=== PATIENT | male | born 1945 | race Asian ===

== ENCOUNTER → 2016-05-05 | Outpatient (CLI) | payer OTHER | LOC: FIMAGING 14:54 | PROVIDERS: ATTEND Orthopaedic Surgery | DX: Z01.818 Encounter for other preprocedural examination (principal); M16.0 Bilateral primary osteoarthritis of hip ==

== ENCOUNTER 2016-05-29 07:33 | Inpatient (IN) | payer OTHER ==
[2016-05-05 15:48] LABS: ADD DIFF? YES; ADD MORPH? NO; ATYPICAL LYMPHOCYTE FLAG 60 (0-99); FRAGMENT RBC FLAG 0 (0-99); HEMATOCRIT 40.6 % (40.0-51.0); HEMOGLOBIN 13.1 g/dL (13.7-17.5); LIPEMIA HEMOLYSIS FLAG 80 (0-99); MEAN CELL HEMOGLOBIN 29.2 pg (27.9-34.1); MEAN CELL HEMOGLOBIN CONCENTR. 32.3 g/dL (32.4-36.7); MEAN CELL VOLUME 90.4 fL (81.5-99.8); MEAN PLATELET VOLUME 10.1 fL (8.7-11.7); PLATELET CLUMPS FLAG 0 (0-99); PLATELET COUNT 171 10^3/uL (150-400); RED BLOOD CELL COUNT 4.49 10^6/uL (4.40-6.38); RED CELL DISTRIBUTION WIDTH 14.6 % (11.5-15.2)
[2016-05-05 15:51] LABS: ADD SCAN? NO; LEFT SHIFT FLG 140 (0-99)
[2016-05-05 16:15] LABS: PLATELET ESTIMATE ADEQUATE (ADEQ)
[2016-05-05 16:18] LABS: MICROCYTES 1+
[2016-05-05 16:22] LABS: GIANT PLATELETS PRESENT
[~2016-05-29 07:33] MED LIST: ACETAMINOPHEN 325 MG TAB PO ONE; BISACODYL 10 MG SUPP PR PRN; CEFAZOLIN 2 GM/DEXTR 100 ML IV ONE; CHLORHEXIDINE GLUC HIBICLENS 118 ML BTL TP ONE; CYCLOBENZAPRINE 10 MG TAB PO PRN; DIAZEPAM 5 MG TAB PO PRN; DIPHENOXYLATE/ATROPINE LOMOTIL 1 TAB PO PRN; FAMOTIDINE 20 MG TAB PO ONE; LACTULOSE 20 GM/30 ML UDCUP PO PRN; LR 1,000 ML IV SCH; MAGNESIUM HYDROXIDE 30 ML UDCUP PO PRN; METOCLOPRAMIDE 10 MG/2 ML VIAL IVP PRN; ONDANSETRON 4 MG/2 ML VIAL IVP PRN; ONDANSETRON DISINTEGRATING 4 MG TAB PO PRN; PHARMACY PAIN CONSULT 1 EA MISC PRN; POLYETHYLENE GLYCOL 3350 17 GM PKT PO PRN; PROMETHAZINE HCL 25 MG SUPPR PR PRN; ROPI/epiNEPH/KETOROLAC/morphINE JOINT COCKTAIL IU ONE; diphenhydrAMINE 25 MG CAP PO PRN
[2016-05-29] MEDS ORDERED: LIDOCAINE 1% 2 ML INJ ONE (08:02)
[2016-05-29] MEDS ORDERED: PROPOFOL/EMULSION 500 MG/50 ML BOTTLE IV ONE (08:59)
[2016-05-29] MEDS ORDERED: fentaNYL 100 MCG/2 ML INJ ONE (08:59)
[2016-05-29] MEDS ORDERED: FAMOTIDINE 20 MG TAB ONE (09:10)
[2016-05-29] MEDS ORDERED: ACETAMINOPHEN 325 MG TAB ONE (09:10)
[2016-05-29] MEDS ORDERED: ceFAZolin 1 GM/5 ML SYR ONE (09:45)
[2016-05-29] MEDS ORDERED: CITRATE DEXTROSE SOLN 500 ML BAG ONE (09:45)
[2016-05-29] MEDS ORDERED: MIDAZOLAM 2 MG/2 ML VIAL ONE (10:33)
[2016-05-29] MEDS ORDERED: LR 1,000 ML IV ONE (10:39)
[2016-05-29] MEDS ORDERED: LIDOCAINE 1% 5 ML SDV ID PRN (10:39)
[2016-05-29] MEDS ORDERED: DEXAMETHASONE 4 MG/ML VIAL ONE (10:46)
[2016-05-29] MEDS ORDERED: LIDOCAINE 2% 5 ML SDV ONE (10:46)
[2016-05-29] MEDS ORDERED: PHENYLEPHRINE HCL 100 MCG/ML SYR ONE (11:47)
[2016-05-29] MEDS ORDERED: ceFAZolin 2 GM/DEXTROSE 100 ML IV SCH (14:00)
[2016-05-29] MEDS: ACETAMINOPHEN 325 MG TAB PO SCH ×3 (14:09→23:41)
[2016-05-29] MEDS: NIACIN 500 MG TAB PO SCH (14:11)
[2016-05-29] MEDS: OMEGA-3 FATTY ACIDS 1,000 MG CAP PO SCH (14:12)
[2016-05-29] MEDS: SENNOSIDES/DOCUSATE SODIUM TAB PO SCH ×2 (14:13→22:23)
--- NOTE | 2016-05-29 15:20 | CPEKG ---
Heart Rate: 65 RR Interval: 923 P-R Interval: 148 QRSD Interval: 92 QT Interval: 464 QTC Interval: 483 P [place]: 71 QRS [place]: 89 T Wave [place]: 84 EKG Severity - BORDERLINE ECG - EKG Impression: SINUS RHYTHM EKG Impression: BORDERLINE RIGHT AXIS DEVIATION EKG Impression: BORDERLINE PROLONGED QT INTERVAL Electronically Signed By: Ayush Medellin 30-May-2016 12:44:32
[2016-05-29 15:46] LABS: HEMATOCRIT 35.2 % (40.0-51.0)
[2016-05-29 16:00] LABS: ALANINE AMINOTRANSFERASE 30 IU/L (21-72); ALBUMIN 3.5 g/dL (3.5-5.0); ALKALINE PHOSPHATASE 32 IU/L (38-126); ANION GAP 8 mEq/L (8-16); ASPARTATE AMINOTRANSFERASE 26 IU/L (17-59); BILIRUBIN,TOTAL 0.5 mg/dL (0.1-1.4); CALCIUM 8.2 mg/dL (8.5-10.4); CARBON DIOXIDE 24 mEq/l (22-31); CHLORIDE 107 mEq/L (97-110); CREATININE 0.8 mg/dL (0.7-1.3); GLOMERULAR FILTRATION RATE > 60; GLUCOSE 143 mg/dL (70-100); POTASSIUM 4.6 mEq/L (3.5-5.2); SODIUM 139 mEq/L (134-144)
[2016-05-29 16:11] LABS: TROPONIN I < 0.012 ng/mL (0-0.034)
[2016-05-29] MEDS: ceFAZolin 2 GM/DEXTROSE 100 ML IV SCH (17:22)
--- NOTE | 2016-05-29 17:58 | CPEKG ---
Heart Rate: 73 RR Interval: 822 P-R Interval: 156 QRSD Interval: 90 QT Interval: 456 QTC Interval: 503 P [place]: 75 QRS [place]: 87 T Wave [place]: 73 EKG Severity - ABNORMAL ECG - EKG Impression: SINUS RHYTHM EKG Impression: BORDERLINE RIGHT AXIS DEVIATION EKG Impression: PROLONGED QT INTERVAL Electronically Signed By: Ayush Medellin 30-May-2016 12:44:39
--- NOTE | 2016-05-29 18:00 | HOSPPROG ---
Hospitalist Progress Note Assessment/Plan: CRITICAL CARE NOTE / ICU TRANSFER Total bedside time by me today during 3 critical Care visits greater than 75 minutes so far Callled to see pt for recurrence of hypotesion and bradycardia Pt seen earlier for stat team call for same issues Here after TKA At this time he has 855 ml blood in orthopat since he came to [address] [place] [address] after PACU Blood loss in OR was > 300 cc, and in PACU > 300 He has now another episode of Pulse in low 40s with BP 47/32 checked both arms He does no mention an ache in low anterior Left chest area, not pleuritic Not sob, no nausea no abdominal pain no fever sxs exam: awake talking oriented relaxed resps easy skin cool dry pale lungs clear heart regular abd soft nontender nondistended legs no edema blood in orthopat Chest x-ray done just now my review of the images and interpretation: No infiltrates or effusions widening of mediastinum abnormality of cardiac silhouette heart failure infiltrates or other abnormalities. No pneumothorax 12 lead EKG done just now, my review of 12 lead EKG tracing: Sinus rhythm with no ischemic or conduction abnormalities or any other particularly concerning changes. We did just do a bladder scan now showing only 79 cc of urine despite him receiving around 3 0.5 L of fluid total since leaving the operating room. Impression: Recurrent profound hypotension of uncertain etiology, but I strongly suggest this is hypovolemia associated with anesthesia FX. I could not at this moment rule out a PE and waiting for repeat troponin but is EKGs normally does not have heart failure or arrhythmia. Ent differential diagnosis could include aneurysm. His aorta looks normal on chest x-ray. Treatment in plans: So far we continued to give fluid boluses in use Trendelenburg and he is responding well to these. I have pending CBC troponin and met panels at this time. I will consider possibly a CT chest. Will continue to use fluid boluses for this time. I am transferring him to ICU at this time Objective: Vital Signs Temp Pulse Resp BP Pulse Ox 35.8 C L 78 16 111/76 100 05/29/16 15:45 05/29/16 15:45 05/29/16 14:36 05/29/16 14:36 05/29/16 15:45 Laboratory Results 05/29/16 15:18 05/29/16 15:18 05/28/16 05/29/16 05/30/16 06:59 06:59 06:59 Intake Total 1400 Output Total 320 Balance 1080 ICD10 Worksheet Patient Problems: Problems Problem Status Onset Arthritis, hip Acute
[2016-05-29 18:09] LABS: ADD DIFF? YES; ADD MORPH? NO; ATYPICAL LYMPHOCYTE FLAG 10 (0-99); FRAGMENT RBC FLAG 0 (0-99); HEMATOCRIT 27.3 % (40.0-51.0); HEMOGLOBIN 8.5 g/dL (13.7-17.5); LIPEMIA HEMOLYSIS FLAG 80 (0-99); MEAN CELL HEMOGLOBIN 28.4 pg (27.9-34.1); MEAN CELL HEMOGLOBIN CONCENTR. 31.1 g/dL (32.4-36.7); MEAN CELL VOLUME 91.3 fL (81.5-99.8); MEAN PLATELET VOLUME 9.8 fL (8.7-11.7); PLATELET CLUMPS FLAG 10 (0-99); PLATELET COUNT 144 10^3/uL (150-400); RED BLOOD CELL COUNT 2.99 10^6/uL (4.40-6.38); RED CELL DISTRIBUTION WIDTH 15.1 % (11.5-15.2)
[2016-05-29 18:14] LABS: ADD SCAN? NO; LEFT SHIFT FLG 120 (0-99)
[2016-05-29 18:29] LABS: TROPONIN I < 0.012 ng/mL (0-0.034)
[2016-05-29 18:46] LABS: ANION GAP 9 mEq/L (8-16); CALCIUM 6.9 mg/dL (8.5-10.4); CARBON DIOXIDE 20 mEq/l (22-31); CHLORIDE 101 mEq/L (97-110); CREATININE 0.7 mg/dL (0.7-1.3); GLOMERULAR FILTRATION RATE > 60; GLUCOSE 454 mg/dL (70-100); POTASSIUM 3.9 mEq/L (3.5-5.2); SODIUM 130 mEq/L (134-144)
[2016-05-29 19:07] LABS: PLATELET ESTIMATE DECREASED (ADEQ)
[2016-05-29] MEDS ORDERED: NS BOLUS 500 ML (Wide open) IV PRN (19:23)
[2016-05-29] MEDS: ROSUVASTATIN CALCIUM 10 MG TAB PO SCH (19:26)
[2016-05-29 20:38] LABS: ABSOLUTE NRBC COUNT 0.03 10^3/uL (0-0.01); ADD DIFF? YES; ADD MORPH? NO; ATYPICAL LYMPHOCYTE FLAG 10 (0-99); FRAGMENT RBC FLAG 0 (0-99); HEMATOCRIT 28.5 % (40.0-51.0); HEMOGLOBIN 8.9 g/dL (13.7-17.5); LIPEMIA HEMOLYSIS FLAG 80 (0-99); MEAN CELL HEMOGLOBIN 29.1 pg (27.9-34.1); MEAN CELL HEMOGLOBIN CONCENTR. 31.2 g/dL (32.4-36.7); MEAN CELL VOLUME 93.1 fL (81.5-99.8); MEAN PLATELET VOLUME 10.4 fL (8.7-11.7); NRBC-AUTO% 0.1 % (0.0-0.2); PLATELET CLUMPS FLAG 0 (0-99); PLATELET COUNT 135 10^3/uL (150-400); RED BLOOD CELL COUNT 3.06 10^6/uL (4.40-6.38); RED CELL DISTRIBUTION WIDTH 15.1 % (11.5-15.2)
[2016-05-29 20:43] LABS: ANION GAP 7 mEq/L (8-16); CALCIUM 6.9 mg/dL (8.5-10.4); CARBON DIOXIDE 19 mEq/l (22-31); CHLORIDE 112 mEq/L (97-110); CREATININE 0.7 mg/dL (0.7-1.3); GLOMERULAR FILTRATION RATE > 60; GLUCOSE 138 mg/dL (70-100); SODIUM 138 mEq/L (134-144)
[2016-05-29 20:50] LABS: ADD SCAN? NO; LEFT SHIFT FLG 110 (0-99)
[2016-05-29] MEDS: FAMOTIDINE 20 MG TAB PO SCH (21:23)
[2016-05-29] MEDS: CHOLECALCIFEROL VIT D3 1,000 UNITS TAB PO SCH (21:23)
[2016-05-29] MEDS: ASPIRIN 325 MG TAB PO SCH (21:23)
[2016-05-29] MEDS: oxyCODONE IR 5 MG TAB PO PRN ×2 (21:23→22:23)
[2016-05-29] MEDS: PENTOXIFYLLINE 400 MG EXT REL TAB PO SCH (21:43)
--- NOTE | 2016-05-29 21:51 | GCON ---
[f rep st] CONSULTATION DATE OF CONSULTATION: 05/29/2016 REFERRING PHYSICIAN: Steve Minaya MD REASON FOR CONSULTATION: Syncope, hypotension. HISTORY OF PRESENT ILLNESS: The patient is a 71-year-old male with a history of hyperlipidemia and granuloma annulare, who underwent elective right JEANETTE today. The patient arrived back to [address] [place] [address] out of the PACU and suddenly lost consciousness per RN. She said it took approximately 30 seconds to awaken him with sternal rub. At time of my arrival, systolic blood pressure was less than 70. Patient was conversant and alert and oriented x3 at that time. He was complaining of mild chest pressure, right-sided. He denied any associated radiation diaphoresis, mild nausea, no sweats. He lost approximately 300 cc of blood in the operating room, and then 500 cc since then. At the time of my arrival, he was getting this blood transfused back per protocol. I was told that patient had nonsustained SVT briefly in the OR. Unclear how long and how fast the heart rate was going. REVIEW OF SYSTEMS: I completed a 10-point review of systems, which was negative , except as noted in the HPI. PAST MEDICAL HISTORY: 1. Hyperlipidemia. 2. Granuloma annulare. PAST SURGICAL HISTORY: Tib-fib fracture repair. ALLERGIES: No known drug allergies. SOCIAL HISTORY: Lives with his in [facility]. Drinks a double martini daily. No tobacco or illicit drugs. Has 3 children. FAMILY HISTORY: Father with stroke x2. Mother of lung cancer. ALLERGIES: Tacrolimus. HOME MEDICATIONS: Tylenol as needed, Revatio 20 mg p.r.n., Crestor 10 mg daily , omega-3 1000 mg daily, naproxen 220 p.o. daily, aspirin 81 mg daily, niacin 500 mg daily, vitamin D3, Trental 800 mg b.i.d. PHYSICAL EXAM: VITAL SIGNS: Temperature 35.7, blood pressure 68/50s, heart rate 60s, respiration 14, 100% on 2 L. GENERAL: Patient is pale, but conversant and alert. HEENT: PERRLA, EOMI. Oropharynx is clear. CV: Regular. No murmurs, gallops, or rubs. LUNGS: Clear to auscultation anteriorly. ABDOMEN: Soft, nontender, nondistended. Positive bowel sounds. : No Miguel. MUSCULOSKELETAL: Drain in place with approximately 550 cc of blood. NEURO: Cranial nerves II through XII intact. PSYCH: Alert and oriented x3. LABS: Most recent H and H was 13 and 40, and this was May 05, 2016. EKG personally reviewed by me: Normal sinus rhythm, no ST elevation or depression. ASSESSMENT AND PLAN: 1. Syncope: Suspect secondary to acute blood loss anemia and hypotension. Lost over 800 cc of blood pre/post-op. Blood now being transfused back through the Ortho[facility] per protocol. IVF bolus now with improved SBP> 100. Checking stat labs, EKG 2. Chest discomfort: No history of coronary artery disease or family history. He normally exercises daily with swimming without chest pain or shortness of breath. Trop and EKG pending 3. Hypotension. Suspect due to acute blood loss anemia. Transfusing and IV fluids as stated above. 4. Right total hip replacement: per Dr. Minaya. 5. Granuloma annulare:on pentoxifylline at home and has been off this medication for 7 days. 6. Diet: Regular. 7. Deep venous thrombosis: SCDs given acute blood loss anemia. 8. Disp: if does not maintain BP, will transfer to ICU. DISPOSITION: We will follow along during his hospitalization. Please call if any questions. /[id number]/MODL MTDD
[2016-05-29 21:54] LABS: PLATELET ESTIMATE DECREASED (ADEQ)
[2016-05-29 21:55] LABS: MICROCYTES 1+
[2016-05-29] MEDS: TEMAZEPAM 15 MG CAP PO PRN (22:23)
[2016-05-30] MEDS: ceFAZolin 2 GM/DEXTROSE 100 ML IV SCH (00:34)
[2016-05-30] MEDS: oxyCODONE IR 5 MG TAB PO PRN ×6 (01:36→22:10)
[2016-05-30] MEDS: ACETAMINOPHEN 325 MG TAB PO SCH ×4 (05:08→22:10)
[2016-05-30 05:54] LABS: HEMATOCRIT 24.2 % (40.0-51.0); HEMOGLOBIN 7.4 g/dL (13.7-17.5); MEAN CELL HEMOGLOBIN 28.6 pg (27.9-34.1); MEAN CELL HEMOGLOBIN CONCENTR. 30.6 g/dL (32.4-36.7); MEAN CELL VOLUME 93.4 fL (81.5-99.8); RED BLOOD CELL COUNT 2.59 10^6/uL (4.40-6.38); RED CELL DISTRIBUTION WIDTH 15.1 % (11.5-15.2)
--- NOTE | 2016-05-30 08:14 | PDIAF ---
- Diagnosis Diagnosis: right hip djd Code Status: Full Code - Medication Management Discharge Medications: Medications to Continue on Transfer Cholecalciferol (Vitamin D3) [Vitamin D3] 5,000 unit PO HS 08/16/14 [Last Taken 05/22/16] Pentoxifylline [TRENTAL 400mg (*)] 800 mg PO BID 08/16/14 [Last Taken 05/22/16] Rosuvastatin Calcium [Crestor 10mg (RX)] 10 mg PO DAILY 08/16/14 [Last Taken 05/05] Sildenafil Citrate [Revatio 20 MG (*)] 60 - 100 mg PO DAILY PRN 08/16/14 [Last Taken 05/28/16] Aspirin EC [Aspirin EC 81 mg (*)] 81 mg PO HS 05/01/16 [Last Taken 05/22/16] Naproxen Sodium [Aleve 220 MG (*)] 220 mg PO DAILY 05/01/16 [Last Taken 05/22/16 ] Niacinamide [Niacin] 500 mg PO DAILY 05/01/16 [Last Taken 05/22/16] [place]-3 Fatty Acids [Fish Oil 1000 mg (*)] 1,000 mg PO DAILY 05/01/16 [Last Taken 05/22/16] Acetaminophen [Tylenol 325mg (*)] 325 mg PO DAILY PRN 05/29/16 [Last Taken 05/28] Discharge Medications: Refer to the Discharge Home Medication list for PRN reason. - Orders Services needed: Physical Therapy Diet Recommendation: no restrictions on diet Diet Texture: Regular Texture Diet Activity/Weight Bearing Restrictions: wbat. anterior hip precautions. daily dressing changes #. may shower without bandage. no soaking. wei hose x 2 weeks. seek attn for increasing pain, redness, drainage or other focal complaint. f/u at two weeks - Follow Up Care Current Providers and Referrals: MARINA BARNETT [Primary Care Provider] -
--- NOTE | 2016-05-30 08:38 | SOAPPROG ---
SOAP Progress Note Assessment/Plan: Assessment: s/p right quinn bradycardia and low bp Plan: will transfuse 1 unit prbc may mobilize to patients tolerance dvt precautions with aspirin may transfer to floor at hospitalists disgression 05/30/16 08:35 Subjective: groggy not nauseated no cp or sob Objective: Vital Signs Temp Pulse Resp BP Pulse Ox 36.8 C 112 H 14 83/46 L 91 L 05/30/16 04:00 05/30/16 07:00 05/30/16 07:00 05/30/16 07:00 05/30/16 07:00 Laboratory Results 05/30/16 05:15 05/29/16 20:25 05/29/16 05/30/16 05/31/16 05:59 05:59 05:59 Intake Total 7055 Output Total 1770 Balance 5285 dressing intact intact pf,df,ehl toes warm and pink intact pf,df,ehl neg homans tisha lower ext xrays stable anatomic alignment ICD10 Worksheet Patient Problems: Problems Problem Status Onset Arthritis, hip Acute - ICD10 Problem Qualifiers (1) Arthritis, hip
[2016-05-30] MEDS: ROSUVASTATIN CALCIUM 10 MG TAB PO SCH (08:48)
[2016-05-30] MEDS: ASPIRIN 325 MG TAB PO SCH (08:48)
[2016-05-30] MEDS: OMEGA-3 FATTY ACIDS 1,000 MG CAP PO SCH (08:49)
[2016-05-30] MEDS: SENNOSIDES/DOCUSATE SODIUM TAB PO SCH ×2 (08:49→21:34)
[2016-05-30] MEDS: FAMOTIDINE 20 MG TAB PO SCH ×2 (08:49→21:34)
[2016-05-30] MEDS: PENTOXIFYLLINE 400 MG EXT REL TAB PO SCH ×2 (08:50→21:34)
[2016-05-30] MEDS: NIACIN 500 MG TAB PO SCH (08:57)
--- NOTE | 2016-05-30 09:00 | HOSPPROG ---
Hospitalist Progress Note Assessment/Plan: #Acute blood loss anemia: transfusing 1 unit today #Syncope: due to above. Trops and EKG negative for ischemia #Tachycardia: suspect to due volume depletion #Hypotension: acute due to blood loss #Diet: regular #Disp: warrants inpt admission with anemia, blood transfusion Subjective: dizzy this morning. No CP or SOB Objective: Vital Signs Temp Pulse Resp BP Pulse Ox 36.8 C 112 H 14 83/46 L 91 L 05/30/16 04:00 05/30/16 07:00 05/30/16 07:00 05/30/16 07:00 05/30/16 07:00 Laboratory Results 05/30/16 05:15 05/29/16 20:25 05/29/16 05/30/16 05/31/16 05:59 05:59 05:59 Intake Total 7055 Output Total 1770 Balance 5285 - Physical Exam Constitutional: no apparent distress Eyes: PERRL Ears, Nose, Mouth, Throat: moist mucous membranes Cardiovascular: regular rate and rhythym, tachycardia Respiratory: no respiratory distress Gastrointestinal: normoactive bowel sounds Genitourinary: no bladder fullness Skin: warm Musculoskeletal: other (right hip surgical incision dressed. C/D/I) Neurologic: AAOx3 Psychiatric: interacting appropriately ICD10 Worksheet Patient Problems: Problems Problem Status Onset Arthritis, hip Acute
[2016-05-30 12:15] LABS: HEMATOCRIT 29.2 % (40.0-51.0); HEMOGLOBIN 9.3 g/dL (13.7-17.5); MEAN CELL HEMOGLOBIN 28.2 pg (27.9-34.1); MEAN CELL HEMOGLOBIN CONCENTR. 31.8 g/dL (32.4-36.7); MEAN CELL VOLUME 88.5 fL (81.5-99.8); RED BLOOD CELL COUNT 3.3 10^6/uL (4.40-6.38); RED CELL DISTRIBUTION WIDTH 17.6 % (11.5-15.2)
[2016-05-30 13:45] LABS: COLOR YELLOW; LEUKOCYTE ESTERASE,URINE NEGATIVE (NEGATIVE); NITRITE,URINE NEGATIVE (NEGATIVE)
[2016-05-30 13:50] LABS: MUCUS TRACE /lpf (NONE-1+)
[2016-05-30 13:51] LABS: BACTERIA NONE SEEN /hpf (NONE SEEN)
--- NOTE | 2016-05-30 14:15 | SOAPPROG ---
SOAP Progress Note Assessment/Plan: Addendum: Reevaluated patient again this afternoon. Denies cough, N/V/D. No chest pain. No sore throat. No chest pain. Mild dizziness A&P: 1. Persistent hypotension -despite IVFs, 1 unit RBC. EKG and troponin negative for ischemia -given tachycardia, check CTA to r/o PE 2. Leukocytosis -WBC 38. Afebrile. Denies any infectious symptoms -consider stress reaction with surgery, but seems wouldn't expect to be that high -spoke with his PCP, Dr. Brain Vincent: states he is supposed to see a natural sciences manager this month for leukocytosis (per his report highest was 14 this month) 3. Tachycardia: r/o PE with CT. 05/30/16 14:11 05/30/16 14:17 05/30/16 20:01 Objective: Vital Signs Temp Pulse Resp BP Pulse Ox 36.8 C 106 H 19 94/57 L 96 05/30/16 11:58 05/30/16 13:00 05/30/16 13:00 05/30/16 13:00 05/30/16 13:00 Laboratory Results 05/30/16 12:10 05/29/16 20:25 05/29/16 05/30/16 05/31/16 05:59 05:59 05:59 Intake Total 7040 1075 Output Total 2269 500 Balance 5285 575 ICD10 Worksheet Patient Problems: Problems Problem Status Onset Arthritis, hip Acute
[2016-05-30] MEDS ORDERED: IOPAMIDOL (ISOVUE 370) 100 ML BTL IV ONE (14:51)
--- NOTE | 2016-05-30 15:04 | GCON ---
[f rep st] CONSULTATION UPPER CUTTER MACHINE CONSULTATION HISTORY OF PRESENT ILLNESS: Patient examined postoperatively after receiving a right total hip arth roplasty today. He was eventually admitted to the floor and [facility] for hypotension. The patient was completely asymptomatic. Since admission to the intensive care unit, he has been given adequate hydration as well as transfusion of blood. He appar ently lost 300 cc of blood in the operating room. Currently, patient is up in the chair. He remain s hypotensive for unknown reasons at this time. He is resting comfortably. He has a good appetite. There is no nausea, vomiting, or diarrhea. Denies any cough or production of sputum. There was n o chest pain, pleuritic-type chest pain or angina equivalent. There is no dysuria. PAST MEDICAL HISTORY: Significant for hyperlipidemia and granuloma annulare. PAST SURGICAL HISTORY: He had a recent total hip as well as a tib-fib repair in the past. SOCIAL HISTORY: He has a 20+ pack year smoking history, quit in 1984. He drinks a double [employer]. 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 He is . His is at the bedside. Parish goodman has excellent family support. He lived in [place] for many years and is originally from the [facility]. ALLERGIES: Tacrolimus. MEDICATIONS AT HOME: Crestor, omega-3, naproxen, aspirin, niacin, vitamin D3, Trental, rosuvastatin . PHYSICAL EXAM: VITAL SIGNS: Blood pressure 91/58, pulse 110, respiration 18, temperature 36.8, oxy gen saturation 95% on room air. GENERAL: He is a well-developed, well-nourished, 71-year-old male, who is resting comfortably in no acute distress. HEENT: Eyes are LAURA, EOMI. Throat shows no pearl thema or tonsillar hypertrophy. NECK: Supple. No cervical adenopathy. HEART: Regular rate and r hythm without murmurs, rubs, or gallops. LUNGS: Clear to auscultation. No wheeze or rhonchi. ABD OMEN: Soft, nontender. Bowel sounds are present in all 4 quadrants. EXTREMITIES: No clubbing, cy anosis, or edema. LABORATORIES: White count is 38.93, hemoglobin 9.3, hematocrit 29, platelet count is 163. There is a left shift on previous CBC. Sodium 138, potassium 4.0, chloride 112, CO2 of 19, BUN is 15, creat inine 0.7, glucose 138. Urinalysis is negative. Chest x-ray is clear. IMPRESSION: 1. Status post total hip. 2. Hypotension, etiology of which is unclear at this time. Does not appear to be affected. Must t trenton into consideration possible pulmonary embolism, though he is not currently having any pulmonary symptoms. 3. Elevated white count with left shift. This is a dramatic increase from his admission CBC. Uncl ear cause at this time. 4. History of hypercholesterolemia. 5. Tachycardia. RECOMMENDATIONS: 1. Agree with cultures. 2. Will check a lactate level. 3. We will check a CT angio of the chest per PE protocol. 4. Close cardiovascular monitoring. 5. DVT and PE prophylaxis. 6. Stress ulcer prophylaxis. Thank you very much. /[id number]/MODL
[2016-05-30 16:57] LABS: ALBUMIN 2.9 g/dL (3.5-5.0); BILIRUBIN,TOTAL 0.7 mg/dL (0.1-1.4); BILIRUBIN-CONJUGATED 0.3 mg/dL (0.0-0.5); BILIRUBIN-UNCONJUGATED 0.4 mg/dL (0.0-1.1); TOTAL PROTEIN 5.3 g/dL (6.3-8.2)
[2016-05-30] MEDS: CHOLECALCIFEROL VIT D3 1,000 UNITS TAB PO SCH (21:34)
[2016-05-31] MEDS: oxyCODONE IR 5 MG TAB PO PRN (00:16)
[2016-05-31] MEDS: ACETAMINOPHEN 325 MG TAB PO SCH ×4 (06:01→22:45)
[2016-05-31 06:18] LABS: ADD DIFF? YES; ADD MORPH? NO; ATYPICAL LYMPHOCYTE FLAG 0 (0-99); FRAGMENT RBC FLAG 0 (0-99); HEMATOCRIT 27.1 % (40.0-51.0); HEMOGLOBIN 8.6 g/dL (13.7-17.5); LIPEMIA HEMOLYSIS FLAG 80 (0-99); MEAN CELL HEMOGLOBIN 27.5 pg (27.9-34.1); MEAN CELL HEMOGLOBIN CONCENTR. 31.7 g/dL (32.4-36.7); MEAN CELL VOLUME 86.6 fL (81.5-99.8); MEAN PLATELET VOLUME 10.6 fL (8.7-11.7); PLATELET CLUMPS FLAG 10 (0-99); PLATELET COUNT 121 10^3/uL (150-400); RED BLOOD CELL COUNT 3.13 10^6/uL (4.40-6.38); RED CELL DISTRIBUTION WIDTH 18.8 % (11.5-15.2)
[2016-05-31 06:24] LABS: LEFT SHIFT FLG 110 (0-99)
[2016-05-31 06:54] LABS: ANION GAP 7 mEq/L (8-16); CALCIUM 7.9 mg/dL (8.5-10.4); CARBON DIOXIDE 23 mEq/l (22-31); CHLORIDE 108 mEq/L (97-110); CREATININE 0.7 mg/dL (0.7-1.3); GLOMERULAR FILTRATION RATE > 60; GLUCOSE 122 mg/dL (70-100); POTASSIUM 3.9 mEq/L (3.5-5.2); SODIUM 138 mEq/L (134-144)
--- NOTE | 2016-05-31 07:11 | SOAPPROG ---
SOAP Progress Note Assessment/Plan: Assessment: s/p right quinn bradycardia and low bp Plan transfused 1 unit prbc yest, hct with appropriate elevation may mobilize to patients tolerance if cleared medically dvt precautions with aspirin may transfer to floor at hospitalists disgression if cleared for pt, and clears pt, june d/c home 05/30/16 08:35 05/31/16 07:09 Subjective: slight fever overnight no cp no sob no dizzy spells Objective: Vital Signs Temp Pulse Resp BP Pulse Ox 37.3 C 113 H 14 110/37 L 91 L 05/31/16 06:00 05/31/16 06:00 05/31/16 06:00 05/31/16 06:00 05/31/16 06:00 Laboratory Results 05/31/16 06:05 05/31/16 06:05 05/30/16 05/31/16 06/01/16 05:59 05:59 05:59 Intake Total 7055 3602 Output Total 1770 2450 Balance 5285 1152 dressing intact mild swelling no calf swelling or ttp intact pf,df,ehl tisha ICD10 Worksheet Patient Problems: Problems Problem Status Onset Arthritis, hip Acute - ICD10 Problem Qualifiers (1) Arthritis, hip
[2016-05-31 07:49] LABS: PLATELET ESTIMATE DECREASED (ADEQ)
[2016-05-31 07:52] LABS: ADD SCAN? YES
--- NOTE | 2016-05-31 08:48 | HOSPPROG ---
Hospitalist Progress Note Assessment/Plan: # Persistent hypotension -resolved with IVF and 1 unit blood transfusion -EKG and troponin negative for ischemia. CTA negative for PE #Fever: 38.2 overnight, infectious eval still negative. Negative CTA # Leukocytosis -now 31 from 38. Afebrile. Denies any infectious symptoms. Surgical site clean -consider stress reaction with surgery, but seems wouldn't expect to be that high -UA, CXR negative for infection -spoke with his PCP, Dr. Brain Vincent: states he is supposed to see a steam room attendant this month for leukocytosis (per his report highest was 14 this month) # Tachycardia -BP improved. CTA negative #Deconditioning: PT at home #Diet: regular #DVT ppx: SCDs #Disp: warrants inpt admission with fever, cultures pending Subjective: denies N/V/D. No cough Objective: Vital Signs Temp Pulse Resp BP Pulse Ox 37.3 C 113 H 14 110/37 L 91 L 05/31/16 06:00 05/31/16 06:00 05/31/16 06:00 05/31/16 06:00 05/31/16 06:00 Laboratory Results 05/31/16 06:05 05/31/16 06:05 05/30/16 05/31/16 06/01/16 05:59 05:59 05:59 Intake Total 7055 3602 Output Total 1770 2450 Balance 5285 1152 - Physical Exam Constitutional: no apparent distress Eyes: PERRL Ears, Nose, Mouth, Throat: moist mucous membranes Cardiovascular: regular rate and rhythym, no murmur, rub, or gallop Respiratory: no respiratory distress, no rales or rhonchi Gastrointestinal: normoactive bowel sounds, soft, non-tender abdomen Genitourinary: no bladder fullness Musculoskeletal: full muscle strength, other (right hip surgical site stapled, C /D/I) Neurologic: AAOx3, CN II-XII Intact Psychiatric: interacting appropriately ICD10 Worksheet Patient Problems: Problems Problem Status Onset Arthritis, hip Acute
[2016-05-31] MEDS: ROSUVASTATIN CALCIUM 10 MG TAB PO SCH (09:05)
[2016-05-31] MEDS: SENNOSIDES/DOCUSATE SODIUM TAB PO SCH ×2 (09:05→22:28)
[2016-05-31] MEDS: PENTOXIFYLLINE 400 MG EXT REL TAB PO SCH ×2 (09:05→20:51)
[2016-05-31] MEDS: ASPIRIN 325 MG TAB PO SCH (09:06)
[2016-05-31] MEDS: OMEGA-3 FATTY ACIDS 1,000 MG CAP PO SCH (09:06)
[2016-05-31] MEDS: FAMOTIDINE 20 MG TAB PO SCH ×2 (09:06→20:50)
[2016-05-31] MEDS: NIACIN 500 MG TAB PO SCH (09:07)
--- NOTE | 2016-05-31 09:22 | PDINTPN ---
Child Specialist Progress Note Assessment/Plan: Assessment: * Status post total right hip replacement * Low-grade fevers-no clear source at this time. Consider atelectasis as an issue * Hypotension Plan: Okay for transfer to floor Subjective: Patient is sitting up been eating. Pain is well controlled. He wishes to be transferred out of the intensive care unit. Objective: Vital Signs Temp Pulse Resp BP Pulse Ox 37.1 C 110 H 17 121/64 H 94 05/31/16 08:00 05/31/16 08:00 05/31/16 08:00 05/31/16 08:00 05/31/16 08:00 Laboratory Results 05/31/16 06:05 05/31/16 06:05 05/30/16 05/31/16 06/01/16 05:59 05:59 05:59 Intake Total 7055 3602 Output Total 1770 2450 Balance 5285 1152 Laboratory Results 05/31/16 06:05 05/31/16 06:05 05/30/16 13:20 Urine Color YELLOW Urine Appearance CLEAR Urine pH 5.0 (5.0 - 7.5) Ur Specific Martin 1.013 (1.002 - 1.030) Urine Protein NEGATIVE Urine Ketones NEGATIVE Urine Blood 2+ H Urine Nitrate NEGATIVE Urine Bilirubin NEGATIVE Urine Urobilinogen NEGATIVE EU EU Ur Leukocyte Esterase NEGATIVE Urine RBC 1-3 /hpf /hpf Urine WBC 1-3 /hpf /hpf Ur Epithelial Cells TRACE /lpf /lpf Urine Bacteria NONE SEEN /hpf /hpf Urine Mucus TRACE /lpf /lpf Urine Glucose NEGATIVE Physical Exam - Physical Exam General Appearance: alert, no apparent distress EENT: PERRL/EOMI, normal ENT inspection, pharynx normal, TMs normal Neck: non-tender, full range of motion, supple, normal inspection Respiratory: chest non-tender, lungs clear, normal breath sounds Cardiac/Chest: normal peripheral pulses, regular rate, rhythm Peripheral Pulses: 2+: carotid (R), carotid (L), femoral (R), femoral (L), dorsalis-pedis (R), dorsalis-pedis (L) Abdomen: normal bowel sounds, non-tender, soft Male Genitalia: deferred Rectal: deferred Skin: normal color, warm/dry ICD10 Worksheet Patient Problems: Problems Problem Status Onset Arthritis, hip Acute
[2016-05-31] MEDS ORDERED: NS 1,000 ML IV SCH (15:30)
[2016-05-31] MEDS: CHOLECALCIFEROL VIT D3 1,000 UNITS TAB PO SCH (20:50)
[2016-06-01] MEDS: TEMAZEPAM 15 MG CAP PO PRN (02:18)
[2016-06-01 05:06] LABS: ABSOLUTE NRBC COUNT 0.03 10^3/uL (0-0.01); ADD DIFF? YES; ADD MORPH? NO; ATYPICAL LYMPHOCYTE FLAG 0 (0-99); FRAGMENT RBC FLAG 0 (0-99); HEMATOCRIT 28.2 % (40.0-51.0); HEMOGLOBIN 8.7 g/dL (13.7-17.5); LIPEMIA HEMOLYSIS FLAG 80 (0-99); MEAN CELL HEMOGLOBIN 27.2 pg (27.9-34.1); MEAN CELL HEMOGLOBIN CONCENTR. 30.9 g/dL (32.4-36.7); MEAN CELL VOLUME 88.1 fL (81.5-99.8); MEAN PLATELET VOLUME 10.8 fL (8.7-11.7); NRBC-AUTO% 0.1 % (0.0-0.2); PLATELET CLUMPS FLAG 0 (0-99); PLATELET COUNT 118 10^3/uL (150-400); RED CELL DISTRIBUTION WIDTH 18.3 % (11.5-15.2)
[2016-06-01 05:16] LABS: ADD SCAN? NO; LEFT SHIFT FLG 130 (0-99)
[2016-06-01] MEDS: ACETAMINOPHEN 325 MG TAB PO SCH ×2 (06:02→11:51)
[2016-06-01 06:18] LABS: PLATELET ESTIMATE DECREASED (ADEQ); POLYCHROMASIA 1+; TOXIC GRANULATION PRESENT
[2016-06-01] MEDS: PENTOXIFYLLINE 400 MG EXT REL TAB PO SCH (08:21)
[2016-06-01] MEDS: NIACIN 500 MG TAB PO SCH (08:21)
[2016-06-01] MEDS: SENNOSIDES/DOCUSATE SODIUM TAB PO SCH (08:22)
[2016-06-01] MEDS: OMEGA-3 FATTY ACIDS 1,000 MG CAP PO SCH (08:22)
[2016-06-01] MEDS: FAMOTIDINE 20 MG TAB PO SCH (08:22)
[2016-06-01] MEDS: ASPIRIN 325 MG TAB PO SCH (08:22)
[2016-06-01] MEDS: ROSUVASTATIN CALCIUM 10 MG TAB PO SCH (08:22)
--- NOTE | 2016-06-01 12:19 | SOAPPROG ---
SOAP Progress Note Assessment/Plan: Assessment: s/p right quinn bradycardia and low bp Plan transfused 1 unit prbc yest, hct with appropriate elevation may mobilize to patients tolerance if cleared medically dvt precautions with aspirin may transfer to floor at hospitalists disgression if cleared for pt, and clears pt, may d/c home d./c once cleared medically 05/30/16 08:35 05/31/16 07:09 06/01/16 12:18 Subjective: wants to go home walking around well no cp or sob no dizziness urinating freq Objective: Vital Signs Temp Pulse Resp BP Pulse Ox 36.8 C 100 16 126/65 H 96 06/01/16 07:42 06/01/16 07:42 06/01/16 07:42 06/01/16 07:42 06/01/16 07:42 Laboratory Results 06/01/16 04:25 05/31/16 06:05 05/31/16 06/01/16 06/02/16 05:59 05:59 05:59 Intake Total 3602 250 400 Output Total 2450 1725 100 Balance 1152 -1475 300 dressing intact intact pf,df,ehl toes warm and pink neg homans bilatterally no calf pain bilaterally ICD10 Worksheet Patient Problems: Problems Problem Status Onset Arthritis, hip Acute - ICD10 Problem Qualifiers (1) Arthritis, hip
--- NOTE | 2016-06-01 12:19 | PDIAF ---
- Diagnosis Diagnosis: right hip djd Code Status: Full Code - Medication Management Discharge Medications: Medications to Continue on Transfer Cholecalciferol (Vitamin D3) [Vitamin D3] 5,000 unit PO HS 08/16/14 [Last Taken 05/22/16] Pentoxifylline [TRENTAL 400mg (*)] 800 mg PO BID 08/16/14 [Last Taken 05/22/16] Rosuvastatin Calcium [Crestor 10mg (RX)] 10 mg PO DAILY 08/16/14 [Last Taken 05/05] Sildenafil Citrate [Revatio 20 MG (*)] 60 - 100 mg PO DAILY PRN 08/16/14 [Last Taken 05/28/16] Aspirin EC [Aspirin EC 81 mg (*)] 81 mg PO HS 05/01/16 [Last Taken 05/22/16] Naproxen Sodium [Aleve 220 MG (*)] 220 mg PO DAILY 05/01/16 [Last Taken 05/22/16 ] Niacinamide [Niacin] 500 mg PO DAILY 05/01/16 [Last Taken 05/22/16] [place]-3 Fatty Acids [Fish Oil 1000 mg (*)] 1,000 mg PO DAILY 05/01/16 [Last Taken 05/22/16] Acetaminophen [Tylenol 325mg (*)] 325 mg PO DAILY PRN 05/29/16 [Last Taken 05/28] Aspirin [Aspirin 325 mg (*)] 325 mg PO DAILY #0 tab 05/31/16 [Last Taken Unknown ] oxyCODONE IR [Oxycodone Ir (*)] 5 - 10 mg PO Q3HRS PRN #70 tab 05/31/16 [Last Taken Unknown] Discharge Medications: Refer to the Discharge Home Medication list for PRN reason. - Orders Services needed: Physical Therapy Diet Recommendation: no restrictions on diet Diet Texture: Regular Texture Diet Activity/Weight Bearing Restrictions: wbat. anterior hip precautions. daily dressing changes #. may shower without bandage. no soaking. wei hose x 2 weeks. seek attn for increasing pain, redness, drainage or other focal complaint. f/u at two weeks - Follow Up Care Current Providers and Referrals: MARINA BARNETT [Primary Care Provider] -
[2016-06-01 12:31] VITALS: RESP 14
--- NOTE | 2016-06-01 12:54 | HOSPPROG ---
Hospitalist Progress Note Assessment/Plan: # Persistent hypotension -resolved with IVF and 1 unit blood transfusion. SBP >120 today -EKG and troponin negative for ischemia. CTA negative for PE -consider adrenal insufficiency, but BP now >120. I spoke with patient about stim test in morning, but would rather go home #Fever: none in past 24 hours. Still denies infectious symptoms and negative eval thus far. WBC trending down to 23 # Leukocytosis -down to 23 today. Consider stress reaction with surgery, but seems wouldn't expect to be that high -UA, CXR negative for infection, blood culture NGTD -he is to F/U with Dr. Wheat as previously scheduled # Tachycardia -BP improved. CTA negative. He does drink regularly and there could be component of w/d? #Deconditioning: PT at home #Diet: regular #DVT ppx: SCDs #Disp: pt wants to go home. He understands that his WBC is still elevated without a clear source. I have advised him to have repeat CBC on Sunday Subjective: no fever, cough, CP or SOB Objective: Vital Signs Temp Pulse Resp BP Pulse Ox 37 C 103 H 14 120/78 99 06/01/16 12:00 06/01/16 12:00 06/01/16 12:00 06/01/16 12:00 06/01/16 12:00 Laboratory Results 06/01/16 04:25 05/31/16 06:05 05/31/16 06/01/16 06/02/16 05:59 05:59 05:59 Intake Total 3602 250 400 Output Total 2450 1725 100 Balance 1152 -1475 300 - Physical Exam Constitutional: no apparent distress Eyes: PERRL Ears, Nose, Mouth, Throat: moist mucous membranes Cardiovascular: regular rate and rhythym Respiratory: no respiratory distress Gastrointestinal: normoactive bowel sounds Skin: warm Musculoskeletal: full muscle strength (right hip incision C/D/I. No erythema), other Neurologic: AAOx3, CN II-XII Intact, other (no tremor or tongue fasiculation) Psychiatric: interacting appropriately ICD10 Worksheet Patient Problems: Problems Problem Status Onset Arthritis, hip Acute
[2016-06-01 16:00] VITALS: PULSE 100
[2016-06-01 16:12] VITALS: BP 123/74; TEMP 98.2; O2SAT 97
--- NOTE | 2016-06-01 17:56 | GDS ---
[f rep st] DISCHARGE SUMMARY DISCHARGE DIAGNOSES: 1. Hypotension. 2. Acute blood loss anemia. 3. Bradycardia. 4. Leukocytosis. 5. Fever. 6. Right total hip arthroplasty. 7. Alcohol abuse. 8. Tachycardia. HISTORY OF PRESENT ILLNESS: The patient is a 71-year-old male with history of hyperlipidemia and granuloma annulare who underwent elective right a total hip replacement on 05/29. After surgery, stat team was called due to severe hypotension with systolics less than 70. The patient had lost approximately 800 cc of blood perioperatively. Thus, hospitalist team was asked to evaluate the patient. Initially, patient responded to blood transfusion and IV fluids. However, this recurred, and the patient was admitted to the ICU. HOSPITAL COURSE BY PROBLEM: 1. Persistent hypotension: Suspect was due to acute blood loss anemia. The patient was transfused an additional unit of blood with improvement, however, hypotension recurred. Given persistent tachycardia, along with the hypotension , CTA was done to rule out a PE and this was negative. There was also concern of infection, given patient's white count was elevated at 38. Infectious evaluation was negative, including a chest x-ray, UA, and blood cultures. The patient remained afebrile for the past 24 hours, and blood pressures remained greater than 120s. If persists outpatient, could consider evaluating for adrenal insufficiency. 2. Acute blood loss anemia: secondary to surgery: Stable after transfusion of 1 unit. 3. Leukocytosis: After stat team called, labs were drawn. WBC elevated at 38 , which is up from his baseline of 10 approximately a month ago. I did speak with his PCP, Dr. Vincent, who stated that his white count has been intermittently elevated in the past, highest being 14 earlier this month. He had been seen by Dr. Wheat in the past and is to follow up within the next month. He denied infectious symptoms and evaluation has been negative including CXR, UA, and blood cultures.Has trended down and is now 23. Consider stress response, however, this is significantly higher than expected. He is to have a repeat CBC by his PCP. I gave him strict return precautions for fever or any infectious symptoms. 4. Tachycardia, likely multifactorial given acute blood loss anemia and dehydration. Mild alcohol withdrawal might have played a role as the patient drinks at least a double martini a night. 5. Right JEANETTE per Dr. Cai: Stable from his standpoint. Surgical incision is clean, dry, and intact. DISPOSITION: Stable for discharge. FOLLOWUP: 1. Dr. Vincent. 2. CBC on Sunday. 3. If recurrent hypotension, will consider evaluating for adrenal insufficiency. 4. Dr. Wheat, as previously scheduled. 5. Patient was given strict return precautions if he becomes febrile or has any infectious symptoms including cough, nausea, vomiting, diarrhea, or concern for surgical site infection. Time spent on discharge 60 minutes spent counseling patient on followup plan and signs of possible infection. /[id number]/MODL MTDD
[2016-06-02] MEDS ORDERED: COSYNTROPIN 0.25 MG/2 ML SYRINGE IVP ONE (06:00)
== END 2016-06-01 18:02 | disposition home health service (06) | DRG 470 ==
LOC: F3N 07:33 → F2N 18:50 → F3N 05-31 16:31
PROVIDERS: ADMIT Orthopaedic Surgery; ATTEND Internal Medicine
PROC: 8E0Y0CZ Robotic Assisted Procedure of Lower Extremity, Open Approach (ICD-10-PCS; principal; 2016-05-29 10:45)
PROC: 0SR904Z Replacement of Right Hip Joint with Ceramic on Polyethylene Synthetic Substitute, Open Approach (ICD-10-PCS; principal; 2016-05-29 10:45)
PROC: 30233N1 Transfusion of Nonautologous Red Blood Cells into Peripheral Vein, Percutaneous Approach (ICD-10-PCS; 2016-05-30)
DX: M16.11 Unilateral primary osteoarthritis, right hip (principal); R55 Syncope and collapse; I95.81 Postprocedural hypotension; D62 Acute posthemorrhagic anemia; D72.829 Elevated white blood cell count, unspecified; F10.10 Alcohol abuse, uncomplicated; E78.5 Hyperlipidemia, unspecified; I25.10 Atherosclerotic heart disease of native coronary artery without angina pectoris; L92.0 Granuloma annulare
CPT/HCPCS: 97116-GP; 97162-GP; 97165-GO; 97530-GP; 97535-GO; G8978-GP-CI; G8978-GP-CJ; G8979-GP-CI; G8980-GP-CI; G8987-GO-CI; G8988-GO-CK; G8989-GO-CI; J0171; J0690; J0834; J1100; J1885; J2250; J2370; J2405; J2704; J2795; J3010; J7060; P9016; Q9967

== ENCOUNTER → 2016-07-12 | Outpatient (CLI) | payer OTHER | LOC: BMCIMAGING 15:14 | PROVIDERS: ATTEND Orthopaedic Surgery | DX: Z96.641 Presence of right artificial hip joint (principal) ==

== ENCOUNTER → 2016-08-23 | Outpatient (CLI) | payer OTHER | LOC: BMCIMAGING 14:43 | PROVIDERS: ATTEND Orthopaedic Surgery | DX: Z96.641 Presence of right artificial hip joint (principal) ==

== ENCOUNTER → 2016-12-26 | Outpatient (CLI) | payer OTHER | LOC: BMCIMAGING 14:15 | PROVIDERS: ATTEND Orthopaedic Surgery | DX: Z47.1 Aftercare following joint replacement surgery (principal); Z96.641 Presence of right artificial hip joint; M16.12 Unilateral primary osteoarthritis, left hip ==

== ENCOUNTER 2017-05-24 10:24 | Inpatient (IN) | payer OTHER ==
[2017-05-24] MEDS ORDERED: ONDANSETRON DISINTEGRATING 4 MG TAB PO PRN (10:57)
[2017-05-24] MEDS ORDERED: ZOLPIDEM TARTRATE 5 MG TAB PO PRN (10:57)
[2017-05-24] MEDS ORDERED: ALTEPLASE 2 MG VIAL IVP PRN (11:29)
[2017-05-24 12:28] LABS: PLATELET COUNT 110 10^3/uL (150-400)
[2017-05-24] MEDS: ACETAMINOPHEN 325 MG TAB PO PRN ×2 (13:37→20:43)
--- NOTE | 2017-05-24 14:08 | GCON ---
[f rep st] CONSULTATION MEDICAL ONCOLOGY FOLLOWUP CONSULTATION REFERRING PHYSICIAN: Johnathan Carrera MD REASON FOR CONSULTATION: Management of acute myelogenous leukemia. RECOMMENDATIONS: 1. The patient will need to be admitted for inpatient induction therapy. The expected length of stay for this induction therapy for his acute myelogenous leukemia is 4-6 weeks. 2. The patient will need a double-lumen PICC line. 3. The patient will need an echocardiogram. 4. We will need to get baseline laboratory studies, which will include a CBC, CMP, manual differential, CMV status, uric acid, phosphorus, and also initiate complete HLA tissue typing. 5. Patient will need prophylactic therapy with acyclovir. Will also consider placing him on prophylactic antifungal therapy. 6. Provided that the patient's echocardiogram shows that he has an adequate ejection fraction, we will plan induction chemotherapy with a combination of bonny -C 100 mg/m2 as continuous infusion each day for 7 days. In addition, he will get daunorubicin 45 mg/m2 on days 1, 2 and 3. 7. The patient will need multiple transfusions during the course of therapy, which will include red cells, as well as platelets. 8. Whether or not the red cell transfusions and platelet transfusions need to be CMV negative or not will depend on the patient's current CMV status, which is pending. 9. The patient will get a repeat bone marrow biopsy at approximately day 14 to assess the quality of his silvestre. 10. Further prognostication will depend on pending studies, such as FLT3 to let us know whether the addition of therapy such as midostaurin or sorafenib would be appropriate. 11. Once the patient is in remission, we will get an opinion from one of the transplant groups in [place] as to whether he is a candidate for early transplant or not. This would depend on his overall risk stratification. 12. If the patient is not a candidate for early transplant, then we would plan on between 2 and 4 cycles of bonny-C consolidation. ASSESSMENT: This 72-year-old gentleman of descent is recently diagnosed with acute myelogenous leukemia. His history of mild leukopenia goes back to at least 2007 when he had his first bone marrow biopsy. This was done elsewhere , but was nonspecific. In addition, I have known him for the past 3 or 4 years , and in 2014, we also repeated his bone marrow biopsy. This again was nondiagnostic. He was noted to have a slightly elevated white count at approximately 11,000 in December of 2016. He came to see me in the office last week, and his white count was found to be unexpectedly elevated at 36,000. There were significantly increased monocytes read in his peripheral smear. Because he was developing a high white count, progressive anemia and thrombocytopenia, bone marrow biopsy was performed. This was done on Sunday of this week; that was May. We received a call yesterday that he had 20% blasts in his bone marrow, and pathologist from infusion felt that he could be classified as acute myelogenous leukemia at this time. He was felt to not have an M3 (APML). I called the patient last night, informed him of this, and made arrangements today for admission to the hospital for induction therapy. I had a long conversation with the patient and his today, with his nurse, Christine, present regarding his diagnosis, as well as the recommended treatment and potential benefits, as well as risks. We talked about the prognosis of untreated acute myelogenous leukemia with median survival being in the range of 6-12 weeks. We also talked about treatment with curative intent, which is what we are planning on embarking upon. We talked about the need for preparatory work, such as echocardiogram and PICC line placement and IV fluids. We talked about the potential risk of tumor lysis syndrome. We talked about the potential life-threatening complications associated with induction, including life-threatening bleeding and infection. I would estimate his risk of with induction to be in approximately the 5% range. We also talked about risk stratification. This will need to wait for the results of his cytogenetics, as well as FLT3, which are currently pending. We talked about 2 possible scenarios for consolidation, namely high-dose bonny-C consolidation for between 2 and 4 cycles post remission versus early transplant if he has poor prognostic characteristics. We also talked about the need for a consultation with the bone marrow transplant service once remission is induced. He and his were given the opportunity to ask questions, and their questions were answered to the best of my ability and to their apparent satisfaction. He is aware that he will need multiple bone marrow biopsies, including one at day 14 to establish silvestre. HISTORY OF PRESENT ILLNESS: Please see Assessment. PAST MEDICAL HISTORY: Remarkable for leukopenia, which has been long-standing approximately 10 years that has not had a specific diagnosis. His past medical history is also remarkable for granuloma annulare and benign prostatic hypertrophy. FAMILY HISTORY: Remarkable for his mother dying of lung cancer. His father at age 85 after a stroke. He has 1 brother. 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 He lives with his . REVIEW OF SYSTEMS: Remarkable for some fatigue. He also has back pain when bending over, which he attributes to the recent bone marrow biopsy. He reports no nausea or vomiting. He has had no shortness of breath. He has had no fevers. He has had no change in bowel or bladder habits. He has had no lower extremity edema. There is no lymphadenopathy. Ten-system review is otherwise unremarkable. PHYSICAL EXAMINATION: GENERAL: Reveals an alert male, asking appropriate questions. HEENT: Exam is unremarkable. He has no subconjunctival hemorrhages or submucosal hemorrhages noted. NECK: Supple, without adenopathy. LUNGS: Clear to auscultation. CARDIAC: Regular rate and rhythm. ABDOMEN: Exam shows active bowel sounds. He has no hepatosplenomegaly noted. He has no ascites noted. His abdomen is soft, nontender. LOWER EXTREMITIES: No edema. SKIN: No petechiae or unusual bruising. His bone marrow biopsy site in the right posterior pelvis appears to be healing well without evidence of drainage or infection. LABORATORY DATA: His CBC from Sunday, the May, showed a total white blood cell count of 27,030 with a hemoglobin of 10.9, an MCV of 91.9, and a platelet count of 115,000. Thank you very much for allowing us to participate in this pleasant gentleman's care. We will look forward to assisting with his management during this hospitalization and beyond. Copy requested to: Dr. Brain Vincent /[id number]/MODL MTDD
--- NOTE | 2017-05-24 15:32 | ECHO ---
[email or web address] [address] [address] Main: [phone] Fax: Transthoracic Echocardiogram Name: CUCA REYES MR#: [id number] Study Date: 05/24/2017 Study Time: 12:06 PM Date of : 1945 Age: 72 year(s) Height: ( ) Weight: ( ) BSA: Gender: Male Examination: Echo Indication: pre chemo Image Quality: Adequate Contrast: Requested by: Leonidas Wheat BP: / Heart Rate: Rhythm: Normal sinus rhythm Indication: pre chemo Procedure Staff Financial Service Representative: Mimi Laguerre [facility] Reading Physician: Polina Evangelista MD Requesting Provider: Conclusions: Normal size left ventricle. No LV hypertrophy. Normal global systolic LV function. EF is 64 %. No regional wall motion abnormality. Grade 1 diastolic dysfunction (abnormal relaxation). Normal size right ventricle. Normal RV function. Mild mitral valve regurgitation is present. Surveillance echo based on chemotherapy regimen. There is no previous echocardiogram for comparison. Measurements: Chambers Valvular Assessment AV/MV Valvular Assessment TV/PV Normal Normal Normal Name Value Range Name Value Range Name Value Range IVSd (2D): 0.8 cm (0.6 cm-1.1 AV Vmax: 1.13 m/s (1 m/s-1.7 PV Vmax: 0.89 m/s (0.6 m/s-0.9 cm) m/s) m/s) LVDd (2D): 4.1 cm (4.2 cm-5.9 AV maxP mmHg ( - ) PV PGmax: 3 mmHg ( - ) cm) LVOT Vmax: 1.03 m/s (0.7 m/s-1.1 LVDs (2D): 2.8 cm (2.1 cm-4 m/s) cm) MV E Vmax: 0.73 m/s ( - ) LVPWd (2D): 0.9 cm (0.6 cm-1 MV A Vmax: 0.96 m/s ( - ) cm) MV E/A: 0.76 ( - ) LVEF (BP): 64 % (>=55 %) RVDd(2D): 3.2 cm (1.9 cm-3.8 cmmm) Continued Measurements: Chambers Valvular Assessment AV/MV Patient: CUCA REYES Study Date: 05/24/2017 Page 1 of 2 12:06 PM Name Value Name Value LADs Lon.4 cm MV DecTime: 194 m/s LA Area: 17.0 cm2 MV E/E' Septal: 10.20 LA Volume: 56 ml MV E/E' Lateral: 11.00 TAPSE: 2.1 cm RA Area: 12.0 cm2 Findings: Left Ventricle: Normal size left ventricle. No LV hypertrophy. Normal global systolic LV function. EF is 64 %. No regional wall motion abnormality. Grade 1 diastolic dysfunction (abnormal relaxation). Right Ventricle: Normal size right ventricle. Normal RV function. Left Atrium: The left atrium is normal in size. LA index 31.3 ml/m2. Right Atrium: The right atrium is normal in size. Mitral Valve: The mitral valve is normal in appearance and function. Mild mitral valve regurgitation is present. No mitral stenosis is present. Aortic Valve: The aortic valve is tri-leaflet and functions normally. There is no aortic valve regurgitation. No aortic valve stenosis is present. Tricuspid Valve: The tricuspid valve is normal in appearance and function. There is no tricuspid valve regurgitation. Pulmonary artery pressure is not obtained due to inadequate TR jet. Pulmonic Valve: The pulmonic valve is normal in appearance and function. Trivial pulmonic valve regurgitation. Aorta: The aorta is normal. Normal size aortic root. Pericardium: No pericardial effusion. (No Signature Object) Patient: CUCA REYES Study Date: 05/24/2017 Page 2 of 2 12:06 PM D:_[id number]
--- NOTE | 2017-05-24 16:30 | ASMTCMCOM ---
CM Note CM Note Notes: Pt with new dx of AML admitted for induction therapy. It is likely that pt will be inpt for 4-6 weeks. Dble lumen PICC placed. Briefly met with pt and his to introduce psychosocial services. CM will continue to follow. Date Signed: 05/24/2017 04:29 PM Electronically Signed By:Rosalinda Yates LCSW
--- NOTE | 2017-05-24 17:39 | PDGENHP ---
History and Physical History and Physical: CC: Coming in for induction therapy for AML HISTORY: This patient has been recently diagnosed with AML and is being admitted for induction therapy. His story goes back to 2007 when he was being seen at the [facility] for a skin illness and was noted to have a mildly elevated white blood cell count that seemed unrelated. A marrow biopsy at that time showed nonspecific findings. He was followed along with Dr. Wheat over the years and continued to have very mild elevation of white blood cell count but no anemia. However recently he was [place] [address] with some anemia and thrombocytopenia. He did not have fevers, and did not have any other acute clinical illness that would be associated with these changes and was not having any signs of bleeding. A bone marrow biopsy was done and shows 20% blasts with could changes most consistent with AML with the final pathology report pending. The patient now comes in for beginning induction therapy. The plan will be to get IV access in now begin his hydration and start up preparatory medications tomorrow, with his induction therapy beginning 2 days from now. The patient overall feels well. Again he has had no fever symptoms, nothing to suggest any infections or other acute illnesses. No pain or discomfort. No respiratory symptoms. He has been keeping up with his usual activities without difficulty. He has been eating well with normal digestion and no related problems. He has no dental or oral symptoms and last saw his dental hygienist for cleaning around a month ago without any problems identified. He has no hemorrhoid or other anal symptoms. There are no skin rashes or lesions. ROS: A comprehensive 10 system review revealed no other significant findings PAST MEDICAL HISTORY: Granuloma annulare for which he takes pentoxifylline and which is currently in remission Osteoarthritis, right total hip replacement Hip surgery was complicated by postoperative hemorrhage requiring transfusions, and he had some hypotension at that time but did not develop organ failures Hyperlipidemia FAMILY MEDICAL HISTORY: Mother developed lung cancer at age 95 Father had a stroke SOCIAL HISTORY: Originally born in [place], where he worked in [employer] for [employer]. He then retired and moved here approximately 10 years ago. He smoked lot small amount of cigarettes for appeared of time but quit more than 30 years ago. He does not use any street drugs. Drinks approximately 2 drinks per day. He is has 3 children lives in [facility]. He does work out approximately 3 times per week to keep physically active MEDICATIONS: The patients list has been reconciled by our clinical pharmacist in the EMR. I have reviewed the list and ordered appropriate medicines. PHYSICAL EXAMINATION: Vital Signs: Stable with no fever Examination: General: alert, oriented, good mentation, relaxed Skin: warm, dry, good color, no rash HEENT: normal, NO GUM DISEASE OR SIGNIFICANT DENTAL ISSUES IDENTIFIED Neck: no mass or jvd Resps: relaxed Lungs: clear breath sounds Heart: regular, no murmur Abdomen: soft, nondistended, nontender, +BS, no mass Upper Extremities: normal Lower Extremities: Trace edema at his ankles, warm No Bleeding or bruising Neurologic: normal speech/language, normal psychiatric nursing aide, no focal weakness IV site: looks normal LABORATORY DATA: Total white count 46131, hemoglobin 10.7, platelets [id number] Complete metabolic panel is unremarkable RADIOLOGY STUDIES: No radiologic studies done so far ECHOCARDIOGRAM DONE TODAY: Ejection fraction good at 65% with no wall motion abnormalities, some mild diastolic dysfunction is suspected, mild mitral regurgitation, good right ventricular function ASSESSMENT: 1- AML NEWLY DIAGNOSED, final pathology pending, admitted to begin induction therapy 2- MILD NORMOCYTIC ANEMIA DUE TO AML 3- MILD THROMBOCYTOPENIA DUE TO AML PLANS: -PICC line has been ordered -appropriate orders for hydration and alkalinization of urine have been placed -appropriate nausea medicines will be ordered -Dr. Wheat has ordered his induction therapy medications -will need careful ongoing monitoring for any signs of infection, mucosal abnormalities, complications of tumor lysis syndrome, or other clinical abnormalities -careful monitoring of blood counts, transfusions as indicated I reviewed all of the above in detail with the patient and have answered his questions at this time. He does wish for full cor order. I have reviewed the patient's case in detail with Dr. Leonidas Wheat I have reviewed the patient's past medical records as part of this assessment, including clinic records [facility] and hospital records from his hip surgery here last year
[2017-05-24] MEDS: ACYCLOVIR 400 MG TAB PO SCH (20:43)
[2017-05-24] MEDS: ALLOPURINOL 300 MG TAB PO SCH (20:44)
[2017-05-24] MEDS: NS 1,000 ML IV SCH (20:47)
[2017-05-25] MEDS: ACETAMINOPHEN 325 MG TAB PO PRN ×4 (04:03→22:33)
[2017-05-25] MEDS: NS 1,000 ML IV SCH ×3 (04:03→20:59)
[2017-05-25 04:19] LABS: PLATELET COUNT 95 10^3/uL (150-400)
--- NOTE | 2017-05-25 08:01 | PDMN ---
Medical Necessity Medical necessity: est los>2mn for new dx of AML, w/mild anemia and thrombocytopenia; admit for induction therapy w/monitoring for infection, mucosal abnormalities, tumor lysis syndrome, and blood count abnormalities; comorbid OA, granuloma annulare, hx hemorrhage s/p hip surgery; per order and H& P 05/24/17
[2017-05-25] MEDS: ALLOPURINOL 300 MG TAB PO SCH ×2 (10:02→21:02)
[2017-05-25] MEDS: ENOXAPARIN 40 MG/0.4 ML SYR SC SCH (10:03)
[2017-05-25] MEDS: ACYCLOVIR 400 MG TAB PO SCH ×2 (10:03→21:01)
--- NOTE | 2017-05-25 10:40 | SOAPPROG ---
MELISSA Progress Note Assessment/Plan: Assessment: - AML - Patient had PICC placed yesterday. Had ECHO - LVEF normal at 64%. Prognostic factors/cytogenetics pending but won't affect initial therapy. No transfusions needed today. I think we can start definitive therapy. I have adjusted his doses slightly. I'll use CUAUHTEMOC-C 100mg/m2/day Days 1-7 + daunorubicin 60mg/m2 Days 1, 2, and 3. - Bone pain - still related to BMBX but also to leukemia. This should improve with treatment. Plan: Start chemo today Monitor for tumor lysis Continue acyclovir Continue Allopurinol Start Diflucan prophylaxis Subjective: C/O bone pain. R thigh is the worst. Objective: Vital Signs Temp Pulse Resp BP Pulse Ox 36.9 C 92 18 135/75 H 94 05/25/17 08:34 05/25/17 08:34 05/25/17 08:34 05/25/17 08:34 05/25/17 08:34 Laboratory Results 05/25/17 04:10 05/25/17 04:10 05/23/17 05/24/17 05/25/17 23:59 23:59 23:59 Intake Total 1200 1545 Balance 1200 1545 Physical Exam - Physical Exam General Appearance: WD/WN, alert, no apparent distress Respiratory: lungs clear Cardiac/Chest: regular rate, rhythm Abdomen: normal bowel sounds, non-tender, soft, No organomegaly Lymphatic: no adenopathy Neuro/Psych: alert, normal mood/affect, oriented x 3 ICD10 Worksheet Patient Problems: Problems Problem Status Onset Arthritis, hip Acute
[2017-05-25] MEDS: ONDANSETRON HCL PF 8 MG, DEXAMETHASONE 10 MG in NS 50 ML IV SCH (13:33)
[2017-05-25] MEDS: FLUCONAZOLE 100 MG TAB PO SCH (13:36)
[2017-05-25] MEDS: DAUNORUBICIN IV SCH (14:22)
[2017-05-25] MEDS: NS IV SCH ×2 (14:22→14:34)
[2017-05-25] MEDS: CYTARABINE IV SCH (14:34)
[2017-05-25] MEDS ORDERED: FLUTICASONE NASAL 120 SPRAYS/16 GM MDI NS PRN (15:21)
[2017-05-25] MEDS ORDERED: Propylene Glycol/Peg 400 [Systane 0.3-0.4% Eye Drops] 1 DROP EACHEYE PRN (15:21)
[2017-05-25] MEDS: PANTOPRAZOLE SODIUM 40 MG TAB PO SCH (18:24)
--- NOTE | 2017-05-25 18:36 | HOSPPROG ---
Hospitalist Progress Note Assessment/Plan: DIAGNOSES: 1- AML NEWLY DIAGNOSED, final pathology pending, admitted to begin induction therapy 2- MILD NORMOCYTIC ANEMIA DUE TO AML 3- MILD THROMBOCYTOPENIA DUE TO AML I reviewed the patient's condition and plan today with Dr. Wheat The patient so far is doing well, has his PICC in place, has his echo which looks good, and we have started therapy as everything was in place. PLANS: -we have moved up a schedule in his actually started his chemotherapy for induction today -continue hydration, prophylactic medicines for tumor lysis, DVT, etc -continue monitoring of cell counts and following closely for signs of infection or other complication SUBJECTIVE: Feels very well. Has started his chemotherapy and so far is tolerating that okay. No problems with the PICC line, is hydrating well. OBJECTIVE Vitals reviewed: Stable without fever Exam: alert oriented skin warm dry color ok resps not labored lungs clear BSs heart regular abd soft nondistended nontender, bowel sounds present limbs warm, no edema iv site ok Laboratory data: Decrease in his white blood cell count 51125 is probably delusional Otherwise stable CBC and chemistry Echocardiogram is done, normal ejection fraction at 65%, no other significant abnormalities Objective: Vital Signs Temp Pulse Resp BP Pulse Ox 36.9 C 92 18 135/75 H 94 05/25/17 08:34 05/25/17 08:34 05/25/17 08:34 05/25/17 08:34 05/25/17 08:34 Laboratory Results 05/25/17 04:10 05/25/17 17:58 05/24/17 05/25/17 05/26/17 06:59 06:59 06:59 Intake Total 2745 2150 Output Total 800 Balance 2745 1350 ICD10 Worksheet Patient Problems: Problems Problem Status Onset Arthritis, hip Acute
[2017-05-25] MEDS: PENTOXIFYLLINE 400 MG EXT REL TAB PO SCH (21:01)
[2017-05-25] MEDS: CHOLECALCIFEROL VIT D3 2,000 UNITS TAB/CAP PO SCH (21:02)
[2017-05-25] MEDS: NIACIN 500 MG TAB PO SCH (21:11)
[2017-05-25] MEDS: diphenhydrAMINE 25 MG CAP PO PRN (22:34)
[2017-05-26] MEDS: NS 1,000 ML IV SCH ×2 (04:41→20:44)
[2017-05-26 05:01] LABS: PLATELET COUNT 91 10^3/uL (150-400)
[2017-05-26] MEDS: PANTOPRAZOLE SODIUM 40 MG TAB PO SCH (08:14)
[2017-05-26] MEDS: PENTOXIFYLLINE 400 MG EXT REL TAB PO SCH ×2 (08:14→20:41)
[2017-05-26] MEDS: ACETAMINOPHEN 325 MG TAB PO PRN ×3 (08:14→20:39)
[2017-05-26] MEDS: FLUCONAZOLE 100 MG TAB PO SCH (08:15)
[2017-05-26] MEDS: ALLOPURINOL 300 MG TAB PO SCH ×2 (08:15→20:41)
[2017-05-26] MEDS: ACYCLOVIR 400 MG TAB PO SCH ×2 (08:15→20:39)
[2017-05-26] MEDS: NIACIN 500 MG TAB PO SCH ×2 (08:16→08:19)
[2017-05-26] MEDS: ENOXAPARIN 40 MG/0.4 ML SYR SC SCH (08:16)
[2017-05-26] MEDS: DOCUSATE SODIUM 100 MG CAP PO PRN ×2 (12:53→20:42)
[2017-05-26] MEDS: ONDANSETRON HCL PF 8 MG, DEXAMETHASONE 10 MG in NS 50 ML IV SCH (13:55)
[2017-05-26] MEDS: NS IV SCH ×2 (14:11→14:39)
[2017-05-26] MEDS: DAUNORUBICIN IV SCH (14:11)
[2017-05-26] MEDS: CYTARABINE IV SCH (14:39)
--- NOTE | 2017-05-26 15:27 | HOSPPROG ---
Hospitalist Progress Note Assessment/Plan: # New diagnosis of AML-WBC 25- presenting for chemotherapy- patient reports feeling well this morning no significant side effects from initial infusion Echocardiogram (personally reviewed) normal LV size and function - oxygen saturations 95% on room air - continue with chemotherapy infusion - continue daily monitoring of labs # right hip pain status post biopsy- most symptomatic with ambulation and weight -bearing - Tylenol p.r.n. - Ultram p.r.n. # mild constipation- starting Colace p.r.n. - encourage p.o. Intake and ambulation # mild anemia and thrombocytopenia- does not meet transfusion threshold today H &H 11/18 - monitor daily # prophylaxis Lovenox # diet regular # disposition greater than 2 midnights as the patient is presenting for chemotherapy will need to complete his full cycle Subjective: Denies chest pain Objective: Vital Signs Temp Pulse Resp BP Pulse Ox 36.8 C 89 17 118/55 L 97 05/26/17 11:54 05/26/17 11:54 05/26/17 11:54 05/26/17 11:54 05/26/17 11:54 Laboratory Results 05/26/17 04:40 05/26/17 10:43 05/25/17 05/26/17 05/27/17 05:59 05:59 05:59 Intake Total 2745 2950 2254 Output Total 2600 900 Balance 2745 350 1354 - Physical Exam Constitutional: no apparent distress Eyes: anicteric sclera Ears, Nose, Mouth, Throat: moist mucous membranes Cardiovascular: regular rate and rhythym Respiratory: no respiratory distress Gastrointestinal: normoactive bowel sounds Genitourinary: no bladder fullness Skin: warm Musculoskeletal: No asymmetric calves Neurologic: AAOx3 Psychiatric: interacting appropriately Lymph, Heme, Immunologic: no cervical LAD ICD10 Worksheet Patient Problems: Problems Problem Status Onset Arthritis, hip Acute
--- NOTE | 2017-05-26 15:38 | SOAPPROG ---
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 Prognostic studies pending. D2 7+3 induction. Slight elevation in phos but no evidence of TLS. No significant side effects. * Anemia, thrombocytopenia: due to AML. No indication for transfusion. Continue chemotherapy. Monitor for tumor lysis. Continue allopurinol. Continue acyclovir, fluconazole. We discussed his questions. Discussed transplant vs. consolidation with chemotherapy depending on prognostic studies. 05/26/17 15:35 Subjective: No n/v, SOB, AP, edema. Still with pain at bmbx site and R thigh. O: VS reviewed. UO adequate. Gen: NAD, A&O. Lungs: CTA. CV: RRR, no edema. Abd: soft, NT. Neuro: nonfocal. Skin: RUE PICC site without tenderness, erythema. Laboratory Tests 05/26/17 05/26/17 04:40 10:43 WBC 25.64 H Hgb 9.7 L Plt Count 91 L Absolute Seg Neuts 6.92 H Absolute Band Neuts 7.95 H Sodium 144 Potassium 3.8 Chloride 110 Carbon Dioxide 22 Anion Gap 12 BUN 13 Creatinine 0.7 Uric Acid 4.0 Calcium 9.2 Phosphorus 4.9 H Total Bilirubin 0.4 AST 17 ALT 20 L Alkaline Phosphatase 34 L Lactate Dehydrogenase 404 Albumin 4.0 Objective: Vital Signs Temp Pulse Resp BP Pulse Ox 36.8 C 89 17 118/55 L 97 05/26/17 11:54 05/26/17 11:54 05/26/17 11:54 05/26/17 11:54 05/26/17 11:54 Laboratory Results 05/26/17 04:40 05/26/17 10:43 05/25/17 05/26/17 05/27/17 05:59 05:59 05:59 Intake Total 2745 2950 2254 Output Total 2600 900 Balance 2745 350 1354 ICD10 Worksheet Patient Problems: Problems Problem Status Onset Arthritis, hip Acute
[2017-05-26] MEDS: CHOLECALCIFEROL VIT D3 2,000 UNITS TAB/CAP PO SCH (20:41)
[2017-05-26] MEDS: diphenhydrAMINE 25 MG CAP PO PRN (20:42)
[2017-05-27] MEDS: ACETAMINOPHEN 325 MG TAB PO PRN ×2 (05:30→21:28)
[2017-05-27] MEDS: NS 1,000 ML IV SCH ×2 (05:36→21:35)
[2017-05-27 05:52] LABS: PLATELET COUNT 78 10^3/uL (150-400)
[2017-05-27] MEDS: PENTOXIFYLLINE 400 MG EXT REL TAB PO SCH ×2 (09:51→21:29)
[2017-05-27] MEDS: DOCUSATE SODIUM 100 MG CAP PO PRN (09:51)
[2017-05-27] MEDS: PANTOPRAZOLE SODIUM 40 MG TAB PO SCH (09:51)
[2017-05-27] MEDS: FLUCONAZOLE 100 MG TAB PO SCH (09:51)
[2017-05-27] MEDS: ACYCLOVIR 400 MG TAB PO SCH ×2 (09:51→21:27)
[2017-05-27] MEDS: ENOXAPARIN 40 MG/0.4 ML SYR SC SCH (09:51)
[2017-05-27] MEDS: ALLOPURINOL 300 MG TAB PO SCH ×2 (09:51→21:29)
[2017-05-27] MEDS ORDERED: POLYETHYLENE GLYCOL 3350 17 GM PKT PO PRN (12:25)
[2017-05-27] MEDS ORDERED: BISACODYL 10 MG SUPP PR PRN (12:25)
[2017-05-27] MEDS ORDERED: LACTULOSE 20 GM/30 ML UDCUP PO PRN (12:25)
[2017-05-27] MEDS ORDERED: MAGNESIUM HYDROXIDE 30 ML UDCUP PO PRN (12:25)
[2017-05-27] MEDS: ONDANSETRON HCL PF 8 MG, DEXAMETHASONE 10 MG in NS 50 ML IV SCH (12:52)
[2017-05-27] MEDS: NS IV SCH ×2 (13:19→13:30)
[2017-05-27] MEDS: DAUNORUBICIN IV SCH (13:19)
[2017-05-27] MEDS: CYTARABINE IV SCH (13:30)
--- NOTE | 2017-05-27 14:20 | HOSPPROG ---
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 - Ultram p.r.n. # mild constipation- starting bowel regimen - encourage p.o. Intake and ambulation # mild anemia and thrombocytopenia- does not meet transfusion threshold today H &H 11/18 - monitor daily # prophylaxis Lovenox # diet regular # disposition greater than 2 midnights as the patient is presenting for chemotherapy will need to complete his full cycle I have discussed the case with the RN- encourage use of p.r.n. Ultram and Tylenol for right hip pain Subjective: Right hip pain persists Objective: Vital Signs Temp Pulse Resp BP Pulse Ox 36.4 C 106 H 16 128/76 H 97 05/27/17 12:00 05/27/17 12:00 05/27/17 12:00 05/27/17 12:00 05/27/17 12:00 Laboratory Results 05/27/17 05:03 05/27/17 11:45 05/26/17 05/27/17 05/28/17 05:59 05:59 05:59 Intake Total 2950 5568 Output Total 2600 5500 1400 Balance 350 68 -1400 - Physical Exam Constitutional: appears nourished Eyes: anicteric sclera Ears, Nose, Mouth, Throat: moist mucous membranes Cardiovascular: regular rate and rhythym Respiratory: no respiratory distress Gastrointestinal: normoactive bowel sounds Genitourinary: no bladder fullness Skin: warm Musculoskeletal: other (No tenderness to palpation over right hip or sacral iliac joint), No asymmetric calves Neurologic: AAOx3 Psychiatric: interacting appropriately Lymph, Heme, Immunologic: no cervical LAD ICD10 Worksheet Patient Problems: Problems Problem Status Onset Arthritis, hip Acute
--- NOTE | 2017-05-27 14:55 | SOAPPROG ---
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 Prognostic studies pending. D3 7+3 induction. Slight elevation in phos but no evidence of TLS. No significant side effects. * Anemia, thrombocytopenia: due to AML. No indication for transfusion. Continue chemotherapy. Monitor for tumor lysis. Continue allopurinol. Continue acyclovir, fluconazole. Try tramadol for pain. 05/27/17 14:54 Subjective: Still with pain right upper thigh beginning after bmbx last week. Mild ankle edema. No nausea. and daughter present. O: VS reviewed, UO adequate. Gen: NAD. Eating Jana's. Lungs: breathing comfortably. CV: Tr ankle edema bilat. Neuro: nonfocal. Laboratory Tests 05/27/17 05/27/17 05:03 11:45 WBC 10.59 H D Hgb 9.4 L Plt Count 78 L Absolute Seg Neuts 5.19 Absolute Band Neuts 3.81 H Sodium 142 Potassium 4.0 Chloride 108 Carbon Dioxide 21 L BUN 18 Creatinine 0.7 Glucose 113 H Uric Acid 2.8 L Calcium 8.7 Phosphorus 4.8 H Total Bilirubin 0.5 AST 15 L ALT 25 Alkaline Phosphatase 31 L Lactate Dehydrogenase 486 Objective: Vital Signs Temp Pulse Resp BP Pulse Ox 36.4 C 106 H 16 128/76 H 97 05/27/17 12:00 05/27/17 12:00 05/27/17 12:00 05/27/17 12:00 05/27/17 12:00 Laboratory Results 05/27/17 05:03 05/27/17 11:45 05/26/17 05/27/17 05/28/17 05:59 05:59 05:59 Intake Total 2950 5535 Output Total 2600 5500 1400 Balance 350 68 -1400 ICD10 Worksheet Patient Problems: Problems Problem Status Onset Arthritis, hip Acute
[2017-05-27] MEDS: traMADol 50 MG TAB PO PRN (16:34)
[2017-05-27] MEDS: diphenhydrAMINE 25 MG CAP PO PRN (21:28)
[2017-05-27] MEDS: CHOLECALCIFEROL VIT D3 2,000 UNITS TAB/CAP PO SCH (21:29)
[2017-05-27] MEDS: SENNOSIDES/DOCUSATE SODIUM TAB PO SCH (21:36)
[2017-05-28] MEDS: traMADol 50 MG TAB PO PRN ×2 (05:40→14:14)
[2017-05-28] MEDS: NS 1,000 ML IV SCH ×2 (05:41→21:00)
[2017-05-28 05:45] LABS: PLATELET COUNT 59 10^3/uL (150-400)
[2017-05-28] MEDS: PENTOXIFYLLINE 400 MG EXT REL TAB PO SCH ×2 (09:16→20:51)
[2017-05-28] MEDS: ACETAMINOPHEN 325 MG TAB PO PRN ×3 (09:16→20:51)
[2017-05-28] MEDS: SENNOSIDES/DOCUSATE SODIUM TAB PO SCH ×2 (09:16→20:51)
[2017-05-28] MEDS: FLUCONAZOLE 100 MG TAB PO SCH (09:16)
[2017-05-28] MEDS: ACYCLOVIR 400 MG TAB PO SCH ×2 (09:16→20:51)
[2017-05-28] MEDS: ALLOPURINOL 300 MG TAB PO SCH ×2 (09:16→20:51)
[2017-05-28] MEDS: PANTOPRAZOLE SODIUM 40 MG TAB PO SCH (09:16)
--- NOTE | 2017-05-28 09:42 | SOAPPROG ---
SOJENNYFER Progress Note Assessment/Plan: Assessment: 1. AML. cytogenetics/molecular pending. day 4 of induction with 7+3. 2. Pancytopenia due to AML and chemo 3. R leg pain. unclear etiology. Plan: - continue current supportive care - d/c lovenox as plts are falling rapidly - will try lidoderm patch for leg. can consider imaging (MRI) if not getting better. 25 min spent w/ pt and in coordination of care. 05/28/17 09:41 Subjective: still pain in R thigh. pain on weight bearing. otherwise feeling OK. Objective: exam: NAD lungs CTAB CV RRR no MGR Abd: +BS NT ND Ext: no edema MSK: no point tenderness or swelling R thigh Vital Signs Temp Pulse Resp BP Pulse Ox 36.6 C 85 17 128/75 H 98 05/28/17 08:00 05/28/17 08:00 05/28/17 08:00 05/28/17 08:00 05/28/17 08:00 Laboratory Results 05/28/17 05:35 05/28/17 05:35 05/27/17 05/28/17 05/29/17 05:59 05:59 05:59 Intake Total 3763 3280 Output Total 6206 1570 Balance 68 -2928 ICD10 Worksheet Patient Problems: Problems Problem Status Onset Arthritis, hip Acute
[2017-05-28] MEDS: ENOXAPARIN 40 MG/0.4 ML SYR SC SCH (09:52)
[2017-05-28] MEDS: LIDOCAINE 4%/MENTHOL 1% PATCH TD SCH (10:05)
[2017-05-28] MEDS: NS IV SCH (14:01)
[2017-05-28] MEDS: CYTARABINE IV SCH (14:01)
[2017-05-28] MEDS: ONDANSETRON HCL PF 8 MG, DEXAMETHASONE 10 MG in NS 50 ML IV SCH (14:02)
--- NOTE | 2017-05-28 16:39 | HOSPPROG ---
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 - Ultram p.r.n. - licoderm patch - encourage ambulation # mild constipation- starting bowel regimen - encourage p.o. Intake and ambulation # mild anemia and thrombocytopenia- does not meet transfusion threshold today H &H 10/16 - monitor daily # prophylaxis platelets dropping - dc lovenox # diet regular # disposition greater than 2 midnights as the patient is presenting for chemotherapy will need to complete his full cycle I have discussed the case with the PharmD - fluids with treatment is only 250cc /day Subjective: feels tired Objective: Vital Signs Temp Pulse Resp BP Pulse Ox 36.6 C 93 17 126/77 H 96 05/28/17 15:49 05/28/17 15:49 05/28/17 15:49 05/28/17 15:49 05/28/17 15:49 Laboratory Results 05/28/17 05:35 05/28/17 05:35 05/27/17 05/28/17 05/29/17 05:59 05:59 05:59 Intake Total 5568 2145 500 Output Total 5500 5050 1400 Balance 68 2905 -900 - Physical Exam Constitutional: no apparent distress Eyes: anicteric sclera Ears, Nose, Mouth, Throat: moist mucous membranes Cardiovascular: regular rate and rhythym Respiratory: no respiratory distress Gastrointestinal: normoactive bowel sounds Genitourinary: no bladder fullness Skin: warm Musculoskeletal: No asymmetric calves Neurologic: AAOx3 Psychiatric: interacting appropriately Lymph, Heme, Immunologic: no cervical LAD ICD10 Worksheet Patient Problems: Problems Problem Status Onset Arthritis, hip Acute
--- NOTE | 2017-05-28 17:21 | ASMTCMCOM ---
CM Note CM Note Notes: Pt continuing chemotherapy. PIIC in place; CM to follow for dc PICC care. dc plan TBD Date Signed: 05/28/2017 05:20 PM Electronically Signed By:Maritza Abdi RN
[2017-05-28] MEDS: PATCH REMOVAL 1 EA PATCH TD SCH (19:25)
[2017-05-28] MEDS: CHOLECALCIFEROL VIT D3 2,000 UNITS TAB/CAP PO SCH (20:51)
[2017-05-28] MEDS: diphenhydrAMINE 25 MG CAP PO PRN (20:52)
[2017-05-29] MEDS: NS 1,000 ML IV SCH ×4 (00:56→16:08)
[2017-05-29 05:41] LABS: PLATELET COUNT 49 10^3/uL (150-400)
[2017-05-29] MEDS: ACYCLOVIR 400 MG TAB PO SCH ×2 (08:27→20:40)
[2017-05-29] MEDS: LIDOCAINE 4%/MENTHOL 1% PATCH TD SCH (08:27)
[2017-05-29] MEDS: traMADol 50 MG TAB PO PRN ×2 (08:27→19:23)
[2017-05-29] MEDS: PANTOPRAZOLE SODIUM 40 MG TAB PO SCH (08:27)
[2017-05-29] MEDS: ACETAMINOPHEN 325 MG TAB PO PRN ×2 (08:28→20:39)
[2017-05-29] MEDS: FLUCONAZOLE 100 MG TAB PO SCH (08:28)
[2017-05-29] MEDS: SENNOSIDES/DOCUSATE SODIUM TAB PO SCH ×2 (08:28→20:41)
[2017-05-29] MEDS: ALLOPURINOL 300 MG TAB PO SCH ×2 (08:28→20:41)
[2017-05-29] MEDS: PENTOXIFYLLINE 400 MG EXT REL TAB PO SCH (08:28)
--- NOTE | 2017-05-29 09:27 | SOAPPROG ---
SOJENNYFER Progress Note Assessment/Plan: Assessment: 1. AML. trisomy 8. FISH/molecular pending. day 5 of induction with 7+3. 2. Pancytopenia due to AML and chemo 3. R leg pain. unclear etiology. Trisomy 8 associated with intermediate prognosis. Plan: - continue current supportive care - will get MRI of leg to further evaluate 05/28/17 09:41 05/29/17 09:24 Subjective: thigh still hurting, pain with weight bearing. Objective: exam unchanged Vital Signs Temp Pulse Resp BP Pulse Ox 36.5 C 70 16 125/72 H 97 05/29/17 04:00 05/29/17 04:00 05/29/17 04:00 05/29/17 04:00 05/29/17 04:00 Laboratory Results 05/29/17 05:20 05/29/17 05:20 05/28/17 05/29/17 05/30/17 05:59 05:59 05:59 Intake Total 6166 6949 Output Total 9746 3650 Balance -2905 60 ICD10 Worksheet Patient Problems: Problems Problem Status Onset Arthritis, hip Acute
[2017-05-29] MEDS ORDERED: GADOBUTROL 10 ML VIAL IVP ONE (15:25)
[2017-05-29] MEDS: ONDANSETRON HCL PF 8 MG, DEXAMETHASONE 10 MG in NS 50 ML IV SCH (16:08)
--- NOTE | 2017-05-29 16:23 | HOSPPROG ---
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 - Ultram p.r.n. - licoderm patch - encourage ambulation - MRI LE ordered # mild constipation- did have BM today - continue bowel regimen - encourage p.o. Intake and ambulation # mild anemia and thrombocytopenia- does not meet transfusion threshold today H &H 10/16 - monitor daily - hold pentoxifylline # prophylaxis platelets dropping - dc lovenox # diet regular # disposition greater than 2 midnights as the patient is presenting for chemotherapy will need to complete his full cycle I have discussed the case with the RN - continue current bowel regimen - taking good PO Subjective: leg pain persists Objective: Vital Signs Temp Pulse Resp BP Pulse Ox 36.6 C 72 18 123/82 H 98 05/29/17 13:21 05/29/17 13:21 05/29/17 13:21 05/29/17 13:21 05/29/17 13:21 Laboratory Results 05/29/17 05:20 05/29/17 05:20 05/28/17 05/29/17 05/30/17 05:59 05:59 05:59 Intake Total 2145 4770 Output Total 5050 4710 Balance -2905 60 - Physical Exam Constitutional: no apparent distress Eyes: anicteric sclera Ears, Nose, Mouth, Throat: moist mucous membranes Cardiovascular: regular rate and rhythym Respiratory: no respiratory distress Gastrointestinal: normoactive bowel sounds Genitourinary: no bladder fullness Skin: warm Musculoskeletal: No asymmetric calves Neurologic: AAOx3 Psychiatric: interacting appropriately Lymph, Heme, Immunologic: no cervical LAD ICD10 Worksheet Patient Problems: Problems Problem Status Onset Arthritis, hip Acute
[2017-05-29] MEDS: CYTARABINE IV SCH (16:41)
[2017-05-29] MEDS: NS IV SCH (16:41)
[2017-05-29] MEDS: diphenhydrAMINE 25 MG CAP PO PRN (20:38)
[2017-05-29] MEDS: CHOLECALCIFEROL VIT D3 2,000 UNITS TAB/CAP PO SCH (20:40)
[2017-05-29] MEDS: BEER 1 EACH EA PO SCH (20:43)
[2017-05-29] MEDS: PATCH REMOVAL 1 EA PATCH TD SCH (20:44)
[2017-05-30] MEDS: NS 1,000 ML IV SCH ×2 (05:57→21:50)
[2017-05-30] MEDS: traMADol 50 MG TAB PO PRN ×2 (06:04→16:04)
[2017-05-30] MEDS: ACETAMINOPHEN 325 MG TAB PO PRN ×3 (06:04→20:25)
[2017-05-30 06:15] LABS: PLATELET COUNT 51 10^3/uL (150-400)
--- NOTE | 2017-05-30 07:11 | SOAPPROG ---
SOAP Progress Note Assessment/Plan: Assessment: 1. 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 FISH/ molecular pending. day 6 of induction with 7+3. We are waiting for results of the FLT3. 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 OK to reduce the fluids. Reduce the allopurinol. I answered a variety of questions over about 45 minutes. 2. Pancytopenia due to AML and chemo: WBC: 0.85, HgB 8.5, plt 51K. No TXN. Note he is CMV +. 3. R leg pain. unclear etiology. The MRI is negative for any hematoma or fluid collection. Cause remains unclear. The pain is not neuropathic. 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 He has no complications. He is C/O of LLE pain. Its worse with weight baring and certain motions of the hip or positions. The MRI is negative. Objective: Vital Signs Temp Pulse Resp BP Pulse Ox 36.5 C 86 16 128/68 H 96 05/30/17 04:00 05/30/17 04:00 05/30/17 04:00 05/30/17 00:00 05/30/17 04:00 Laboratory Results 05/30/17 05:50 05/30/17 05:50 05/29/17 05/30/17 05/31/17 05:59 05:59 05:59 Intake Total 4770 4324.15 Output Total 4710 4700 Balance 60 -375.85 There is a small hematoma over the BM site. Its not infected. There is no swelling over over the RLE. No skin changes. - Time Spent With Patient Time Spent With Patient: 45 min ICD10 Worksheet Patient Problems: Problems Problem Status Onset Arthritis, hip Acute
[2017-05-30] MEDS: SENNOSIDES/DOCUSATE SODIUM TAB PO SCH (08:02)
[2017-05-30] MEDS: ACYCLOVIR 400 MG TAB PO SCH ×2 (08:02→20:24)
[2017-05-30] MEDS: ALLOPURINOL 300 MG TAB PO SCH ×2 (08:03→08:28)
[2017-05-30] MEDS: FLUCONAZOLE 100 MG TAB PO SCH (08:04)
[2017-05-30] MEDS: PANTOPRAZOLE SODIUM 40 MG TAB PO SCH (08:04)
[2017-05-30] MEDS: LIDOCAINE 4%/MENTHOL 1% PATCH TD SCH (09:45)
[2017-05-30] MEDS ORDERED: SENNOSIDES/DOCUSATE SODIUM TAB PO PRN (10:08)
--- NOTE | 2017-05-30 11:53 | HOSPPROG ---
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 - Ultram p.r.n. - licoderm patch - encourage ambulation - will order PT to provide ROM exercises # mild constipation- did have BM today - continue bowel regimen - encourage p.o. Intake and ambulation # Pancytopenia due to AML and Chemo - monitor daily - hold pentoxifylline - Transfuse if needed # Constipation: stool regimen was started. Now with diarrhea, I will stop scheduled stool softners # prophylaxis platelets dropping - SCD's, no chemical DVT proph # diet regular # disposition greater than 2 midnights as the patient is presenting for chemotherapy will need to complete his full cycle Subjective: some diarrhea, otherwise no o/n events. no new complaints. Objective: Vital Signs Temp Pulse Resp BP Pulse Ox 36.8 C 70 16 119/80 97 05/30/17 09:01 05/30/17 09:01 05/30/17 09:01 05/30/17 09:01 05/30/17 09:01 Laboratory Results 05/30/17 05:50 05/30/17 05:50 05/29/17 05/30/17 05/31/17 05:59 05:59 05:59 Intake Total 4770 4324.15 Output Total 4710 4700 600 Balance 60 -375.85 -600 - Physical Exam Constitutional: no apparent distress Eyes: PERRL, EOMI Ears, Nose, Mouth, Throat: moist mucous membranes, hearing normal Cardiovascular: regular rate and rhythym, No edema Respiratory: no respiratory distress, no rales or rhonchi Gastrointestinal: normoactive bowel sounds, soft, non-tender abdomen Skin: warm Musculoskeletal: No generalized weakness Neurologic: AAOx3 Psychiatric: interacting appropriately, not anxious, not encephalopathic Lymph, Heme, Immunologic: No petechiae ICD10 Worksheet Patient Problems: Problems Problem Status Onset Arthritis, hip Acute
[2017-05-30] MEDS: ONDANSETRON HCL PF 8 MG, DEXAMETHASONE 10 MG in NS 50 ML IV SCH (13:57)
[2017-05-30] MEDS: NS IV SCH (16:04)
[2017-05-30] MEDS: CYTARABINE IV SCH (16:04)
[2017-05-30] MEDS: CHOLECALCIFEROL VIT D3 2,000 UNITS TAB/CAP PO SCH (20:23)
[2017-05-30] MEDS: diphenhydrAMINE 25 MG CAP PO PRN (20:24)
[2017-05-30] MEDS: BEER 1 EACH EA PO SCH (20:24)
[2017-05-30] MEDS: PATCH REMOVAL 1 EA PATCH TD SCH (21:10)
[2017-05-31 04:18] LABS: PLATELET COUNT 48 10^3/uL (150-400)
[2017-05-31] MEDS: ACETAMINOPHEN 325 MG TAB PO PRN ×2 (06:20→14:16)
[2017-05-31] MEDS: PANTOPRAZOLE SODIUM 40 MG TAB PO SCH (08:43)
[2017-05-31] MEDS: FLUCONAZOLE 100 MG TAB PO SCH (08:43)
[2017-05-31] MEDS: ALLOPURINOL 300 MG TAB PO SCH (08:43)
[2017-05-31] MEDS: ACYCLOVIR 400 MG TAB PO SCH ×2 (08:43→21:28)
--- NOTE | 2017-05-31 10:00 | SOAPPROG ---
SOAP Progress Note Assessment/Plan: Assessment: 1. 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 other molecular studies pending. day 7 of induction with 7+3. 2. Pancytopenia due to AML and chemo 3. R leg pain. unclear etiology. Trisomy 8 associated with intermediate prognosis. Plan: - continue current supportive care - bone marrow biopsy on day 14 (next week) Subjective: feeling well. R hip is a bit better after sleeping w/ a pillow between his knees. Objective: Vital Signs Temp Pulse Resp BP Pulse Ox 36.8 C 84 16 130/70 H 97 05/31/17 08:45 05/31/17 08:45 05/31/17 08:45 05/31/17 08:45 05/31/17 08:45 Laboratory Results 05/31/17 03:58 05/31/17 03:58 05/30/17 05/31/17 06/01/17 05:59 05:59 05:59 Intake Total 4324.15 3393.15 Output Total 4700 3450 920 Balance -375.85 -56.85 -920 ICD10 Worksheet Patient Problems: Problems Problem Status Onset Arthritis, hip Acute
[2017-05-31] MEDS: traMADol 50 MG TAB PO PRN ×2 (12:58→21:35)
--- NOTE | 2017-05-31 13:17 | HOSPPROG ---
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 - Ultram p.r.n. - licoderm patch - encourage ambulation - cont with PT, improving overall # mild constipation- resolved # Pancytopenia due to AML and Chemo - monitor daily - hold pentoxifylline - Transfuse if needed # prophylaxis platelets dropping - SCD's, no chemical DVT proph # diet regular # disposition greater than 2 midnights as the patient is presenting for chemotherapy will need to complete his full cycle Subjective: no overnights events. no new complaints. Objective: Vital Signs Temp Pulse Resp BP Pulse Ox 36.7 C 74 17 128/70 H 100 05/31/17 12:00 05/31/17 12:00 05/31/17 12:00 05/31/17 12:00 05/31/17 12:00 Laboratory Results 05/31/17 03:58 05/31/17 03:58 05/30/17 05/31/17 06/01/17 05:59 05:59 05:59 Intake Total 4324.15 3393.15 Output Total 4700 3450 920 Balance -375.85 -56.85 -920 - Physical Exam Constitutional: no apparent distress Eyes: PERRL Ears, Nose, Mouth, Throat: moist mucous membranes, hearing normal Cardiovascular: regular rate and rhythym, No edema Respiratory: no respiratory distress Gastrointestinal: normoactive bowel sounds, soft, non-tender abdomen Skin: warm Neurologic: AAOx3 Psychiatric: interacting appropriately, not anxious, not encephalopathic ICD10 Worksheet Patient Problems: Problems Problem Status Onset Arthritis, hip Acute
[2017-05-31] MEDS: LIDOCAINE 4%/MENTHOL 1% PATCH TD SCH (14:07)
[2017-05-31] MEDS: ONDANSETRON HCL PF 8 MG, DEXAMETHASONE 10 MG in NS 50 ML IV SCH (14:16)
[2017-05-31] MEDS: NS IV SCH (15:08)
[2017-05-31] MEDS: CYTARABINE IV SCH (15:08)
[2017-05-31] MEDS: CHOLECALCIFEROL VIT D3 2,000 UNITS TAB/CAP PO SCH (21:29)
[2017-05-31] MEDS: BEER 1 EACH EA PO SCH (21:30)
[2017-05-31] MEDS: PATCH REMOVAL 1 EA PATCH TD SCH (21:31)
[2017-05-31] MEDS: diphenhydrAMINE 25 MG CAP PO PRN (22:16)
[2017-06-01] MEDS: NS 1,000 ML IV SCH ×2 (00:42→13:13)
[2017-06-01 05:20] LABS: PLATELET COUNT 34 10^3/uL (150-400)
[2017-06-01] MEDS: traMADol 50 MG TAB PO PRN ×3 (08:36→21:35)
[2017-06-01] MEDS: ACETAMINOPHEN 325 MG TAB PO PRN ×4 (08:37→22:17)
[2017-06-01] MEDS: PANTOPRAZOLE SODIUM 40 MG TAB PO SCH (08:38)
[2017-06-01] MEDS: ALLOPURINOL 300 MG TAB PO SCH (08:39)
[2017-06-01] MEDS: ACYCLOVIR 400 MG TAB PO SCH ×2 (08:39→21:34)
[2017-06-01] MEDS: FLUCONAZOLE 100 MG TAB PO SCH (08:39)
[2017-06-01] MEDS: LIDOCAINE 4%/MENTHOL 1% PATCH TD SCH (08:45)
--- NOTE | 2017-06-01 09:20 | SOAPPROG ---
SOAP Progress Note Assessment/Plan: Assessment: 1. 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 other molecular studies pending. day 8 of induction with 7+3. 2. Pancytopenia due to AML and chemo 3. R leg pain. unclear etiology. Trisomy 8 associated with intermediate prognosis. Plan: - continue current supportive care - will add Neurontin for pain. 10-0 mg TID, can titrate up. - bone marrow biopsy on day 14 (next week) 06/01/17 09:19 Subjective: R leg still hurting. otherwise no new problems. Objective: exam unchanged Vital Signs Temp Pulse Resp BP Pulse Ox 36.6 C 82 15 118/72 97 06/01/17 08:00 06/01/17 08:00 06/01/17 08:00 06/01/17 08:00 06/01/17 08:00 Laboratory Results 06/01/17 05:05 06/01/17 05:05 05/31/17 06/01/17 06/02/17 05:59 05:59 05:59 Intake Total 3393.15 1300 2794 Output Total 6740 4870 Balance -56.85 -3570 2794 ICD10 Worksheet Patient Problems: Problems Problem Status Onset Arthritis, hip Acute
--- NOTE | 2017-06-01 12:33 | HOSPPROG ---
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 - Ultram p.r.n. - licoderm patch -Start Gabapentin. Can titrate as needed - encourage ambulation - cont with PT, improving overall # mild constipation- resolved # Pancytopenia due to AML and Chemo - monitor daily - hold pentoxifylline - Transfuse if needed - Acyclovir and Diflucan # prophylaxis platelets dropping - SCD's, no chemical DVT proph # diet regular # disposition greater than 2 midnights as the patient is presenting for chemotherapy will need to complete his full cycle Subjective: still with hip pain. no cp or sob. platelets and hgb have drooped. No indications for transfusion yet. Objective: Vital Signs Temp Pulse Resp BP Pulse Ox 36.6 C 82 15 118/72 97 06/01/17 08:00 06/01/17 08:00 06/01/17 08:00 06/01/17 08:00 06/01/17 08:00 Laboratory Results 06/01/17 05:05 06/01/17 05:05 05/31/17 06/01/17 06/02/17 05:59 05:59 05:59 Intake Total 3393.15 1300 2794 Output Total 3450 4870 800 Balance -56.85 -3570 1993 - Physical Exam Constitutional: no apparent distress Eyes: PERRL, EOMI Ears, Nose, Mouth, Throat: moist mucous membranes, hearing normal Cardiovascular: regular rate and rhythym, No edema Respiratory: no respiratory distress, no rales or rhonchi, clear to auscultation Gastrointestinal: normoactive bowel sounds, soft, non-tender abdomen, no palpable masses Skin: warm Neurologic: AAOx3 Psychiatric: interacting appropriately, not anxious, not encephalopathic Lymph, Heme, Immunologic: No petechiae ICD10 Worksheet Patient Problems: Problems Problem Status Onset Arthritis, hip Acute
--- NOTE | 2017-06-01 15:50 | ASMTCMCOM ---
CM Note CM Note Notes: Reviewed chart regarding discharge plan of care, pt's progress. Per MD notes, pt continues to have hip pain following bone marrow biopsy; induction chemo underway. Pt has a double lumen PICC line in place. Spoke with KALA Campos - pt is currently neutropenic. Discharge needs remain unclear at this time. Pt lives independently with his . CM will continue to follow for potential needs. Current Discharge Plan: To be determined Date Signed: 06/01/2017 03:50 PM Electronically Signed By:Kamini Grullon RN
[2017-06-01] MEDS: GABAPENTIN 100 MG CAP PO SCH ×2 (16:40→21:35)
[2017-06-01] MEDS: BEER 1 EACH EA PO SCH (19:42)
[2017-06-01] MEDS: diphenhydrAMINE 25 MG CAP PO PRN (21:35)
[2017-06-01] MEDS: CHOLECALCIFEROL VIT D3 2,000 UNITS TAB/CAP PO SCH (21:36)
[2017-06-01] MEDS: PATCH REMOVAL 1 EA PATCH TD SCH (21:39)
[2017-06-02] MEDS: traMADol 50 MG TAB PO PRN ×3 (04:38→16:37)
[2017-06-02 04:42] LABS: PLATELET COUNT 31 10^3/uL (150-400)
[2017-06-02] MEDS: ACETAMINOPHEN 325 MG TAB PO PRN ×3 (09:06→18:26)
[2017-06-02] MEDS: GABAPENTIN 100 MG CAP PO SCH ×3 (09:07→21:21)
[2017-06-02] MEDS: PANTOPRAZOLE SODIUM 40 MG TAB PO SCH (09:07)
[2017-06-02] MEDS: ACYCLOVIR 400 MG TAB PO SCH ×2 (09:07→21:21)
[2017-06-02] MEDS: ALLOPURINOL 300 MG TAB PO SCH (09:07)
[2017-06-02] MEDS: LIDOCAINE 4%/MENTHOL 1% PATCH TD SCH (09:07)
[2017-06-02] MEDS: FLUCONAZOLE 100 MG TAB PO SCH (09:07)
--- NOTE | 2017-06-02 09:22 | SOAPPROG ---
SOAP Progress Note Assessment/Plan: Assessment: SOAP Progress Note Assessment/Plan: Assessment: 1. 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 other molecular studies pending. day 9 of induction with 7+3. 2. Pancytopenia due to AML and chemo. No indication for transfusion today. 3. R leg pain. unclear etiology. 4. Syncopal episode this morning-most consistent with postural/vagal. Trisomy 8 associated with intermediate prognosis. Plan: - continue current supportive care - will add Neurontin for pain. 10-0 mg TID, can titrate up. - bone marrow biopsy on day 14 (next week) - monitor for additional syncopal symptoms. Discussed changing position slowly. Subjective: right leg pain fluctuates, not getting worse. [place] 'faint' after getting up from bed, moving to bathroom. Brief syncopal spell while urinating. Awoke immediately and was oriented. No incontinence. Didn 't hit his head or fall. Feels fine now Objective: Vital Signs Temp Pulse Resp BP Pulse Ox 37.1 C 87 16 108/50 L 100 06/02/17 08:04 06/02/17 08:04 06/02/17 08:04 06/02/17 08:04 06/02/17 08:04 Laboratory Results 06/02/17 04:30 06/02/17 04:30 06/01/17 06/02/17 06/03/17 05:59 05:59 05:59 Intake Total 1300 5297 Output Total 8513 3200 Balance -3570 2097 Physical Exam - Physical Exam General Appearance: alert, no apparent distress Neck: supple Respiratory: lungs clear Abdomen: non-tender, soft Skin: normal color Extremities: other (no tenderness to palpation over right thigh) Neuro/Psych: alert, normal mood/affect, oriented x 3 ICD10 Worksheet Patient Problems: Problems Problem Status Onset Arthritis, hip Acute
--- NOTE | 2017-06-02 12:08 | ASMTCMCOM ---
CM Note CM Note Notes: Met with pt and at their requewst to discuss pvt duty caregive support for pt while in hospital. Pt fell this morning while with his александр. Pt does not want to be alone in his room when his can't be present. They are willing to hire a caregiver. provided a list. Pt's other DC needs remain unclear. CM to follow. Date Signed: 06/02/2017 12:07 PM Electronically Signed By:Rosalinda Yates LCSW
--- NOTE | 2017-06-02 12:51 | HOSPPROG ---
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 - Ultram p.r.n. - licoderm patch -Cont Gabapenin 100mg TID - encourage ambulation - cont with PT, improving overall # mild constipation- resolved # Pancytopenia due to AML and Chemo - monitor daily - hold pentoxifylline - Transfuse if needed - Acyclovir and Diflucan # prophylaxis platelets dropping - SCD's, no chemical DVT proph # diet regular # disposition greater than 2 midnights as the patient is presenting for chemotherapy will need to complete his full cycle Plan: cont with chemo per oncology no active need for transfusion telemetry per above. Does not feel symptomatic at this time. Subjective: had a syncopal episode today. Now better. The episode happended shortly after getting up. His BP has been ok. He is on IVF. He did not have any cp or sob. No neurological symptoms. Objective: Vital Signs Temp Pulse Resp BP Pulse Ox 36.9 C 98 16 110/62 97 06/02/17 12:00 06/02/17 12:00 06/02/17 12:00 06/02/17 12:00 06/02/17 12:00 Laboratory Results 06/02/17 04:30 06/02/17 04:30 06/01/17 06/02/17 06/03/17 05:59 05:59 05:59 Intake Total 1300 5297 Output Total 4870 3200 300 Balance -3570 2097 -300 - Physical Exam Constitutional: no apparent distress Eyes: PERRL Ears, Nose, Mouth, Throat: moist mucous membranes, hearing normal, ears appear normal Cardiovascular: regular rate and rhythym, No edema Respiratory: no respiratory distress, no rales or rhonchi, clear to auscultation Gastrointestinal: normoactive bowel sounds, soft, non-tender abdomen Skin: warm Neurologic: AAOx3 Psychiatric: interacting appropriately, not anxious, not encephalopathic Lymph, Heme, Immunologic: No petechiae ICD10 Worksheet Patient Problems: Problems Problem Status Onset Arthritis, hip Acute
[2017-06-02] MEDS: NS 1,000 ML IV SCH (18:26)
[2017-06-02] MEDS: BEER 1 EACH EA PO SCH (18:33)
[2017-06-02] MEDS: CHOLECALCIFEROL VIT D3 2,000 UNITS TAB/CAP PO SCH (21:22)
[2017-06-02] MEDS: PATCH REMOVAL 1 EA PATCH TD SCH (21:24)
[2017-06-02] MEDS: diphenhydrAMINE 25 MG CAP PO PRN (21:30)
[2017-06-03] MEDS: ACETAMINOPHEN 325 MG TAB PO PRN ×4 (00:46→20:13)
[2017-06-03] MEDS: traMADol 50 MG TAB PO PRN ×2 (04:23→11:14)
[2017-06-03] MEDS: CEPACOL LOZENGE PO PRN (04:23)
[2017-06-03 05:15] LABS: PLATELET COUNT 19 10^3/uL (150-400)
[2017-06-03] MEDS: ALLOPURINOL 300 MG TAB PO SCH (08:44)
[2017-06-03] MEDS: FLUCONAZOLE 100 MG TAB PO SCH (08:44)
[2017-06-03] MEDS: PANTOPRAZOLE SODIUM 40 MG TAB PO SCH (08:44)
[2017-06-03] MEDS: ACYCLOVIR 400 MG TAB PO SCH ×2 (08:44→20:13)
[2017-06-03] MEDS: GABAPENTIN 100 MG CAP PO SCH ×3 (08:44→21:04)
[2017-06-03] MEDS: LIDOCAINE 4%/MENTHOL 1% PATCH TD SCH (08:45)
--- NOTE | 2017-06-03 08:57 | SOAPPROG ---
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 other molecular studies pending. day 10 of induction with 7+3. 2. Pancytopenia due to AML and chemo. Counts coming down, no indication for transfusion today. 3. R leg pain. unclear etiology. 4. Syncopal episode 06/02-no recurrent symptoms. 5. Neutropenic fever-low grade. 6. Urinary retention. 7. Perianal irritation with diarrhea. 8. Sinus tachycardia-? reactive secondary to anemia, urinary retentions, pain, etc. Appears non toxic. Plan: - No indiction for transfusion today. - ID consultation. - Flomax for symptoms of urinary retention - urine analysis, culture - blood culture and/or antiobiotics per ID - Continue tele for now with ongoing tachycardia - pelvic mri to evaluate ongoing leg pain which patient reports starting after bone marrow biopsy, ? manifestation of sciatica, check CPK for muscle etiology ( unlikely) - will need D14 marrow - continue prophylactic acyclovir and diflucan 06/03/17 09:45 06/03/17 19:32 Subjective: Right leg pain persists, not tender to palpation, increased pain with weight bearing, no weakness. Perianal irritation secondary to diarrhea, small amount of blood with liquid stool. Urinary retention symptoms. Sore throat. Objective: Vital Signs Temp Pulse Resp BP Pulse Ox 36.7 C 107 H 14 118/64 98 06/03/17 08:00 06/03/17 08:00 06/03/17 08:00 06/03/17 08:00 06/03/17 08:00 Laboratory Results 06/03/17 04:33 06/03/17 04:33 06/02/17 06/03/17 06/04/17 05:59 05:59 05:59 Intake Total 5209 2936 Output Total 0 2049 Balance 2096 366 Physical Exam - Physical Exam General Appearance: WD/WN, alert, no apparent distress EENT: pharynx normal Neck: supple Respiratory: lungs clear Cardiac/Chest: tachycardia Abdomen: normal bowel sounds, non-tender, soft Rectal: deferred (ID to examine) Skin: normal color, other (PICC line site looks ok, non tender) Extremities: other (non tender to palpation in right thigh region) Neuro/Psych: alert, normal mood/affect, oriented x 3 ICD10 Worksheet Patient Problems: Problems Problem Status Onset Arthritis, hip Acute
[2017-06-03] MEDS: TAMSULOSIN HCL 0.4 MG CAP PO SCH (11:14)
--- NOTE | 2017-06-03 11:38 | HOSPPROG ---
Hospitalist Progress Note Assessment/Plan: #Syncope episode (06/02): no recurrent symptoms -Etiology likely vasovagal -TTE unremarkable per below -con telemetry #Low grade Fever + Hypotension (BP better currently) -no obvious source of infection -check infectious w/u (CXR, UA, BC'x) -ID to see #Diarrhea: check C-Diff # New diagnosis of AML-WBC -Echocardiogram (personally reviewed) normal LV size and function - oxygen saturations 95% on room air - continue with chemotherapy infusion per oncology, Allopurinol and IVF - continue daily monitoring of labs # right hip pain (improving) status post biopsy- most symptomatic with ambulation and weight-bearing- patient notes pain began 24 hr after bone marrow biopsy Hip XRAY (personally reviewed and interpreted) 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 - Ultram p.r.n. - licoderm patch -Cont Gabapenin 100mg TID - encourage ambulation - cont with PT, improving overall -Will have MRI of Pelvis today # mild constipation- resolved # Pancytopenia due to AML and Chemo - monitor daily - hold pentoxifylline - Transfuse if needed, no indications today - Acyclovir and Diflucan #Urinary retention and hx of BPH -He was previously on Flomax as an outpatient but then his symptoms resolved and he got off it. -Will restart today # prophylaxis platelets dropping - SCD's, no chemical DVT proph # diet regular # disposition greater than 2 midnights as the patient is presenting for chemotherapy will need to complete his full cycle Subjective: Low grade fever, no cp, sob, n/v. He does have diarrhea. He c/o urinary retention. No dysuria. Objective: Vital Signs Temp Pulse Resp BP Pulse Ox 36.7 C 107 H 14 118/64 98 06/03/17 08:00 06/03/17 08:00 06/03/17 08:00 06/03/17 08:00 06/03/17 08:00 Laboratory Results 06/03/17 04:33 06/03/17 04:33 06/02/17 06/03/17 06/04/17 05:59 05:59 05:59 Intake Total 5237 2416 Output Total 2343 6830 Balance 7524 366 - Physical Exam Constitutional: no apparent distress Eyes: PERRL, EOMI Ears, Nose, Mouth, Throat: moist mucous membranes, hearing normal, ears appear normal Cardiovascular: regular rate and rhythym Respiratory: no respiratory distress Gastrointestinal: normoactive bowel sounds, soft, non-tender abdomen Skin: warm Musculoskeletal: full muscle strength Neurologic: AAOx3 Psychiatric: interacting appropriately, not anxious, not encephalopathic Lymph, Heme, Immunologic: No petechiae ICD10 Worksheet Patient Problems: Problems Problem Status Onset Arthritis, hip Acute
[2017-06-03] MEDS ORDERED: GADOBUTROL 10 ML VIAL IVP ONE (13:28)
[2017-06-03] MEDS: CEFEPIME HCL 2 GM in STERILE WATER INJ 12.5 ML IV SCH ×2 (15:25→21:03)
[2017-06-03] MEDS: BEER 1 EACH EA PO SCH (17:51)
--- NOTE | 2017-06-03 19:06 | GCON ---
[f rep st] CONSULTATION INFECTIOUS DISEASE CONSULTATION DATE OF CONSULTATION: 06/03/2017 REASON FOR CONSULTATION: Neutropenia, query neutropenic fever. HPI: A 72-year-old man originally from the [facility], who has had longstanding leukopenia and thrombocytopenia of unclear etiology, but presented in April with an unexpectedly elevated white count, worsening anemia, and thrombocytopenia, and was subsequently diagnosed with AML with trisomy 8, FLT3 negative, who is currently admitted for induction therapy with cytarabine, last dose 05/31, and daunorubicin, last dose 05/27. Patient was doing well with recent events including a near-syncopal episode yesterday, low-grade fever last night with the development of persistent tachycardia. In addition, he has 3 primary complaints, which include: 1. Right hip pain that comes and goes present with both ambulation and rest. Denies that it is shooting. Would describe it more as constant and aching with periods of worsening. It does occasionally become close to complete relief. It started 24 hours after his bone marrow biopsy on 05/29/2017. Rubbing it does not improve or make it worse. He denies any visible abnormalities associated with that area. 2. He describes difficulty emptying his bladder, even with the resumption of Flomax and increased frequency. No dysuria. Mild suprapubic pain due to inability to empty bladder. 3. He has also developed loose stool with a small amount of stool with each void. Patient already has a negative CT scan. He also has some mild abdominal cramps. His appetite is okay. REVIEW OF SYSTEMS: A complete 10-point review of systems was performed and is negative except as mentioned in the HPI. Patient reports significant fatigue but no shortness of breath or cough. He describes some mild perirectal irritation that he attributes to loose stool. He also has had a sore throat on and off, but is not currently present at the time of my exam. He denies any rashes, headaches, visual changes. PAST MEDICAL HISTORY: Granuloma annulare and BPH. SOCIAL HISTORY: Patient has a 10 pack-year history of tobacco, none for many years. 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 He grew up in the [facility] and immigrated in the . At that time also, was traveling to [facility] regularly. Last trip to the [facility] was in 2005. No recent international travel. He has 2 dogs, 3 adult children, and is . FAMILY HISTORY: He denies any known family history of tuberculosis. Mother in her late 90s with lung cancer. Father 85 with a stroke. One brother alive and well. ALLERGIES: No known drug allergies to antibiotics. MEDICATIONS: Chemotherapy as per HPI. Acyclovir 800 mg twice daily, vitamin D 5000 units daily, Benadryl as needed, fluconazole 100 mg daily, gabapentin 100 mg 3 times daily, lactulose as needed, magnesium daily, Zofran as needed, Trental 400 mg twice daily, senna as needed, Flomax 0.5 mg daily (he has been on this 3 days), tramadol as needed for pain, Ambien as needed for insomnia. PHYSICAL EXAM: VITAL SIGNS: Blood pressure 132/70, heart rate 120, respiratory rate 17, saturation 96% on room air, temperature 36.8, T-max 38. GENERAL: This is a pleasant male sitting up in bed, conversive with noticeable pallor. HEENT: Pupils are reactive bilaterally. Had conjunctival pallor. No jaundice. No conjunctival hemorrhages. Oropharynx: Fair dentition. Moist mucous membranes. He has several ulcerations on his upper palate consistent with mucositis. No thrush or ulcerations consistent with herpes virus. CARDIOVASCULAR: Tachycardic, regular rate, no murmurs. CHEST: Clear to auscultation bilaterally. ABDOMEN: Soft, nontender. Bowel sounds are present. He has some discomfort to deep palpation of the right lower quadrant. NEUROLOGICAL: He is alert and oriented x4. Moving all 4 extremities equally. SKIN: He had no rashes noted, just significant pallor. Right hip exam showed a healing site at the bone marrow with some surrounding ecchymotic lesions with a central scab. No erythema, no fluctuance, no tenderness at the site. EXTREMITY EXAM: His right thigh showed no swelling. No obvious skin abnormalities. No joint swelling. He had trace lower extremity edema. RECTAL : Perirectal exam revealed mild irritation surrounding the rectum versus Jadyn. Also, a hemorrhoid at the 2 o'clock position. No ulcerations were noted. LABS: White count of 0.59, hematocrit 23, platelets of 19, 32% neutrophils, 10 % bands, 58% lymphocytes. ANC is 250, including bands. Blood and urine cultures were obtained this morning. The patient has a remote wound culture that shows MSSA from 08/08/2016. IMAGING: The patient had an MRI of his right lower extremity, which shows a total right hip arthroplasty. No masses or fluid collection, and marked enlargement of the prostate. Chest x-ray was also performed today that showed no focal infiltrates. Pelvis MRI was performed and is pending at time of dictation. ASSESSMENT AND PLAN: This is a 72-year-old male with neutropenia following induction therapy for acute myelocytic leukemia, who has developed low-grade fever and tachycardia. Primary localizing symptoms include right hip and leg pain, urinary symptoms, and abdominal pain and diarrhea that is negative for Clostridium difficile. 1. Neutropenia with low-grade fever and tachycardia - suspect typhilitis. 2. Oral mucositis, likely related to chemotherapy. 3. Pancytopenia due to underlying malignancy and chemotherapy. 4. Enlarged prostate. 5. Perirectal jadyn RECOMMENDATIONS: 1. Agree with workup to date, which has included blood and urine cultures, MRI of the pelvis to better understand bone marrow biopsy site. 2. Would initiate empiric antibiotics while evaluating source of infection due to high-risk nature with underlying neutropenia. Would recommend cefepime 2 g IV q.8. The patient has normal renal function. At this point, although patient has a PICC line that was placed on admission, 05/24/2017, no abnormalities at the site of the insertion. Therefore, would hold off therapy with vancomycin. 3. Would decrease dose of acyclovir to 400 mg twice daily, which is the appropriate prophylaxis dose and would increase fluconazole to 200 mg due to perirectal abnormalities noted. Potential differential diagnoses of neutropenic fever include most common etiology, which is typhlitis. Supportive findings for this are right lower quadrant pain and diarrhea with a negative C diff, also with unexplained tachycardia PE in the differential, no sign of pneumonia on chest x-ray. Notably, with going forward, if the patient has a more protracted neutropenia, endemic fungi would potentially be in the differential, but at this time, would not work up further, right leg/hip pain following bone marrow biopsy. Pelvic osteomyelitis is a very unusual complication related to bone marrow biopsy, but this is being evaluated further with MRI. Time 75 min >50% time spent with education and counseling of patient about ddx, planned treatment. Thank you for this consultation. We will continue to follow on a daily basis. /[id number]/MODL MTDD
[2017-06-03] MEDS: CHOLECALCIFEROL VIT D3 2,000 UNITS TAB/CAP PO SCH (20:13)
[2017-06-03] MEDS: PATCH REMOVAL 1 EA PATCH TD SCH (20:30)
[2017-06-03] MEDS ORDERED: MEPERIDINE 25 MG/ML SYR IVP ONE (20:33)
[2017-06-03] MEDS ORDERED: IOPAMIDOL (ISOVUE 370) 100 ML BTL IV ONE (21:13)
[2017-06-03] MEDS: diphenhydrAMINE 25 MG CAP PO PRN (23:04)
[2017-06-04] MEDS: traMADol 50 MG TAB PO PRN ×4 (02:33→21:09)
[2017-06-04] MEDS: ACETAMINOPHEN 325 MG TAB PO PRN ×3 (02:33→18:29)
[2017-06-04] MEDS ORDERED: LOPERAMIDE HCL 2 MG CAP PO PRN (02:39)
[2017-06-04] MEDS: NS 1,000 ML IV SCH ×2 (05:47→20:01)
[2017-06-04] MEDS: CEFEPIME HCL 2 GM in STERILE WATER INJ 12.5 ML IV SCH ×3 (05:47→21:21)
[2017-06-04 06:13] LABS: PLATELET COUNT 7 10^3/uL (150-400)
--- NOTE | 2017-06-04 08:14 | HOSPPROG ---
Hospitalist Progress Note Assessment/Plan: #Sepsis: due to typhlitis. (WBC <4, tachy and abd source). Cont broad-abx. BP stable #AML: DAy 11 induction #Pancytopenia: transfuse blood/platelets today #Right leg pain: pelvic MRI shows right paracentral disk herniation L4-5. Cont PT. Can see NSGY once more clinically stable #Neutropenic fever: typhilitis on CT and abd pain. ID consulted. Cefepime/ Flagyl. Blood/urine cultures pending #Tachycardia: no PE on CTA #Etoh use: hold beer while on Flagyl #Urinary frequency: enlarged prostate. Flomax helping #Diet: as tolerated #DVT ppx: SCDs with thrombocytopenia #Disp: inpatient admission for IV chemo, IV abx # Subjective: intermittent crampy RLQ pain. Shooting pain down right hip and leg Objective: Vital Signs Temp Pulse Resp BP Pulse Ox 37.2 C 111 H 16 116/58 L 96 06/04/17 04:00 06/04/17 04:00 06/04/17 04:00 06/04/17 04:00 06/04/17 04:00 Laboratory Results 06/04/17 05:43 06/04/17 05:43 06/03/17 06/04/17 06/05/17 05:59 05:59 05:59 Intake Total 2416 5082 Output Total 3850 1104 Balance 366 3971 - Time Spent With Patient Time Spent with Patient: greater than 35 minutes Time Spent with Patient: Greater than 35 minutes spent on this patients care, greater than 50% of time spent counseling, educating, and coordinating care regarding the above mentioned plan. - Physical Exam Constitutional: chronically ill appearing Eyes: PERRL Ears, Nose, Mouth, Throat: dry mucous membranes Cardiovascular: tachycardia Respiratory: no respiratory distress Gastrointestinal: normoactive bowel sounds, tenderness (RLQ, no rebound. Mildly distended) Skin: warm Musculoskeletal: full muscle strength, other (no TTP opver right hip/leg. No erythema or warmth) Neurologic: AAOx3, CN II-XII Intact ICD10 Worksheet Patient Problems: Problems Problem Status Onset Arthritis, hip Acute
[2017-06-04] MEDS: ACYCLOVIR 400 MG TAB PO SCH ×2 (08:51→21:09)
[2017-06-04] MEDS: GABAPENTIN 100 MG CAP PO SCH ×3 (08:51→21:10)
[2017-06-04] MEDS: TAMSULOSIN HCL 0.4 MG CAP PO SCH (08:51)
[2017-06-04] MEDS: PANTOPRAZOLE SODIUM 40 MG TAB PO SCH (08:51)
[2017-06-04] MEDS: ALLOPURINOL 300 MG TAB PO SCH (08:51)
[2017-06-04] MEDS: FLUCONAZOLE 100 MG TAB PO SCH (08:51)
[2017-06-04] MEDS: LIDOCAINE 4%/MENTHOL 1% PATCH TD SCH (08:54)
[2017-06-04] MEDS ORDERED: POTASSIUM CL 20 MEQ TAB PO ONE (09:08)
--- NOTE | 2017-06-04 10:09 | PCMIDPN ---
Assessment/Plan: Assessment: Neutropenic enterocolitis-underlying AML. Patient having ongoing fevers. Continuing diarrhea. Currently on cefepime monotherapy. Will add metronidazole secondary to need for anaerobe coverage. Patient is being allowed a beer daily. We will discontinue this. Patient was cautioned not to have alcohol with the metronidazole. In discussion with the patient's suspect that the antibiotics will decrease inflammation over the next 48 hr that the patient will see reduced diarrhea along that time frame. Also discussed with the patient that antibiotic regimen will likely continue until his counts have recovered. Plan: 1. Continue IV cefepime at present dose. 2. Start metronidazole 500 mg IV q.8 hours. 3. Discontinue beer. 4. Follow fever curve and clinical course. 06/04/17 10:09 Subjective: Patient is sitting in his hospital chair. He is eating breakfast. Complains of ongoing diarrhea and continued pain in his right hip that reflects down to his mid femur area. Also notes that he is having some problems with complete elimination of urine. Ongoing fevers this morning. Objective: Cefepime # 1 Vital Signs Temp Pulse Resp BP Pulse Ox 38.0 C 121 H 16 119/56 L 95 06/04/17 09:28 06/04/17 09:28 06/04/17 09:28 06/04/17 09:28 06/04/17 09:28 Laboratory Results 06/04/17 05:43 06/04/17 05:43 06/03/17 06/04/17 06/05/17 05:59 05:59 05:59 Intake Total 2416 5075 Output Total 2050 1104 Balance 366 3971 - Physical Exam General Appearance: WD/WN, alert, no apparent distress, non-toxic Respiratory: lungs clear, normal breath sounds, No respiratory distress Cardiac/Chest: regular rate, rhythm, No tachycardia Skin: normal color, warm/dry, No rash Neuro/Psych: alert, normal mood/affect, oriented x 3 ICD10 Worksheet Patient Problems: Problems Problem Status Onset Arthritis, hip Acute
--- NOTE | 2017-06-04 10:43 | SOAPPROG ---
SOAP Progress Note Assessment/Plan: Assessment/Plan: 72 yo gentleman w AML admitted for induction w 7+3 Now w pancytopenia, typhlitis 1. AML - FLT3 negative, trisomy 8 (intermediate prognosis but rest of molecular studies pending) Day 11 induction today predicted pancytopenia Will need D14 marrow 2. Pancytopenia - due to #1 PRBC and platelets today transfusion if PRBC <7 and platelets < 10k or bleeding covered broadly for neutropenia 3. Typhlitis - appreciate ID on cefepime and metronidazole still w diarrhea, C.Diff negative 4.R thigh pain - MR w L4-5 herniated discs? monitor fo now cont tramadol and gabapentin 5. Tachycardia - related to #3 EKG shows sinus tach CTA -ve for PE 06/04/17 10:43 Subjective: Fever overnight CT abdomen w typhlitis still c/o R thigh pain Objective: Vital Signs Temp Pulse Resp BP Pulse Ox 38.0 C 121 H 16 119/56 L 95 06/04/17 09:28 06/04/17 09:28 06/04/17 09:28 06/04/17 09:28 06/04/17 09:28 Laboratory Results 06/04/17 05:43 06/04/17 05:43 06/03/17 06/04/17 06/05/17 05:59 05:59 05:59 Intake Total 2416 5075 Output Total 0 1104 Balance 366 3971 Gen - NAD HEENT - anicteric one blood blister on R lateral tongue CV- tachy Chest - clear bilaterally Abd - soft, TTP RLQ, BS+, no rebound Ext - no edema ICD10 Worksheet Patient Problems: Problems Problem Status Onset Arthritis, hip Acute
--- NOTE | 2017-06-04 13:20 | ASMTCMCOM ---
ELIZABETH Note CM Note Notes: Chart reviewed for discharge planning purposes. Met you patient and his . They are very pleasant and live here in [place]. Two of their adult children to arrive soon to provide support. Needs are still to be determined. Patient had a syncopal episode in the bathroom two mornings ago and his fears leaving him unassisted. She has a list of private caregiver sources but reports she will wait until her children arrive and enlist their help. CM to follow. Date Signed: 06/04/2017 01:19 PM Electronically Signed By:Mery Iverson RN
[2017-06-04] MEDS: CHOLECALCIFEROL VIT D3 2,000 UNITS TAB/CAP PO SCH (21:10)
[2017-06-04] MEDS: PATCH REMOVAL 1 EA PATCH TD SCH (21:13)
[2017-06-04] MEDS: diphenhydrAMINE 25 MG CAP PO PRN (21:21)
[2017-06-05] MEDS: ACETAMINOPHEN 325 MG TAB PO PRN ×4 (00:11→19:18)
[2017-06-05] MEDS: traMADol 50 MG TAB PO PRN ×3 (03:30→16:31)
[2017-06-05 03:54] LABS: PLATELET COUNT 22 10^3/uL (150-400)
[2017-06-05] MEDS: CEFEPIME HCL 2 GM in STERILE WATER INJ 12.5 ML IV SCH ×3 (05:35→22:10)
[2017-06-05] MEDS: GABAPENTIN 100 MG CAP PO SCH ×3 (09:18→19:47)
[2017-06-05] MEDS: ACYCLOVIR 400 MG TAB PO SCH ×2 (09:19→19:47)
[2017-06-05] MEDS: ALLOPURINOL 300 MG TAB PO SCH (09:22)
[2017-06-05] MEDS: PANTOPRAZOLE SODIUM 40 MG TAB PO SCH (09:22)
[2017-06-05] MEDS: TAMSULOSIN HCL 0.4 MG CAP PO SCH (09:22)
[2017-06-05] MEDS: LIDOCAINE 4%/MENTHOL 1% PATCH TD SCH (09:36)
[2017-06-05] MEDS: FLUCONAZOLE 100 MG TAB PO SCH (09:36)
[2017-06-05] MEDS ORDERED: HYDROCODONE/APAP 5/325 TAB PO PRN (11:18)
--- NOTE | 2017-06-05 11:20 | SOAPPROG ---
SOAP Progress Note Assessment/Plan: Assessment/Plan: 72 yo gentleman w AML admitted for induction w 7+3 Now w pancytopenia, typhlitis 1. AML - FLT3 negative, trisomy 8 (intermediate prognosis but rest of molecular studies pending) Day 12 induction today predicted pancytopenia Will need D14 marrow if counts cont to recover 2. Pancytopenia - due to #1 PRBC and platelets 4/16 transfusion if PRBC <7 and platelets < 10k or bleeding covered broadly for neutropenia 3. Typhlitis - appreciate ID on cefepime and metronidazole Diarrhea and fever improved C.Diff negative 4.R thigh pain - MR w L4-5 herniated discs? monitor fo now cont tramadol and gabapentin add [place] prn consider lumbar MRI 5. Tachycardia - improved related to #3 CTA -ve for P 06/04/17 10:43 06/05/17 11:17 Subjective: Doing better overall still c/o R thigh pain Objective: Vital Signs Temp Pulse Resp BP Pulse Ox 37.1 C 107 H 18 122/60 H 95 06/05/17 08:00 06/05/17 08:00 06/05/17 08:00 06/05/17 08:00 06/05/17 08:00 Microbiology 06/03/17 11:15 Urine Culture - Final Urine,Clean Catch Enterococcus Faecalis Laboratory Results 06/05/17 03:30 06/05/17 03:30 06/04/17 06/05/17 06/06/17 05:59 05:59 05:59 Intake Total 5075 4114 Output Total 1104 1600 Balance 3971 2514 Gen - NAD HEENT - no mucositis or blisters CV - RRR Chest 0 CTAB Abd - less TTP in RLQ Ext - no sig edema or rash Neuro - nonfocal ICD10 Worksheet Patient Problems: Problems Problem Status Onset Arthritis, hip Acute
--- NOTE | 2017-06-05 14:32 | PCMIDPN ---
Assessment/Plan: # Neutropenic fever with evidence of typhlitis at the cecum on CT abdomen pelvis. CT PE was negative. ANC 50 --continue cefepime and metronidazole to cover for gram-negative rods and anaerobes --with next fever would repeat blood cultures and start micafungin 100 mg IV daily. DC fluconazole when start micafungin --add on CMV PCR to blood work --on fungal and HSV/VZV prophylaxis with acyclovir # perianal yeast infection: On fluconazole 200 mg once daily, clinical improved # pancytopenia secondary to chemotherapy Med Cefepime 2 g IV Q 8, # 2 Metronidazole 500 mg IV Q 8, #1 Acyclovir 400 mg twice daily Fluconazole 200 mg once daily Subjective: BMs are more formed today. Mild perirectal irritation is improved Objective: Vital Signs Temp Pulse Resp BP Pulse Ox 37.3 C 99 18 126/70 H 96 06/05/17 11:31 06/05/17 11:31 06/05/17 11:31 06/05/17 11:31 06/05/17 11:31 Microbiology 06/03/17 11:15 Urine Culture - Final Urine,Clean Catch Enterococcus Faecalis Laboratory Results 06/05/17 03:30 06/05/17 03:30 06/04/17 06/05/17 06/06/17 05:59 05:59 05:59 Intake Total 5075 4114 Output Total 1104 1600 750 Balance 3971 2514 -750 - Physical Exam General Appearance: alert, no apparent distress Respiratory: lungs clear, No accessory muscle use Cardiac/Chest: tachycardia Extremities: No pedal edema, No swelling Abdomen: non-tender, soft, other (Right lower quadrant pain has resolved. Abdomen slightly more distended than my last exam, bowel sounds are present) Skin: No rash Neuro/Psych: alert, normal mood/affect - Line/s RUE PICC Lines: No drainage, No erythema - Time Spent With Patient Time Spent with Patient: greater than 35 minutes (Care coordinated with nursing , pharmacy and hospitalist) Time Spent with Patient: Greater than 35 minutes spent on this patients care, greater than 50% of time spent counseling, educating, and coordinating care regarding the above mentioned plan. ICD10 Worksheet Patient Problems: Problems Problem Status Onset Arthritis, hip Acute
[2017-06-05] MEDS: oxyCODONE IR 5 MG TAB PO PRN (14:53)
--- NOTE | 2017-06-05 15:10 | HOSPPROG ---
Hospitalist Progress Note Assessment/Plan: Addendum Spoke with Dr Carlisle. If fevers again, repeat blood cultures, add Micafungin and fluconazole Objective: Vital Signs Temp Pulse Resp BP Pulse Ox 37.3 C 99 18 126/70 H 96 06/05/17 11:31 06/05/17 11:31 06/05/17 11:31 06/05/17 11:31 06/05/17 11:31 Microbiology 06/03/17 11:15 Urine Culture - Final Urine,Clean Catch Enterococcus Faecalis Laboratory Results 06/05/17 03:30 06/05/17 03:30 06/04/17 06/05/17 06/06/17 05:59 05:59 05:59 Intake Total 5006 4114 Output Total 1104 1600 750 Balance 3971 6219 -631 ICD10 Worksheet Patient Problems: Problems Problem Status Onset Arthritis, hip Acute
--- NOTE | 2017-06-05 15:16 | HOSPPROG ---
Hospitalist Progress Note Assessment/Plan: #Typhlitis: Cefepime/ Flagyl -pain currently controlled with APAP, tolerating some PO. More distended today, but min pain. Having BMs. 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 Likely sciatica with disk herniation #Disc herniation: outpatient spine FU when clinically stable #Acute encephalopathy: due to acute illness. Minimize central-acting medications. Low-dose opioids #Tachycardia: from acute illness, fever. No PE on CTA #Pancytopenia: transfused blood/platelets 06/04 #Hypokalemia: repleted #Hypovolemic hyponatremia: gentle IVFs #Diastolic heart failure: grade 1. Gentle IVFs #Diet: regular #DVT: SCDs #Disp: cont inpatient admission for typhlitis, IV abx, IVFs. Discussed case with Dr. Carlisle Subjective: rigors last night. Abd comes and go. soft stools, no diarrhea Objective: Vital Signs Temp Pulse Resp BP Pulse Ox 37.3 C 99 18 126/70 H 96 06/05/17 11:31 06/05/17 11:31 06/05/17 11:31 06/05/17 11:31 06/05/17 11:31 Microbiology 06/03/17 11:15 Urine Culture - Final Urine,Clean Catch Enterococcus Faecalis Laboratory Results 06/05/17 03:30 06/05/17 03:30 06/04/17 06/05/17 06/06/17 05:59 05:59 05:59 Intake Total 5075 4114 Output Total 1104 1600 750 Balance 9183 7267 -724 - Time Spent With Patient Time Spent with Patient: greater than 35 minutes Time Spent with Patient: Greater than 35 minutes spent on this patients care, greater than 50% of time spent counseling, educating, and coordinating care regarding the above mentioned plan. - Physical Exam Constitutional: other (fatigued) Eyes: PERRL Ears, Nose, Mouth, Throat: moist mucous membranes Cardiovascular: tachycardia Respiratory: no respiratory distress Gastrointestinal: distension, other (soft, min TTP RLQ. No rebound guarding. +BS ) Genitourinary: no bladder fullness Skin: warm Musculoskeletal: full muscle strength Neurologic: CN II-XII Intact Psychiatric: encephalopathic, No interacting appropriately ICD10 Worksheet Patient Problems: Problems Problem Status Onset Arthritis, hip Acute
[2017-06-05] MEDS: MICAFUNGIN NA 100 MG in NS 100 ML IV SCH (19:46)
[2017-06-05] MEDS: diphenhydrAMINE 25 MG CAP PO PRN (19:47)
[2017-06-05] MEDS: CHOLECALCIFEROL VIT D3 2,000 UNITS TAB/CAP PO SCH (19:48)
[2017-06-05] MEDS: PATCH REMOVAL 1 EA PATCH TD SCH (19:49)
[2017-06-06] MEDS: CEFEPIME HCL 2 GM in STERILE WATER INJ 12.5 ML IV SCH ×3 (05:31→21:48)
[2017-06-06] MEDS: NS 1,000 ML IV SCH ×2 (05:33→21:48)
[2017-06-06] MEDS: traMADol 50 MG TAB PO PRN ×2 (05:35→18:26)
[2017-06-06] MEDS: ACETAMINOPHEN 325 MG TAB PO PRN ×4 (05:35→22:08)
[2017-06-06 06:05] LABS: PLATELET COUNT 12 10^3/uL (150-400)
--- NOTE | 2017-06-06 09:41 | PCMIDPN ---
Assessment/Plan: # Neutropenic fever with evidence of typhlitis at the cecum on CT abdomen pelvis. CT PE was negative. ANC 25. fever overnight --continue cefepime and metronidazole to cover for gram-negative rods and anaerobes --added micafungin 100 mg IV daily yesterday evening w fever in the setting of ongoing neutropenia. DC fluconazole --monitor blood cx. No focal new symptoms, hold off on additional imaging for now --on HSV/VZV prophylaxis with acyclovir # pancytopenia secondary to chemotherapy # e faecalis low colony number urine: No specific therapy required Med Cefepime 2 g IV Q 8, # 3 Metronidazole 500 mg IV Q 8, #2 micafungin 100mg IV daily #2 Acyclovir 400 mg twice daily Micro CMV PCR pending 06/03 blood cx (2) NGTD 06/05 blood cx (2) pending Subjective: patient without specific c/o except for constipation no new rash no oral pain but complaining of dry mouth Objective: Vital Signs Temp Pulse Resp BP Pulse Ox 37.2 C 106 H 16 118/58 L 95 06/06/17 04:00 06/06/17 04:00 06/06/17 04:00 06/06/17 04:00 06/06/17 04:00 Microbiology 06/03/17 11:15 Urine Culture - Final Urine,Clean Catch Enterococcus Faecalis Laboratory Results 06/06/17 05:52 06/06/17 05:52 06/05/17 06/06/17 06/07/17 05:59 05:59 05:59 Intake Total 4114 1650 Output Total 1600 2704 Balance 2514 -1054 - Physical Exam General Appearance: alert, no apparent distress EENT: other (oral ulcerations) Respiratory: lungs clear, No accessory muscle use Neck: supple Cardiac/Chest: regular rate, rhythm (not tachy at time of my exam) Extremities: No pedal edema, No inflammation, No swelling Abdomen: normal bowel sounds, non-tender, soft, distended (mild), other (mild discomfort to deep palpation RLQ) Skin: pallor, No diaphoresis, No jaundice, No rash Neuro/Psych: alert, normal mood/affect, oriented x 3 - Line/s RUE PICC Lines: other (Ecchymosis at insertion site), No drainage, No erythema - Time Spent With Patient Time Spent with Patient: greater than 35 minutes (Reviewed plan of care with patient and his ; care coordinated with Dr. Saman Abdi) Time Spent with Patient: Greater than 35 minutes spent on this patients care, greater than 50% of time spent counseling, educating, and coordinating care regarding the above mentioned plan. ICD10 Worksheet Patient Problems: Problems Problem Status Onset Arthritis, hip Acute
[2017-06-06] MEDS: LIDOCAINE 4%/MENTHOL 1% PATCH TD SCH (10:00)
[2017-06-06] MEDS: MICAFUNGIN NA 100 MG in NS 100 ML IV SCH (10:30)
[2017-06-06] MEDS: PANTOPRAZOLE SODIUM 40 MG TAB PO SCH (10:31)
[2017-06-06] MEDS: ALLOPURINOL 300 MG TAB PO SCH (10:31)
[2017-06-06] MEDS: TAMSULOSIN HCL 0.4 MG CAP PO SCH (10:31)
[2017-06-06] MEDS: GABAPENTIN 100 MG CAP PO SCH ×3 (10:31→21:54)
[2017-06-06] MEDS: ACYCLOVIR 400 MG TAB PO SCH ×2 (10:31→21:54)
--- NOTE | 2017-06-06 10:44 | SOAPPROG ---
SOAP Progress Note Assessment/Plan: Assessment/Plan: 72 yo gentleman w AML admitted for induction w 7+3 Now w pancytopenia, typhlitis 1. 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 Pancytopenia - due to #1 PRBC and platelets 4/16 transfusion if PRBC <7 and platelets < 10k or bleeding covered broadly for neutropenia 3. Typhlitis - appreciate ID on cefepime and metronidazole Diarrhea and fever resolved C.Diff negative 4.R thigh pain - MR w L4-5 herniated discs? monitor fo now cont tramadol and gabapentin prn oxy consider lumbar MRI 5. Tachycardia - improved related to #3 CTA -ve for P 06/04/17 10:43 06/05/17 11:17 06/06/17 10:43 Subjective: Nothing acute feeling well Objective: Vital Signs Temp Pulse Resp BP Pulse Ox 36.7 C 90 18 124/66 H 99 06/06/17 10:13 06/06/17 10:13 06/06/17 10:13 06/06/17 10:13 06/06/17 10:13 Microbiology 06/03/17 11:15 Urine Culture - Final Urine,Clean Catch Enterococcus Faecalis Laboratory Results 06/06/17 05:52 06/06/17 05:52 06/05/17 06/06/17 06/07/17 05:59 05:59 05:59 Intake Total 4114 1650 Output Total 1600 2704 860 Balance 8114 -1054 -860 Gen - NAD HEENT - OP clear CV - RRR Lungs - clear skin - no rash Ext - no edema Neuro -nonfocal ICD10 Worksheet Patient Problems: Problems Problem Status Onset Arthritis, hip Acute
[2017-06-06] MEDS ORDERED: ORAL BALANCE GEL TUBE PO PRN (11:18)
--- NOTE | 2017-06-06 16:05 | HOSPPROG ---
Hospitalist Progress Note Assessment/Plan: 72 yo M w AML Typhlitis: Cefepime/ Flagyl pain currently controlled with APAP, tolerating some PO. More distended today , but min pain. Having BMs. Low-threshold to re-image blood culture NGTD benign exam AML: Day 13 induction Neutropenic fever: broad abx Right leg pain: no abscess at BM site. Likely sciatica with disk herniation Disc herniation: outpatient spine FU when clinically stable Acute encephalopathy: due to acute illness. Minimize central-acting medications. Low-dose opioids Tachycardia: from acute illness, fever. No PE on CTA Pancytopenia: transfused blood/platelets 06/04 Hypokalemia: repleted Hypovolemic hyponatremia: gentle IVFs Diastolic heart failure: grade 1. Gentle IVFs Diet: regular DVT: SCDs Disp: cont inpatient admission for typhlitis, IV abx, IVFs. Discussed case with Dr. Carlisle Subjective: case d/w dr carlisle Objective: Vital Signs Temp Pulse Resp BP Pulse Ox 36.6 C 97 18 112/64 97 06/06/17 13:20 06/06/17 13:20 06/06/17 13:20 06/06/17 13:20 06/06/17 13:20 Microbiology 06/03/17 11:15 Urine Culture - Final Urine,Clean Catch Enterococcus Faecalis Laboratory Results 06/06/17 05:52 06/06/17 05:52 06/05/17 06/06/17 06/07/17 05:59 05:59 05:59 Intake Total 4114 1650 Output Total 1600 2704 1240 Balance 2514 -1054 -1240 - Physical Exam Constitutional: no apparent distress, appears nourished Eyes: PERRL, anicteric sclera Ears, Nose, Mouth, Throat: moist mucous membranes, hearing normal Cardiovascular: regular rate and rhythym, no murmur, rub, or gallop Respiratory: no respiratory distress, no rales or rhonchi Gastrointestinal: normoactive bowel sounds, soft, non-tender abdomen, No guarding, No rebound Genitourinary: no bladder fullness, No schultz in urethra Skin: warm, normal color Musculoskeletal: full muscle strength, no muscle tenderness Neurologic: AAOx3, sensation intact bilaterally Psychiatric: interacting appropriately, not anxious ICD10 Worksheet Patient Problems: Problems Problem Status Onset Arthritis, hip Acute
[2017-06-06] MEDS: diphenhydrAMINE 25 MG CAP PO PRN (21:54)
[2017-06-06] MEDS: CHOLECALCIFEROL VIT D3 2,000 UNITS TAB/CAP PO SCH (21:54)
[2017-06-06] MEDS: PATCH REMOVAL 1 EA PATCH TD SCH (22:05)
[2017-06-07] MEDS: CEFEPIME HCL 2 GM in STERILE WATER INJ 12.5 ML IV SCH ×3 (05:38→22:09)
[2017-06-07] MEDS: traMADol 50 MG TAB PO PRN ×3 (05:41→19:51)
[2017-06-07 05:49] LABS: PLATELET COUNT 7 10^3/uL (150-400)
[2017-06-07] MEDS ORDERED: PROTOCOL MAGNESIUM 1 DOSE IV PRN (06:42)
[2017-06-07] MEDS ORDERED: PROTOCOL POTASSIUM 1 DOSE MISC PRN (06:42)
[2017-06-07] MEDS: GABAPENTIN 100 MG CAP PO SCH ×3 (09:45→22:14)
[2017-06-07] MEDS: ALLOPURINOL 300 MG TAB PO SCH (09:45)
[2017-06-07] MEDS: PANTOPRAZOLE SODIUM 40 MG TAB PO SCH (09:45)
[2017-06-07] MEDS: ACYCLOVIR 400 MG TAB PO SCH ×2 (09:45→22:14)
[2017-06-07] MEDS: TAMSULOSIN HCL 0.4 MG CAP PO SCH (09:45)
[2017-06-07] MEDS: ACETAMINOPHEN 325 MG TAB PO PRN (09:45)
[2017-06-07] MEDS: MICAFUNGIN NA 100 MG in NS 100 ML IV SCH (09:46)
[2017-06-07] MEDS ORDERED: POTASSIUM CL 10 MEQ TAB PO ONE ×2 (09:49→23:04)
--- NOTE | 2017-06-07 09:56 | PCMIDPN ---
Assessment/Plan: Assessment: Neutropenic enterocolitis-underlying AML. Patient fevers have resolved. Continuing loose stools-stools have become more formed since Sunday. Currently on cefepime and metronidazole. Also discussed with the patient that antibiotic regimen will likely continue until his counts have recovered. Plan: 1. Continue IV cefepime and metronidazole. 2. Follow fever curve and clinical course. 06/04/17 10:09 06/07/17 09:53 Subjective: Patient denies having any fevers. Patient is resting comfortably in his hospital room. is present. States that his right hip has been slightly more painful over the last couple days. States however that he feels much better than he did on Sunday. Tolerating both antibiotics well. Objective: Cefepime # 4 Metronidazole # 3 Micafungin # 3 Vital Signs Temp Pulse Resp BP Pulse Ox 36.9 C 89 14 110/62 98 06/07/17 04:00 06/07/17 04:00 06/07/17 04:00 06/07/17 04:00 06/07/17 04:00 Laboratory Results 06/07/17 05:20 06/07/17 05:20 06/06/17 06/07/17 06/08/17 05:59 05:59 05:59 Intake Total 1650 3095 300 Output Total 2704 3300 350 Balance -1054 -205 -50 - Physical Exam General Appearance: WD/WN, alert, no apparent distress, non-toxic Cardiac/Chest: regular rate, rhythm, No tachycardia Extremities: non-tender, normal inspection Skin: normal color, warm/dry, No rash Neuro/Psych: alert, normal mood/affect, oriented x 3 ICD10 Worksheet Patient Problems: Problems Problem Status Onset Arthritis, hip Acute
[2017-06-07] MEDS ORDERED: MAGNESIUM SULF 1 GM/DEXTROSE 100 ML IV ONE (10:03)
[2017-06-07] MEDS ORDERED: LIDOCAINE 1% 5 ML SDV ID ONE (10:45)
--- NOTE | 2017-06-07 11:59 | SOAPPROG ---
SOAP Progress Note Assessment/Plan: Assessment/Plan: 72 yo gentleman w AML admitted for induction w 7+3 Now w pancytopenia, typhlitis 1. 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 Pancytopenia - due to #1 platelets today transfusion if PRBC <7 and platelets < 10k or bleeding covered broadly for neutropenia 3. Typhlitis - appreciate ID on cefepime and metronidazole Diarrhea and fever resolved C.Diff negative 4.R thigh pain - MR w L4-5 herniated discs? monitor fo now cont tramadol and gabapentin prn oxy consider lumbar MRI 5. Tachycardia - improved related to #3 CTA -ve for P 06/07/17 11:57 Subjective: No acute events doing well Objective: Vital Signs Temp Pulse Resp BP Pulse Ox 36.9 C 89 14 110/62 98 06/07/17 04:00 06/07/17 04:00 06/07/17 04:00 06/07/17 04:00 06/07/17 04:00 Laboratory Results 06/07/17 05:20 06/07/17 05:20 06/06/17 06/07/17 06/08/17 05:59 05:59 05:59 Intake Total 1650 3095 300 Output Total 2704 3300 850 Balance -1054 -205 -550 Gen - NAD HEENT - anicteric, OP clear CV - RRR Chest - clear ext - no edema or rash Neuro - nonfocal ICD10 Worksheet Patient Problems: Problems Problem Status Onset Arthritis, hip Acute
--- NOTE | 2017-06-07 14:31 | GPN ---
[f rep st] PROCEDURE NOTE PROCEDURE: Bone marrow biopsy and aspirate. INDICATION FOR PROCEDURE: Day 14 AML bone marrow. ALTERNATIVES TO PROCEDURE: None. DESCRIPTION OF PROCEDURE: The patient was prepped and draped in a sterile fashion. He was put in th e prone position. The left posterior iliac crest was anesthetized with about 10 cc of 1% lidocaine. Then, the Jamshidi needle was introduced and about 7 cc of aspirate was withdrawn. Jamshidi needle was removed. Core needle biopsy introduced and about a 4 cm core was withdrawn without issue. The patient tolerat ed the procedure relatively well. BLOOD LOSS: Minimal, less than 5 cc. DIAGNOSTIC TEST: The patient's bone marrow will be sent for comprehensive testing with H and E on as pirate and bone marrow, flow cytometry, as well as AML FISH and chromosome analysis. /[id number]/MODL
--- NOTE | 2017-06-07 15:18 | HOSPPROG ---
Hospitalist Progress Note Assessment/Plan: 72 yo M w AML Typhlitis: Cefepime/ Flagyl pain currently controlled with APAP, tolerating some PO. More distended today , but min pain. Having BMs. Low-threshold to re-image blood culture NGTD benign exam AML: Day 14 induction Neutropenic fever: broad abx Right leg pain: no abscess at BM site. Likely sciatica with disk herniation Disc herniation: outpatient spine FU when clinically stable Acute encephalopathy: due to acute illness. Minimize central-acting medications. Low-dose opioids Tachycardia: from acute illness, fever. No PE on CTA Pancytopenia: transfused blood/platelets 06/04 Hypokalemia: repleted Hypovolemic hyponatremia: gentle IVFs Diastolic heart failure: grade 1. Gentle IVFs Diet: regular DVT: SCDs Disp: cont inpatient admission for typhlitis, IV abx, IVFs. Discussed case with Dr. Carlisle Subjective: case d/w dr baron Objective: Vital Signs Temp Pulse Resp BP Pulse Ox 36.9 C 89 14 110/62 98 06/07/17 04:00 06/07/17 04:00 06/07/17 04:00 06/07/17 04:00 06/07/17 04:00 Laboratory Results 06/07/17 05:20 06/07/17 05:20 06/06/17 06/07/17 06/08/17 05:59 05:59 05:59 Intake Total 1650 3095 503 Output Total 2704 3300 1575 Balance -1054 -205 -1072 - Physical Exam Constitutional: no apparent distress, appears nourished Eyes: PERRL, anicteric sclera Ears, Nose, Mouth, Throat: moist mucous membranes, hearing normal Cardiovascular: regular rate and rhythym, no murmur, rub, or gallop Respiratory: no respiratory distress, no rales or rhonchi, clear to auscultation Gastrointestinal: normoactive bowel sounds, soft, non-tender abdomen Genitourinary: no bladder fullness, No schultz in urethra Skin: warm, normal color Musculoskeletal: full muscle strength, no muscle tenderness Neurologic: AAOx3 ICD10 Worksheet Patient Problems: Problems Problem Status Onset Arthritis, hip Acute
[2017-06-07] MEDS: ACETAMINOPHEN 500 MG TAB PO SCH (16:36)
[2017-06-07] MEDS: NS 1,000 ML IV SCH (16:51)
[2017-06-07] MEDS: LIDOCAINE 4%/MENTHOL 1% PATCH TD SCH (19:53)
[2017-06-07] MEDS: CHOLECALCIFEROL VIT D3 2,000 UNITS TAB/CAP PO SCH (22:14)
[2017-06-07] MEDS: ACETAMN/DIPHENHYDRAMINE 500/25MG TAB PO SCH (22:14)
[2017-06-07] MEDS: PATCH REMOVAL 1 EA PATCH TD SCH (22:19)
[2017-06-08] MEDS: traMADol 50 MG TAB PO PRN ×2 (04:45→11:57)
[2017-06-08 05:22] LABS: PLATELET COUNT 23 10^3/uL (150-400)
[2017-06-08] MEDS: CEFEPIME HCL 2 GM in STERILE WATER INJ 12.5 ML IV SCH ×3 (06:04→22:05)
[2017-06-08] MEDS: ACETAMINOPHEN 500 MG TAB PO SCH ×4 (06:09→17:40)
[2017-06-08] MEDS: NS 1,000 ML IV SCH ×2 (06:14→23:55)
[2017-06-08] MEDS: ACYCLOVIR 400 MG TAB PO SCH ×2 (08:54→20:57)
[2017-06-08] MEDS: PANTOPRAZOLE SODIUM 40 MG TAB PO SCH (08:54)
[2017-06-08] MEDS: GABAPENTIN 100 MG CAP PO SCH ×3 (08:54→22:05)
[2017-06-08] MEDS: TAMSULOSIN HCL 0.4 MG CAP PO SCH (08:54)
[2017-06-08] MEDS: ALLOPURINOL 300 MG TAB PO SCH (08:54)
[2017-06-08] MEDS: MICAFUNGIN NA 100 MG in NS 100 ML IV SCH (08:55)
--- NOTE | 2017-06-08 09:04 | PCMIDPN ---
Assessment/Plan: 1. Neutropenic enterocolitis: Presently afebrile, and diarrhea has improved. Minimal abdominal discomfort in right upper quadrant. Continue antibiotics as is. (cefepime, metronidazole, and Micafungin) I do not feel that he requires repeat imaging at this point in time given clinical stability. 2. Soft palate ulceration: This is quite small. Patient is on suppressive acyclovir PO, but may have had absorptive problems given recent diarrhea. Will send for HSV/VZV PCR for completeness' sake. Subjective: In good spirits today. Very talkative. No particular complaints other than fatigue. Says that diarrhea is much better, and although stools are still loose , there becoming formed. Minimal discomfort in his right upper quadrant. Status post repeat bone marrow biopsy yesterday. Objective: Cefepime 2 g IV q.8 hours day 5. Metronidazole 500 mg IV q.8 hours day for Micafungin 100 mg IV daily day 4 Acyclovir 400 mg p.o. Twice daily T-max 37.2 degrees Vital Signs Temp Pulse Resp BP Pulse Ox 37.1 C 87 15 108/54 L 97 06/08/17 04:00 06/08/17 04:00 06/08/17 04:00 06/08/17 04:00 06/08/17 04:00 Laboratory Results 06/08/17 04:50 06/08/17 04:50 06/07/17 06/08/17 06/09/17 05:59 05:59 05:59 Intake Total 3095 1370 997 Output Total 3300 4025 350 [place] -818 -4175 134 Blood cultures all negative Stool for C diff on June 03 negative - Physical Exam General Appearance: alert, no apparent distress EENT: other (Small soft palate ulceration noted posterior oropharynx), No thrush Neck: supple Cardiac/Chest: regular rate, rhythm, No tachycardia, No systolic murmur Extremities: other (PICC line right upper extremity looks fine with no tenderness, swelling or erythema.) Abdomen: soft, other Rectal: other (Perianal area looks fine, with small hemorrhoid visible. No erythema or surrounding tenderness to palpation.) Back: other (Patient has a bandage over the site of a bone marrow biopsy performed yesterday. I did not take this down.) Skin: No rash (Normoactive bowel sounds. Minimal tenderness to palpation right upper quadrant with no peritoneal signs.) Neuro/Psych: no motor/sensory deficits, oriented x 3 ICD10 Worksheet Patient Problems: Problems Problem Status Onset Arthritis, hip Acute
[2017-06-08] MEDS ORDERED: POTASSIUM CL 10 MEQ TAB PO ONE (10:08)
[2017-06-08] MEDS: LIDOCAINE 4%/MENTHOL 1% PATCH TD SCH (10:14)
--- NOTE | 2017-06-08 12:21 | SOAPPROG ---
SOAP Progress Note Assessment/Plan: Assessment: 1) AML day 15 initial induction (FLT3 negative, positive trisomy 8) 2) Pancytopenia secondary to #1 3) Recent typhlitis (improved) 4) Right leg pain secondary to L 4/5 disc herniation Plan: Patient had "day 14" marrow done yesterday to assess initial response to treatment. Results pending. Continue current ABX/antiviral/antifungal. No evidence of active infection. Appreciate ID input. No indication for transfusion today. Good response to platelets yesterday. Anemia is minimally symptomatic. Manage pain from disc herniation conservatively. Patient's questions answered. Total time = 25 minutes 06/08/17 12:16 06/08/17 12:18 Subjective: Feels well. Denies pain currently. Afebrile. Objective: Vital Signs Temp Pulse Resp BP Pulse Ox 37.6 C 87 16 116/60 97 06/08/17 09:37 06/08/17 09:37 06/08/17 09:37 06/08/17 09:37 06/08/17 09:37 Microbiology 06/03/17 11:25 Blood Culture - Final Blood 06/03/17 11:36 Blood Culture - Final Blood Laboratory Results 06/08/17 04:50 06/08/17 04:50 06/07/17 06/08/17 06/09/17 05:59 05:59 05:59 Intake Total 3095 1370 997 Output Total 3300 4025 700 Balance -205 -0953 297 - Time Spent With Patient Time Spent With Patient: 25 minutes Physical Exam - Physical Exam General Appearance: alert, no apparent distress EENT: PERRL/EOMI Respiratory: lungs clear, normal breath sounds Cardiac/Chest: regular rate, rhythm Abdomen: non-tender, soft Skin: normal color, No rash Neuro/Psych: alert, normal mood/affect ICD10 Worksheet Patient Problems: Problems Problem Status Onset Arthritis, hip Acute
--- NOTE | 2017-06-08 12:44 | ASMTCMCOM ---
CM Note CM Note Notes: Pt doing well. Pt's dtr visiting and able to help in room along with pt's . Talked with pt's and no longer feels the need to hire pvt duty to stay in the room with pt. Pt may need PICC line care at DC if he DC's with his PICC. CM to follow. Date Signed: 06/08/2017 12:44 PM Electronically Signed By:Rosalinda Yates LCSW
--- NOTE | 2017-06-08 14:17 | HOSPPROG ---
Hospitalist Progress Note Assessment/Plan: 72 yo M w AML Typhlitis: Cefepime/ Flagyl pain currently controlled with APAP, tolerating some PO. More distended today , but min pain. Having BMs. Low-threshold to re-image blood culture NGTD benign exam AML: Day 15 induction Neutropenic fever: broad abx Right leg pain: no abscess at BM site. Likely sciatica with disk herniation Disc herniation: outpatient spine FU when clinically stable Acute encephalopathy: due to acute illness. Minimize central-acting medications. Low-dose opioids Tachycardia: from acute illness, fever. No PE on CTA Pancytopenia: transfused blood/platelets 06/04 Hypokalemia: repleted Hypovolemic hyponatremia: gentle IVFs Diastolic heart failure: grade 1. Gentle IVFs Diet: regular DVT: SCDs Disp: cont inpatient admission for typhlitis, IV abx, IVFs. Discussed case with Dr. Carlisle Subjective: case d/w dr lara. in good spirits Objective: Vital Signs Temp Pulse Resp BP Pulse Ox 37.1 C 82 16 105/59 L 98 06/08/17 12:00 06/08/17 12:00 06/08/17 12:00 06/08/17 12:00 06/08/17 12:00 Microbiology 06/03/17 11:25 Blood Culture - Final Blood 06/03/17 11:36 Blood Culture - Final Blood Laboratory Results 06/08/17 04:50 06/08/17 04:50 06/07/17 06/08/17 06/09/17 05:59 05:59 05:59 Intake Total 3095 1370 997 Output Total 3300 4025 700 Balance -205 -2655 297 - Physical Exam Constitutional: no apparent distress, appears nourished Eyes: PERRL, anicteric sclera Ears, Nose, Mouth, Throat: moist mucous membranes, hearing normal Cardiovascular: regular rate and rhythym, no murmur, rub, or gallop Respiratory: no respiratory distress, no rales or rhonchi, clear to auscultation Gastrointestinal: normoactive bowel sounds, soft, non-tender abdomen Genitourinary: no bladder fullness, No schultz in urethra Skin: warm, normal color Musculoskeletal: full muscle strength, no muscle tenderness Neurologic: AAOx3, sensation intact bilaterally Psychiatric: interacting appropriately, not anxious ICD10 Worksheet Patient Problems: Problems Problem Status Onset Arthritis, hip Acute
[2017-06-08] MEDS: CHOLECALCIFEROL VIT D3 2,000 UNITS TAB/CAP PO SCH (20:57)
[2017-06-08] MEDS: ACETAMN/DIPHENHYDRAMINE 500/25MG TAB PO SCH (20:58)
[2017-06-08] MEDS: PATCH REMOVAL 1 EA PATCH TD SCH (22:12)
[2017-06-09] MEDS: traMADol 50 MG TAB PO PRN ×3 (05:38→20:48)
[2017-06-09] MEDS: CEFEPIME HCL 2 GM in STERILE WATER INJ 12.5 ML IV SCH ×3 (05:39→20:49)
[2017-06-09] MEDS: ACETAMINOPHEN 500 MG TAB PO SCH ×4 (05:39→16:56)
[2017-06-09] MEDS ORDERED: POTASSIUM CL 10 MEQ TAB PO ONE ×3 (06:31→19:16)
[2017-06-09] MEDS: ACYCLOVIR 400 MG TAB PO SCH ×2 (08:20→20:48)
[2017-06-09] MEDS: TAMSULOSIN HCL 0.4 MG CAP PO SCH (08:20)
[2017-06-09] MEDS: ALLOPURINOL 300 MG TAB PO SCH (08:20)
[2017-06-09] MEDS: GABAPENTIN 100 MG CAP PO SCH ×3 (08:20→20:48)
[2017-06-09] MEDS: PANTOPRAZOLE SODIUM 40 MG TAB PO SCH (08:20)
[2017-06-09 09:00] LABS: PLATELET COUNT 15 10^3/uL (150-400)
[2017-06-09] MEDS: MICAFUNGIN NA 100 MG in NS 100 ML IV SCH (09:15)
[2017-06-09] MEDS: LIDOCAINE 4%/MENTHOL 1% PATCH TD SCH (09:19)
--- NOTE | 2017-06-09 11:31 | SOAPPROG ---
SOAP Progress Note Assessment/Plan: Assessment: Assessment: 1) AML day 16 initial induction (FLT3 negative, positive trisomy 8) 2) Pancytopenia secondary to #1 3) Recent typhlitis (improved) 4) Right leg pain secondary to L 4/5 disc herniation Plan: Patient had "day 14" marrow done yesterday to assess initial response to treatment. Flow cytometry reports 60% blasts which is worrisome, will await formal marrow review. Remove marrow bandage tomorrow. Continue current ABX/antiviral/antifungal. No evidence of active infection. Appreciate ID input. No indication for transfusion today. Manage pain from disc herniation conservatively. Patient's questions answered. Total time = 25 minutes 06/09/17 11:28 Subjective: Feels ok, some sciatica on right Objective: Vital Signs Temp Pulse Resp BP Pulse Ox 99.1 F 91 16 118/60 95 06/09/17 08:09 06/09/17 08:09 06/09/17 08:09 06/09/17 08:09 06/09/17 08:09 Microbiology 06/03/17 11:25 Blood Culture - Final Blood 06/03/17 11:36 Blood Culture - Final Blood Laboratory Results 06/09/17 08:40 06/09/17 08:40 06/08/17 06/09/17 06/10/17 05:59 05:59 05:59 Intake Total 1370 2563.5 500 Output Total 4025 2850 2200 Balance -2655 -286.5 -1700 Physical Exam - Physical Exam General Appearance: alert, no apparent distress Respiratory: lungs clear Cardiac/Chest: regular rate, rhythm Abdomen: normal bowel sounds, non-tender Skin: other (dressing ok left iliac crest) ICD10 Worksheet Patient Problems: Problems Problem Status Onset Arthritis, hip Acute
--- NOTE | 2017-06-09 13:23 | HOSPPROG ---
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 More distended today , but min pain. Having BMs. 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 Likely sciatica with disk herniation Disc herniation: outpatient spine FU when clinically stable Acute encephalopathy: due to acute illness. Minimize central-acting medications. Low-dose opioids Tachycardia: from acute illness, fever. No PE on CTA Pancytopenia: transfused blood/platelets 06/04 Hypokalemia: repleted Hypovolemic hyponatremia: gentle IVFs Diastolic heart failure: grade 1. Gentle IVFs Diet: regular DVT: SCDs Disp: cont inpatient admission for typhlitis, IV abx, IVFs. Discussed case with Dr. Carlisle Subjective: case d/w dr alex. c/o hemorrhoid Objective: Vital Signs Temp Pulse Resp BP Pulse Ox 36.7 C 88 16 100/58 L 99 06/09/17 12:13 06/09/17 12:13 06/09/17 12:13 06/09/17 12:13 06/09/17 12:13 Microbiology 06/03/17 11:25 Blood Culture - Final Blood 06/03/17 11:36 Blood Culture - Final Blood Laboratory Results 06/09/17 08:40 06/09/17 08:40 06/08/17 06/09/17 06/10/17 05:59 05:59 05:59 Intake Total 1370 2563.5 500 Output Total 4025 2850 2200 Balance -2655 -286.5 -1700 - Physical Exam Constitutional: no apparent distress, appears nourished Eyes: PERRL, anicteric sclera Ears, Nose, Mouth, Throat: moist mucous membranes, hearing normal Cardiovascular: regular rate and rhythym, no murmur, rub, or gallop Respiratory: no respiratory distress, no rales or rhonchi Gastrointestinal: normoactive bowel sounds, soft, non-tender abdomen Genitourinary: no bladder fullness, No schultz in urethra Skin: warm, normal color Musculoskeletal: full muscle strength Neurologic: AAOx3 ICD10 Worksheet Patient Problems: Problems Problem Status Onset Arthritis, hip Acute
--- NOTE | 2017-06-09 16:08 | PCMIDPN ---
Assessment/Plan: Assessment/Plan: * Neutropenic enterocolitis: Persistent profound neutropenia post chemotherapy. Abdominal pain and diarrhea now resolved. Continue cefepime, metronidazole and micafungin. Follow clinical course and await ANC recovery. * Oral ulceration: HSV/VZV PCR pending. Continue suppressive acyclovir. * Radicular pain: Likely associated with herniated disc. 06/09/17 16:05 06/09/17 16:07 Subjective: Patient complains of radicular pain in right lower extremity. Also complains of painful hemorrhoid. No abdominal pain or diarrhea. Objective: Vital Signs Temp Pulse Resp BP Pulse Ox 37.5 C 87 16 106/46 L 97 06/09/17 15:44 06/09/17 15:37 06/09/17 15:37 06/09/17 15:44 06/09/17 15:37 Microbiology 06/03/17 11:25 Blood Culture - Final Blood 06/03/17 11:36 Blood Culture - Final Blood Laboratory Results 06/09/17 08:40 06/09/17 08:40 06/08/17 06/09/17 06/10/17 05:59 05:59 05:59 Intake Total 1370 2563.5 500 Output Total 4025 2850 2950 Balance -2655 -286.5 -2450 Cefepime # 6 Metronidazole # 5 Micafungin # 5 Acyclovir suppression HSV/VZV PCR oral ulcer pending - Physical Exam General Appearance: alert, no apparent distress EENT: No scleral icterus, No thrush Respiratory: lungs clear, No respiratory distress Cardiac/Chest: regular rate, rhythm, No systolic murmur Extremities: No inflammation Abdomen: non-tender, No distended Rectal: other (External hemorrhoid present without evidence of thrombosis) - Line/s RUE PICC Lines: No drainage, No erythema ICD10 Worksheet Patient Problems: Problems Problem Status Onset Arthritis, hip Acute
[2017-06-09] MEDS: ACETAMN/DIPHENHYDRAMINE 500/25MG TAB PO SCH (20:45)
[2017-06-09] MEDS: CHOLECALCIFEROL VIT D3 2,000 UNITS TAB/CAP PO SCH (20:47)
[2017-06-09] MEDS: NS 1,000 ML IV SCH (20:52)
[2017-06-10] MEDS: ACETAMINOPHEN 500 MG TAB PO SCH ×4 (04:28→17:08)
[2017-06-10] MEDS: CEFEPIME HCL 2 GM in STERILE WATER INJ 12.5 ML IV SCH ×3 (04:29→23:46)
[2017-06-10] MEDS: traMADol 50 MG TAB PO PRN ×4 (04:32→20:50)
[2017-06-10 05:07] LABS: PLATELET COUNT 12 10^3/uL (150-400)
[2017-06-10] MEDS ORDERED: POTASSIUM CL 10 MEQ TAB PO ONE ×3 (08:34→20:28)
--- NOTE | 2017-06-10 09:33 | HOSPPROG ---
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 More distended today , but min pain. Having BMs. Low-threshold to re-image blood culture NGTD benign exam AML: Day 17 induction Neutropenic fever: broad abx Right leg pain: no abscess at BM site. Likely sciatica with disk herniation Disc herniation: outpatient spine FU when clinically stable Acute encephalopathy: due to acute illness. Minimize central-acting medications. Low-dose opioids Tachycardia: from acute illness, fever. No PE on CTA Pancytopenia: transfused blood/platelets 06/04 Hypokalemia: repleted Hypovolemic hyponatremia: gentle IVFs Diastolic heart failure: grade 1. Gentle IVFs Diet: regular DVT: SCDs Disp: cont inpatient admission for typhlitis, IV abx, IVFs. Discussed case with Dr. Carlisle Subjective: febrile this AM. no abdominal pain. case d.w dr ortiz Objective: Vital Signs Temp Pulse Resp BP Pulse Ox 36.9 C 99 18 130/60 H 94 06/10/17 09:25 06/10/17 09:25 06/10/17 08:43 06/10/17 08:43 06/10/17 09:25 Laboratory Results 06/10/17 04:30 06/10/17 04:30 06/09/17 06/10/17 06/11/17 05:59 05:59 05:59 Intake Total 2563.5 2025 Output Total 2850 5150 Balance -286.5 -3125 - Physical Exam Constitutional: no apparent distress, appears nourished Eyes: PERRL, anicteric sclera Ears, Nose, Mouth, Throat: moist mucous membranes, hearing normal Cardiovascular: regular rate and rhythym, no murmur, rub, or gallop Respiratory: no respiratory distress, no rales or rhonchi Gastrointestinal: normoactive bowel sounds, soft, non-tender abdomen, No guarding, No rebound Genitourinary: no bladder fullness, No schultz in urethra Skin: warm, normal color Musculoskeletal: full muscle strength, no muscle tenderness Neurologic: AAOx3, sensation intact bilaterally Psychiatric: interacting appropriately ICD10 Worksheet Patient Problems: Problems Problem Status Onset Arthritis, hip Acute
[2017-06-10] MEDS: MICAFUNGIN NA 100 MG in NS 100 ML IV SCH (09:34)
[2017-06-10] MEDS: GABAPENTIN 100 MG CAP PO SCH ×3 (09:35→23:47)
[2017-06-10] MEDS: ALLOPURINOL 300 MG TAB PO SCH (09:35)
[2017-06-10] MEDS: TAMSULOSIN HCL 0.4 MG CAP PO SCH (09:36)
[2017-06-10] MEDS: PANTOPRAZOLE SODIUM 40 MG TAB PO SCH (09:36)
--- NOTE | 2017-06-10 10:06 | PCMIDPN ---
Assessment/Plan: Assessment/Plan: * Neutropenic enterocolitis: Recurrent fever and chills today. Will add vancomycin given indwelling PICC line to cover Gram-positive romulo such as MRSA or coagulase-negative Staphylococcus. Continue cefepime, metronidazole, and micafungin. Repeat blood cultures and chest x-ray being obtained. If fever persists, will need to proceed with CT scan of chest, abdomen and pelvis to further evaluate. * Oral ulceration: HSV/VZV PCR pending. Continue suppressive acyclovir. * Radicular pain: Likely associated with herniated disc. No point tenderness over spine. Clinical findings and plan discussed with patient, , Dr. Abdi, and Dr. Hanson. 06/10/17 10:04 Subjective: Patient with fever and chills overnight. Mildly confused when fever present. No specific complaints other than persistent radicular pain and pain related to hemorrhoids. No diarrhea. No abdominal pain. Objective: Vital Signs Temp Pulse Resp BP Pulse Ox 36.9 C 99 18 130/60 H 94 06/10/17 09:25 06/10/17 09:25 06/10/17 08:43 06/10/17 08:43 06/10/17 09:25 Laboratory Results 06/10/17 04:30 06/10/17 04:30 06/09/17 06/10/17 06/11/17 05:59 05:59 05:59 Intake Total 2563.5 2025 Output Total 2850 5150 Balance -286.5 -3125 Cefepime # 7 Metronidazole # 6 Micafungin # 6 T-max 38.2 degrees - Physical Exam General Appearance: alert, non-toxic, other (Fatigued appearance) EENT: No scleral icterus, No thrush Respiratory: lungs clear, No respiratory distress Cardiac/Chest: regular rate, rhythm, systolic murmur (2/6 left upper and right upper sternal borders) Extremities: No inflammation Abdomen: non-tender, No distended Rectal: perirectal area (External hemorrhoid without thrombosis; nontender to palpation externally) Back: No spine tenderness Skin: No rash, No embolic lesions - Line/s RUE PICC Lines: No drainage, No erythema ICD10 Worksheet Patient Problems: Problems Problem Status Onset Arthritis, hip Acute
[2017-06-10] MEDS: ACYCLOVIR 400 MG TAB PO SCH ×2 (10:07→20:50)
[2017-06-10] MEDS: NS 1,000 ML IV SCH ×2 (10:09→20:52)
[2017-06-10] MEDS ORDERED: VANCOMYCIN HCL/NORMAL SALINE 250 ML IV SCH (10:30)
[2017-06-10] MEDS: VANCOMYCIN 1 GM in NS 250 ML IV SCH ×2 (11:02→23:46)
[2017-06-10] MEDS ORDERED: MAGNESIUM SULF 1 GM/DEXTROSE 100 ML IV ONE (11:45)
--- NOTE | 2017-06-10 12:03 | SOAPPROG ---
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 Flow cytometry reports 60% blasts which is worrisome, will await formal marrow review. If persistent leukemia will need to discuss pros and cons of reinduction Continue current ABX/antiviral/antifungal. Add Vancomycin, if persistent temp will need to repeat ct scans No indication for transfusion today. Manage pain from disc herniation conservatively. Patient's questions answered. Total time = 25 minutes 06/09/17 11:28 06/10/17 11:56 06/10/17 12:03 Subjective: Feels poorly, febrile Objective: Vital Signs Temp Pulse Resp BP Pulse Ox 103 F H 108 H 18 122/42 H 93 06/10/17 11:30 06/10/17 11:30 06/10/17 11:30 06/10/17 11:30 06/10/17 11:30 Laboratory Results 06/10/17 04:30 06/10/17 04:30 06/09/17 06/10/17 06/11/17 05:59 05:59 05:59 Intake Total 2563.5 2025 Output Total 1733 5150 Balance -286.5 -3125 Physical Exam - Physical Exam General Appearance: moderate distress Respiratory: lungs clear, normal breath sounds Cardiac/Chest: regular rate, rhythm Abdomen: normal bowel sounds, non-tender Skin: normal color ICD10 Worksheet Patient Problems: Problems Problem Status Onset Arthritis, hip Acute
[2017-06-10] MEDS: CHOLECALCIFEROL VIT D3 2,000 UNITS TAB/CAP PO SCH (20:48)
[2017-06-10] MEDS: ACETAMN/DIPHENHYDRAMINE 500/25MG TAB PO SCH (22:14)
[2017-06-11] MEDS: CEPACOL LOZENGE PO PRN (00:33)
[2017-06-11] MEDS: CEFEPIME HCL 2 GM in STERILE WATER INJ 12.5 ML IV SCH ×3 (04:44→21:20)
[2017-06-11] MEDS: ACETAMINOPHEN 500 MG TAB PO SCH ×4 (04:50→17:22)
[2017-06-11 05:24] LABS: PLATELET COUNT 29 10^3/uL (150-400)
[2017-06-11] MEDS ORDERED: POTASSIUM CL 10 MEQ TAB PO ONE ×2 (09:00→19:59)
[2017-06-11] MEDS: GABAPENTIN 100 MG CAP PO SCH ×3 (09:05→21:31)
[2017-06-11] MEDS: PANTOPRAZOLE SODIUM 40 MG TAB PO SCH (09:06)
[2017-06-11] MEDS: MICAFUNGIN NA 100 MG in NS 100 ML IV SCH (09:06)
[2017-06-11] MEDS: ALLOPURINOL 300 MG TAB PO SCH (09:06)
[2017-06-11] MEDS: ACYCLOVIR 400 MG TAB PO SCH ×2 (09:06→21:31)
[2017-06-11] MEDS: TAMSULOSIN HCL 0.4 MG CAP PO SCH (09:06)
[2017-06-11] MEDS: traMADol 50 MG TAB PO PRN ×3 (09:09→23:06)
--- NOTE | 2017-06-11 10:33 | PCMIDPN ---
Assessment/Plan: Assessment: Neutropenic enterocolitis-underlying AML. Patient fevers recurred on Sunday and have persisted over the weekend. Currently on cefepime, metronidazole, vancomycin and micafungin. Total white blood cell count is up today but no neutrophils in this differential. Concern for failure of induction. Still awaiting final pathology. In the meantime will scan chest abdomen pelvis again today looking for possible sites of infection that are responsible for fever. Plan: 1. Continue IV antibiotic regimen. 2. CT scan of chest abdomen pelvis with contrast. 3. Follow fever curve and clinical course. Subjective: Patient is resting in his hospital bed. is in the room. Patient had a difficult night with fevers. He remains in good spirits however. No specific complaint. No shortness of breath. No rash. Objective: Cefepime # 8 Metronidazole # 7 Vancomycin # 7 Micafungin # 1 Vital Signs Temp Pulse Resp BP Pulse Ox 37.4 C 100 17 106/50 L 96 06/11/17 09:05 06/11/17 09:23 06/11/17 09:23 06/11/17 09:23 06/11/17 09:23 Microbiology 06/05/17 21:25 Blood Culture - Final Blood 06/05/17 18:35 Blood Culture - Final Blood Laboratory Results 06/11/17 04:23 06/11/17 04:23 06/10/17 06/11/17 06/12/17 05:59 05:59 05:59 Intake Total 2024 3796 Output Total 5150 2700 Balance -3125 1096 - Physical Exam General Appearance: WD/WN, alert, no apparent distress, non-toxic Respiratory: lungs clear, normal breath sounds, No respiratory distress Cardiac/Chest: regular rate, rhythm, No tachycardia Abdomen: non-tender, soft, distended Skin: normal color, warm/dry, No rash Neuro/Psych: alert, normal mood/affect, oriented x 3 ICD10 Worksheet Patient Problems: Problems Problem Status Onset Arthritis, hip Acute
[2017-06-11] MEDS: VANCOMYCIN 1 GM in NS 250 ML IV SCH ×2 (10:36→22:56)
[2017-06-11] MEDS ORDERED: IOPAMIDOL (ISOVUE-300) 100 ML BTL ONE (12:36)
--- NOTE | 2017-06-11 15:54 | ASMTCMCOM ---
CM Note CM Note Notes: ID is following pt for fever and is continuing IV ABX. CT scan planned for more clinical information. He is almost 3 weeks in to his 4-6 week planned chemo. D/C plan remains unclear at this time. CM will continue to follow for any d/c needs. Date Signed: 06/11/2017 03:54 PM Electronically Signed By:NITHIN Lanza
--- NOTE | 2017-06-11 16:26 | SOAPPROG ---
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 appendicitis on CT Plan: Unfortunately patient's bone marrow biopsy reveals residual AML involving approximately 60% of his bone marrow. I discussed his case directly with Dr. Granados today. Overall the prognosis of refractory AML is poor. The patient has a positive IDH2 mutation, and is a potential candidate for treatment with Enasidenib (oral IDH2 inhibitor). I would favor this over conventional re-induction chemotherapy which is associated with a fairly low response rate and fairly significant toxicity. I discussed this recommendation with the patient and his family ( Debi, and son ). We discussed the risk of differentiation syndrome associated with the drug. He would like to try this therapy, and I think that this is his best option. The next step is obtaining the drug. It will be difficult to obtain through the hospital. Will try to get this JENNA through [facility] pharmacy, and delivered to patient since this will be penitentiary therapy. It will likely be a few days until the drug will be able to be obtained. If he achieves remission (40% response rate in the trial), then he will ultimately need to be evaluated at a transplant center for consideration of stem cell transplant. He has persistent fevers. CT shows ? apendicitis. He is not symptomatic, possibly due to his low WBC count. Surgery consulted. No transfusion today. Above d/w patient and family. Questions answered. Case d/w Dr. Ledezma. 06/11/17 16:28 Subjective: Bone marrow biopsy demonstrates persistent AML. Fevers persist. Patient denies abdominal pain, N/V, diarrhea, CP, or cough and son at bedside Objective: Vital Signs Temp Pulse Resp BP Pulse Ox 37.1 C 94 16 108/58 L 96 06/11/17 15:06 06/11/17 15:06 06/11/17 15:06 06/11/17 15:06 06/11/17 15:06 Microbiology 06/11/17 13:00 Gastrointestinal Tract Panel (PCR) - Final Stool No Organism Detected 06/05/17 21:25 Blood Culture - Final Blood 06/05/17 18:35 Blood Culture - Final Blood Laboratory Results 06/11/17 04:23 06/11/17 04:23 06/10/17 06/11/17 06/12/17 05:59 05:59 05:59 Intake Total 2024 3795 Output Total 5165 7776 700 Balance -3125 1096 -700 - Time Spent With Patient Time Spent With Patient: 60 minutes Physical Exam - Physical Exam General Appearance: alert, no apparent distress EENT: PERRL/EOMI Respiratory: lungs clear Cardiac/Chest: regular rate, rhythm Abdomen: non-tender, soft Neuro/Psych: normal mood/affect, oriented x 3 ICD10 Worksheet Patient Problems: Problems Problem Status Onset Arthritis, hip Acute
[2017-06-11] MEDS: NS 1,000 ML IV SCH ×2 (16:36→23:06)
--- NOTE | 2017-06-11 18:37 | HOSPPROG ---
Hospitalist Progress Note Assessment/Plan: Assessment: 72 yo M p/w AML induction c/b neutropenic fever and typhlitis Plan: # Typhlitis. Acute, ongoing fevers, new prob to this provider, further w/u indicated. D/w Dr. Olivia, we agreed that b/c of persistent fever despite being on Cefepime/Vanco/Flagyl/Deb, repeat CXR w/o PNA (personally interpreted), get CT of C/A/P -d/w Dr. South, reports that patient has increase in typhlitic appearance and possible extension into appendix -d/w Dr. Miller, he is aware of patient's condition, and since he currently does not have physical exam e/o appendicitis, he will hold on surgical assessment, but if condition worsens, contact him o/n for immediate surg assess -will get formal consultation by Dr. Crisostomo in AM for ongoing surgical monitoring but hopefully non-surgical mgmt, since patient's risk>benefit of surgical exploration w/ severe pancytopenia # AML. D#18, d/w Dr. Nye, marrow results concerning, he will convey to patient next steps in tx # Vertebral disc herniation. Causing back pain, PRN control # External hemorrhoid. Not inflamed or abscess on exam, cont to monitor, stool softener baldev # Pancytopenia 2/2 chemotherapy and AML. Severe neutropenia, transfuse PRBC today, monitor CBC # Acute encephalopathy. Evidenced by global brain dysfunction due to toxic effects of acute illness, minimize central-acting medications, low-dose opioids -resolved # Acute hypovolemic hyponatremia. Resolved s/p IVF # Chronic diastolic heart failure. No e/o exacerbation Diet: regular DVT: SCDs Code: full Disp: cont inpatient admission for typhlitis, IV abx, IVFs Subjective: patient symptomatically febrile o/n, feels something at his rectum but not painful or bleeding Objective: Vital Signs Temp Pulse Resp BP Pulse Ox 37.7 C 94 16 108/58 L 96 06/11/17 17:00 06/11/17 15:06 06/11/17 15:06 06/11/17 15:06 06/11/17 15:06 Microbiology 06/11/17 13:00 Gastrointestinal Tract Panel (PCR) - Final Stool No Organism Detected 06/05/17 21:25 Blood Culture - Final Blood 06/05/17 18:35 Blood Culture - Final Blood Laboratory Results 06/11/17 04:23 06/11/17 17:34 06/10/17 06/11/17 06/12/17 05:59 05:59 05:59 Intake Total 2024 3796 200 Output Total 9139 1150 775 Balance -3125 1091 -093 - Physical Exam Constitutional: no apparent distress, not in pain, chronically ill appearing, No uncomfortable Cardiovascular: systolic murmur (I/ at all valves), tachycardia, No irregularly irregular, No edema Respiratory: no respiratory distress, no rales or rhonchi, clear to auscultation Gastrointestinal: normoactive bowel sounds, soft, non-tender abdomen, no palpable masses, No guarding, No distension Genitourinary: hemorrhoids (non-inflamed, no perirectal abscess, non-tender, no blood) Skin: warm Neurologic: AAOx3, sensation intact bilaterally, No weakness Psychiatric: interacting appropriately, not anxious, not encephalopathic, thought process linear ICD10 Worksheet Patient Problems: Problems Problem Status Onset Arthritis, hip Acute
[2017-06-11] MEDS: ACETAMN/DIPHENHYDRAMINE 500/25MG TAB PO SCH (21:18)
[2017-06-11] MEDS: CHOLECALCIFEROL VIT D3 2,000 UNITS TAB/CAP PO SCH (21:32)
[2017-06-12] MEDS: ACETAMINOPHEN 500 MG TAB PO SCH ×4 (04:51→17:01)
[2017-06-12] MEDS: oxyCODONE IR 5 MG TAB PO PRN ×2 (04:51→21:12)
[2017-06-12] MEDS: NS 1,000 ML IV SCH ×2 (04:59→13:00)
[2017-06-12] MEDS: CEFEPIME HCL 2 GM in STERILE WATER INJ 12.5 ML IV SCH ×3 (05:00→21:01)
[2017-06-12 05:21] LABS: PLATELET COUNT 22 10^3/uL (150-400)
[2017-06-12] MEDS ORDERED: POTASSIUM CL 10 MEQ TAB PO ONE ×2 (09:54→19:42)
[2017-06-12] MEDS: GABAPENTIN 100 MG CAP PO SCH ×3 (09:56→21:05)
[2017-06-12] MEDS: TAMSULOSIN HCL 0.4 MG CAP PO SCH (09:56)
[2017-06-12] MEDS: ACYCLOVIR 400 MG TAB PO SCH ×2 (09:56→21:05)
[2017-06-12] MEDS: PANTOPRAZOLE SODIUM 40 MG TAB PO SCH (09:56)
[2017-06-12] MEDS: MICAFUNGIN NA 100 MG in NS 100 ML IV SCH (10:07)
[2017-06-12] MEDS: traMADol 50 MG TAB PO PRN ×2 (10:08→18:49)
--- NOTE | 2017-06-12 10:08 | PCMIDPN ---
Assessment/Plan: # Neutropenic fever. ANC 0. Recurrent fever started 3 days ago, mostly occurring around midnight. No abdominal pain today (much improved compared to my initial exam). Recent CT shows worsening typhlitis some surrounding the appendix but with improved abdominal pain doubt there is a surgical indication. Post void residual 73 cc. Differential included line infection - now less likely due to negative blood cultures; drug fever, underlying malignancy, gap in Gram-negative coverage with underlying typhlitis (improved abdominal pain goes against this). Pulmonary source unlikely with recent CT scan showing no parenchymal abnormality. --for now will continue broad-spectrum antibiotics with cefepime, metronidazole , micafungin and vancomycin. --consider discontinuation of micafungin and vancomycin soon as no clear source has been identified warranting these agents. --surgery to evaluate in light of CT findings, but see discussion above --Cr stable today, if continue vancomycin therapy tomorrow, will check trough # pancytopenia secondary to chemotherapy # mucositis: HSV neg; improving --continue prophylaxis with acyclovir --specific Jadyn prophylaxis on hold with ongoing micafungin therapy Med Cefepime 2 g IV Q 8, # 9 Metronidazole 500 mg IV Q 8, #8 micafungin 100mg IV daily #8 Vancomycin 1gm IV q12h, # 2 Acyclovir 400 mg twice daily Micro CMV PCR neg 06/03 blood cx (2) negative 06/05 blood cx (2) negative 06/10 blood cultures (2) NGTD 06/11 GI panel PCR negative Subjective: feels worn out denies abdominal pain urinary frequency and urgency, no dysuria Objective: Vital Signs Temp Pulse Resp BP Pulse Ox 37.0 C 93 17 112/54 L 96 06/12/17 08:40 06/12/17 08:40 06/12/17 08:40 06/12/17 08:40 06/12/17 08:40 Selected Entries 06/10/17 06/11/17 06/12/17 11:30 01:18 00:00 Temperature (C) 39.4 C H 38.7 C H 38.4 C H Microbiology 06/11/17 13:00 Gastrointestinal Tract Panel (PCR) - Final Stool No Organism Detected 06/05/17 21:25 Blood Culture - Final Blood 06/05/17 18:35 Blood Culture - Final Blood Laboratory Results 06/12/17 05:00 06/12/17 05:00 06/11/17 06/12/17 06/13/17 05:59 05:59 05:59 Intake Total 2395 7108 Output Total 2231 5745 Balance 1096 49 - Physical Exam General Appearance: alert, no apparent distress EENT: other (healing ulceration L upper palate), No scleral icterus, No thrush Respiratory: chest non-tender, lungs clear, normal breath sounds, No accessory muscle use Neck: supple, No lymphadenopathy (L), No lymphadenopathy (R) Cardiac/Chest: regular rate, rhythm (not tachy at time of my exam), No systolic murmur Extremities: No pedal edema, No inflammation, No swelling Abdomen: normal bowel sounds, non-tender, soft, No guarding, No peritoneal signs , No tender Skin: pallor, No rash Neuro/Psych: alert, normal mood/affect, oriented x 3 - Line/s RUE PICC Lines: No drainage, No erythema - Time Spent With Patient Time Spent with Patient: greater than 35 minutes Time Spent with Patient: Greater than 35 minutes spent on this patients care, greater than 50% of time spent counseling, educating, and coordinating care regarding the above mentioned plan. ICD10 Worksheet Patient Problems: Problems Problem Status Onset Arthritis, hip Acute
[2017-06-12] MEDS: VANCOMYCIN 1 GM in NS 250 ML IV SCH ×2 (11:11→22:35)
[2017-06-12] MEDS ORDERED: MAGNESIUM SULF 1 GM/DEXTROSE 100 ML IV ONE (12:02)
--- NOTE | 2017-06-12 13:55 | SOAPPROG ---
SOAP Progress Note Assessment/Plan: Assessment: 1) AML day 19 initial induction (FLT3 negative, positive trisomy 8, IDH2 positive, SRSF2 positive) with persistent leukemia on "day 14" marrow 2) Pancytopenia secondary to #1 3) Recent typhlitis (improved) 4) Right leg pain secondary to L 4/5 disc herniation 5) Persistent typhlitis/ appendicitis on CT Plan: Gera's bone marrow biopsy revealed residual AML involving approximately 60% of his bone marrow. Overall the prognosis of refractory AML is poor. The patient has a positive IDH2 mutation, and is a potential candidate for treatment with Enasidenib (oral IDH2 inhibitor). I favor this over conventional re-induction chemotherapy which is associated with a fairly low response rate and fairly significant toxicity. I have spoken with his primary Oncologist, Dr. Wheat who is in agreement. I discussed this recommendation with the patient and his family ( Debi, and son ). We have discussed the risk of differentiation syndrome associated with the drug. He would like to try this therapy, and I think that this is his best option. The next step is obtaining the drug. It will be difficult to obtain through the hospital. I have started the process of getting this JENNA through [facility] pharmacy , and delivered to patient since this will be manager long term care therapy. It will likely be a few days until the drug will be able to be obtained. I am hopeful that we can have him started on therapy in the next 2 - 3 days. If he achieves remission (40% response rate in the trial), then he will ultimately need to be evaluated at a transplant center for consideration of stem cell transplant. Though his CT findings look somewhat worse, He is not symptomatic. No surgical intervention warranted at the present time. Continue Abx per ID. No transfusion today. Above d/w patient and family. Questions answered. 06/12/17 13:56 Subjective: Abdominal pain resolved. Denies N/V or diarrhea. Debi at bedside Objective: Vital Signs Temp Pulse Resp BP Pulse Ox 36.8 C 85 17 108/56 L 99 06/12/17 12:00 06/12/17 12:00 06/12/17 12:00 06/12/17 12:00 06/12/17 12:00 Microbiology 06/11/17 13:00 Gastrointestinal Tract Panel (PCR) - Final Stool No Organism Detected Laboratory Results 06/12/17 05:00 06/12/17 05:00 06/11/17 06/12/17 06/13/17 05:59 05:59 05:59 Intake Total 4700 2598 542 Output Total 3344 5969 880 Balance 1092 42 -961 - Time Spent With Patient Time Spent With Patient: 30 minutes Physical Exam - Physical Exam General Appearance: alert, no apparent distress EENT: PERRL/EOMI Respiratory: lungs clear Abdomen: non-tender, soft Skin: normal color Neuro/Psych: alert, normal mood/affect ICD10 Worksheet Patient Problems: Problems Problem Status Onset Arthritis, hip Acute
--- NOTE | 2017-06-12 15:59 | HOSPPROG ---
Hospitalist Progress Note Assessment/Plan: Assessment: 72 yo M p/w AML induction c/b neutropenic fever and typhlitis Plan: # Typhlitis. Acute, ongoing fevers, d/w Dr. Carlisle, we agreed that surgical eval important to monitor abd exam in case this evolves as immune response becomes more robust, -cont Cefepime/Vanco/Flagyl/Deb, CDiff PCR neg -d/w Dr. 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 Nye, marrow results concerning, he will cont to convey to patient next steps in tx # Vertebral disc herniation. Causing back pain, PRN control # External hemorrhoid. Cont to monitor, stool softener baldev # Pancytopenia 2/2 chemotherapy and AML. Severe neutropenia, monitor CBC # Acute encephalopathy. Evidenced by global brain dysfunction due to toxic effects of acute illness, minimize central-acting medications, low-dose opioids -resolved # Acute hypovolemic hyponatremia. Resolved s/p IVF # Chronic diastolic heart failure. No e/o exacerbation Diet: regular DVT: SCDs Code: full Disp: cont inpatient admission for typhlitis, IV abx, IVFs High level of medical complexity, high risk for worsening morbidity and / or mortality 2/2 issues outlined above. Subjective: ongoing nocturnal fevers, R dorsal foot ache Objective: Vital Signs Temp Pulse Resp BP Pulse Ox 36.8 C 85 17 108/56 L 99 06/12/17 12:00 06/12/17 12:00 06/12/17 12:00 06/12/17 12:00 06/12/17 12:00 Microbiology 06/11/17 13:00 Gastrointestinal Tract Panel (PCR) - Final Stool No Organism Detected Laboratory Results 06/12/17 05:00 06/12/17 05:00 06/11/17 06/12/17 06/13/17 05:59 05:59 05:59 Intake Total 3796 2324 240 Output Total 2700 2275 880 Balance 1096 49 640 - Physical Exam Constitutional: no apparent distress, appears nourished, not in pain, No uncomfortable Cardiovascular: systolic murmur (I/ at all valevs), tachycardia, edema (trace bilat LE), No irregularly irregular Respiratory: no respiratory distress, no rales or rhonchi, clear to auscultation Gastrointestinal: normoactive bowel sounds, soft, non-tender abdomen (benign in RLQ), no palpable masses, No distension Skin: warm, No rash Musculoskeletal: other (no tenderness over R dorsal metatarsals) Neurologic: AAOx3, sensation intact bilaterally, No weakness Psychiatric: interacting appropriately, not anxious, not encephalopathic, thought process linear ICD10 Worksheet Patient Problems: Problems Problem Status Onset Arthritis, hip Acute
[2017-06-12] MEDS: CHOLECALCIFEROL VIT D3 2,000 UNITS TAB/CAP PO SCH (21:04)
[2017-06-12] MEDS: ACETAMN/DIPHENHYDRAMINE 500/25MG TAB PO SCH (21:06)
[2017-06-12] MEDS ORDERED: ACETAMINOPHEN 500 MG TAB PO ONE (22:49)
--- NOTE | 2017-06-12 22:52 | GCON ---
[f rep st] CONSULTATION DATE OF CONSULTATION: 06/12/2017 CHIEF COMPLAINT: Abdominal pain, resolved along with CT scan findings. HISTORY OF PRESENT ILLNESS: Briefly, this is a 72-year-old male who was admitted on the by the edical service, coming in for induction therapy for newly diagnosed AML. Per the patient and the formerly [facility] review, since his hospitalization, his white counts have continued to drop. He has also had neutrop enic fever and a new finding of typhlitis, consistent with abdominal exam of right lower quadrant bhavya n and CT scan findings. Briefly, the patient has been on IV antibiotic therapy. He has had multiple i maging modalities of his abdomen performed, the most recent of which was on the , which showed wo rsening edema in the terminal ileum, cecum and base of the appendix. However, his white blood cell co unt has been improving. At any rate, clinically, the patient states that he has actually felt well ov er the last 24 hours. He denies having any abdominal pain for the past 2 days and states that over e last 24 hours, his energy level and his overall feeling has been well. He does endorse having diarr hea, stating that he is having 2-3 loose stools a day, but other than that, really has no complaints. Again, currently denies having any abdominal pain whatsoever. PAST MEDICAL HISTORY: Significant for AML, newly diagnosed, granuloma annulare, osteoarthritis, and hyperlipidemia. PAST SURGICAL HISTORY: A right hip replacement and a right tib-fib fracture that was sustained traum atically. No abdominal histories. FAMILY HISTORY: Noncontributory. SOCIAL HISTORY: Lives up in [facility]. He does endorse social alcohol use. Denies illicit drug use. Does endorse a remote history of cigarette use. CURRENT MEDICATIONS: Reviewed in [employer]. REVIEW OF SYSTEMS: A full 10-point review was performed. PHYSICAL EXAMINATION: VITAL SIGNS: Temperature currently 36.8, blood pressure 108/54, heart rate is 89, he is 100% on room air. CONSTITUTIONAL: He is in no apparent distress. He appears comfortable. H EENT: Eyes: His pupils are equal, round, and reactive to light and accommodation. His extraocular mov ements are intact. Ears, nose, mouth, throat: He has dry mucous membranes. His hearing is normal. He has no oral mucosal ulcers and he has normal dentition. CARDIOVASCULAR: He has a regular rate and rhy thm without any murmurs. RESPIRATORY: He has no respiratory distress, rales or rhonchi, and his lungs are otherwise clear to auscultation. GI: He has normoactive bowel sounds. His abdomen is soft, nondi stended, nontender without rebound tenderness or guarding. No significant abdominal exam findings danis arent. SKIN: Warm, normal color. No rashes or abrasions. MUSCULOSKELETAL: Full strength. No tendernes s with normal joint range of motion. NEUROLOGIC: He is alert and oriented x3. His cranial nerves 2-12 are intact. He has no weakness and no numbness. PSYCH: He is interacting appropriately. He is not an xious. LYMPH/HEME/IMMUNOLOGIC: He has no cervical, groin or supraclavicular lymphadenopathy appreciat ed. LABORATORY DATA: White blood cell count today is 2.97, up from 1.2 yesterday, H and H stable at 7.4 and 23 from 6.8 and 21.2. Platelet level is extremely low at 22,000. This is down from 29,000 a day a go. Chemistry is largely unremarkable. His creatinine is 0.6. His CO2 is a little low at 21. IMAGING: Includes a CT scan of the abdomen and pelvis, the most recent of which was performed yester day. These images were personally reviewed. This does show a little bit of increased inflammation in the cecum as well as the terminal ileum, as well as the base of the appendix. No free fluid, no free air. ASSESSMENT/PLAN: 72-year-old male with extreme neutropenia, neutropenic fever and typhlitis. Plan at this time would be continued conservative therapy. His examination today is completely reassuring. H is abdomen is completely soft. He complains of no abdominal pain and he actually looks worse on imagi ng than he does in person. I feel that clinically, he is likely making progress, which is coinciding with his slowly increasing white blood cell count. Again, I agree with Dr. Ledezma that the patient's pancytopenia would make him a poor surgical candidate, as I think that this opens him up to increased infection risk as well as increased bleeding risk with his platelet count in the 20s. I discussed my exam findings as well as my anticipated course with the patient. He understands the need for surgica l evaluation and monitoring. At this point in time, would proceed with current management. He is curr ently on a regular diet, which I think is okay. If he were to clinically decompensate, I would back h im off to clears or n.p.o. but at this point in time, I see no need for urgent emergent intervention, but we will continue to follow. /[id number]/MODL
[2017-06-13] MEDS: ACETAMINOPHEN 500 MG TAB PO SCH ×4 (04:34→18:22)
[2017-06-13 05:07] LABS: PLATELET COUNT 20 10^3/uL (150-400)
[2017-06-13] MEDS: CEFEPIME HCL 2 GM in STERILE WATER INJ 12.5 ML IV SCH ×3 (05:37→21:33)
[2017-06-13] MEDS: PANTOPRAZOLE SODIUM 40 MG TAB PO SCH (09:01)
[2017-06-13] MEDS: ACYCLOVIR 400 MG TAB PO SCH ×2 (09:01→20:42)
[2017-06-13] MEDS: GABAPENTIN 100 MG CAP PO SCH ×3 (09:01→21:47)
[2017-06-13] MEDS: MICAFUNGIN NA 100 MG in NS 100 ML IV SCH (09:01)
[2017-06-13] MEDS: TAMSULOSIN HCL 0.4 MG CAP PO SCH (09:01)
[2017-06-13] MEDS: traMADol 50 MG TAB PO PRN ×2 (09:14→17:23)
--- NOTE | 2017-06-13 09:34 | SOAPPROG ---
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 4) Right leg pain secondary to L 4/5 disc herniation 5) Febrile neutropenia Plan: [facility]'s bone marrow biopsy revealed residual AML involving approximately 60% of his bone marrow. Overall the prognosis of refractory AML is poor. The patient has a positive IDH2 mutation, and is a potential candidate for treatment with Enasidenib (oral IDH2 inhibitor). I favor this over conventional re-induction chemotherapy which is associated with a fairly low response rate and fairly significant toxicity. I have spoken with his primary Oncologist, Dr. Wheat who is in agreement. I discussed this recommendation with the patient and his family ( Debi, and son ). We have discussed the risk of differentiation syndrome associated with the drug. He would like to try this therapy, and I think that this is his best option. Getting the drug to [facility] is in process. 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 It will likely be a few days until the drug will be able to be obtained. I am hopeful that we can have him started on therapy in the next 21 - 2 days. If he achieves remission (40% response rate in the trial) , then he will ultimately need to be evaluated at a transplant center for consideration of stem cell transplant. Though his CT findings look somewhat worse, He is not symptomatic. No surgical intervention warranted at the present time. Continue Abx per ID. (Cefepime / Metronidazole / Vancomycin, in addition to Micafungin and Acyclovir. I recommend re-sending blood cultures with his next fever > 101. No indication for transfusion today. Above d/w patient, and nursing, Questions answered. 06/12/17 13:56 06/13/17 09:30 06/13/17 09:32 Subjective: Feels well overall other than fatigue. Had recurrent fever overnight. Denies abdominal pain. Enasidenib pending insurance approval. Objective: Vital Signs Temp Pulse Resp BP Pulse Ox 36.8 C 98 15 114/56 L 97 06/13/17 08:58 06/13/17 08:58 06/13/17 08:58 06/13/17 08:58 06/13/17 08:58 Laboratory Results 06/13/17 04:30 06/13/17 04:30 06/12/17 06/13/17 06/14/17 05:59 05:59 05:59 Intake Total 2324 3393.0 Output Total 2275 2800 360 Balance 49 593.0 -360 - Time Spent With Patient Time Spent With Patient: 25 minutes Physical Exam - Physical Exam General Appearance: alert, no apparent distress EENT: PERRL/EOMI Cardiac/Chest: regular rate, rhythm Abdomen: normal bowel sounds, non-tender, soft Skin: normal color Extremities: other (PICC site claen and w/o induration) Neuro/Psych: alert, normal mood/affect, oriented x 3 ICD10 Worksheet Patient Problems: Problems Problem Status Onset Arthritis, hip Acute
--- NOTE | 2017-06-13 10:04 | SOAPPROG ---
SOAP Progress Note Assessment/Plan: Assessment: 72 y/o M with AML and now with typhlitis. S: Denies pain. Still having some diarrhea. O: Alert Afebrile No increased WOB Abdomen: soft, nontender, +BS WBC trending up Platelet count slightly down today. Plan: Pt seen with Dr. Jama. Continue conservative management. Low plt count makes him a poor surgical candidate. Will continue to follow. 06/13/17 10:07 Objective: Vital Signs Temp Pulse Resp BP Pulse Ox 36.8 C 98 15 114/56 L 97 06/13/17 08:58 06/13/17 08:58 06/13/17 08:58 06/13/17 08:58 06/13/17 08:58 Laboratory Results 06/13/17 04:30 06/13/17 04:30 06/12/17 06/13/17 06/14/17 05:59 05:59 05:59 Intake Total 2321 3393.0 Output Total 0650 0090 360 Balance 49 593.0 -360 ICD10 Worksheet Patient Problems: Problems Problem Status Onset Arthritis, hip Acute
[2017-06-13] MEDS: VANCOMYCIN 1 GM in NS 250 ML IV SCH ×2 (11:41→22:53)
[2017-06-13] MEDS: NS 1,000 ML IV SCH (14:27)
--- NOTE | 2017-06-13 15:10 | HOSPPROG ---
Hospitalist Progress Note Assessment/Plan: Assessment: 72 yo M p/w AML induction c/b neutropenic fever and typhlitis Plan: # Typhlitis. Acute, ongoing fevers w/ Tmax 39.3 at 10 p.m. o/n and consistently nocturnal, CT imaging suggestive of worsening typhlitis and possible appendiceal involvement w/o abscess, but physical exam w/ completely benign abdomen -cont Cefepime/Vanco/Flagyl/Dbe, CDiff PCR neg w/ ongoing ID consultation -appreciate ongoing surgical abd evals, currently no indication for surgery and is poor surgical candidate w/ thrombocytopenia and additional infxn risk -advised RN to repeat BCx tonight when febrile (>38C) # AML. D#20, d/w Dr. Nye, marrow results concerning, and he has completed the prior-auth for Enasidenib which will hopefully be available tomorrow and patient can initiate this tx in lieu of reinduction (which carries high risk of complications and low rate of remission) # Vertebral disc herniation. Causing back pain, PRN control # External hemorrhoid. Cont to monitor, stool softener baldev # Pancytopenia 2/2 chemotherapy and AML. Severe neutropenia, monitor CBC, no transfusions today # Acute encephalopathy. Evidenced by global brain dysfunction due to toxic effects of acute illness, minimize central-acting medications, low-dose opioids -resolved # Acute hypovolemic hyponatremia. Resolved s/p IVF # Chronic diastolic heart failure. No e/o exacerbation # Deconditioning. Patient feeling weak on feet, but not lightheaded, likely 2/2 core muscle weakening in setting of 20+ day hospitalization -cont to work w/ PT/OT Diet: regular DVT: SCDs Code: full Disp: cont inpatient admission for typhlitis, IV abx, IVFs High level of medical complexity, high risk for worsening morbidity and / or mortality 2/2 issues outlined above. Subjective: patient feels weak on feet, symptomatically febrile o/n, feels fatigued today Objective: Vital Signs Temp Pulse Resp BP Pulse Ox 36.8 C 86 17 116/62 98 06/13/17 14:10 06/13/17 11:33 06/13/17 11:33 06/13/17 11:33 06/13/17 11:33 Laboratory Results 06/13/17 04:30 06/13/17 04:30 06/12/17 06/13/17 06/14/17 05:59 05:59 05:59 Intake Total 232 3393.0 Output Total 2275 2800 1060 Balance 49 593.0 -1060 - Physical Exam Constitutional: no apparent distress, appears nourished, not in pain, uncomfortable Ears, Nose, Mouth, Throat: moist mucous membranes, hearing normal, ears appear normal, no oral mucosal ulcers Cardiovascular: regular rate and rhythym, systolic murmur (I/ systolic at sternum), edema (trace bilat LE), No irregularly irregular, No tachycardia Respiratory: no respiratory distress, no rales or rhonchi, clear to auscultation Gastrointestinal: normoactive bowel sounds, soft, non-tender abdomen, no palpable masses, No guarding, No distension Skin: warm, other (mild ecchymoses inferior to PICC line, no induration/ tenderness/erythema) Neurologic: AAOx3 Psychiatric: interacting appropriately, not anxious, not encephalopathic, thought process linear ICD10 Worksheet Patient Problems: Problems Problem Status Onset Arthritis, hip Acute
[2017-06-13] MEDS: ONDANSETRON 4 MG/2 ML VIAL IVP PRN (18:23)
[2017-06-13] MEDS: CHOLECALCIFEROL VIT D3 2,000 UNITS TAB/CAP PO SCH (20:41)
[2017-06-13] MEDS: ACETAMN/DIPHENHYDRAMINE 500/25MG TAB PO SCH (21:30)
[2017-06-14] MEDS: CEFEPIME HCL 2 GM in STERILE WATER INJ 12.5 ML IV SCH ×3 (05:07→22:26)
[2017-06-14] MEDS: ACETAMINOPHEN 500 MG TAB PO SCH ×4 (05:07→18:07)
[2017-06-14 05:42] LABS: PLATELET COUNT 15 10^3/uL (150-400)
[2017-06-14] MEDS ORDERED: oxyCODONE IR 5 MG TAB PO PRN (07:45)
[2017-06-14] MEDS: ONDANSETRON 4 MG/2 ML VIAL IVP PRN (09:29)
[2017-06-14] MEDS: MICAFUNGIN NA 100 MG in NS 100 ML IV SCH (09:29)
[2017-06-14] MEDS: GABAPENTIN 100 MG CAP PO SCH ×3 (09:40→21:06)
[2017-06-14] MEDS: ACYCLOVIR 400 MG TAB PO SCH ×2 (09:41→21:06)
[2017-06-14] MEDS: PANTOPRAZOLE SODIUM 40 MG TAB PO SCH (09:41)
[2017-06-14] MEDS: TAMSULOSIN HCL 0.4 MG CAP PO SCH (09:41)
--- NOTE | 2017-06-14 09:55 | PCMIDPN ---
Assessment/Plan: # Neutropenic fever. ANC 530. Resumption of fever earlier this week but now has been AF x 24h --dc vancomycin and micafungin --continue cefepime/flagyl, duration unclear - consider 14 days if remains AF # pancytopenia secondary to chemo/underlying AML, day 20 post induction; unfortunately failed induction --continue ppx acyclovir --restart fluconazole 100mg PO daily --may start new med - oral IDH2 inhibitor - today # Elevated TBili: doubt due to antibiotics, continue to monitor. No abdominal pain # mucositis: resolved Med Cefepime 2 g IV Q 8, # 11 Metronidazole 500 mg IV Q 8, #10 micafungin 100mg IV daily #10 Vancomycin 1gm IV q12h, # 4 Acyclovir 400 mg twice daily Micro CMV PCR neg; HSV negative 06/03 blood cx (2) negative 06/05 blood cx (2) negative 06/10 blood cultures (2) NGTD 06/11 GI panel PCR negative Subjective: possibly going to start nasidenib (oral IDH2 inhibitor) no diarrhea, soft from stool no rectal pain no rashes noted no oral pain Objective: Vital Signs Temp Pulse Resp BP Pulse Ox 37.7 C 101 H 16 108/64 92 06/14/17 05:00 06/14/17 02:43 06/14/17 02:43 06/14/17 02:43 06/14/17 02:43 Laboratory Results 06/14/17 05:10 06/14/17 05:10 06/13/17 06/14/17 06/15/17 05:59 05:59 05:59 Intake Total 3393.0 1300 Output Total 2800 2020 Balance 593.0 -720 - Physical Exam General Appearance: alert, no apparent distress EENT: pale conjunctiva Respiratory: lungs clear, No accessory muscle use Cardiac/Chest: regular rate, rhythm Extremities: No pedal edema, No inflammation Abdomen: normal bowel sounds, non-tender, soft Skin: pallor, No rash Neuro/Psych: alert, normal mood/affect, oriented x 3 - Line/s RUE PICC Lines: No drainage, No erythema - Time Spent With Patient Time Spent with Patient: greater than 35 minutes Time Spent with Patient: Greater than 35 minutes spent on this patients care, greater than 50% of time spent counseling, educating, and coordinating care regarding the above mentioned plan. ICD10 Worksheet Patient Problems: Problems Problem Status Onset Arthritis, hip Acute
--- NOTE | 2017-06-14 14:48 | HOSPPROG ---
Hospitalist Progress Note Assessment/Plan: * AML -refractory/failed induction -oncology obtaining Enasidenib -eventual stem cell transplant * Typhlitis -Cefepime, Vanco, Flagyl, Micafungin - per ID * Neutropenic fever -fever curve improving * L4/L5 disk herniation with leg pain * BPH Subjective: fatigued today Objective: Vital Signs Temp Pulse Resp BP Pulse Ox 36.8 C 81 16 92/58 L 94 06/14/17 12:25 06/14/17 12:25 06/14/17 12:25 06/14/17 12:25 06/14/17 12:25 Microbiology 06/12/17 03:45 Urine Culture - Final Urine,Clean Catch Laboratory Results 06/14/17 05:10 06/14/17 05:10 06/13/17 06/14/17 06/15/17 05:59 05:59 05:59 Intake Total 3393.0 1300 Output Total 2800 2020 450 Balance 593.0 -720 -[address] velasquez regarding antibiotic plan CT scan abd - positive for typhlitis - Physical Exam Constitutional: no apparent distress, appears nourished, not in pain Cardiovascular: regular rate and rhythym, no murmur, rub, or gallop Respiratory: no respiratory distress, no rales or rhonchi, clear to auscultation Gastrointestinal: normoactive bowel sounds, soft, non-tender abdomen, no palpable masses Skin: no rashes or abrasions, no fluctuance, no induration Neurologic: AAOx3, sensation intact bilaterally Psychiatric: interacting appropriately, not anxious, not encephalopathic, thought process linear ICD10 Worksheet Patient Problems: Problems Problem Status Onset Arthritis, hip Acute
--- NOTE | 2017-06-14 16:20 | SOAPPROG ---
SOAP Progress Note Assessment/Plan: Assessment: 1) AML day 21 initial induction (FLT3 negative, positive trisomy 8, IDH2 positive, SRSF2 positive) with persistent leukemia on "day 14" marrow 2) Pancytopenia secondary to #1 3) Recent typhlitis with persistent findings on CT scan. 4) Right leg pain secondary to L 4/5 disc herniation 5) Febrile neutropenia Plan: No further fevers over 101. [facility]'s bone marrow biopsy revealed residual AML involving approximately 60% of his bone marrow. Overall the prognosis of refractory AML is poor. The patient has a positive IDH2 mutation, and is a potential candidate for treatment with Enasidenib (oral IDH2 inhibitor). I favor this over conventional re-induction chemotherapy which is associated with a fairly low response rate and fairly significant toxicity. I have spoken with his primary Oncologist, Dr. Wheat who is in agreement. I discussed this recommendation with the patient and his family ( Debi, and son ). We have discussed the risk of differentiation syndrome associated with the drug. He would like to try this therapy, and I think that this is his best option. Getting the drug to [facility] is in process. I have started the process of getting this JENNA through [facility] pharmacy, and delivered to patient since this will be snf therapy. The drug has been approved by his insurance company, and is being sent overnight to the [facility]. It will be available for the patient tomorrow. If he achieves remission (40% response rate in the trial), then he will ultimately need to be evaluated at a transplant center for consideration of stem cell transplant. Though his CT findings look somewhat worse, He is not symptomatic. No surgical intervention warranted at the present time. Continue Abx per ID. (Cefepime / Metronidazole / Vancomycin, in addition to Micafungin and Acyclovir. I recommend re-sending blood cultures with his next fever > 101. His platelets are lower, but there is no bleeding, and No indication for transfusion today. Above d/w patient. Questions answered. 06/12/17 13:56 06/13/17 09:30 06/13/17 09:32 06/14/17 16:17 Subjective: Denies abdominal pain. No further high fevers. Feels fatigued. No mucosal bleeding. Objective: Vital Signs Temp Pulse Resp BP Pulse Ox 37.1 C 93 16 106/52 L 97 06/14/17 15:58 06/14/17 15:58 06/14/17 15:58 06/14/17 15:58 06/14/17 15:58 Microbiology 06/12/17 03:45 Urine Culture - Final Urine,Clean Catch Laboratory Results 06/14/17 05:10 06/14/17 05:10 06/13/17 06/14/17 06/15/17 05:59 05:59 05:59 Intake Total 3393.0 1300 Output Total 2800 2020 450 Balance 593.0 -720 -450 - Time Spent With Patient Time Spent With Patient: 25 minutes Physical Exam - Physical Exam General Appearance: alert, no apparent distress EENT: PERRL/EOMI, other (No mucosal bleeding) Respiratory: lungs clear Cardiac/Chest: regular rate, rhythm Abdomen: non-tender, soft Extremities: other (PICC site clean and without induration) Neuro/Psych: alert, normal mood/affect ICD10 Worksheet Patient Problems: Problems Problem Status Onset Arthritis, hip Acute
[2017-06-14] MEDS: CHOLECALCIFEROL VIT D3 2,000 UNITS TAB/CAP PO SCH (21:05)
[2017-06-14] MEDS: ACETAMN/DIPHENHYDRAMINE 500/25MG TAB PO SCH (21:06)
[2017-06-15] MEDS: ACETAMINOPHEN 500 MG TAB PO SCH ×4 (05:04→17:26)
[2017-06-15] MEDS: NS 1,000 ML IV SCH (05:05)
[2017-06-15 05:31] LABS: PLATELET COUNT 21 10^3/uL (150-400)
[2017-06-15] MEDS: CEFEPIME HCL 2 GM in STERILE WATER INJ 12.5 ML IV SCH ×3 (07:24→21:50)
[2017-06-15] MEDS: PANTOPRAZOLE SODIUM 40 MG TAB PO SCH (09:12)
[2017-06-15] MEDS: TAMSULOSIN HCL 0.4 MG CAP PO SCH (09:13)
[2017-06-15] MEDS: FLUCONAZOLE 100 MG TAB PO SCH (09:13)
[2017-06-15] MEDS: GABAPENTIN 100 MG CAP PO SCH ×3 (09:13→21:50)
[2017-06-15] MEDS: ACYCLOVIR 400 MG TAB PO SCH ×2 (09:13→21:50)
[2017-06-15] MEDS: traMADol 50 MG TAB PO PRN ×2 (09:15→15:28)
--- NOTE | 2017-06-15 09:33 | PCMIDPN ---
Assessment/Plan: 1. Neutropenic enterocolitis with radiographic worsening, but clinical improvement in patient with underlying refractory AML: Given ANC of over 500 (today over 1000), antibiotic pared back to cefepime and metronidazole. Micafungin and vancomycin discontinued. Will continue to follow. 2. Prophylaxis : Continue acyclovir 400 mg twice daily, and fluconazole 100 mg daily. 3. Miscellaneous: Patient is supposed to start a new IDH2 inhibitor today. Reviewing this medication, it can increase total bilirubin, and cause a"differentiation syndrome", consisting of fever, pulmonary infiltrates, etc. Will be mindful of this moving forward. Total bilirubin stable at 1.8. This could also be elevated secondary to hemolysis. Please see below. 4. Anemia: Patient had a precipitous drop in his hematocrit today for unclear reasons. Will obtain hemolysis labs this morning. Oncology to see him later today. 06/15/17 09:29 06/15/17 09:36 Subjective: Patient feels very tired this morning. No nausea or vomiting. Had a formed stool yesterday. No hematochezia. Hematocrit verified to be quite low this morning for unclear reasons. No visual disturbance or headache. No cough. Continues to have some radicular pain down his right lower extremity. No abdominal pain. Objective: Vital Signs Temp Pulse Resp BP Pulse Ox 36.8 C 87 17 104/52 L 94 06/15/17 08:00 06/15/17 08:00 06/15/17 08:00 06/15/17 08:00 06/15/17 08:00 Microbiology 06/12/17 03:45 Urine Culture - Final Urine,Clean Catch Laboratory Results 06/15/17 08:17 06/15/17 05:15 06/14/17 06/15/17 06/16/17 05:59 05:59 05:59 Intake Total 1300 613 658 Output Total 20190 Balance -720 -6235 187 - Physical Exam General Appearance: other (Looks tired, but nontoxic.) EENT: pharynx normal, No thrush Respiratory: lungs clear Cardiac/Chest: regular rate, rhythm, No tachycardia Extremities: other (PICC line right upper extremity looks fine) Abdomen: non-tender, soft, other (Hyperactive bowel sounds.) Skin: No rash ICD10 Worksheet Patient Problems: Problems Problem Status Onset Arthritis, hip Acute
--- NOTE | 2017-06-15 12:37 | SOAPPROG ---
SOAP Progress Note Assessment/Plan: Assessment/Plan: 72 yo gentleman w AML admitted for induction w 7+3 Day 14 marrow w persistent AML Hospitalization c/p typhilitis and pancytopenia 1. 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 Pancytopenia - due to #1 transfusion if PRBC <7 and platelets < 10k or bleeding covered broadly for neutropenia ppx fluconazole and acyclovir 3. Acute drop in Hgb over 24 hours AML vs hemolysis vs other added hemolysis labs today w Kary, LDH, haptoglobin, retic count also checking iron studies, DIC school lunch monitor Bili and peripheral smear Blood today 3. Typhlitis - appreciate ID on cefepime and metronidazole Diarrhea and fever resolved but imaging worse C.Diff negative 4.R thigh pain - MR w L4-5 herniated discs? monitor fo now cont tramadol and gabapentin prn oxy Subjective: No acute events w exception of acute asymptomatic H/H drop Pt fatigued Objective: Vital Signs Temp Pulse Resp BP Pulse Ox 36.6 C 92 16 106/60 96 06/15/17 12:15 06/15/17 12:15 06/15/17 12:15 06/15/17 12:15 06/15/17 12:15 Microbiology 06/12/17 03:45 Urine Culture - Final Urine,Clean Catch Laboratory Results 06/15/17 08:17 06/15/17 05:15 06/14/17 06/15/17 06/16/17 05:59 05:59 05:59 Intake Total 1300 613 658 Output Total 2019 2300 350 Balance -720 -1687 308 Gen - NAD HEENT - anicteric, OP clear CV - RRR Chest - CTA abd - soft, NT, BS+ Ext - no sig edema or rash or petechia Neuro - nonfocal ICD10 Worksheet Patient Problems: Problems Problem Status Onset Arthritis, hip Acute
[2017-06-15] MEDS: [UNRECOGNIZED DRUG - OTHER] PO SCH (12:56)
[2017-06-15 12:58] LABS: PLATELET COUNT 20 10^3/uL (150-400)
[2017-06-15 13:03] LABS: INR 1.57 (0.83-1.16); PROTIME(PATIENT) 18.9 SEC (12.0-15.0)
--- NOTE | 2017-06-15 15:53 | ASMTCMCOM ---
CM Note CM Note Notes: Patient chart reviewed. Per therapy likely no needs at discharge. Patient does have PICC which may require PICC care company. Day 14 of treatment. Drop in H&H. CM to follow. Plan: TBD Date Signed: 06/15/2017 03:52 PM Electronically Signed By:Mery Iverson RN
--- NOTE | 2017-06-15 16:18 | HOSPPROG ---
Hospitalist Progress Note Assessment/Plan: * AML -refractory/failed induction -oncology to start Enasidenib -eventual stem cell transplant * Acute worsening anemia -work up negative for alternative cause, likely due to malignancy -transfuse 2 units - difficult match due to presence of antibody * Typhlitis -Cefepime, Flagyl - per ID * Neutropenic fever -fever curve improving * L4/L5 disk herniation with leg pain * BPH Subjective: No new complaints, no bleeding Objective: Vital Signs Temp Pulse Resp BP Pulse Ox 36.6 C 88 18 102/52 L 94 06/15/17 16:00 06/15/17 16:00 06/15/17 16:00 06/15/17 16:00 06/15/17 16:00 Microbiology 06/12/17 03:45 Urine Culture - Final Urine,Clean Catch Laboratory Results 06/15/17 12:35 06/15/17 05:15 06/14/17 06/15/17 06/16/17 05:59 05:59 05:59 Intake Total 1300 613 658 Output Total 2019 2300 350 Balance -720 -1687 308 PT 18.9 SEC (12.0-15.0) H 06/15/17 12:35 INR 1.57 (0.83-1.16) H 06/15/17 12:35 - Physical Exam Constitutional: no apparent distress, appears nourished, not in pain Cardiovascular: regular rate and rhythym, no murmur, rub, or gallop Respiratory: no respiratory distress, no rales or rhonchi, clear to auscultation Gastrointestinal: normoactive bowel sounds, soft, non-tender abdomen, no palpable masses Skin: no rashes or abrasions, no fluctuance, no induration Neurologic: AAOx3, sensation intact bilaterally Psychiatric: interacting appropriately, not anxious, not encephalopathic, thought process linear ICD10 Worksheet Patient Problems: Problems Problem Status Onset Arthritis, hip Acute
--- NOTE | 2017-06-15 17:14 | SOAPPROG ---
SOAP Progress Note Assessment/Plan: Assessment: typhlitis improving/ afebrile/ +gi function abd soft, nontender with bs and flatus imp: nonsurgical abdomen Plan: 06/15/17 17:12 Objective: Vital Signs Temp Pulse Resp BP Pulse Ox 36.6 C 88 18 102/52 L 94 06/15/17 16:00 06/15/17 16:00 06/15/17 16:00 06/15/17 16:00 06/15/17 16:00 Microbiology 06/12/17 03:45 Urine Culture - Final Urine,Clean Catch Laboratory Results 06/15/17 12:35 06/15/17 05:15 06/14/17 06/15/17 06/16/17 05:59 05:59 05:59 Intake Total 1300 613 658 Output Total 2019 2300 500 Balance -720 -1687 158 PT 18.9 SEC (12.0-15.0) H 06/15/17 12:35 INR 1.57 (0.83-1.16) H 06/15/17 12:35 ICD10 Worksheet Patient Problems: Problems Problem Status Onset Arthritis, hip Acute
[2017-06-15] MEDS: ACETAMN/DIPHENHYDRAMINE 500/25MG TAB PO SCH (21:49)
[2017-06-15] MEDS ORDERED: [UNRECOGNIZED DRUG - OTHER] PO SCH (22:00)
[2017-06-16] MEDS: ACETAMINOPHEN 500 MG TAB PO SCH ×5 (05:43→18:26)
[2017-06-16] MEDS: CEFEPIME HCL 2 GM in STERILE WATER INJ 12.5 ML IV SCH ×3 (05:43→21:11)
[2017-06-16 06:21] LABS: PLATELET COUNT 23 10^3/uL (150-400)
[2017-06-16] MEDS: CHOLECALCIFEROL VIT D3 2,000 UNITS TAB/CAP PO SCH (07:35)
[2017-06-16] MEDS: ACYCLOVIR 400 MG TAB PO SCH ×2 (08:26→21:06)
[2017-06-16] MEDS: TAMSULOSIN HCL 0.4 MG CAP PO SCH (08:26)
[2017-06-16] MEDS: GABAPENTIN 100 MG CAP PO SCH ×3 (08:26→21:06)
[2017-06-16] MEDS: PANTOPRAZOLE SODIUM 40 MG TAB PO SCH (08:26)
[2017-06-16] MEDS: FLUCONAZOLE 100 MG TAB PO SCH (08:26)
--- NOTE | 2017-06-16 12:06 | SOAPPROG ---
SOAP Progress Note Assessment/Plan: E&M for AML * AML, FLT3 negative, trisomy 8, IDH2 positive, SRSF2 positive: Refractory to 7+ 3. Started Enasidenib 06/15 (40% RR, CR 19%, OS 9 mo). Median time of response was 2 months. 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 GI upset and elevated tbili most common side effects. * Pancytopenia: WBC is up, possibly due to marrow recovery. Will monitor. Platelets stable. Hgb better after transfusion. transfusion if PRBC <7 and platelets < 10k or bleeding. * Typhlitis: ID following; on cefepime and metronidazole and prophylactic fluconazole and acyclovir * Elevated Tbili: fairly stable last couple of days. Doubt hemolysis. Good response to transfusion. Monitor for bleeding. Subjective: Not feeling as well today. Mild dyspnea and nausea. No chest pain. Objective: Vital Signs Temp Pulse Resp BP Pulse Ox 36.5 C 79 16 116/58 L 98 06/16/17 08:00 06/16/17 08:00 06/16/17 08:00 06/16/17 08:00 06/16/17 08:00 Microbiology 06/10/17 09:30 Blood Culture - Final Blood 06/10/17 09:55 Blood Culture - Final Blood Laboratory Results 06/16/17 06:00 06/16/17 06:00 06/15/17 06/16/17 06/17/17 05:59 05:59 05:59 Intake Total 613 2834 Output Total 2300 1325 Balance -1687 1509 PT 18.9 SEC (12.0-15.0) H 06/15/17 12:35 INR 1.57 (0.83-1.16) H 06/15/17 12:35 Laboratory Tests 06/15/17 06/16/17 05:15 06:00 WBC 10.69 H 14.66 H Hgb 5.5 L* 7.6 L Plt Count 21 L* 23 L* Laboratory Tests 06/14/17 06/15/17 06/16/17 05:10 05:15 06:00 Total Bilirubin 2.0 H 1.8 H 2.3 H Lactate Dehydrogenase 2405 H Physical Exam - Physical Exam General Appearance: no apparent distress Respiratory: lungs clear Cardiac/Chest: regular rate, rhythm Abdomen: non-tender, soft ICD10 Worksheet Patient Problems: Problems Problem Status Onset Arthritis, hip Acute
--- NOTE | 2017-06-16 12:24 | PCMIDPN ---
Assessment/Plan: 1. Neutropenic enterocolitis with radiographic worsening, but clinical improvement in patient with underlying refractory AML: Will continue cefepime at present dose, and mitral med is all at present dose and follow closely. Abdomen completely benign. 2. Prophylaxis : Continue acyclovir 400 mg twice daily, and fluconazole 100 mg daily. 3. Miscellaneous: Patient has started a new IDH2 inhibitor. Reviewing this medication, it can increase total bilirubin, and cause a"differentiation syndrome", consisting of fever, pulmonary infiltrates, etc. Will be mindful of this moving forward. The patient is short of breath today; will obtain chest x-ray. 4. New shortness of breath: Will obtain chest x-ray as outlined above. Subjective: Patient feels very tired. Frustrated. Also feels newly short of breath, but no cough. Started new medication yesterday. Objective: Cefepime 2 g IV q.8 hours day 13 Metronidazole 500 mg IV q.8 hours day 12 Acyclovir 400 mg twice daily Fluconazole 100 mg daily T-max 37.2 degrees Vital Signs Temp Pulse Resp BP Pulse Ox 36.9 C 83 16 113/61 94 06/16/17 11:40 06/16/17 11:40 06/16/17 11:40 06/16/17 11:40 06/16/17 11:40 Microbiology 06/10/17 09:30 Blood Culture - Final Blood 06/10/17 09:55 Blood Culture - Final Blood Laboratory Results 06/16/17 06:00 06/16/17 06:00 06/15/17 06/16/17 06/17/17 05:59 05:59 05:59 Intake Total 613 2834 Output Total 2300 1325 1 Balance -1687 1509 -1 No new microbiology - Physical Exam General Appearance: other (Looks tired. Nontoxic.) EENT: No thrush Respiratory: lungs clear Cardiac/Chest: regular rate, rhythm, No systolic murmur Abdomen: non-tender, soft, No distended Skin: No rash Neuro/Psych: oriented x 3 ICD10 Worksheet Patient Problems: Problems Problem Status Onset Arthritis, hip Acute
--- NOTE | 2017-06-16 13:40 | HOSPPROG ---
Hospitalist Progress Note Assessment/Plan: * AML -refractory/failed induction -Enasidenib started (IDH2 inhibitor) -watch for "differentiation syndrome" -(fever/pulmonary infiltrates/GI upset/increased bili) -usual onset 10 days - 5 months -eventual stem cell transplant * Acute worsening anemia -s/p transfuse 2 units - difficult match due to presence of antibody * Typhlitis -Cefepime, Flagyl * Neutropenic fever -fever curve improving -prophylactic acyclovir + Diflucan * L4/L5 disk herniation with leg pain * BPH -Flomax * SOB -check CXR Subjective: New SOB started this am Objective: Vital Signs Temp Pulse Resp BP Pulse Ox 36.9 C 83 16 113/61 94 06/16/17 11:40 06/16/17 11:40 06/16/17 11:40 06/16/17 11:40 06/16/17 11:40 Microbiology 06/10/17 09:30 Blood Culture - Final Blood 06/10/17 09:55 Blood Culture - Final Blood Laboratory Results 06/16/17 06:00 06/16/17 06:00 06/15/17 06/16/17 06/17/17 05:59 05:59 05:59 Intake Total 613 2834 Output Total 2300 1325 1 Balance -1687 1509 -1 PT 18.9 SEC (12.0-15.0) H 06/15/17 12:35 INR 1.57 (0.83-1.16) H 06/15/17 12:35 d/w Dr Salvador regarding differentiation syndrome - Physical Exam Constitutional: no apparent distress, appears nourished, not in pain Cardiovascular: regular rate and rhythym, no murmur, rub, or gallop Respiratory: no respiratory distress, no rales or rhonchi, clear to auscultation Gastrointestinal: normoactive bowel sounds, soft, non-tender abdomen, no palpable masses Skin: no rashes or abrasions, no fluctuance, no induration Neurologic: AAOx3, sensation intact bilaterally Psychiatric: interacting appropriately, not anxious, not encephalopathic, thought process linear ICD10 Worksheet Patient Problems: Problems Problem Status Onset Arthritis, hip Acute
[2017-06-16] MEDS: [UNRECOGNIZED DRUG - OTHER] PO SCH (14:25)
[2017-06-16] MEDS: traMADol 50 MG TAB PO PRN (18:25)
[2017-06-16] MEDS: [UNRECOGNIZED DRUG - OTHER] PO SCH (21:06)
[2017-06-16] MEDS: ACETAMN/DIPHENHYDRAMINE 500/25MG TAB PO SCH (21:09)
[2017-06-17] MEDS: ACETAMINOPHEN 500 MG TAB PO SCH ×4 (05:23→17:45)
[2017-06-17] MEDS: CEFEPIME HCL 2 GM in STERILE WATER INJ 12.5 ML IV SCH ×3 (05:24→18:20)
[2017-06-17 06:04] LABS: PLATELET COUNT 28 10^3/uL (150-400)
[2017-06-17] MEDS: FLUCONAZOLE 100 MG TAB PO SCH (09:36)
[2017-06-17] MEDS: TAMSULOSIN HCL 0.4 MG CAP PO SCH (09:36)
[2017-06-17] MEDS: traMADol 50 MG TAB PO PRN ×2 (09:36→16:57)
[2017-06-17] MEDS: PANTOPRAZOLE SODIUM 40 MG TAB PO SCH (09:36)
[2017-06-17] MEDS: GABAPENTIN 100 MG CAP PO SCH ×3 (09:36→21:33)
[2017-06-17] MEDS: ACYCLOVIR 400 MG TAB PO SCH ×2 (09:37→21:33)
[2017-06-17] MEDS ORDERED: PROTOCOL POTASSIUM 1 DOSE MISC PRN (10:06)
--- NOTE | 2017-06-17 11:29 | SOAPPROG ---
SOAP Progress Note Assessment/Plan: E&M for AML * AML, FLT3 neg, trisomy 8, IDH2 pos, SRSF2 pos: Refractory to 7+3. Started Enasidenib 06/15 (40% RR, CR 19%, OS 9 mo). Median time of response was 2 months. 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 GI upset and elevated tbili most common side effects. * Pancytopenia: WBC is up, possibly due to marrow recovery. Will monitor. Platelets stable. Hgb is below 7 but he feels well, so will hold off transfusion today. Parameters for transfusion if PRBC <7 and platelets < 10k or bleeding. Continue prophylactic fluconazole and acyclovir * Kary Positive: not much evidence of hemolysis; will monitor but hold off steroids. Will follow retic, ldh, bili, and h/h. * Typhlitis: ID following; on cefepime and metronidazole. Hopefully can come off soon. * Elevated Tbili: normal today; will monitor Subjective: Feeling much better today. No acute complaints. Objective: Vital Signs Temp Pulse Resp BP Pulse Ox 36.6 C 86 16 116/56 L 95 06/17/17 09:55 06/17/17 09:55 06/17/17 09:55 06/17/17 09:55 06/17/17 09:55 Microbiology 06/16/17 17:10 Gastrointestinal Tract Panel (PCR) - Final Stool No Organism Detected 06/10/17 09:30 Blood Culture - Final Blood 06/10/17 09:55 Blood Culture - Final Blood Laboratory Results 06/17/17 05:43 06/17/17 05:43 06/16/17 06/17/17 06/18/17 05:59 05:59 05:59 Intake Total 2834 1262.5 Output Total 1325 1226 460 Balance 1509 36.5 -460 PT 18.9 SEC (12.0-15.0) H 06/15/17 12:35 INR 1.57 (0.83-1.16) H 06/15/17 12:35 Laboratory Tests 06/16/17 06/16/17 06/17/17 06:00 06:00 05:43 WBC 14.66 H 17.31 H Hgb 7.6 L 6.9 L Plt Count 23 L* 28 L* Total Bilirubin 2.3 H 06/17/17 05:43 WBC Hgb Plt Count Total Bilirubin 0.9 D Laboratory Tests 06/15/17 06:30 Antibody Screen POSITIVE SARAH, IgG Specific IGG POSITIVE SARAH, Polyspecific POSITIVE H Physical Exam - Physical Exam General Appearance: no apparent distress EENT: hearing deficit Respiratory: lungs clear Cardiac/Chest: regular rate, rhythm ICD10 Worksheet Patient Problems: Problems Problem Status Onset Arthritis, hip Acute
[2017-06-17] MEDS: POTASSIUM Cl (KCl) 100 ML IV SCH ×3 (12:48→15:10)
--- NOTE | 2017-06-17 13:38 | PCMIDPN ---
Assessment/Plan: 1. Neutropenic enterocolitis with radiographic worsening, but clinical improvement/stability in patient with underlying refractory AML: Given that he is no longer neutropenic, I feel comfortable changing his cefepime dose to Q 12. Continue metronidazole. Duration of antibiotics given clinical stability thus far will be 14 days after resolution of neutropenia; stop date June 28. I told him that when he goes home, hopefully on Sunday, he can be transitioned to oral therapy in the form of oral levofloxacin and metronidazole. Patient expressed understanding. For now, given that he is having some diarrhea, will continue IV therapy as is. 2. Prophylaxis : Continue acyclovir 400 mg twice daily, and fluconazole 100 mg daily. 3. Miscellaneous: Patient has started a new IDH2 inhibitor. Reviewing this medication, it can increase total bilirubin, and cause a"differentiation syndrome", consisting of fever, pulmonary infiltrates, etc. Will be mindful of this moving forward. 4. Leukocytosis: Suspect this is multifactorial, related to his underlying AML, and also possibly from [place], which it has been known to cause. His abdomen is completely benign, with no evidence of new infectious process. Subjective: In good spirits, sitting up in eating pizza with his . No nausea or vomiting. Had some loose stools x2 this morning, but he does not feel that it is diarrhea, per se. No abdominal pain whatsoever. Objective: Cefepime 2 g IV q.8 hours day 14 Metronidazole 500 mg IV q.8 hours day 13 Acyclovir 4 mg twice daily Fluconazole 100 mg daily No fever Vital Signs Temp Pulse Resp BP Pulse Ox 36.4 C 78 16 110/60 96 06/17/17 12:25 06/17/17 12:25 06/17/17 12:25 06/17/17 12:25 06/17/17 12:25 Microbiology 06/16/17 17:10 Gastrointestinal Tract Panel (PCR) - Final Stool No Organism Detected Laboratory Results 06/17/17 05:45 06/17/17 05:43 06/16/17 06/17/17 06/18/17 05:59 05:59 05:59 Intake Total 2834 1262.5 Output Total 1325 1226 460 Balance 1509 36.5 -460 Repeat stool PCR done yesterday negative - Physical Exam General Appearance: alert, no apparent distress EENT: pharynx normal, No thrush Respiratory: lungs clear Cardiac/Chest: regular rate, rhythm Extremities: other (He does have some pitting edema in his lower extremities) Abdomen: non-tender, soft, No distended Skin: No rash ICD10 Worksheet Patient Problems: Problems Problem Status Onset Arthritis, hip Acute
--- NOTE | 2017-06-17 14:02 | HOSPPROG ---
Hospitalist Progress Note Assessment/Plan: * AML -refractory/failed induction -Enasidenib started (IDH2 inhibitor) -watch for "differentiation syndrome" -(fever/pulmonary infiltrates/GI upset/increased bili) -usual onset 10 days - 5 months * Anemia -s/p transfuse 2 units - difficult match due to presence of antibody -transfuse Hg <7, plt < 10 * Kary positive -watch for hemolysis -consider steroids * Typhlitis -Cefepime, Flagyl - stop date for antibiotics June 28 -can change to PO Levaquin + PO Flagyl when ready for discharge * Neutropenic fever -fever curve improving -prophylactic acyclovir + Diflucan * L4/L5 disk herniation with leg pain * BPH -Flomax Subjective: No more SOB Objective: Vital Signs Temp Pulse Resp BP Pulse Ox 36.4 C 78 16 110/60 96 06/17/17 12:25 06/17/17 12:25 06/17/17 12:25 06/17/17 12:25 06/17/17 12:25 Microbiology 06/16/17 17:10 Gastrointestinal Tract Panel (PCR) - Final Stool No Organism Detected Laboratory Results 06/17/17 05:45 06/17/17 05:43 06/16/17 06/17/17 06/18/17 05:59 05:59 05:59 Intake Total 2834 1262.5 Output Total 1325 1226 460 Balance 1509 36.5 -460 PT 18.9 SEC (12.0-15.0) H 06/15/17 12:35 INR 1.57 (0.83-1.16) H 06/15/17 12:35 CXR - negative - Physical Exam Constitutional: no apparent distress, appears nourished, not in pain Cardiovascular: regular rate and rhythym, no murmur, rub, or gallop Respiratory: no respiratory distress, no rales or rhonchi, clear to auscultation Gastrointestinal: normoactive bowel sounds, soft, non-tender abdomen, no palpable masses Skin: no rashes or abrasions, no fluctuance, no induration Neurologic: AAOx3, sensation intact bilaterally Psychiatric: interacting appropriately, not anxious, not encephalopathic, thought process linear ICD10 Worksheet Patient Problems: Problems Problem Status Onset Arthritis, hip Acute
[2017-06-17] MEDS: [UNRECOGNIZED DRUG - OTHER] PO SCH (14:13)
[2017-06-17] MEDS ORDERED: POTASSIUM CL 10 MEQ TAB PO ONE (21:16)
[2017-06-17] MEDS: ACETAMN/DIPHENHYDRAMINE 500/25MG TAB PO SCH (21:32)
[2017-06-17] MEDS: [UNRECOGNIZED DRUG - OTHER] PO SCH (21:38)
[2017-06-18 06:18] LABS: PLATELET COUNT 38 10^3/uL (150-400)
[2017-06-18] MEDS: traMADol 50 MG TAB PO PRN ×2 (06:18→14:43)
[2017-06-18] MEDS: ACETAMINOPHEN 500 MG TAB PO SCH ×4 (06:18→17:55)
[2017-06-18] MEDS: CEFEPIME HCL 2 GM in STERILE WATER INJ 12.5 ML IV SCH ×2 (07:15→17:56)
[2017-06-18] MEDS: TAMSULOSIN HCL 0.4 MG CAP PO SCH (08:47)
[2017-06-18] MEDS: ACYCLOVIR 400 MG TAB PO SCH ×2 (08:48→21:41)
[2017-06-18] MEDS: PANTOPRAZOLE SODIUM 40 MG TAB PO SCH (08:48)
[2017-06-18] MEDS: GABAPENTIN 100 MG CAP PO SCH ×3 (08:48→21:42)
[2017-06-18] MEDS: FLUCONAZOLE 100 MG TAB PO SCH (08:48)
[2017-06-18] MEDS ORDERED: POTASSIUM CL 10 MEQ TAB PO ONE ×2 (08:51→11:15)
--- NOTE | 2017-06-18 11:37 | SOAPPROG ---
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 Started Enasidenib 06/15 (40% RR, CR 19%, OS 9 mo). Median time of response was 2 months. 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 GI upset and elevated tbili most common side effects. Brief episode of tachycardia, pulse 100, this am, now resolved * Pancytopenia: WBC is up, possibly due to marrow recovery, significant leftward shift,Will monitor. Platelets stable. Hgb is 7 but he feels well, so will hold off transfusion today. Parameters for transfusion if PRBC <7 and platelets < 10k or bleeding. Continue prophylactic fluconazole and acyclovir * Kary Positive: not much evidence of hemolysis; will monitor but hold off steroids. Will follow retic, ldh, bili, and h/h. * Typhlitis: ID following; on cefepime and metronidazole. Hopefully can come off soon. * Elevated Tbili: normal today; will monitor Plan: Continue Enasidenib, no sign differentiation syndrome at this time 06/09/17 11:28 06/10/17 11:56 06/10/17 12:03 06/18/17 11:31 Subjective: Feels quite well, brief episode pulse 100 this am Objective: Vital Signs Temp Pulse Resp BP Pulse Ox 98.3 F 78 18 114/64 97 06/18/17 11:08 06/18/17 11:08 06/18/17 11:08 06/18/17 11:08 06/18/17 11:08 Laboratory Results 06/18/17 06:00 06/18/17 06:00 06/17/17 06/18/17 06/19/17 05:59 05:59 05:59 Intake Total 1262.5 1475 1153 Output Total 1226 2420 300 Balance 36.5 -945 853 PT 18.9 SEC (12.0-15.0) H 06/15/17 12:35 INR 1.57 (0.83-1.16) H 06/15/17 12:35 Physical Exam - Physical Exam General Appearance: alert, no apparent distress Respiratory: lungs clear, normal breath sounds Cardiac/Chest: regular rate, rhythm Abdomen: normal bowel sounds, non-tender ICD10 Worksheet Patient Problems: Problems Problem Status Onset Arthritis, hip Acute
[2017-06-18] MEDS: [UNRECOGNIZED DRUG - OTHER] PO SCH (15:19)
--- NOTE | 2017-06-18 15:30 | SOAPPROG ---
MELISSA Progress Note Assessment/Plan: Assessment/Plan: - abdominal exam remains benign, soft and nontender - tolerating diet, having formed stools - exam remains reassuring. Will cont to follow 06/18/17 15:28 Subjective: feeling well, tolerating diet Objective: Vital Signs Temp Pulse Resp BP Pulse Ox 36.8 C 84 18 114/64 95 06/18/17 13:23 06/18/17 13:23 06/18/17 11:08 06/18/17 11:08 06/18/17 13:23 Laboratory Results 06/18/17 06:00 06/18/17 06:00 06/17/17 06/18/17 06/19/17 05:59 05:59 05:59 Intake Total 1262.5 1475 1153 Output Total 1226 2420 300 Balance 36.5 -945 853 PT 18.9 SEC (12.0-15.0) H 06/15/17 12:35 INR 1.57 (0.83-1.16) H 06/15/17 12:35 ICD10 Worksheet Patient Problems: Problems Problem Status Onset Arthritis, hip Acute
--- NOTE | 2017-06-18 17:53 | HOSPPROG ---
Hospitalist Progress Note Assessment/Plan: * AML -refractory/failed induction -Enasidenib started (IDH2 inhibitor) -watch for "differentiation syndrome" -(fever/pulmonary infiltrates/GI upset/increased bili) -usual onset 10 days - 5 months * Anemia -s/p transfuse 2 units - difficult match due to presence of antibody -transfuse Hg <7, plt < 10 * Kary positive -watch for hemolysis -consider steroids * Typhlitis -Cefepime, Flagyl - stop date for antibiotics June 28 -can change to PO Levaquin + PO Flagyl when ready for discharge * Neutropenic fever -fever curve improving -prophylactic acyclovir + Diflucan * L4/L5 disk herniation with leg pain * BPH -Flomax Subjective: Brief palpitations this am, now gone. No recurrence of SOB Objective: Vital Signs Temp Pulse Resp BP Pulse Ox 36.6 C 80 16 116/66 98 06/18/17 15:39 06/18/17 15:39 06/18/17 15:39 06/18/17 15:39 06/18/17 15:39 Laboratory Results 06/18/17 06:00 06/18/17 06:00 06/17/17 06/18/17 06/19/17 05:59 05:59 05:59 Intake Total 1262.5 1475 1153 Output Total 1226 2420 300 Balance 36.5 -945 853 PT 18.9 SEC (12.0-15.0) H 06/15/17 12:35 INR 1.57 (0.83-1.16) H 06/15/17 12:35 - Physical Exam Constitutional: no apparent distress, appears nourished, not in pain Cardiovascular: regular rate and rhythym, no murmur, rub, or gallop Respiratory: no respiratory distress, no rales or rhonchi, clear to auscultation Gastrointestinal: normoactive bowel sounds, soft, non-tender abdomen, no palpable masses Skin: no rashes or abrasions, no fluctuance, no induration Neurologic: AAOx3, sensation intact bilaterally Psychiatric: interacting appropriately, not anxious, not encephalopathic, thought process linear ICD10 Worksheet Patient Problems: Problems Problem Status Onset Arthritis, hip Acute
--- NOTE | 2017-06-18 17:58 | PCMIDPN ---
Assessment/Plan: Assessment/Plan: * Neutropenic enterocolitis: Clinically improved with resolution of neutropenia. Completing 14 days of antibiotic therapy post resolution of neutropenia with stop date of 06/28/2017. This can be completed orally at time of discharge with levofloxacin and metronidazole. * Leukocytosis: No clinical findings of active infection. Could be multifactorial in etiology with his Enasidenib a consideration as this is commonly been associated with leukocytosis. Continue to observe currently. 06/18/17 17:53 Subjective: Patient noted palpitations earlier today. No abdominal pain. 3 soft stools per day but no diarrhea. Objective: Vital Signs Temp Pulse Resp BP Pulse Ox 36.6 C 80 16 116/66 98 06/18/17 15:39 06/18/17 15:39 06/18/17 15:39 06/18/17 15:39 06/18/17 15:39 Laboratory Results 06/18/17 06:00 06/18/17 06:00 06/17/17 06/18/17 06/19/17 05:59 05:59 05:59 Intake Total 1262.5 1475 1153 Output Total 1226 2420 300 Balance 36.5 -945 853 Cefepime # 15 Metronidazole # 14 Acyclovir and fluconazole prophylaxis - Physical Exam General Appearance: alert, no apparent distress EENT: No scleral icterus, No thrush Respiratory: lungs clear, No respiratory distress Cardiac/Chest: regular rate, rhythm Extremities: pedal edema, No inflammation Abdomen: non-tender, No distended - Line/s RUE PICC Lines: No drainage, No erythema ICD10 Worksheet Patient Problems: Problems Problem Status Onset Arthritis, hip Acute
[2017-06-18] MEDS ORDERED: POTASSIUM CL 20 MEQ TAB PO ONE (21:37)
[2017-06-18] MEDS: [UNRECOGNIZED DRUG - OTHER] PO SCH (21:40)
[2017-06-18] MEDS: ACETAMN/DIPHENHYDRAMINE 500/25MG TAB PO SCH (21:40)
[2017-06-19] MEDS: CEFEPIME HCL 2 GM in STERILE WATER INJ 12.5 ML IV SCH ×2 (05:03→18:01)
[2017-06-19] MEDS: ACETAMINOPHEN 500 MG TAB PO SCH ×4 (05:03→18:01)
[2017-06-19 05:37] LABS: PLATELET COUNT 46 10^3/uL (150-400)
--- NOTE | 2017-06-19 08:29 | HOSPPROG ---
Hospitalist Progress Note Assessment/Plan: #Typhlitis: Cefepime/ Flagyl through June 28 (DC on LQ, Flagyl). Caution with Etoh while in Flagyl #Refractory AML: started Enasidenib #Kary positive: monitor for hemolysis #Neutropenic fever: resolved. Diflucan/Acyclovir ppx #Right leg pain: no abscess at BM site. 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 Resolved #Tachycardia: resolved. No PE on CTA #Pancytopenia: transfuse if Hb <7, platelets <10 #Diastolic heart failure with LE edema: low-dose Lasix for a couple of days #BPH: Flomax #Diet: regular #DVT: SCDs #Disp: cont inpatient admission for typhlitis, IV abx, IVFs. Subjective: c/o LE swelling. No abd pain. Having soft stools Objective: Vital Signs Temp Pulse Resp BP Pulse Ox 36.6 C 88 16 118/58 L 95 06/19/17 05:20 06/19/17 05:20 06/19/17 05:20 06/19/17 05:20 06/19/17 05:20 Laboratory Results 06/19/17 05:20 06/19/17 05:20 06/18/17 06/19/17 06/20/17 05:59 05:59 05:59 Intake Total 1475 2929 Output Total 2420 3075 Balance -945 -146 PT 18.9 SEC (12.0-15.0) H 06/15/17 12:35 INR 1.57 (0.83-1.16) H 06/15/17 12:35 - Physical Exam Constitutional: no apparent distress Eyes: PERRL Ears, Nose, Mouth, Throat: moist mucous membranes Cardiovascular: regular rate and rhythym, edema (+2 swelling BL ankles) Respiratory: no respiratory distress, no rales or rhonchi Gastrointestinal: normoactive bowel sounds, soft, non-tender abdomen, No tenderness Genitourinary: no bladder fullness Skin: warm Musculoskeletal: full muscle strength Neurologic: AAOx3, CN II-XII Intact Psychiatric: interacting appropriately ICD10 Worksheet Patient Problems: Problems Problem Status Onset Arthritis, hip Acute
[2017-06-19] MEDS: traMADol 50 MG TAB PO PRN ×2 (09:31→16:05)
[2017-06-19] MEDS: FLUCONAZOLE 100 MG TAB PO SCH (09:32)
[2017-06-19] MEDS: PANTOPRAZOLE SODIUM 40 MG TAB PO SCH (09:32)
[2017-06-19] MEDS: GABAPENTIN 100 MG CAP PO SCH ×3 (09:32→20:12)
[2017-06-19] MEDS: ACYCLOVIR 400 MG TAB PO SCH ×2 (09:32→20:12)
[2017-06-19] MEDS: TAMSULOSIN HCL 0.4 MG CAP PO SCH (09:32)
--- NOTE | 2017-06-19 09:41 | ASMTCMCOM ---
CM Note CM Note Notes: Met with patient and his to discuss discharge planning. They agree that it would be beneficial to have a high school home economics teacher assist them with PICC care. I placed a referral to [facility]; I also informed the family that if they decided they wanted to add home PT to their services that [facility] would be able to assist with that. I also provided the list for private duty caregivers per their request. Possible discharge this Thursday 06/22! Date Signed: 06/19/2017 09:41 AM Electronically Signed By:Monika Betancourt RN
--- NOTE | 2017-06-19 10:52 | SOAPPROG ---
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 Started Enasidenib 06/15 (40% RR, CR 19%, OS 9 mo). Median time of response was 2 months. 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 GI upset and elevated tbili most common side effects. * Pancytopenia: WBC is up, possibly due to marrow recovery, significant leftward shift,Will monitor. Platelets improving. Hgb is 6.9, will transfuse 1 unit in anticipation possible d/c tomorrow. Continue prophylactic fluconazole and acyclovir * Kary Positive: not much evidence of hemolysis; will monitor but hold off steroids. Will follow retic, ldh, bili, and h/h. * Typhlitis: ID following; on cefepime and metronidazole, continue till06/28, cautioned re etoh until off metro. * Elevated Tbili: normal today; will monitor Plan: Continue Enasidenib, no sign differentiation syndrome at this time. Wants to go home with pic line for phlebs, will need homecare 06/09/17 11:28 06/10/17 11:56 06/10/17 12:03 06/18/17 11:31 06/19/17 10:49 Subjective: Feels ok, tired Objective: Vital Signs Temp Pulse Resp BP Pulse Ox 98.0 F 83 17 116/64 94 06/19/17 08:00 06/19/17 08:00 06/19/17 08:00 06/19/17 08:00 06/19/17 08:00 Laboratory Results 06/19/17 05:20 06/19/17 05:20 06/18/17 06/19/17 06/20/17 05:59 05:59 05:59 Intake Total 1475 2929 Output Total 2420 3075 700 Balance -945 -146 -700 PT 18.9 SEC (12.0-15.0) H 06/15/17 12:35 INR 1.57 (0.83-1.16) H 06/15/17 12:35 Physical Exam - Physical Exam General Appearance: alert, no apparent distress Respiratory: lungs clear, normal breath sounds Cardiac/Chest: regular rate, rhythm Abdomen: normal bowel sounds, non-tender ICD10 Worksheet Patient Problems: Problems Problem Status Onset Arthritis, hip Acute
[2017-06-19] MEDS: [UNRECOGNIZED DRUG - OTHER] PO SCH (13:07)
[2017-06-19] MEDS: FUROSEMIDE 20 MG TAB PO SCH (14:00)
[2017-06-19] MEDS: [UNRECOGNIZED DRUG - OTHER] PO SCH (20:13)
[2017-06-19] MEDS: ACETAMN/DIPHENHYDRAMINE 500/25MG TAB PO SCH (21:22)
[2017-06-20] MEDS: CEFEPIME HCL 2 GM in STERILE WATER INJ 12.5 ML IV SCH (05:22)
[2017-06-20] MEDS: ACETAMINOPHEN 500 MG TAB PO SCH ×2 (05:23→09:40)
[2017-06-20 06:24] LABS: PLATELET COUNT 47 10^3/uL (150-400)
[2017-06-20 07:39] VITALS: BP 114/62
[2017-06-20] MEDS: traMADol 50 MG TAB PO PRN (07:52)
[2017-06-20] MEDS: PANTOPRAZOLE SODIUM 40 MG TAB PO SCH (09:40)
[2017-06-20] MEDS: FLUCONAZOLE 100 MG TAB PO SCH (09:40)
[2017-06-20] MEDS: TAMSULOSIN HCL 0.4 MG CAP PO SCH (09:40)
[2017-06-20] MEDS: FUROSEMIDE 20 MG TAB PO SCH (09:40)
[2017-06-20] MEDS: ACYCLOVIR 400 MG TAB PO SCH (09:40)
[2017-06-20] MEDS: GABAPENTIN 100 MG CAP PO SCH (09:40)
--- NOTE | 2017-06-20 10:09 | SOAPPROG ---
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 Started Enasidenib 06/15 (40% RR, CR 19%, OS 9 mo). Median time of response was 2 months. 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 GI upset and elevated tbili most common side effects. * Pancytopenia: WBC is up, possibly due to marrow recovery, significant leftward shift,Will monitor. Platelets improving. Hgb is 8.6 post txn. Continue prophylactic fluconazole and acyclovir * Kary Positive: not much evidence of hemolysis; will monitor but hold off steroids. Will follow retic, ldh, bili, and h/h. * Typhlitis: ID following; on cefepime and metronidazole, continue till 06/28, cautioned re etoh until off metro. * Elevated Tbili: normal today; will monitor Plan: Continue Enasidenib, no sign differentiation syndrome at this time. Wants to go home with pic line for phlebs, will need homecare.Follow up [facility] sunday06/09/17 11:28 06/10/17 11:56 06/10/17 12:03 06/18/17 11:31 06/19/17 10:49 06/20/17 10:07 Subjective: Feels ok, a bit tired Objective: Vital Signs Temp Pulse Resp BP Pulse Ox 98.1 F 77 16 114/62 93 06/20/17 07:37 06/20/17 07:37 06/20/17 07:37 06/20/17 07:37 06/20/17 07:37 Laboratory Results 06/20/17 05:16 06/20/17 05:16 06/19/17 06/20/17 06/21/17 05:59 05:59 05:59 Intake Total 2929 700 Output Total 0736 3005 Balance -146 -4447 PT 18.9 SEC (12.0-15.0) H 06/15/17 12:35 INR 1.57 (0.83-1.16) H 06/15/17 12:35 Physical Exam - Physical Exam General Appearance: alert, no apparent distress Respiratory: normal breath sounds Cardiac/Chest: regular rate, rhythm Abdomen: normal bowel sounds, non-tender ICD10 Worksheet Patient Problems: Problems Problem Status Onset Arthritis, hip Acute
--- NOTE | 2017-06-20 10:42 | PDIAF ---
- Diagnosis Diagnosis: typhlitis Code Status: Full Code - Medication Management Discharge Medications: Medications to Continue on Transfer Cholecalciferol (Vitamin D3) [Vitamin D3] 5,000 unit PO HS 08/16/14 [Last Taken 05/23/17] Niacinamide [Niacin] 500 mg PO BID 05/01/16 [Last Taken 05/24/17] Fluticasone Nasal [Flonase Nasal Fred] 1 sprays NASAL DAILY PRN 05/24/17 [Last Taken Unknown] Herbals/Supplements -Info Only 1 ea PO DAILY 05/24/17 [Last Taken Unknown] Propylene Glycol/Peg 400 [SYSTANE 0.3-0.4% EYE DROPS] 1 drop EACHEYE DAILY PRN 05/24/17 [Last Taken Unknown] Acetaminophen [Tylenol ES 500 mg (*)] 500 mg PO ,,, tab 06/20/17 [Last Taken Unknown] Acyclovir [Zovirax 400 mg (*)] 400 mg PO BID #60 tab 06/20/17 [Last Taken Unknown] Fluconazole [Diflucan (*)] 100 mg PO DAILY #30 tab 06/20/17 [Last Taken Unknown] Gabapentin [Neurontin 100 MG (*)] 100 mg PO TID #90 cap 06/20/17 [Last Taken Unknown] Ondansetron Odt [Zofran Odt 4 mg (*)] 4 mg PO Q4HRS PRN #30 tab 06/20/17 [Last Taken Unknown] Pantoprazole Sodium [Protonix 40mg (*)] 40 mg PO DAILY #30 tab 06/20/17 [Last Taken Unknown] Tamsulosin HCl [Flomax 0.4 MG (*)] 0.4 mg PO DAILY #30 cap 06/20/17 [Last Taken Unknown] levOFLOXACIN [levAQUIN (*)] 750 mg PO DAILY #8 tab 06/20/17 [Last Taken Unknown] metroNIDAZOLE [Flagyl 500 mg (*)] 500 mg PO TID #25 tab 06/20/17 [Last Taken Unknown] traMADol [Ultram 50 mg (*)] 50 mg PO Q6HRS PRN #30 tab 06/20/17 [Last Taken Unknown] Discharge Medications: Refer to the Discharge Home Medication list for PRN reason. - Orders Services needed: Home Care, Physical Therapy Home Care Face to Face: I certify that this patient was under my care and that I had the required [id number] encounter meeting the encounter requirements on the discharge day. My findings support the fact that the patient is homebound as defined in Home Care Face to Face Continued: [facility] Chapter 7 Medicare Benefits Manual 30.1.1 , The condition of the patient is such that there exists a normal inability to leave home and consequently, leaving home would require a considerable and taxing effort. Isolation Type: Chemotherapy Isolation, Neutropenic Isolation Diet Recommendation: no restrictions on diet Diet Texture: Regular Texture Diet - Follow Up Care Current Providers and Referrals: MARINA BARNETT [Primary Care Provider] -
--- NOTE | 2017-06-20 12:11 | GDS ---
[f rep st] DISCHARGE SUMMARY DISCHARGE DIAGNOSES: 1. Refractory acute myeloid leukemia. 2. Pancytopenia. 3. Kary positive. 4. Typhlitis. 5. Neutropenic fever. 6. Right leg pain. 7. L4-L5 herniation. 8. Acute encephalopathy. 9. Tachycardia. 10. Compensated diastolic heart failure with mild lower extremity edema. 11. Benign prostatic hypertrophy. HISTORY OF PRESENT ILLNESS: A 72-year-old male with history of AML, who was admitted for induction therapy. Hospital course was complicated by neutropenic fever, typhlitis. HOSPITAL COURSE BY PROBLEM: 1. AML: FLT3 negative, trisomy 8, Rdh2 positive, SRF2 positive, refractory to 7+3. He is to follow up with Dr. Salvador in 2 weeks. 2. Pancytopenia: Continue prophylactic fluconazole and acyclovir. Required intermittent transfusion of RBCs and platelets. Last transfusion 06/19/2017 with 1 unit RBCs. No evidence of bleeding. 3. Kary positive: No evidence of hemolysis. Hold off on steroids at this point. 4. Typhlitis: He is on a prolonged course of cefepime and Flagyl. We will transition the Levaquin and oral Flagyl until 06/28/2017. Patient was cautioned no alcohol with Flagyl. 5. Neutropenic fever: Secondary to typhlitis. This has since resolved. 6. Acute encephalopathy: This was early in admission in the setting of acute typhlitis infection. This is resolved. 7. Right leg pain: Secondary to L4-L5 herniation. He can follow up outpatient with Neurosurgery once clinically improved. We will arrange for outpatient physical therapy. 8. Tachycardia: This was in the setting of acute illness. He had a CTA that was negative for pulmonary embolism. DISPOSITION: Patient is stable for discharge home with his . NEW MEDICATIONS: Acyclovir 400 mg b.i.d., fluconazole 100 mg daily, gabapentin 100 mg t.i.d., Zofran as needed, Protonix 40 mg daily, Flomax 0.4 mg daily, tramadol 50 mg q.6 hours p.r.n., Levaquin 750 mg, Flagyl 500 t.i.d. FOLLOWUP: 1. Follow up with Oncology as previously scheduled. 2. PCP for referral to Neurosurgery. PHYSICAL EXAMINATION: VITAL SIGNS: Today, temperature 36.7, blood pressure 114 /62, heart rate is in 70s, respirations 16, 93% on room air. GENERAL: Well- appearing, sitting up in bed, no acute distress. HEENT: PERRLA. EOMI. Oropharynx clear. CV: Regular rate and rhythm. No murmurs, gallops, or rubs. LUNGS: Clear. ABDOMEN: Soft, nontender, nondistended. Positive bowel sounds. : No Miguel. MUSCULOSKELETAL: 5/5 upper and lower extremity strength. NEUROLOGIC: 2 through 12 intact. PSYCH: Alert and oriented x3. /[id number]/MODL Time spent on DC: 45 min discussing new medications with family and coordinating discharge. [facility]ITALHorace
[2017-06-20] MEDS: [UNRECOGNIZED DRUG - OTHER] PO SCH (12:39)
--- NOTE | 2017-06-20 13:46 | ASMTCMCOM ---
CM Note CM Note Notes: Pt ready for DC today. His PICC line was removed so he does not need HC RN and also does not think he needs PT. Let [facility] know. Date Signed: 06/20/2017 01:45 PM Electronically Signed By:Rosalinda Yates LCSW
--- NOTE | 2017-06-20 13:46 | ASDISCHSUM ---
Discharge Information Plan Status: Medically Cleared to Leave: Discharge Date: D/C Disposition: ADT D/C Disposition:Home, Routine, Self-Care Projected Discharge Date:06/27/2017 11:00 AM Transportation at D/C: Discharge Delay Reason: Follow-Up Date:06/27/2017 11:00 AM Discharge Slot: Final Diagnosis: Placement Information Referral Type:*Home Health Care Services Referral ID:[id number] Provider Name: Address 1: Phone Number: Address 2: Fax Number: City: Selection Factors: State: Patient Contact Information Contact Name:FANNY Relationship: Address:[address] [place] [address] [address] City:[place] Alternate Phone: [facility]/Zip Code:[place] [address] Email: Financial Information Financial Class:Medicare Primary Plan Desc:MEDICARE INPATIENT Primary Plan Number:[id number] Secondary Plan Desc: LIFE INSURANCE Secondary Plan Number:[id number] Assessment Information [facility] CM Progress Note CM Note CM Note Notes: Pt with new dx of AML admitted for induction therapy. It is likely that pt will be inpt for 4-6 weeks. Dble lumen PICC placed. Briefly met with pt and his to introduce psychosocial services. CM will continue to follow. Date Signed: 05/24/2017 04:29 PM Electronically Signed By:Rosalinda Yates LCSW [facility] CM Progress Note CM Note CM Note Notes: Pt continuing chemotherapy. PIIC in place; CM to follow for dc PICC care. dc plan TBD Date Signed: 05/28/2017 05:20 PM Electronically Signed By:Maritza Abdi RN [facility] CM Progress Note CM Note CM Note Notes: Reviewed chart regarding discharge plan of care, pt's progress. Per MD notes, pt continues to have hip pain following bone marrow biopsy; induction chemo underway. Pt has a double lumen PICC line in place. Spoke with KALA Campos - pt is currently neutropenic. Discharge needs remain unclear at this time. Pt lives independently with his . CM will continue to follow for potential needs. Current Discharge Plan: To be determined Date Signed: 06/01/2017 03:50 PM Electronically Signed By:Kamini Grullon RN [facility] CM Progress Note CM Note CM Note Notes: Met with pt and at their requewst to discuss pvt duty caregive support for pt while in hospital. Pt fell this morning while with his александр. Pt does not want to be alone in his room when his can't be present. They are willing to hire a caregiver. provided a list. Pt's other DC needs remain unclear. CM to follow. Date Signed: 06/02/2017 12:07 PM Electronically Signed By:Rosalinda Yates LCSW [facility] CM Progress Note CM Note CM Note Notes: Chart reviewed for discharge planning purposes. Met you patient and his . They are very pleasant and live here in [place]. Two of their adult children to arrive soon to provide support. Needs are still to be determined. Patient had a syncopal episode in the bathroom two mornings ago and his fears leaving him unassisted. She has a list of private caregiver sources but reports she will wait until her children arrive and enlist their help. CM to follow. Date Signed: 06/04/2017 01:19 PM Electronically Signed By:Mery Iverson RN [facility] CM Progress Note CM Note CM Note Notes: Pt doing well. Pt's dtr visiting and able to help in room along with pt's . Talked with pt's and no longer feels the need to hire pvt duty to stay in the room with pt. Pt may need PICC line care at DC if he DC's with his PICC. CM to follow. Date Signed: 06/08/2017 12:44 PM Electronically Signed By:Rosalinda Yates LCSW [facility] Progress Note CM Note CM Note Notes: ID is following pt for fever and is continuing IV ABX. CT scan planned for more clinical information. He is almost 3 weeks in to his 4-6 week planned chemo. D/C plan remains unclear at this time. CM will continue to follow for any d/c needs. Date Signed: 06/11/2017 03:54 PM Electronically Signed By:NITHIN Lanza [facility] CM Progress Note CM Note CM Note Notes: Patient chart reviewed. Per therapy likely no needs at discharge. Patient does have PICC which may require PICC care company. Day 14 of treatment. Drop in H&H. CM to follow. Plan: TBD Date Signed: 06/15/2017 03:52 PM Electronically Signed By:Mery Iverson RN [facility] CM Progress Note CM Note CM Note Notes: Met with patient and his to discuss discharge planning. They agree that it would be beneficial to have a director of home care hospice assist them with PICC care. I placed a referral to [facility]; I also informed the family that if they decided they wanted to add home PT to their services that [facility] would be able to assist with that. I also provided the list for private duty caregivers per their request. Possible discharge this Thursday 06/22! Date Signed: 06/19/2017 09:41 AM Electronically Signed By:Monika Betancourt RN [facility] CM Progress Note CM Note CM Note Notes: Pt ready for DC today. His PICC line was removed so he does not need HC RN and also does not think he needs PT. Let [facility] know. Date Signed: 06/20/2017 01:45 PM Electronically Signed By:Rosalinda Yates LCSW Intervention Information Intervention Type:*IM-Signed Date of Service:06/20/2017 11:41 AM Patient Type:Inpatient Staff Member:Steph Sabillon Hours: Discipline: Severity: Comment:
== END 2017-06-20 13:45 | disposition home or self-care (01) | DRG 837 ==
LOC: F1N 10:24
PROVIDERS: ADMIT Internal Medicine; ATTEND Internal Medicine
PROC: 07DR3ZX Extraction of Iliac Bone Marrow, Percutaneous Approach, Diagnostic (ICD-10-PCS; 2017-05-24)
PROC: 02HV33Z Insertion of Infusion Device into Superior Vena Cava, Percutaneous Approach (ICD-10-PCS; 2017-05-24)
PROC: 30233R1 Transfusion of Nonautologous Platelets into Peripheral Vein, Percutaneous Approach (ICD-10-PCS; 2017-06-04)
PROC: 30233N1 Transfusion of Nonautologous Red Blood Cells into Peripheral Vein, Percutaneous Approach (ICD-10-PCS; 2017-06-04)
PROC: 3E03305 Introduction of Other Antineoplastic into Peripheral Vein, Percutaneous Approach (ICD-10-PCS; principal; 2017-06-07)
DX: Z51.11 Encounter for antineoplastic chemotherapy (principal); C92.00 Acute myeloblastic leukemia, not having achieved remission; G93.40 Encephalopathy, unspecified; D61.810 Antineoplastic chemotherapy induced pancytopenia; E87.1 Hypo-osmolality and hyponatremia; D69.6 Thrombocytopenia, unspecified; E87.6 Hypokalemia; K37 Unspecified appendicitis; K12.31 Oral mucositis (ulcerative) due to antineoplastic therapy; K59.00 Constipation, unspecified; K52.89 Other specified noninfective gastroenteritis and colitis; R55 Syncope and collapse; D64.81 Anemia due to antineoplastic chemotherapy; N40.1 Benign prostatic hyperplasia with lower urinary tract symptoms; R35.1 Nocturia; R35.0 Frequency of micturition; M51.26 Other intervertebral disc displacement, lumbar region; I50.30 Unspecified diastolic (congestive) heart failure; L92.0 Granuloma annulare; Q92.8 Other specified trisomies and partial trisomies of autosomes; E78.5 Hyperlipidemia, unspecified; Z87.891 Personal history of nicotine dependence; Z96.641 Presence of right artificial hip joint
CPT/HCPCS: 83010-90; 85060-90; 86157-90; 86644-90; 86645-90; 86813-90; 86870-90; 86905-90; 86922-90; 87497-90; 87529-90; 88184-90; 88185-91; 88237-90; 88262-90; 97116-GP; 97161-GP; 97164-GP; 99001-90; A9585; C1751; G8978-GP-CH; G8978-GP-CI; G8979-GP-CH; G8979-GP-CI; G8980-GP-CH; G8980-GP-CI; J0692; J1100; J1650; J2248; J2270; J2405; J2997; J3370; J3475; J3480; J9100; J9150; P9016; P9035; P9037; P9040; P9100; Q9967

== ENCOUNTER → 2017-09-17 | Outpatient (CLI) | payer OTHER ==
[~2017-09-17] MED LIST changes: -ACETAMINOPHEN 325 MG TAB PO ONE; -BISACODYL 10 MG SUPP PR PRN; -CEFAZOLIN 2 GM/DEXTR 100 ML IV ONE; -CHLORHEXIDINE GLUC HIBICLENS 118 ML BTL TP ONE; -CYCLOBENZAPRINE 10 MG TAB PO PRN; -DIAZEPAM 5 MG TAB PO PRN; -DIPHENOXYLATE/ATROPINE LOMOTIL 1 TAB PO PRN; -FAMOTIDINE 20 MG TAB PO ONE; +IOPAMIDOL (ISOVUE-300) 100 ML BTL ONE; -LACTULOSE 20 GM/30 ML UDCUP PO PRN; -LR 1,000 ML IV SCH; -MAGNESIUM HYDROXIDE 30 ML UDCUP PO PRN; -METOCLOPRAMIDE 10 MG/2 ML VIAL IVP PRN; -ONDANSETRON 4 MG/2 ML VIAL IVP PRN; -ONDANSETRON DISINTEGRATING 4 MG TAB PO PRN; -PHARMACY PAIN CONSULT 1 EA MISC PRN; -POLYETHYLENE GLYCOL 3350 17 GM PKT PO PRN; -PROMETHAZINE HCL 25 MG SUPPR PR PRN; -ROPI/epiNEPH/KETOROLAC/morphINE JOINT COCKTAIL IU ONE; -diphenhydrAMINE 25 MG CAP PO PRN
== END ==
LOC: FIMAGING 10:53
PROVIDERS: ATTEND Ophthalmology
DX: H53.40 Unspecified visual field defects (principal)
CPT/HCPCS: 70470; 70482; Q9967

== ENCOUNTER → 2017-10-04 | Outpatient (CLI) | payer OTHER | LOC: FIMAGING 10:28 | PROVIDERS: ATTEND Internal Medicine Infectious Disease | DX: R05 Cough (principal); R78.81 Bacteremia ==

== ENCOUNTER → 2017-10-05 | Outpatient (CLI) | payer OTHER | LOC: FIMAGING 08:17 | PROVIDERS: ATTEND Internal Medicine Infectious Disease | DX: J18.9 Pneumonia, unspecified organism (principal) ==

== ENCOUNTER 2017-10-08 22:14 | Inpatient (IN) | payer OTHER ==
[2017-10-08] MEDS ORDERED: NS 1,000 ML IV ONE ×2 (22:19→23:22)
--- NOTE | 2017-10-08 22:25 | EDPHY ---
H & P Time Seen by Provider: 10/08/17 22:22 HPI/ROS: HPI CHIEF COMPLAINT: Fever HISTORY OF PRESENT ILLNESS: Very pleasant 72-year-old male, history of a male currently undergoing chemotherapy treatment, also has a right arm PICC line undergoing vancomycin infusion, presents emergency room with fever tonight of 40.0 at home. Presents emergency room stating that he feels hungry but febrile. Slight headache. Denies any abdominal pain, does complain of generalized weakness as well. No nausea vomiting. No diarrhea. No chest pain or shortness of breath. Does state he has recently diagnosed with pneumonia. 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 Social History: Denies drugs alcohol tobacco. Family History: Noncontributory ROS REVIEW OF SYSTEMS: A comprehensive 10 point review of systems is otherwise negative aside from elements mentioned in the history of present illness. Exam Constitutional elderly, frail, febrile, tachycardic triage nursing summary reviewed, vital signs reviewed, awake/alert. Eyes normal conjunctivae and sclera, EOMI, PERRLA. HENT normal inspection, atraumatic, moist mucus membranes, no epistaxis, neck supple/ no meningismus, no raccoon eyes. Respiratory clear to auscultation bilaterally, normal breath sounds, no respiratory distress, no wheezing. Cardiovascular rate normal, regular rhythm, no murmur, no edema, distal pulses normal. Gastrointestinal soft, non-tender, no rebound, no guarding, normal bowel sounds, no distension, no pulsatile mass. Genitourinary no CVA tenderness. Musculoskeletal no midline vertebral tenderness, full range of motion, no calf swelling, no tenderness of extremities, no meningismus, good pulses, neurovascularly intact. Skin warm to touch, pink, warm, & dry, no rash, skin atraumatic. Neurologic awake, alert and oriented x 3, AAOx3, moves all 4 extremities equally, motor intact, sensory intact, CN II-XII intact, normal cerebellar, normal vision, normal speech. Psychiatric normal mood/affect. Heme/Lymph/Immune no lymphadenopathy. Differential Diagnosis: Includes but is not limited to in a particular order acute febrile illness, sepsis, bacteremia, UTI, pneumonia, neutropenic fever Medical Decision Making: Plan for this patient IV establishment IV fluid bolus , check lactic acid, blood cultures, procalcitonin, ESR, CRP, white count, chest x-ray, urine, urine culture. Evaluate for neutropenic fever. Already getting vancomycin. May need to add cefepime. Will also touch base with ID. Re-evaluation: 2243: I spoke with Dr. Holcomb with Infectious Disease. Went over the case in detail. He does recommend starting Voriconazole on his all IV here in the emergency room. I have ordered 1st dose 200 mg IV here in emergency room. Additionally will add cefepime for neutropenic fever. Additionally the patient is getting a vancomycin infusion at this time. Chest x-ray one view shows pneumonia. Similar previous chest x-ray a few days ago. EKG interpretation by me on record in [employer] system. Impression time of EKG 2243, sinus tach 116. No acute ischemia. No ST elevation no ST depression. Subtle T-wave abnormality flattening mainly in the inferior leads. Patient has been accepted by Dr. Knight To admit. Source: Patient, EMS - Personal History Tetanus Vaccine Date: <10 years - Medical/Surgical History Hx Asthma: No Hx Chronic Respiratory Disease: No Hx Diabetes: No Hx Cardiac Disease: No Hx Renal Disease: No Hx Cirrhosis: No Hx Alcoholism: No Hx HIV/AIDS: No Hx Splenectomy or Spleen Trauma: No Other PMH: AML, granuloma annulare, ankle 2002 repair, R hip replacement - Social History Smoking Status: Former smoker Constitutional: Initial Vital Signs Temperature (C) 39.3 C H 10/08/17 22:24 Heart Rate 112 H 10/08/17 22:24 Respiratory Rate 16 10/08/17 22:24 Blood Pressure 146/74 H 10/08/17 22:24 O2 Sat (%) 94 10/08/17 22:24 O2 Delivery Mode Room Air Allergies/Adverse Reactions: tacrolimus Allergy (Unknown, Verified 10/08/17 22:26) Rash adhesive tape Allergy (Verified 10/08/17 22:26) ALL SEAFOOD Allergy (Uncoded 05/24/17 12:00) Home Medications: Medication Instructions Recorded Cholecalciferol (Vitamin D3) 5,000 unit PO HS 08/16/14 [Vitamin D3] Ondansetron Odt [Zofran Odt 4 mg 4 mg PO Q4HRS PRN #30 tab 06/20/17 (*)] Enasidenib Mesylate [Idhifa] 100 mg PO DAILY14 09/23/17 Acetaminophen [Tylenol ES 500 mg 500 mg PO BID PRN 09/24/17 (*)] Acetamn/Diphenhydramine 500/25 1 each PO HS 09/24/17 [Tylenol PM (*)] Acyclovir [Zovirax 400 mg (*)] 400 mg PO BID 09/24/17 Allopurinol [Allopurinol 300 MG 300 mg PO AD 09/24/17 (RX)] Timolol 0.5% [TIMOPTIC 0.5% (*)] 1 drops LEFTEYE DAILY 09/24/17 Benzonatate [Tessalon Pearles (RX)] 100 mg PO TID PRN 10/08/17 Niacin ER [Niaspan 500 mg (*)] 500 mg PO DAILY 10/08/17 Venetoclax [Venclexta] 100 mg PO AD 10/08/17 Voriconazole [Vfend 200MG (*)] 200 mg PO BID 10/08/17 Azacitidine [Vidaza] 100 mg SC AD 10/09/17 Codeine Phosphate/Guaifenesin 5 ml PO Q6HRS PRN 10/09/17 [Guaifenesin-Codeine Syrup] Fluconazole [Diflucan (*)] 100 mg PO DAILY10 10/09/17 Pantoprazole Sodium [Protonix 40mg 40 mg PO DAILY10 10/09/17 (*)] Pentoxifylline [TRENTAL 400mg (*)] 400 mg PO TID@,,10/09/17 Tamsulosin HCl [Flomax 0.4 MG (*)] 0.4 mg PO DAILY10 10/09/17 Vancomycin [Vancomycin (*)] 2.5 gm IV DAILY@13 10/09/17 Medical Decision Making - Data Points Laboratory Results: Laboratory Results 10/08/17 22:30 10/08/17 22:30 Microbiology Results: MICROBIOLOGY 10/08/17 22:51 Blood Blood Culture - Preliminary 10/08/17 22:30 Blood Blood Culture - Preliminary Medications Given: Acetaminophen (Tylenol) 650 mg PO Q4HRS PRN PRN Reason: Pain, Mild/Fever, Can Take PO Stop: 04/06/18 23:21 Last Admin: 10/10/17 16:32 Dose: 650 mg Acetaminophen/Diphenhydramine HCl (Tylenol Pm) 1 each PO HS CARLOS Stop: 04/08/18 20:59 Last Admin: 10/10/17 20:29 Dose: 1 each Acyclovir (Acyclovir) 400 mg PO BID CARLOS Stop: 11/08/17 20:59 Last Admin: 10/10/17 20:28 Dose: 400 mg Enoxaparin Sodium (Lovenox) 40 mg SC DAILY CARLOS Stop: 04/08/18 10:29 Last Admin: 10/10/17 11:05 Dose: 40 mg Sodium Chloride (Ns) 1,000 mls @ 75 mls/hr IV CONT CARLOS Stop: 04/06/18 23:29 Last Admin: 10/10/17 16:33 Dose: 1,000 mls Voriconazole 200 mg/ Dextrose 120 mls @ 60 mls/hr IV Q12H CARLOS Stop: 11/08/17 11:29 Last Admin: 10/10/17 11:05 Dose: 120 mls Meropenem 1 gm/ Sodium (Chloride) 120 mls @ 120 mls/hr IV Q8HRS CARLOS PRN Reason: Protocol Stop: 11/08/17 21:59 Last Admin: 10/10/17 13:30 Dose: 120 mls Trimethoprim/Sulfamethoxazole (250 mg/ Dextrose) 515.625 mls @ 500 mls/hr IV Q6HRS CARLOS PRN Reason: Protocol Stop: 11/09/17 17:59 Last Admin: 10/10/17 17:37 Dose: 515.625 mls Pantoprazole Sodium (Protonix) 40 mg PO DAILY10 [facility] Stop: 04/08/18 09:59 Last Admin: 10/10/17 09:23 Dose: 40 mg Pentoxifylline (Trental) 400 mg PO TID@10,14,22 CARLOS Stop: 04/07/18 21:59 Last Admin: 10/10/17 20:28 Dose: 400 mg Tamsulosin HCl (Flomax) 0.4 mg PO DAILY10 [facility] Stop: 04/08/18 09:59 Last Admin: 10/10/17 09:23 Dose: 0.4 mg Timolol Maleate (Timoptic 0.5%) 1 drops LEFTEYE DAILY [facility] Stop: 04/08/18 08:59 Last Admin: 10/10/17 09:42 Dose: 1 drop Discontinued Medications Sodium Chloride (Ns) 1,000 mls @ 0 mls/hr IV EDNOW ONE; Wide Open PRN Reason: Protocol Stop: 10/08/17 22:20 Last Admin: 10/08/17 22:33 Dose: 1,000 mls Cefepime HCl 2 gm/ Sodium (Chloride) 100 mls @ 200 mls/hr IV EDNOW ONE PRN Reason: Protocol Stop: 10/08/17 23:07 Last Admin: 10/08/17 23:33 Dose: 100 mls Voriconazole 200 mg/ Dextrose 120 mls @ 0 mls/hr IV Q12HRS CARLOS PRN Reason: As Directed Stop: 11/07/17 22:59 Last Admin: 10/09/17 00:30 Dose: 120 mls Sodium Chloride (Ns) 1,000 mls @ 0 mls/hr IV ONCE ONE PRN Reason: Wide Open Stop: 10/08/17 23:23 Last Admin: 10/08/17 23:25 Dose: 1,000 mls Voriconazole 200 mg/ Dextrose 100 mls @ 50 mls/hr IV EDNOW ONE Stop: 10/09/17 01:29 Last Admin: 10/09/17 00:31 Dose: 100 mls Vancomycin/Sodium Chloride (Vancomycin 1 Gm (Premix)) 250 mls @ 250 mls/hr IV EDNOW ONE Stop: 10/09/17 00:59 Last Admin: 10/09/17 17:31 Dose: Not Given Cefepime HCl 1 gm/ Sodium (Chloride) 50 mls @ 100 mls/hr IV Q8HRS CARLOS PRN Reason: Protocol Stop: 11/08/17 05:59 Last Admin: 10/09/17 17:27 Dose: Not Given Vancomycin HCl 2.5 gm/ (Dextrose) 500 mls @ 20.833 mls/hr IV DAILY@1300 [facility] Stop: 11/08/17 12:59 Last Admin: 10/09/17 16:25 Dose: 500 mls Potassium Chloride (Potassium Cl 20 Meq (Premix)) 50 mls @ 50 mls/hr IV Q1H [facility] Stop: 10/10/17 08:32 Last Admin: 10/10/17 08:14 Dose: 50 mls Magnesium Sulfate/Dextrose (Magnesium Sulf 1 Gm (Premix)) 100 mls @ 100 mls/hr IV ONCE ONE Stop: 10/10/17 08:23 Last Admin: 10/10/17 09:17 Dose: 100 mls Potassium Chloride (Potassium Cl 10 Meq (Premix)) 50 mls @ 100 mls/hr IV Q30M [facility] Stop: 10/10/17 14:29 Last Admin: 10/10/17 14:14 Dose: 50 mls Potassium Chloride (Potassium Cl 10 Meq (Premix)) 50 mls @ 100 mls/hr IV Q30M [facility] Stop: 10/10/17 20:03 Last Admin: 10/10/17 21:19 Dose: 50 mls Ibuprofen (Motrin) 800 mg PO EDNOW ONE Stop: 10/08/17 22:38 Last Admin: 10/08/17 22:39 Dose: 800 mg Meperidine HCl (Demerol) 25 mg IVP ONCE ONE Stop: 10/09/17 17:01 Last Admin: 10/09/17 18:30 Dose: Not Given Departure - Departure Disposition: [facility] Inpatient Acute Clinical Impression: Neutropenic fever Condition: Serious
[2017-10-08] MEDS ORDERED: IBUPROFEN 800 MG TAB PO ONE ×2 (22:37→22:38)
[2017-10-08] MEDS ORDERED: CEFEPIME HCL 2 GM in NS 100 ML IV ONE (22:38)
[2017-10-08 22:58] LABS: INR 1.16 (0.83-1.16)
[2017-10-08] MEDS ORDERED: VORICONAZOLE IV SCH (23:00)
[2017-10-08] MEDS ORDERED: D5W IV SCH (23:00)
[2017-10-08] MEDS ORDERED: ONDANSETRON DISINTEGRATING 4 MG TAB PO PRN (23:22)
[2017-10-08] MEDS ORDERED: oxyCODONE IR 5 MG TAB PO PRN (23:22)
[2017-10-08] MEDS ORDERED: ONDANSETRON 4 MG/2 ML VIAL IVP PRN (23:22)
[2017-10-08] MEDS ORDERED: D5W IV ONE (23:30)
[2017-10-08] MEDS ORDERED: VORICONAZOLE IV ONE (23:30)
[2017-10-08 23:32] LABS: PLATELET COUNT 120 10^3/uL (150-400)
[2017-10-09] MEDS: VANCOMYCIN HCL/NORMAL SALINE 250 ML IV ONE ×2 (00:30→17:31)
[2017-10-09] MEDS: CEFEPIME HCL 1 GM in NS 50 ML IV SCH ×3 (06:00→17:27)
[2017-10-09] MEDS ORDERED: CEFEPIME HCL 1 GM in NS 50 ML IV SCH (06:00)
--- NOTE | 2017-10-09 11:07 | GHP ---
[f rep st] HISTORY AND PHYSICAL DATE OF ADMISSION: 10/08/2017 DATE OF SERVICE: 10/08/2017. Please note delayed dictation due to meditech downtime. Patient workup initiated prior to Midnight on 10/08/17. PRIMARY ONCOLOGIST: Dr. Wheat INFECTIOUS DISEASE: Dr. Holcomb MOSS PICKER: Dr. Moncada SOURCE: Patient provides history, appears reliable. at bedside. EMR was reviewed prior to down time. Case discussed with ED provider. Patient known to me from recent admission. CHIEF COMPLAINT: Fever. HISTORY OF PRESENT ILLNESS: This is a very pleasant 72-year-old gentleman known to our service from recent hospitalization on 09/24/2017 to 09/30/2017 for neutropenic fever, found to be bacteremic with methicillin sensitive Staph aureus and Gamella, discharged on vancomycin continuous infusion, presents to the emergency department today with complaints of recurrent fever at home. The patient developed a temperature of 40.0. He reports that he did develop some nausea and vomiting early in the day. He denies any hematemesis. No diarrhea. No dysuria or hematuria. He has had a persistent cough, but that has been nonproductive. He had been followed by Dr. Holcomb and just met with Dr. Darion Moncada with pulmonology today and was scheduled for a bronchoscopy on for concerns of a fungal pulmonary process. Patient had been continuing on oral fluconazole as well as the continuous vancomycin infusion for his MSSA bacteremia. The patient does have a PICC line in his right arm. Patient's chemotherapy for history of AML in remission has been on hold since discharge. REVIEW OF SYSTEMS: GENERAL: Fevers, chills as noted above. SKIN: Patient was found to have a nonpruritic rash on admission to the floor on his right arm and extending over his chest. This appears to be new today. ENT: Patient denies any runny nose or sore throat. CV: No chest pain or palpitations. RESPIRATORY: No shortness of breath. Positive cough, nonproductive. No dyspnea. GI: Positive for nausea, vomiting as noted above in HPI. No diarrhea. No melena or hematochezia. : No dysuria or hematuria. MUSCULOSKELETAL: Patient denies any myalgias or cramping. No joint pain. NEURO: Patient reports occasional intermittent headache. No numbness, tingling. No focal deficits. Remainder of 10-point review of systems is negative except as noted above. ALLERGIES: Tacrolimus, adhesive tape, and seafood. HOME MEDICATIONS: Currently as per EMR: Zofran, voriconazole, venclixta, niacinamide, IDHIFA, benzonatate, vancomycin infusion, timolol 0.5%, tamsulosin 0.4, Protonix 40 mg, Zofran ODT, fluconazole, vitamin D3, allopurinol 300, acyclovir 400, Tylenol P.M. p.r.n., and acetaminophen 500 twice daily p.r.n. PAST MEDICAL HISTORY: Significant for AML in remission, granuloma annulare, BPH , history of transfusions, hyperlipidemia, diastolic CHF noted in previous charting, but no complaints of symptoms, osteoarthritis. PAST SURGICAL HISTORY: Significant for right total hip arthroplasty complicated by postop hemorrhage needing transfusion, ankle repair, right cataract extraction with lens placement. FAMILY HISTORY: Mother with lung cancer, at 95. Father with history of CVA, . SOCIAL HISTORY: Patient is . Born and lived primarily in [place]. Moved to the [place] 10 years ago. Smoked tobacco greater than 30 years ago. Drinks 2 ounces daily gin for martinis. He does not use any illicit drugs. CODE STATUS: Full. PHYSICAL EXAMINATION: VITAL SIGNS: Upon arrival to the ED, blood pressure 146/ 74, heart rate is 112, respiratory rate 16, O2 saturation is 94% on room air, temperature of 39.3. Vitals currently on the floor: Blood pressure is 111/59, heart rate is 109, respiratory rate 17, O2 saturation 99% on 3 L by nasal cannula, temperature 37.9. GENERAL: No acute distress. Very pleasant adult gentleman is lying quietly in bed. His is at bedside. He appears slightly flushed, but nontoxic. He is pleasant and interactive. HEAD: Normocephalic, atraumatic. EYES: Extraocular muscles are grossly intact. Pupils equal, round, and symmetric. No scleral icterus, conjunctival injection. ENT: Mucous membranes appear moist. No oropharyngeal erythema or exudates. Dentition intact. No nasal discharge. CV: Tachycardic in the 90s to low 100s. Regular rhythm. No murmurs, rubs, or gallops appreciated. RESPIRATORY: Unlabored breathing. Diminished bibasilarly. No crackles or rhonchi appreciated. ABDOMEN: Positive bowel sounds. Soft, nontender to palpation. No rebound, guarding, or masses appreciated. : No suprapubic tenderness to palpation. No Miguel catheter in place. EXTREMITIES: No cyanosis , clubbing, or edema is appreciated. 2+ pedal pulses present, symmetric. NEURO : Grossly nonfocal. No facial drooping. Moves all extremities. Strength grossly intact in all extremities. Moves upper and lower extremities symmetrically. Patient does have minimal amount of generalized weakness as he does require use of the bed rails to pull himself up to a sitting position, but does so independently. PSYCH: Thought process content and questions are appropriate. Patient is in good spirits. LABORATORY STUDIES: WBC is 0.049, H and H is 8.4 and 24.8, MCV 92.9, platelet count is 120. No bands. Absolute neutrophil count 0.23. ESR is 50. Sodium is 135, potassium 3.4, chloride is 102, CO2 is 22, anion gap 11, BUN is 12, creatinine 0.7, GFR greater than 60, glucose is 119, calcium is 8.3, magnesium 1.8, total bilirubin is 1.8. ALT 61, AST is 38, alk phos is 55. Troponin is negative. CRP is 138. BNP is 1070. Total protein 6.3, albumin 3.5, lipase is 1596. Procalcitonin 0.13. Lactate is 0.8. PT is 15.0, INR is 1.16, PTT is 41.7. EKG was reviewed by myself showing sinus tachycardia with right axis deviation, T-wave flattening in the inferior leads but no acute ST changes. His QTc is 451. Chest x-ray: Image reviewed myself. Report also reviewed showing stable bilateral patchy infiltrates and pneumonia similar to previous study on 09/03/2017. ASSESSMENT AND PLAN: A very pleasant 72-year-old gentleman with history of acute myelogenous leukemia undergoing chemotherapy and recent hospital stay for Methicillin-sensitive Staphylococcus aureus bacteremia, who presents with complaints of fever. 1. Neutropenic fever. The patient has a continuous infusion of vancomycin already in place. He has been given cefepime in the emergency department as well as voriconazole after discussion with Infectious Disease, Dr. Holcomb, who will plan to see the patient in the morning. Continue antibiotics as noted above and the patient's home medications. Blood cultures are pending. 2. Sepsis without organ dysfunction including elevated fever to 40.0 at home and measured in the Emergency Department as well as tachycardia. Lactate is within acceptable limits. No evidence of organ dysfunction. Blood cultures are pending. Continue vancomycin, cefepime, and addition of voriconazole as noted above. The patient has been scheduled for outpatient bronchoscopy, but anticipate that this will need to be completed sooner so will be made n.p.o. after midnight and further discussion with the pulmonology service in the morning. 3. History of pancytopenia. The patient is not requiring any transfusions of platelets or blood at this time. We will monitor daily. [place] secondary to patient's chemotherapy. 4. Acute myelogenous leukemia, in remission, on treatment. Oncology consultation in the morning as per day team. 5. History of gastroesophageal reflux disease. 6. History of nausea and vomiting, which have resolved since arrival to the emergency department. Zofran will be available p.r.n. 7. History of hyperglycemia, mildly elevated nonfasting labs. Will continue to monitor in the morning. No treatment at this time. 8. Benign prostatic hypertrophy. Resume patient's Flomax when med rec available and his diet is advanced. 9. Fluid, electrolyte, nutrition. Patient will receive IV fluid hydration overnight while n.p.o. Electrolyte monitoring, replacement if needed. 10. Prophylaxis. Sequential compression devices. Holding anticoagulation anticipating procedure tomorrow as well as given patient's anemia and thrombocytopenia. 11. Code status is full. 12. Disposition. Patient admitted to inpatient status on the medical oncology floor given his neutropenic fever and further evaluation as well as need for continued IV antibiotics at this time as patient undergoes further evaluation. /[id number]/MODL MTDD
[2017-10-09] MEDS ORDERED: EPINEPHrine 1 MG/ML INJ ONE (11:09)
[2017-10-09] MEDS ORDERED: LIDOCAINE HCL 4% TOPICAL SOLN 50ML ONE (11:10)
[2017-10-09] MEDS ORDERED: LIDOCAINE 2% JELLY 5 ML TUBE ONE (11:10)
[2017-10-09] MEDS ORDERED: LIDOCAINE 1% 300 MG/30 ML SDV ONE (11:10)
[2017-10-09] MEDS ORDERED: ALBUTEROL 3 ML DEYVIAL ONE (11:10)
[2017-10-09] MEDS ORDERED: VORICONAZOLE IV SCH (11:30)
[2017-10-09] MEDS: VORICONAZOLE IV SCH ×2 (11:30→23:47)
[2017-10-09] MEDS: D5W IV SCH ×2 (11:30→23:47)
[2017-10-09] MEDS ORDERED: D5W IV SCH (11:30)
[2017-10-09 12:42] LABS: PLATELET COUNT 105 10^3/uL (150-400)
[2017-10-09] MEDS ORDERED: VANCOMYCIN 2.5 GM in D5W 500 ML IV SCH (13:00)
[2017-10-09] MEDS ORDERED: MIDAZOLAM 2 MG/2 ML VIAL ONE (13:34)
[2017-10-09] MEDS ORDERED: fentaNYL 100 MCG/2 ML INJ ONE (13:34)
--- NOTE | 2017-10-09 14:08 | PCMIDPN ---
Assessment/Plan: Assessment/Plan: * Neutropenic fever: Patient at risk for ongoing opportunistic processes related to prolonged neutropenia. Currently has been on vancomycin by continuous infusion for recent MSSA/Gemella bacteremia. Empiric cefepime added overnight for gram-negative stevie activity. See below discussion regarding pulmonary infiltrates. Follow up blood cultures as available. Reassess random vancomycin level with continued IV vancomycin by continuous infusion. 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 Other diagnostic consideration would be septic emboli associated with preceding bacteremia although no cavitary findings. Have reviewed with Dr. Moncada with plans for bronchoscopy this afternoon. If unrevealing, may ultimately require percutaneous biopsy as some of the infiltrates are located peripherally or CASA. Will continue empiric voriconazole. Aspergillus antigen sent earlier this week via [employer]. Will also add additional serologic studies for geographic mycoses and cryptococcus (Cocci seems unlikely given prior fluconazole prophylaxis). Other considerations would include pathogen such as Nocardia. * Bacteremia: See above discussion. Time spent, greater than 35 min, which greater than half was spent in education/ counseling/coordination of care related neutropenic fever multifocal pulmonary infiltrates. 10/09/17 14:04 10/09/17 14:51 Subjective: Received phone call last evening from patient's noting patient had temperature to 102. This was associated with rigors. Recommended presentation to emergency department given ongoing prolonged neutropenia. Currently on vancomycin 2.5 g IV Q 24 hr by continuous infusion for recent MSSA and Gemella bacteremia. Was seen in the office last week at which point in time he complained of persistent dry cough. Chest x-ray was performed and showed multifocal infiltrates which were confirmed by CT scan with imaging characteristics suggestive of possible invasive fungal infection or septic pulmonary emboli. Patient was scheduled to have outpatient bronchoscopy on for further evaluation. I had prescribed empiric voriconazole beginning yesterday. He previously had been on chronic fluconazole prophylaxis. He is now seen for ongoing infectious disease follow-up. Objective: Vital Signs Temp Pulse Resp BP Pulse Ox 37.9 C 109 H 17 111/59 L 99 10/09/17 00:06 10/09/17 00:06 10/09/17 00:06 10/09/17 00:06 10/09/17 00:06 10/08/17 10/09/17 10/10/17 05:59 05:59 05:59 Intake Total 2240 600 Output Total 100 200 Balance 2140 400 ESR 50 MM/HR (0-20) H 10/08/17 22:30 C-Reactive Protein 138.8 mg/L (<10.0) H 10/08/17 22:30 Vancomycin 2.5 g IV by continuous infusion (end date equals 10/24/2017) Cefepime # 1 Voriconazole # 1 Blood cultures x2 pending - Physical Exam General Appearance: alert, no apparent distress, non-toxic, other (Fatigued appearance) EENT: No scleral icterus, No thrush, No conjunctival petechiae Respiratory: lungs clear, No respiratory distress Cardiac/Chest: tachycardia Extremities: No inflammation Abdomen: non-tender, No distended Skin: No rash - Line/s RUE PICC Lines: No drainage, No erythema ICD10 Worksheet Patient Problems: Problems Problem Status Onset Neutropenic fever Acute Arthritis, hip Acute
[2017-10-09 15:25] LABS: INR 1.11 (0.83-1.16); PROTIME(PATIENT) 14.5 SEC (12.0-15.0)
--- NOTE | 2017-10-09 15:28 | GPN ---
[f rep st] PROCEDURE NOTE DATE OF PROCEDURE: 10/09/2017 PROCEDURE: Bronchoscopy. REASON FOR PROCEDURE: The patient is a 72-year-old with underlying AML. He is profoundly neutropeni c, secondary to chemotherapy and was recently hospitalized with bacteremia. He returns now with neut ropenic fever and bilateral pulmonary infiltrates, new on chest x-ray and defined better on CT scan. This procedure is being done to try to provide a diagnosis for these infiltrates and for his ongoing fevers. Routine bacterial processes as well as unusual opportunistic organisms are possible. PROCEDURE NOTE: The procedure was done in the endoscopy unit. Informed consent was obtained from th e patient. Appropriate time-out was performed. N95 masks were worn. 4% lidocaine was used for topi herbert anesthesia of the oropharynx and 1% lidocaine, approximately 20 cc, for topical anesthesia of the vocal cords and tracheobronchial tree. Conscious sedation included 4 mg of Versed and 100 mcg of fe ntanyl. The fiberoptic bronchoscope was passed via a bite block orally into the larynx. The vocal cords were identified and cannulated. They appeared to move normally with cough and respiration. The bronchos cope was advanced into the trachea and into the lower tracheobronchial tree bilaterally. All areas w ere observed to at least the first subsegmental. Anatomy was normal bilaterally. There were minimal clear secretions. There were no endobronchial lesions, no areas of erythema. Bronchial washes were taken from the right lower lobe and left lower lobe and combined. Sterile brus h biopsy samples were taken from these 2 areas and sent for routine aerobic culture. Transbronchial biopsies were then taken from the lateral left lower lobe in the area of the patient's largest infilt rate. Three biopsies were obtained. Some bleeding followed the last biopsy. Approximately 4 cc of 1:10,000 epinephrine was used to control this at the end of the procedure, bleeding had essentially s topped. Biopsies were sent for routine pathology and special stains for AFB and fungus. Washes/lava ge was sent for cultures, including aerobic cultures, AFB and fungal cultures. Cytologies and specia l stains as above were also requested. Patient tolerated the procedure well. There were no complications. No pneumothorax was evident by f luoroscopy at the end of the procedure. A chest x-ray is pending at the time of this dictation. IMPRESSION: 1. Normal endobronchial anatomy without significant secretions or abnormalities. 2. Bilateral pulmonary infiltrates in a patient with neutropenia and underlying amyotrophic lateral sclerosis. Query etiology. /[id number]/MODL
--- NOTE | 2017-10-09 15:45 | ASMTCASEMG ---
Living Arrangements What is your living Answers: With Spouse arrangement? Who do you live with? Type Of Residence What kind of residence do Answers: House you live in? Discharge Plan Comments Coordination Status Comments Notes: Pt is a 72 y/o man admitted for a fever. Pt was recently here at [facility] from 09/24/17 to 09/30/17. Pt was d/c on vanco continuous infusion. Pt was d/c w/ Amarilys and Pedro. Updates sent to [facility] and Pedro. ID is consulting on this case. Needs are TBD at this time. CM to follow. Plan: TBD Date Signed: 10/09/2017 03:45 PM Electronically Signed By:SEJAL Silva
[2017-10-09] MEDS ORDERED: BENZONATATE 100 MG CAP PO PRN (16:05)
[2017-10-09] MEDS ORDERED: ALLOPURINOL 300 MG TAB PO SCH (16:15)
[2017-10-09] MEDS: NS 1,000 ML IV SCH ×2 (16:27→20:00)
[2017-10-09] MEDS ORDERED: MEPERIDINE 25 MG/0.5 ML AMP IVP ONE (17:00)
--- NOTE | 2017-10-09 17:40 | HOSPPROG ---
Hospitalist Progress Note Assessment/Plan: 72yo M with AML undergoing chemotherapy and recent MRSA bacteremia presented with fever. #Neutropenic fever: Most concerning for pulmonary source. At risk for invasive fungal species. - ID involved in care - IV daptomycin, cefepime (1g q8), voriconazole - Underwent bronchoscopy this afternoon. Follow up studies - Blood cultures pending #Severe sepsis: High fever, rigors, severe tachycardia with altered mental status after bronchoscopy. - Management per above - Transfer to step down unit for closer monitoring - Post-bronch x-ray without significant change - Non-ischemic ECG #Bilateral pulmonary infiltrates: Antimicrobials as above. Follow up bronchoscopy studies. #Rash: Infectious vs allergic vs drug reaction. ID concerned for fusarium infection. Seems odd to be related to vancomycin as he has been on this for some time with no rash; nonetheless, will switch vanco to dapto. #AML: Holding chemotherapy in setting of above Disposition: Remain inpatient, transfer to higher care as above. Subjective: Went for bronch today. On arrival back on floor, developed fever, tachycardia (HR 150s), rigors, altered mental status. Objective: Vital Signs Temp Pulse Resp BP Pulse Ox 38.8 C H 155 H 36 H 127/79 H 87 L 10/09/17 16:39 10/09/17 16:39 10/09/17 16:39 10/09/17 16:39 10/09/17 16:39 Laboratory Results 10/09/17 06:00 10/08/17 10/09/17 10/10/17 05:59 05:59 05:59 Intake Total 2240 600 Output Total 100 200 Balance 2140 400 PT 14.5 SEC (12.0-15.0) 10/09/17 04:50 INR 1.11 (0.83-1.16) 10/09/17 04:50 ICD10 Worksheet Patient Problems: Problems Problem Status Onset Neutropenic fever Acute Arthritis, hip Acute
--- NOTE | 2017-10-09 19:23 | HOSPPROG ---
Hospitalist Progress Note Assessment/Plan: STAT call: Patient found face down on floor, bleeding from mouth. Unwitnessed fall. Suspect was getting up to urinate. Has been confused since bronchoscopy per . 72 yo male presented with rigors, underwent bronchoscopy today. Gen: confused, able to answer some questions HEENT: laceration upper/lower lip, pupils small, reactive CV: tachy, regular Musk: no bony TTP over cervical spine, moving all 4 extremities Neuro: alert to self (per , has been confused since procedure A&P 1. Acute fall: concern for head bleed with low platelets, stat CT, type/screen. Q2hr neuro checks. If mental status declines, consider MRI 2. Tachycardia: improved earlier with IVFs, now stress-induced with fall. Telemetry 3. Neutropenic fever: broad-abx per ID. Concern for pulmonary fungal infections , bronch today Called Debi and updated, she will return to hospital Critical care time spent: 35 min bedside examining pt, reviewing labs, updating Objective: Vital Signs Temp Pulse Resp BP Pulse Ox 38.8 C H 155 H 36 H 127/79 H 87 L 10/09/17 16:39 10/09/17 16:39 10/09/17 16:39 10/09/17 16:39 10/09/17 16:39 Microbiology 10/09/17 14:15 Gram Stain - Final Lung Bilateral - Bronchial [place] Laboratory Results 10/09/17 06:00 10/08/17 10/09/17 10/10/17 05:59 05:59 05:59 Intake Total 2240 600 Output Total 100 200 Balance 2140 400 PT 14.5 SEC (12.0-15.0) 10/09/17 04:50 INR 1.11 (0.83-1.16) 10/09/17 04:50 - Time Spent With Patient Time Spent with Patient: greater than 35 minutes Time Spent with Patient: Greater than 35 minutes spent on this patients care, greater than 50% of time spent counseling, educating, and coordinating care regarding the above mentioned plan. ICD10 Worksheet Patient Problems: Problems Problem Status Onset Neutropenic fever Acute Arthritis, hip Acute
[2017-10-09] MEDS: ACYCLOVIR 400 MG TAB PO SCH (21:43)
[2017-10-09 22:05] LABS: PLATELET COUNT 129 10^3/uL (150-400)
--- NOTE | 2017-10-09 22:32 | CPEKG ---
Test Reason : Chest Pain Blood Pressure : / mmHG Vent. Rate : 116 BPM Atrial Rate : 117 BPM P-R Int : 136 ms QRS Dur : 090 ms QT Int : 324 ms P-R-T Axes : 072 087 -16 degrees QTc Int : 451 ms SINUS TACHYCARDIA BORDERLINE RIGHT AXIS DEVIATION BORDERLINE T ABNORMALITIES, INFERIOR LEADS Confirmed by Alex Mishra ([id number]) on 10/09/2017 10:32:03 PM Referred By: Confirmed By:Alex Mishra
[2017-10-09] MEDS: MEROPENEM 1 GM in NS 100 ML IV SCH (22:47)
[2017-10-09] MEDS: ACETAMINOPHEN 325 MG TAB PO PRN (22:47)
[2017-10-09] MEDS: PENTOXIFYLLINE 400 MG EXT REL TAB PO SCH (23:29)
[2017-10-10] MEDS: ACETAMINOPHEN 325 MG TAB PO PRN ×3 (02:38→16:32)
[2017-10-10] MEDS: MEROPENEM 1 GM in NS 100 ML IV SCH ×3 (05:40→22:04)
[2017-10-10] MEDS ORDERED: PROTOCOL MAGNESIUM 1 DOSE IV PRN (06:22)
[2017-10-10] MEDS ORDERED: PROTOCOL POTASSIUM 1 DOSE MISC PRN (06:22)
[2017-10-10] MEDS: POTASSIUM Cl (KCl) 50 ML IV SCH ×8 (07:12→21:19)
[2017-10-10] MEDS ORDERED: MAGNESIUM SULF 1 GM/DEXTROSE 100 ML IV ONE (07:24)
[2017-10-10] MEDS ORDERED: NIACIN ER 500 MG TAB.ER PO SCH (09:00)
[2017-10-10] MEDS: PANTOPRAZOLE SODIUM 40 MG TAB PO SCH (09:23)
[2017-10-10] MEDS: TAMSULOSIN HCL 0.4 MG CAP PO SCH (09:23)
[2017-10-10] MEDS: TIMOLOL 0.5% 15 ML OPHT.BTL LEFTEYE SCH (09:42)
--- NOTE | 2017-10-10 10:11 | PCMIDPN ---
Assessment/Plan: Assessment/Plan: * Neutropenic fever: High-grade fever yesterday after bronchoscopy. May be in part related to cytokine release associated with procedure. Overall white blood cell count has improved in ANC approximately 500 yesterday. May have some element related to improved inflammatory response as white blood cell count improves. Blood cultures have remained negative. Relationship to multifocal pulmonary infiltrates also possible. Continue empiric meropenem. 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 Other diagnostic consideration would be septic emboli associated with preceding bacteremia although no cavitary findings. Patient underwent bronchoscopy yesterday with mixed Gram stain noted in culture showing only normal respiratory romulo currently. Gram-positive stevie did not have morphology suggestive of Nocardia. Serologic studies for fungal infection are pending. Await additional cultures and biopsy findings. Continue empiric meropenem and voriconazole. * Bacteremia: No repeat positive blood cultures. Now has received 2 weeks of antibiotic therapy which has activity against Gemella. Will therefore discontinue vancomycin particularly in light of rash as meropenem will provide ongoing activity for MSSA of which he needs antibiotic therapy for 4 weeks in total (stop date 10/24/2017). * Rash: Slight progression of rash on abdomen today. No areas of necrosis. Suspect this is most likely drug allergy. Temporal course would be most compatible with vancomycin as etiology as onset would be quite rapid for voriconazole or cefepime. See above note regarding discontinuation of vancomycin. Time spent, greater than 35 min, which greater than half was spent in education/ counseling/coordination of care including participation in ICU rounds related to neutropenic fever, multifocal pulmonary infiltrates and rash. 10/10/17 10:07 10/10/17 10:20 Subjective: Patient sustained fall last p.m. Which he does not remember. CT head did not show any acute hemorrhage. Patient notes he still feels foggy. Overall states "I feel bad". Objective: Vital Signs Temp Pulse Resp BP Pulse Ox 37.1 C 93 18 110/57 L 99 10/10/17 07:10 10/10/17 07:10 10/10/17 07:10 10/10/17 07:10 10/10/17 07:10 Microbiology 10/09/17 14:15 Gram Stain - Final Other - Other 10/09/17 14:15 Bronchial [place] Culture - Final Bronchial [place] - Bilateral Lobes 10/09/17 14:15 Gram Stain - Final Other - Other 10/09/17 14:15 Bronchial [place] Culture - Final Bronchial [place] - Bilateral Lobes 10/09/17 14:15 Gram Stain - Final Lung Bilateral - Bronchial [place] Laboratory Results 10/10/17 05:35 10/10/17 05:35 10/09/17 10/10/17 10/11/17 05:59 05:59 05:59 Intake Total 2240 2964 Output Total 100 1675 Balance 2140 1289 ESR 50 MM/HR (0-20) H 10/08/17 22:30 C-Reactive Protein 138.8 mg/L (<10.0) H 10/08/17 22:30 Vancomycin by continuous infusion (stop date 10/24/2017) Meropenem # 1 Voriconazole # 2 Serum Aspergillus, cryptococcus (not CSF as labeled in lab), and Coccidioides antibody pending Urine Histoplasma antigen pending Blood cultures x2 sets no growth CT head without evidence of intracranial bleed BAL specimen with mixed Gram stain including Gram-positive rods; reviewed with lab and do not appear morphologically to suggest Nocardia; culture currently with mixed respiratory romulo Fungal blood culture pending Lung pathology pending - Physical Exam General Appearance: alert, non-toxic EENT: other (Lip swelling and abrasion upper lip), No scleral icterus, No thrush , No conjunctival petechiae Respiratory: lungs clear, No respiratory distress Cardiac/Chest: regular rate, rhythm, No systolic murmur Extremities: No inflammation Abdomen: non-tender, No distended Skin: rash (Rash localized around right upper extremity PICC and also present over back, trunk, abdomen and upper thighs with slight increase in prominence over abdomen; no areas of necrosis) Neuro/Psych: alert, oriented x 3 - Line/s RUE PICC Lines: No drainage, No erythema ICD10 Worksheet Patient Problems: Problems Problem Status Onset Neutropenic fever Acute Arthritis, hip Acute
--- NOTE | 2017-10-10 10:54 | PDMN ---
Medical Necessity Medical necessity: Pt meets IP criteria per & MCG M-160; est los >2 mn for eval/tx of sepsis w/neutropenic fever & concern for a fungal pulmonary process; requiring further workup, ID/Pulmonary/Oncology consults, NPO status, bronchoscopy, IV abx & IVFs; comorbid leukemia on chemo, recent hospitalization for MSSA bacteremia on IV abx; per H&P & order 10/08/17
[2017-10-10] MEDS: ENOXAPARIN 40 MG/0.4 ML SYR SC SCH (11:05)
[2017-10-10] MEDS: D5W IV SCH ×3 (11:05→23:09)
[2017-10-10] MEDS: VORICONAZOLE IV SCH ×2 (11:05→23:09)
[2017-10-10] MEDS: ACYCLOVIR 400 MG TAB PO SCH ×2 (11:14→20:28)
[2017-10-10] MEDS: PENTOXIFYLLINE 400 MG EXT REL TAB PO SCH ×3 (11:46→20:28)
[2017-10-10] MEDS ORDERED: LEVALBUTEROL 1.25 MG/3 ML DEYVIAL IH PRN (13:03)
--- NOTE | 2017-10-10 13:37 | HOSPPROG ---
Hospitalist Progress Note Assessment/Plan: 72yo M with AML undergoing chemotherapy and recent MRSA bacteremia presented with fever and fall fall: unclear cause non con head CT ok no events tele Neutropenic fever: Most concerning for pulmonary source. At risk for invasive fungal species. - ID involved in care - IV meropenem and voriconazole - bronch pretty unremarkable; micro pending - Blood cultures pending Severe sepsis: High fever, rigors, severe tachycardia with altered mental status after bronchoscopy. - Management per above - Transfer to step down unit for closer monitoring - Post-bronch x-ray without significant change - Non-ischemic ECG Bilateral pulmonary infiltrates: Antimicrobials as above. Follow up bronchoscopy studies. ? need for atypical coverage diarrhea: check cdiff #Rash: Infectious vs allergic vs drug reaction. ID concerned for fusarium infection. Seems odd to be related to vancomycin as he has been on this for some time with no rash; nonetheless, will switch vanco to dapto. #AML: Holding chemotherapy in setting of above Subjective: case d/w dr ortiz. patient notes diarrhea Objective: Vital Signs Temp Pulse Resp BP Pulse Ox 36.8 C 97 18 110/60 96 10/10/17 11:45 10/10/17 11:45 10/10/17 11:45 10/10/17 11:45 10/10/17 11:45 Microbiology 10/09/17 14:15 Gram Stain - Final Other - Other 10/09/17 14:15 Bronchial [place] Culture - Final Bronchial [place] - Bilateral Lobes 10/09/17 14:15 Gram Stain - Final Other - Other 10/09/17 14:15 Bronchial [place] Culture - Final Bronchial [place] - Bilateral Lobes 10/09/17 14:15 Gram Stain - Final Lung Bilateral - Bronchial Washings Laboratory Results 10/10/17 05:35 10/10/17 11:46 10/09/17 10/10/17 10/11/17 05:59 05:59 05:59 Intake Total 2240 2964 1030 Output Total 100 1675 400 Balance 2140 1289 630 PT 14.5 SEC (12.0-15.0) 10/09/17 04:50 INR 1.11 (0.83-1.16) 10/09/17 04:50 - Physical Exam Constitutional: no apparent distress, appears nourished Eyes: PERRL, anicteric sclera Ears, Nose, Mouth, Throat: moist mucous membranes (some facial bruising), other Cardiovascular: tachycardia, No systolic murmur Respiratory: no respiratory distress, no rales or rhonchi Gastrointestinal: normoactive bowel sounds, soft, non-tender abdomen Genitourinary: No schultz in urethra Skin: warm, normal color Musculoskeletal: full muscle strength Neurologic: AAOx3 Psychiatric: interacting appropriately ICD10 Worksheet Patient Problems: Problems Problem Status Onset Neutropenic fever Acute Arthritis, hip Acute
--- NOTE | 2017-10-10 13:43 | GCON ---
[f rep st] CONSULTATION PULMONARY CONSULTATION DATE OF CONSULTATION: 10/10/2017 REASON FOR CONSULTATION: Neutropenic fever with pulmonary infiltrates. HISTORY: Nico is a very pleasant 72-year-old whom I saw in the office on the . He was later adm itted that night for fevers and underwent bronchoscopy yesterday. He was transferred to the Intensiv e Care Unit post bronchoscopy secondary to tachycardia and delirium. The patient has a history of AM L which was diagnosed in 2018. He has been on various chemotherapeutic agents. Recent bone marrow b iopsy was negative, and he appeared to be in complete remission. He has been persistently neutropeni c secondary to his chemotherapy. He was admitted to [facility] earlier this month with profou nd neutropenia, fevers and bacteremia with MSSA and Gemella. He was discharged after about a week an d has been followed by Dr. Holcomb. He has been on IV vancomycin at home. He presented to Dr. King deloris goodman last week with some chest pain. Chest x-ray showed new pulmonary infiltrates. A CT scan documente d and better defined these infiltrates. They were consistent with a multifocal pneumonia, possibly s econdary to opportunistic infection. I saw the patient on Sunday secondary to these findings. [facility] hoscopy was requested, was planned for 10/11/2017, but with his admission late on the , bronchosc opy was performed yesterday. Endobronchial anatomy on bronchoscopy was normal. There were no secretions. Cultures and biopsies w ere obtained. To date there is nothing specific growing yet. Pathology is pending. This includes s pecial stains for AFB and fungal organisms. The patient was febrile, tachycardic, with some confusion yesterday after the bronchoscopy and was th us moved to the Intensive Care Unit on step-down. He did receive Versed and fentanyl as well as some topical epinephrine during the procedure. Postprocedure it was noted that he had an increasing rash , possibly secondary to vancomycin. Vancomycin has subsequently been stopped. He is on meropenem, v oriconazole and prophylactic acyclovir. PAST MEDICAL HISTORY: Primarily remarkable for issues related to his AML. He has peripheral vascula r disease, gout, prostatism and reflux. OUTPATIENT MEDICATIONS: Are as listed. ALLERGIES: Drug allergies, tacrolimus; adhesive tape; seafood. SOCIAL HISTORY: Patient is , with a very supportive . Alcohol and tobacco are negative. FAMILY HISTORY: Noncontributory. REVIEW OF SYSTEMS: A 10-point review of systems was negative except as mentioned in the HPI. CARDIO RESPIRATORY: In addition, he has had a dry cough going back approximately 1 week. He denies dyspnea on exertion. He has not been bringing up any mucus. PHYSICAL EXAMINATION: GENERAL: Today reveals a pleasant gentleman who is lying comfortably in bed. VITALS: On room air saturations are 96%. Blood pressure is 110/60, heart rate 95, with sinus rhyth m on the monitor. He is afebrile currently. Temperature was 39.3 early this morning. HEENT: Unrem arkable for lymphadenopathy or thyromegaly. Mucous membranes are moist. NECK: There is no lymphade nopathy or thyromegaly. There is no jugular venous distention. There is no tenderness over the neck . LUNGS: Clear anteriorly. Breath sounds are diminished at the bases with a few rales present. Th ere are some end-expiratory wheezes/congestion. HEART: Regular in rate and rhythm. A soft systolic murmur is present, no gallop. ABDOMEN: Soft and nontender. Bowel sounds are present. There is a Miguel catheter in place. EXTREMITIES: Without significant edema or cords. There is no tenderness. SKIN: A macular papular rash on the upper extremities and less so across the chest/abdomen and back . DATABASE: X-ray post bronchoscopy showed no evidence of a pneumothorax. White blood cell count is 0.65 with 50% neutrophils and 20% bands. Hemoglobin is 6.9 with hematocrit of 21.5. Platelets are 105,000. Sodium is 139 with a potassium of 2.6, 3.3 after correction. BUN is 9 with a creatinine 0.6. Glucose is normal. Calcium is 7.1, magnesium 1.7. ASSESSMENT: 1. Neutropenic fever. 2. Bilateral pulmonary infiltrates. These probably represent multifocal pneumonia, either a bacteri al process presenting unusually or an opportunistic infection. Samples of respiratory cultures and p athology from the bronchoscopy are pending and hopefully will be revealing. Chest x-ray appears stab le. He has associated dry cough. He is not hypoxemic. Examination shows the lungs to be relatively clear. Ongoing close followup is indicated. 3. Acute myelogenous leukemia. 4. History of other medical problems as outlined above. 5. Recent hospitalization with bacteremia. On broad-spectrum antibiotics per Infectious Disease. PLAN AND RECOMMENDATIONS: Antibiotics will be continued. He will be kept in the Intensive Care Unit as a step-down status patient today. Consideration regarding transfer back to Oncology tomorrow if he is doing well. Further cultures and pathology from his bronchoscopy will be awaited. Broad-spect rum antibiotics will be continued. Xopenex by nebulizer will be added to his regimen. Further plans and recommendations will be made based on his progress over the next 12-24 hours. All the above was discussed with the patient and his , Infectious Disease, hospitalist and the [facility] multidisciplinary team. /[id number]/MODL
--- NOTE | 2017-10-10 14:59 | CPEKG ---
Test Reason : OPEN Blood Pressure : / mmHG Vent. Rate : 151 BPM Atrial Rate : 151 BPM P-R Int : 094 ms QRS Dur : 088 ms QT Int : 375 ms P-R-T Axes : 070 095 088 degrees QTc Int : 595 ms Supraventricular tachycardia Right axis deviation Nonspecific T abnrm, anterolateral leads Confirmed by Dom Sim ([id number]) on 10/10/2017 2:58:39 PM Referred By: Confirmed By:Dom Sim
[2017-10-10] MEDS: NS 1,000 ML IV SCH (16:33)
[2017-10-10] MEDS: TMP IV SCH (17:37)
[2017-10-10] MEDS: SULFAMETHOX IV SCH (17:37)
--- NOTE | 2017-10-10 18:34 | GCON ---
[f rep st] CONSULTATION NEW PATIENT CONSULT REFERRING PHYSICIAN: Leonidas Holcomb MD PRIMARY ONCOLOGIST: Dr. Leonidas Wheat. REASON FOR CONSULTATION: Patient with AML, admitted with neutropenic fever. HISTORY OF PRESENT ILLNESS: The patient is a 72-year-old gentleman, well known to [facility] wit h a history of AML, FLT3 positive. He is being seen in conjunction with Dr. Jose at [facility]. Joyce sanford has received 2 cycles of Venetoclax and Vidaza. Per oncologist at [facility], he is also on Idhifa 100 mg daily. He was followed by Dr. Echevarria in Dr. Wheat's absence on 10/03/2017. He had recently been hospitalized for an MSSA bacteremia and followed up as an outpatient with Dr. Hieu tejeda. Source of bacteremia felt to be associated with oropharyngeal source for Gemella and unknown jaja rce for MSSA. When Dr. Holcomb saw him as an outpatient, the patient was on antibiotics, including vanc omycin. Blood cultures from 09/26 and 09/29, showed 2/2 sets positive both for MSSA and Gemella. Jalil good was tolerating PICC line and vancomycin well. Patient was complaining of a cough and a repeat x-ray chest x-ray was done to ensure no pulmonary inf iltrate given prolonged neutropenia. Chest x-ray showed new pulmonary infiltrates. CT chest was ord ered without IV contrast on October 05, showing pneumonia with imaging findings suggestive of possib le fungal source. He also had peripheral basilar distribution consolidation, indwelling central veno us catheterization, and septic emboli was also considered. Subsequently, patient developed fevers of 103, and Dr. Holcomb directed the patient to the emergency room for neutropenic fever. Due to high grade fever with cough and pulmonary infiltrates likely source, he had a bronchoscopy yes terday. He is continued on empiric meropenem. Of course, the pulmonary infiltrates are concerning f or invasive pulmonary aspergillosis based on prolonged neutropenia. Serologic studies for fungal inf ection pending, awaiting culture and biopsy results. Patient is also on voriconazole. Patient has n ot had repeat positive blood cultures. He has now received 2 weeks of antibiotic therapy, which has activity against Gemella as well. Vancomycin was discontinued, particularly in light of rash that he has over his entire body. When he saw Dr. Echevarria, recommended holding the Venetoclax and Vidaza due to the recent infection a nd severe neutropenia. He was continuing Idhifa. This has been on hold for 2 days. He has followup with his oncologist at [facility] in a couple of weeks. Current lab shows a white blood cell count of 0.65, absolute neutrophils count yesterday looks like i t was about 500, hemoglobin 6.9, hematocrit 21.5, platelet count 105,000. Potassium today 2.6, BUN 9 , creatinine 0.6, glucose 92, calcium 7.1. REVIEW OF SYSTEMS: Patient did have a fall this hospitalization. Denies any neurologic symptoms. H is head CT was negative for any acute changes. He also has been having diarrhea. C difficile is pen ding. He is having some urinary incontinence as well. He denies any bone pain or other new symptoms . PAST MEDICAL HISTORY: Significant for AML, FLT3 positive, see above for details; history of BPH, his tory of hyperlipidemia; diastolic CHF; osteoarthritis. PAST SURGICAL HISTORY: Right hip arthroplasty complicated by postop hemorrhage needing transfusion, also had an ankle repair, right cataract extraction with lens placement. FAMILY HISTORY: Mother with lung cancer and father with history of CVA. SOCIAL HISTORY: . Born and lived primarily in [place], moved to the [place] years ago. Smoked tobacco greater than 30 years ago. Drinks 2 ounces daily gin for martinis. He does not use any illi cit drugs. PHYSICAL EXAMINATION: VITAL SIGNS: Blood pressure 114/56, heart rate is 105, respiratory rate 20, t emp 37.1, max temp overnight was 40. GENERAL: A 72-year-old man looks his stated age, not in acute distress, but fatigued appearing. HEENT: Anicteric. Oropharynx is clear. Dry mucous membranes. Q uestionable mild thrush on tongue. HEART: Regular rate and rhythm. LUNGS: Coarse breath sounds bi laterally with some wheezing. ABDOMEN: Soft, nontender. No enlarged liver or spleen. LOWER EXTREM ITIES: No significant edema. SKIN: No significant rash, petechiae, or ecchymoses. NEUROLOGIC: No nfocal. LABORATORY/IMAGING: Per above. Notably, I did look at the CT imaging myself. ASSESSMENT/PLAN: A a 72-year-old gentleman with FLT3 positive acute myelogenous leukemia currently r eceiving chemotherapy, admitted with neutropenic fever. 1. Neutropenic fever, most concerning for pulmonary source. Certainly at risk for invasive fungal s pecies versus Pneumocystis carinii pneumonia versus other. I did review his CT images. It does look like focal infiltrates, and less likely Pneumocystis carinii pneumonia, but still on the differentia l. Bacteria, of course, also possible. He is on intravenous ertapenem and voriconazole. Infectious Disease much appreciated. Bronchoscopy pending at this time. Blood cultures pending. So far, bloo d cultures have been negative. He is status post vancomycin for previous methicillin-resistant Staph ylococcus aureus bacteremia and Gemella. 2. Sepsis. Currently in step-down, not on pressors, not intubated. Watching closely. Remains tach ycardic with intermittent fevers. 3. FLT3 positive acute myelogenous leukemia, status post 2 cycles of Venetoclax and Vidaza. Was als o receiving Idhifa daily. This has been on hold for 2 days while trying to sort out neutropenic feve r, which hopefully we can restart soon. He has been seen in conjunction with Dr. Jose at [facility] and will forward on these results to him. He seems to have responded extremely well to current reg imen. Unfortunately, he continues to have severe neutropenia. Probably will have a bone marrow biop sy repeated in a few weeks. 4. Diarrhea, checking Clostridium difficile. 5. Rash. Infectious versus drug reaction. Holding vancomycin and monitoring. 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 We will continue to follow along and make treatment recommendations during the patient's course. /[id number]/MODL
[2017-10-10] MEDS: ACETAMN/DIPHENHYDRAMINE 500/25MG TAB PO SCH (20:29)
[2017-10-11] MEDS: TMP IV SCH ×3 (00:49→12:41)
[2017-10-11] MEDS: SULFAMETHOX IV SCH ×3 (00:49→12:41)
[2017-10-11] MEDS: D5W IV SCH ×5 (00:49→23:38)
[2017-10-11 04:34] LABS: PLATELET COUNT 112 10^3/uL (150-400)
[2017-10-11] MEDS: MEROPENEM 1 GM in NS 100 ML IV SCH ×3 (05:02→20:53)
[2017-10-11] MEDS: TAMSULOSIN HCL 0.4 MG CAP PO SCH (09:23)
[2017-10-11] MEDS: ENOXAPARIN 40 MG/0.4 ML SYR SC SCH (09:23)
[2017-10-11] MEDS: PANTOPRAZOLE SODIUM 40 MG TAB PO SCH (09:23)
[2017-10-11] MEDS: TIMOLOL 0.5% 15 ML OPHT.BTL LEFTEYE SCH (09:24)
[2017-10-11] MEDS: LOPERAMIDE HCL 2 MG CAP PO PRN ×2 (09:24→15:40)
[2017-10-11] MEDS: PENTOXIFYLLINE 400 MG EXT REL TAB PO SCH ×3 (09:24→20:53)
[2017-10-11] MEDS: ACYCLOVIR 400 MG TAB PO SCH ×2 (09:24→20:53)
[2017-10-11] MEDS ORDERED: PROTOCOL POTASSIUM 1 DOSE MISC PRN (10:22)
[2017-10-11] MEDS ORDERED: POTASSIUM CL 10 MEQ TAB PO ONE ×2 (10:23→22:16)
--- NOTE | 2017-10-11 10:23 | PCMIDPN ---
Assessment/Plan: Assessment/Plan: * Neutropenic fever: No further fever post bronchoscopy. Blood cultures remain negative. May have element related to Pneumocystis with transbronchial biopsies/special stains pending for today. Continue empiric meropenem as well as Bactrim and voriconazole. * Multifocal pulmonary infiltrates: Preliminary bronchoscopy findings suggestive of Pneumocystis. CT scan appearance is atypical for this although this may be less typical in appearance in neutropenic host. Aspergillus antigen is negative in serum although this does not rule out invasive aspergillosis. Reviewed with Dr. Moncada noting that biopsy was obtained from area of peripheral nodular infiltrate. Await biopsy findings. Continue Bactrim and voriconazole in interim. * Bacteremia: No repeat positive blood cultures. Now has received 2 weeks of antibiotic therapy which has activity against Gemella. MSSA currently covered by meropenem with anticipated stop date for treatment of MSSA 10/24/2017. Repeat blood cultures remain negative. * Rash: Overall rashes stable. Suspect this is most likely drug related. Doubt this is related to opportunistic infection at this point based on its appearance. Continue to observe over time. If worsens, would consider skin biopsy to further define. * Diarrhea: C difficile testing by PCR negative. Will observe and if persistent may ultimately need to obtain CT scan of abdomen and pelvis to assess for neutropenic enterocolitis; currently he is without abdominal pain which is typical for this entity. Most likely this is antibiotic associated diarrhea. Time spent, greater than 35 min, which greater than half was spent in education/ counseling/coordination of care related to neutropenic fever, multifocal pulmonary infiltrates, diarrhea and rash. 10/11/17 10:17 Subjective: Patient feels better this a.m.. Decreased cough without shortness of breath. Complains of diarrhea with small episodes of fecal incontinence at time of urination. No abdominal pain. Patient is not bothered by rash currently. Still with some lip discomfort after fall. Objective: Vital Signs Temp Pulse Resp BP Pulse Ox 36.5 C 95 16 102/60 99 10/11/17 07:44 10/11/17 07:44 10/11/17 07:44 10/11/17 07:44 10/11/17 07:44 Microbiology 10/09/17 14:15 Mycobacterial Smear (NICOLE) - Final Lung Bilateral - Bronchial Washings 10/09/17 14:15 Gram Stain - Final Lung Bilateral - Bronchial Washings 10/09/17 14:15 Gram Stain - Final Other - Other 10/09/17 14:15 Gram Stain - Final Other - Other 10/09/17 14:15 Bronchial [place] Culture - Final Bronchial [place] - Bilateral Lobes 10/09/17 14:15 Bronchial [place] Culture - Final Bronchial [place] - Bilateral Lobes Laboratory Results 10/11/17 03:30 10/11/17 03:30 10/10/17 10/11/17 10/12/17 05:59 05:59 05:59 Intake Total 2964 4891 Output Total 1675 1530 125 Balance 1289 3361 -125 ESR 50 MM/HR (0-20) H 10/08/17 22:30 C-Reactive Protein 138.8 mg/L (<10.0) H 10/08/17 22:30 Meropenem # 2 Voriconazole # 3 Bactrim # 1 Blood cultures x2 no growth BAL cultures mixed respiratory romulo Urine Histoplasma antigen, Coccidioides antibody, and Legionella antigen pending Chest x-ray stable bilateral infiltrates Laboratory Tests 10/09/17 18:00 Cryptococcus Ag Screen Negative A. galactomannan Ag < 0.500 - Physical Exam General Appearance: alert, no apparent distress EENT: other (Upper lip swollen with abrasion), No scleral icterus, No conjunctival petechiae Respiratory: lungs clear, No respiratory distress Cardiac/Chest: regular rate, rhythm, No systolic murmur Extremities: No inflammation Abdomen: non-tender, No distended Skin: rash (No significant change in maculopapular rash over abdomen, back and upper extremities) Neuro/Psych: No confused ICD10 Worksheet Patient Problems: Problems Problem Status Onset Neutropenic fever Acute Arthritis, hip Acute
[2017-10-11] MEDS: VORICONAZOLE IV SCH ×2 (10:49→23:38)
--- NOTE | 2017-10-11 11:37 | HOSPPROG ---
Hospitalist Progress Note Assessment/Plan: 72yo M with AML undergoing chemotherapy and recent MRSA bacteremia presented with fever and fall Fall - unclear cause - non con head CT ok - no events tele Neutropenic fever - Most concerning for pulmonary source. At risk for invasive fungal species. - ID involved in care - Preliminary bronchoscopy findings suggestive of Pneumocystis, despite atypical CT scan appearance - Aspergillus antigen is negative, does not r/o invasive aspergillosis - IV meropenem and voriconazole - bronch pretty unremarkable; biopsy and micro pending - Blood cultures pending - Previous MSSA bacteremia being tx with meropenum with anticipated stop date of 10/24/2017 Severe sepsis/Bacteremia - High fever, rigors, severe tachycardia with altered mental status after bronchoscopy. - Management per above - Transferred to step down unit for closer monitoring - Post-bronch x-ray without significant change - Non-ischemic ECG Bilateral pulmonary infiltrates -Antimicrobials as above. Follow up bronchoscopy studies. Diarrhea - C diff PCR negative - Continue to observe, if persistent can consider CT AP to evaluate for neutropenic enterocolitis - Imodium ordered #Rash - Infectious vs allergic vs drug reaction - ID concerned for fusarium infection - Seems odd to be related to vancomycin as he has been on this for some time with no rash - Vanco discontinued. #AML - Holding chemotherapy in setting of above Subjective: Patient reports 3 loose BMs overnight, he denies abdominal pain Objective: Vital Signs Temp Pulse Resp BP Pulse Ox 36.5 C 95 16 102/60 99 10/11/17 07:44 10/11/17 07:44 10/11/17 07:44 10/11/17 07:44 10/11/17 07:44 Microbiology 10/09/17 14:15 Mycobacterial Smear (NICOLE) - Final Lung Bilateral - Bronchial Washings 10/09/17 14:15 Gram Stain - Final Lung Bilateral - Bronchial Washings 10/09/17 14:15 Gram Stain - Final Other - Other 10/09/17 14:15 Gram Stain - Final Other - Other 10/09/17 14:15 Bronchial [place] Culture - Final Bronchial [place] - Bilateral Lobes 10/09/17 14:15 Bronchial [place] Culture - Final Bronchial [place] - Bilateral Lobes Laboratory Results 10/11/17 03:30 10/11/17 03:30 10/10/17 10/11/17 10/12/17 05:59 05:59 05:59 Intake Total 7464 5052 Output Total 167 1530 125 Balance 1289 3361 -125 PT 14.5 SEC (12.0-15.0) 10/09/17 04:50 INR 1.11 (0.83-1.16) 10/09/17 04:50 - Physical Exam Constitutional: no apparent distress Eyes: PERRL Ears, Nose, Mouth, Throat: moist mucous membranes Cardiovascular: regular rate and rhythym Respiratory: no respiratory distress Gastrointestinal: soft, non-tender abdomen Genitourinary: no bladder fullness Skin: rash Musculoskeletal: generalized weakness Neurologic: AAOx3 Psychiatric: interacting appropriately Lymph, Heme, Immunologic: No ecchymoses ICD10 Worksheet Patient Problems: Problems Problem Status Onset Neutropenic fever Acute Arthritis, hip Acute
--- NOTE | 2017-10-11 15:56 | SOAPPROG ---
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 Neutropenic fever - fever has resolved over 24 hours pulmonary source most likely final results from bronch pending cultures negative thus far awaiting bx results appreciate ID on meropenem and voriconazole acyclovir ppx bactrim discontinued - must have ruled out PCP neutropenia continues without any sig recovery anticipated soon 2. MSSA/gemella bacteremia - covered on current antibiotics blood cultures negative 3. Diarrhea - C diff neg monitor possibly related to abx? no clinical e/o typhlitis 4. Pancytopenia - due to treatment for AML transfuse as needed 5. FLT3+ AML - will need to make a decision on Idhifa tomorrow will need a repeat bone marrow biopsy soon seen in conjunction w MD Robb 6. Rash 10/11/17 15:57 10/11/17 15:59 Subjective: No acute events having loose stools and incontinence Objective: Vital Signs Temp Pulse Resp BP Pulse Ox 36.5 C 93 16 97/54 L 96 10/11/17 12:00 10/11/17 12:00 10/11/17 12:00 10/11/17 12:00 10/11/17 12:00 Microbiology 10/09/17 14:15 Gram Stain - Final Lung Bilateral - Bronchial Washings Bronchial Washings Culture - Final 10/09/17 14:15 Gram Stain - Final Other - Other Bronchial Washings Culture - Final 10/09/17 14:15 Gram Stain - Final Other - Other Bronchial Washings Culture - Final 10/09/17 14:15 Mycobacterial Smear (NICOLE) - Final Lung Bilateral - Bronchial Washings Laboratory Results 10/11/17 03:30 10/11/17 03:30 10/10/17 10/11/17 10/12/17 05:59 05:59 05:59 Intake Total 2964 4891 250 Output Total 1675 1530 625 Balance 1289 3361 -375 PT 14.5 SEC (12.0-15.0) 10/09/17 04:50 INR 1.11 (0.83-1.16) 10/09/17 04:50 Gen - NAD, fatigued appearing HEENT - anicteric. OP clear CV - RRR Chest - moving air well anteriorly Abd - soft, NT, BS+ Ext - no edema ICD10 Worksheet Patient Problems: Problems Problem Status Onset Neutropenic fever Acute Arthritis, hip Acute
--- NOTE | 2017-10-11 16:31 | PDINTPN ---
Pharmacy Salesperson Progress Note Assessment/Plan: Assessment: Pulmonary infiltrates: Presumably infectious. No specific diagnosis obtained thus far with bronchoscopy and special stains. PCP now ruled out clinically patient is improved, afebrile. Will follow x-ray. Neutropenic fever. Granulocytes improving although white blood cell count still under 1000. Afebrile for now. On meropenem and Voriconazole. Infectious Disease following. AML Pancytopenia: Secondary to AML/Chemo Prophylaxis: On enoxaparin and pantoprazole Metabolic: On replacement protocols. Plan: Continue present antibiotics. Follow chest x-ray and laboratory. Will discuss the possibility of a percutaneous biopsy in the next day or so with Infectious Disease. This may or may not be needed. Repeat CT of the chest may be needed 1st. Subjective: Feels better today overall. Denies shortness of breath. Less cough. No chest pain. Complains of diarrhea/loose stools. No abdominal pain. Objective: Vital Signs Temp Pulse Resp BP Pulse Ox 36.6 C 91 16 106/58 L 96 10/11/17 16:00 10/11/17 16:00 10/11/17 16:00 10/11/17 16:00 10/11/17 16:00 Microbiology 10/09/17 14:15 Gram Stain - Final Lung Bilateral - Bronchial Washings Bronchial Washings Culture - Final 10/09/17 14:15 Gram Stain - Final Other - Other Bronchial Washings Culture - Final 10/09/17 14:15 Gram Stain - Final Other - Other Bronchial Washings Culture - Final 10/09/17 14:15 Mycobacterial Smear (NICOLE) - Final Lung Bilateral - Bronchial Washings Laboratory Results 10/11/17 03:30 10/11/17 03:30 10/10/17 10/11/17 10/12/17 05:59 05:59 05:59 Intake Total 2964 4891 250 Output Total 1675 1530 625 Balance 1289 3361 -375 PT 14.5 SEC (12.0-15.0) 10/09/17 04:50 INR 1.11 (0.83-1.16) 10/09/17 04:50 Laboratory Tests 10/11/17 03:30 Calcium 7.5 L Magnesium 2.2 Total Bilirubin 0.7 AST 42 ALT 48 Alkaline Phosphatase 48 Albumin 2.7 L CXR: Bilateral infiltrates about the same. PCP stains x3 all are negative. No evidence of PCP. Bronch wash cultures negative to date: Mixed romulo only. AFB smear negative. Physical Exam - Physical Exam General Appearance: alert, no apparent distress EENT: other (On room air) Neck: normal inspection (No JVD) Respiratory: rales (Scattered rales bilaterally, relatively few), No rhonchi, No wheezing Cardiac/Chest: regular rate, rhythm, systolic murmur (Soft) Abdomen: normal bowel sounds, non-tender, soft Male Genitalia: other (No Miguel catheter) Skin: normal color, warm/dry Extremities: No pedal edema Neuro/Psych: no motor/sensory deficits, No cognition abnormalities ICD10 Worksheet Patient Problems: Problems Problem Status Onset Arthritis, hip Acute Neutropenic fever Acute
[2017-10-11] MEDS: ACETAMN/DIPHENHYDRAMINE 500/25MG TAB PO SCH (21:01)
[2017-10-12] MEDS: MEROPENEM 1 GM in NS 100 ML IV SCH ×3 (06:02→20:44)
[2017-10-12 07:06] LABS: PLATELET COUNT 141 10^3/uL (150-400)
[2017-10-12] MEDS ORDERED: POTASSIUM CL 10 MEQ TAB PO ONE (08:41)
[2017-10-12] MEDS: PENTOXIFYLLINE 400 MG EXT REL TAB PO SCH ×3 (09:17→20:48)
[2017-10-12] MEDS: TAMSULOSIN HCL 0.4 MG CAP PO SCH (09:17)
[2017-10-12] MEDS: PANTOPRAZOLE SODIUM 40 MG TAB PO SCH (09:17)
[2017-10-12] MEDS: ACYCLOVIR 400 MG TAB PO SCH ×2 (09:18→20:48)
[2017-10-12] MEDS: TIMOLOL 0.5% 15 ML OPHT.BTL LEFTEYE SCH (09:20)
--- NOTE | 2017-10-12 09:37 | PCMIDPN ---
Assessment/Plan: #AML with Neutropenic Fever, no fever 48h, ANC 390 #Nodular pulmonary infiltrates, on RA on empiric voriconazole --add LFTs to labs, last LFTs 10/08 nl --repeat CT scan to day to assess trajectory of nodular infiltrates #Bacteremia from 09/24: received 2 weeks of antibiotic therapy which has activity against Gemella. MSSA currently covered by meropenem with anticipated stop date for treatment of MSSA 10/24/2017 #Rash: currently being attributed to vancomycin, slight worse on back per family #Diarrhea improved, Cdiff neg. Continue to monitor Medications 3 Generic Name Dose Route Start Last Admin Trade Name Freq PRN Reason Stop Dose Admin Acyclovir 400 mg 10/09/17 21:00 10/12/17 09:18 Acyclovir PO 11/08/17 20:59 400 mg BID CARLOS Meropenem 1 gm/ Sodium 120 mls @ 120 mls/hr 10/09/17 22:00 10/12/17 06:02 Chloride IV 11/08/17 21:59 120 mls Q8HRS CARLOS Protocol Voriconazole 200 mg/ Dextrose 120 mls @ 60 mls/hr 10/09/17 11:30 10/11/17 23: 38 IV 11/08/17 11:29 120 mls Q12H CARLOS micro 10/09 BAL PCR: pending 10/09 blood fungal cx:pending 10/09 BAL standard and fungal: NGTD 10/09 AFB BAL smear neg 10/08 blood cx: NGTD Subjective: patient cough is unchanged denies mouth pain feels like rash is slightly worse diarrhea resolved since 2 Imodium no abdominal pain Objective: Vital Signs Temp Pulse Resp BP Pulse Ox 36.7 C 93 14 111/58 L 96 10/12/17 07:17 10/12/17 07:17 10/12/17 07:17 10/12/17 07:17 10/12/17 07:17 Microbiology 10/09/17 14:15 Gram Stain - Final Lung Bilateral - Bronchial Washings Bronchial Washings Culture - Final 10/09/17 14:15 Gram Stain - Final Other - Other Bronchial Washings Culture - Final 10/09/17 14:15 Gram Stain - Final Other - Other Bronchial Washings Culture - Final Laboratory Results 10/12/17 06:15 10/12/17 06:15 10/11/17 10/12/17 10/13/17 05:59 05:59 05:59 Intake Total 4810 3370 Output Total 1530 1965 425 Balance 3361 1405 -425 ESR 50 MM/HR (0-20) H 10/08/17 22:30 C-Reactive Protein 138.8 mg/L (<10.0) H 10/08/17 22:30 - Physical Exam General Appearance: alert, no apparent distress, non-toxic EENT: other (no oral ulcerations), No thrush Respiratory: lungs clear, No accessory muscle use Cardiac/Chest: regular rate, rhythm Extremities: No pedal edema Abdomen: normal bowel sounds, non-tender, soft Skin: rash (raised MP eruption most prominent adjacent to PICC, but also scattered on chest and back, less prominent on Lower legs. Appears c/w drug rash ) Neuro/Psych: alert, normal mood/affect, oriented x 3 - Line/s RUE PICC Lines: other (see rash descriptio), No drainage, No erythema - Time Spent With Patient Time Spent with Patient: greater than 35 minutes (care coordinated with critical care service, nursing) Time Spent with Patient: Greater than 35 minutes spent on this patients care, greater than 50% of time spent counseling, educating, and coordinating care regarding the above mentioned plan. ICD10 Worksheet Patient Problems: Problems Problem Status Onset Neutropenic fever Acute Arthritis, hip Acute
[2017-10-12] MEDS: ENOXAPARIN 40 MG/0.4 ML SYR SC SCH (09:44)
[2017-10-12] MEDS: D5W IV SCH ×2 (11:50→23:43)
[2017-10-12] MEDS: VORICONAZOLE IV SCH ×2 (11:50→23:43)
[2017-10-12] MEDS: CLOBETASOL 0.05% 15 GM CRTUBE TP SCH ×2 (11:51→21:31)
--- NOTE | 2017-10-12 14:50 | SOAPPROG ---
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 Neutropenic fever - fever has resolved over 48 hours pulmonary source most likely final results from bronch inconclusive cultures negative thus far, PCP ruled out appreciate ID on meropenem and voriconazole acyclovir ppx CT chest continues to show consolidative opacities w surrounding ground glass opacities midostaurin can cause pneumonitis but opacities do appear infectious neutropenia continues; ANC 400 today 2. MSSA/gemella bacteremia - covered on current antibiotics blood cultures negative 3. Diarrhea - C diff neg monitor possibly related to abx? no clinical e/o typhlitis 4. Pancytopenia - due to treatment for AML transfuse as needed 5. FLT3+ AML - would conto hold hod Idhifa Send FLT3 by PCR last one done was negative will need a repeat bone marrow biopsy soon seen in conjunction w MD Robb 6. Rash - topical steroids 10/12/17 14:49 Subjective: Still w cough afebrile denies new pain rash worse Objective: Vital Signs Temp Pulse Resp BP Pulse Ox 36.8 C 83 14 104/72 96 10/12/17 11:51 10/12/17 11:51 10/12/17 11:51 10/12/17 11:51 10/12/17 11:51 Microbiology 10/09/17 14:15 Respiratory Panel (PCR) - Final Unspecified 10/09/17 14:15 Gram Stain - Final Lung Bilateral - Bronchial Washings Bronchial Washings Culture - Final 10/09/17 14:15 Gram Stain - Final Other - Other Bronchial Washings Culture - Final 10/09/17 14:15 Gram Stain - Final Other - Other Bronchial Washings Culture - Final Laboratory Results 10/12/17 06:15 10/12/17 11:55 10/11/17 10/12/17 10/13/17 05:59 05:59 05:59 Intake Total 4891 3370 Output Total 1530 1965 425 Balance 3361 1405 -425 PT 14.5 SEC (12.0-15.0) 10/09/17 04:50 INR 1.11 (0.83-1.16) 10/09/17 04:50 Gen - NAD HEENT - anicteric Resp - decrease BS at LLL, no wheezing or rhonchi CV - RRR Abd - soft, NT/NT Ext -no edema skin - diffuse maculopapular rash ICD10 Worksheet Patient Problems: Problems Problem Status Onset Neutropenic fever Acute Arthritis, hip Acute
--- NOTE | 2017-10-12 16:31 | PDINTPN ---
Director Industrial Relations Progress Note Assessment/Plan: Assessment: Pulmonary infiltrates: Presumably infectious. No specific diagnosis obtained thus far with bronchoscopy and special stains. PCP now ruled out clinically patient is improved, afebrile. CT scan shows persistent infiltrates, only slightly improved. Infectious Disease recommending biopsy, stains and cultures. They are ordering... Neutropenic fever. Granulocytes improving although white blood cell count still under 1000. Afebrile for now. On meropenem and Voriconazole. AML Pancytopenia: Secondary to AML/Chemo Prophylaxis: On enoxaparin and pantoprazole Metabolic: On replacement protocols. Plan: Continue present antibiotics. Percutaneous biopsy for pathology and cultures will be ordered. Continue care on step-down for now. May be able to be transferred back to Oncology tomorrow if stable post biopsy. Follow laboratory, chest x-ray. 35 min of clinic time spent directly with the patient. Discussed with the patient and his , Infectious Disease, nursing, and the ICU multi disciplinary team. Subjective: Feels better overall today. No fevers, no chills. He is coughing a bit more today. Bringing up no mucus. Denies significant chest pain or shortness of breath. Objective: Vital Signs Temp Pulse Resp BP Pulse Ox 37 C 88 14 104/72 97 10/12/17 15:52 10/12/17 15:52 10/12/17 15:52 10/12/17 11:51 10/12/17 15:52 Microbiology 10/09/17 14:15 Respiratory Panel (PCR) - Final Unspecified 10/09/17 14:15 Gram Stain - Final Lung Bilateral - Bronchial Washings Bronchial Washings Culture - Final 10/09/17 14:15 Gram Stain - Final Other - Other Bronchial Washings Culture - Final 10/09/17 14:15 Gram Stain - Final Other - Other Bronchial Washings Culture - Final Laboratory Results 10/12/17 06:15 10/12/17 11:55 10/11/17 10/12/17 10/13/17 05:59 05:59 05:59 Intake Total 4891 3370 Output Total 1530 1965 425 Balance 3361 1405 -425 PT 14.5 SEC (12.0-15.0) 10/09/17 04:50 INR 1.11 (0.83-1.16) 10/09/17 04:50 Laboratory Tests 10/12/17 10/12/17 06:15 06:15 Sodium 141 Potassium 3.7 Chloride 113 H Carbon Dioxide 22 Anion Gap 6 L BUN 8 Creatinine 0.7 Glucose 81 Calcium 7.5 L Magnesium 2.1 Total Bilirubin 0.5 AST 28 ALT [address] chest: Infiltrates about the same, perhaps slightly smaller. Physical Exam - Physical Exam General Appearance: alert, no apparent distress EENT: other (On room air) Neck: normal inspection (No JVD) Respiratory: lungs clear (Anteriorly), rales (Few rales at the bases), No rhonchi, No wheezing Cardiac/Chest: regular rate, rhythm (Soft systolic murmur), No gallop Abdomen: normal bowel sounds, non-tender, soft Rectal: other (No Miguel catheter) Skin: warm/dry, pallor Extremities: No pedal edema Neuro/Psych: no motor/sensory deficits, No cognition abnormalities ICD10 Worksheet Patient Problems: Problems Problem Status Onset Arthritis, hip Acute Neutropenic fever Acute
--- NOTE | 2017-10-12 16:51 | HOSPPROG ---
Hospitalist Progress Note Assessment/Plan: Subjective Follow-up on neutropenic fever. Patient states he is feeling okay this morning. No complaints of shortness of breath or productive cough. He was having breakfast at the time of my evaluation. All questions were answered. Case was also reviewed with Dr. Moncada during rounds. Objective Vital signs as detailed below Exam General-patient appears comfortable he is awake alert conversant sitting upright in his bed having breakfast Heart-regular rate and rhythm no murmurs appreciated Lungs-normal respiratory effort clear to auscultation without significant wheezing Abdomen-soft nontender nondistended -no Miguel catheter in place Extremities-no significant edema Labs as detailed below Assessment plan Encephalopathy-this appears to have cleared any appears at normal baseline mental status currently. Sepsis-patient did meet criteria for sepsis based upon a suspected infection and fever and tachycardia. Overall clinically he appears to have stabilized. Neutropenic fever-fever seem to be subsiding today. Source may be related to pulmonary infiltrates. Bilateral pulmonary infiltrates-suspected pneumonia. Preliminary results from bronchoscopy have shown evidence of Pneumocystis pneumonia. Dr. Holcomb his start the patient on Bactrim. Bacteremia-patient with recent diagnosis of methicillin sensitive Staph aureus. Plan is for 2 weeks of IV antibiotics. Repeat cultures have cleared. Rash-suspected drug rash. AML-diagnosed earlier this year. Patient has had ongoing treatment with Oncology. BPH-continue Flomax. DVT prophylaxis-Lovenox. Disposition- he appears that he may be able to return home once medically stable. Objective: Vital Signs Temp Pulse Resp BP Pulse Ox 37 C 88 14 104/72 97 10/12/17 15:52 10/12/17 15:52 10/12/17 15:52 10/12/17 11:51 10/12/17 15:52 Microbiology 10/09/17 14:15 Respiratory Panel (PCR) - Final Unspecified 10/09/17 14:15 Gram Stain - Final Lung Bilateral - Bronchial Washings Bronchial Washings Culture - Final 10/09/17 14:15 Gram Stain - Final Other - Other Bronchial Washings Culture - Final 10/09/17 14:15 Gram Stain - Final Other - Other Bronchial Washings Culture - Final Laboratory Results 10/12/17 06:15 10/12/17 11:55 10/11/17 10/12/17 10/13/17 05:59 05:59 05:59 Intake Total 4044 0690 Output Total 1530 1965 425 Balance 3361 1405 -425 PT 14.5 SEC (12.0-15.0) 10/09/17 04:50 INR 1.11 (0.83-1.16) 10/09/17 04:50 ICD10 Worksheet Patient Problems: Problems Problem Status Onset Neutropenic fever Acute Arthritis, hip Acute
--- NOTE | 2017-10-12 17:01 | ASMTCMCOM ---
CM Note CM Note Notes: Spoke with Suad Swan [facility] who was checking on the patient. He is open with them. D/C plan is still TBD but likely will return to home health care. No therapies ordered. CM will follow. Date Signed: 10/12/2017 05:00 PM Electronically Signed By:Maya Alonzo LCSW
[2017-10-12] MEDS: guaiFENesin/CODEINE PHOS 10 ML UDCUP PO PRN (20:47)
[2017-10-12] MEDS: ACETAMN/DIPHENHYDRAMINE 500/25MG TAB PO SCH (20:48)
[2017-10-13] MEDS: MEROPENEM 1 GM in NS 100 ML IV SCH ×3 (05:56→22:11)
[2017-10-13 06:17] LABS: PLATELET COUNT 165 10^3/uL (150-400)
--- NOTE | 2017-10-13 08:42 | PCMIDPN ---
Assessment/Plan: #AML with Neutropenic Fever, no fever 72h, ANC 420 --on meropenem #Nodular pulmonary infiltrates, on RA on empiric voriconazole for fungal etiology. See list of negative tests below. --biopsy today --change to PO voriconazole, dc on voriconazole 200mg PO BID until results from lung bx #Bacteremia from 09/24: received 2 weeks of antibiotic therapy which has activity against Gemella. MSSA currently covered by meropenem with anticipated --stop date for treatment of MSSA 10/24/2017 --suspect ANC will be close to 500 tomorrow, give dose of ertapenem tomorrow bf discharge and finish Rx w this agent #Rash: improved today, attributing to vancomycin #Diarrhea improved, Cdiff neg. Continue to monitor Medications acyclovir 400mg PO BID Meropenem 1gm IV q8h #4 Voriconazole 200mg IV q12 #4 micro 10/09 BAL PCR: pending 10/09 blood fungal cx:pending 10/09 BAL standard and fungal: NGTD 10/09 AFB BAL smear neg 10/08 blood cx: NGTD aspergillus An BAL negative histo neg cocci titer neg galactomannan blood negative PCP neg Subjective: patient feeling well anxious to go home as soon as possible Objective: Vital Signs Temp Pulse Resp BP Pulse Ox 36.7 C 82 14 111/64 96 10/13/17 07:51 10/13/17 07:51 10/13/17 07:51 10/13/17 07:51 10/13/17 07:51 Microbiology 10/09/17 14:15 Respiratory Panel (PCR) - Final Unspecified Laboratory Results 10/13/17 05:50 10/13/17 05:50 10/12/17 10/13/17 10/14/17 05:59 05:59 05:59 Intake Total 3370 1162 Output Total 1965 2625 Balance 1405 -1463 ESR 50 MM/HR (0-20) H 10/08/17 22:30 C-Reactive Protein 138.8 mg/L (<10.0) H 10/08/17 22:30 General Appearance: alert, no apparent distress, non-toxic EENT: no oral ulcerations, No thrush Respiratory: lungs clear, No accessory muscle use Cardiac/Chest: regular rate, rhythm Extremities: No pedal edema Abdomen: normal bowel sounds, non-tender, soft Skin: raised MP eruption most prominent adjacent to PICC, but also scattered on chest and back, less prominent on Lower legs. Appears c/w drug rash - much flatter and improved today Neuro/Psych: alert, normal mood/affect, oriented x 3 RUE PICC (see rash description), No drainage, No erythema ICD10 Worksheet Patient Problems: Problems Problem Status Onset Neutropenic fever Acute Arthritis, hip Acute
--- NOTE | 2017-10-13 08:52 | SOAPPROG ---
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 Neutropenic fever - afebrile pulmonary source most likely final results from bronch inconclusive, will have CT guided biopsy of lesions today cultures negative thus far, PCP ruled out on meropenem and voriconazole acyclovir ppx CT chest continues to show consolidative opacities w surrounding ground glass opacities midostaurin can cause pneumonitis but opacities appear infectious neutropenia continues; ANC 400 today, no circulating blasts 2. MSSA/gemella bacteremia - covered with merrem, abx to stop on 10/24 blood cultures negative 3. Diarrhea - C diff neg, improved/resolved 4. Pancytopenia - due to treatment for AML transfuse as needed. No indication for transfusion today. 5. FLT3+ AML - would conto hold hod Idhifa FLT3 by PCR sent today on peripheral blood last one done was negative will need a repeat bone marrow biopsy soon seen in conjunction w MD Robb 6. Rash - felt to be secondary to vanc. Overall improved. Plan: 10/13/17 08:51 10/13/17 08:53 10/13/17 08:58 Subjective: cough continues, no hemoptysis, diarrhea has resolved. no fever, no other new symptoms Objective: Vital Signs Temp Pulse Resp BP Pulse Ox 36.7 C 82 14 111/64 96 10/13/17 07:51 10/13/17 07:51 10/13/17 07:51 10/13/17 07:51 10/13/17 07:51 Microbiology 10/09/17 14:15 Respiratory Panel (PCR) - Final Unspecified Laboratory Results 10/13/17 05:50 10/13/17 05:50 10/12/17 10/13/17 10/14/17 05:59 05:59 05:59 Intake Total 3370 1162 Output Total 6787 2625 Balance 1405 -1463 PT 14.5 SEC (12.0-15.0) 10/09/17 04:50 INR 1.11 (0.83-1.16) 10/09/17 04:50 Physical Exam - Physical Exam General Appearance: alert, no apparent distress EENT: pharynx normal, other (no mucositis or thrush) Neck: supple Respiratory: lungs clear Abdomen: non-tender, soft Skin: other (rash on back, arms, chest reportedly improved per patient (my first time seeing him)) ICD10 Worksheet Patient Problems: Problems Problem Status Onset Neutropenic fever Acute Arthritis, hip Acute
[2017-10-13] MEDS ORDERED: MIDAZOLAM 2 MG/2 ML VIAL IVP PRN (09:21)
[2017-10-13] MEDS ORDERED: FLUMAZENIL 0.5 MG/5 ML MDV IVP PRN (09:21)
[2017-10-13] MEDS ORDERED: PROTAMINE SULFATE 50 MG/5 ML VIAL IVP PRN (09:21)
[2017-10-13] MEDS ORDERED: GLUCAGON HCL 1 MG VIAL IVP PRN (09:21)
[2017-10-13] MEDS ORDERED: MEPERIDINE 25 MG/ML SYR IVP PRN (09:21)
[2017-10-13] MEDS ORDERED: NALOXONE HCL 0.4 MG/ML INJ IVP PRN (09:21)
[2017-10-13] MEDS ORDERED: ALTEPLASE 2 MG VIAL IVP PRN (09:21)
[2017-10-13] MEDS ORDERED: HEPARIN 10,000 UNIT/10 ML MDV (1,000 UNIT/ML) IVP PRN (09:21)
[2017-10-13] MEDS ORDERED: fentaNYL 100 MCG/2 ML INJ IVP PRN (09:21)
[2017-10-13] MEDS ORDERED: NALOXONE HCL 0.4 MG/ML INJ ONE (09:28)
[2017-10-13] MEDS ORDERED: fentaNYL 100 MCG/2 ML INJ ONE (09:28)
[2017-10-13] MEDS ORDERED: MIDAZOLAM 2 MG/2 ML VIAL ONE (09:28)
--- NOTE | 2017-10-13 09:28 | PDIAF ---
- Diagnosis Diagnosis: MSSA bacteremia Code Status: Full Code - Medication Management Discharge Medications: Medications to Continue on Transfer Cholecalciferol (Vitamin D3) [Vitamin D3] 5,000 unit PO HS 08/16/14 [Last Taken 10/08/17] Ondansetron Odt [Zofran Odt 4 mg (*)] 4 mg PO Q4HRS PRN #30 tab 06/20/17 [Last Taken 10/08/17 18:30] Enasidenib Mesylate [Idhifa] 100 mg PO DAILY14 09/23/17 [Last Taken 10/08/17] Acetaminophen [Tylenol ES 500 mg (*)] 500 mg PO BID PRN 09/24/17 [Last Taken ] Acetamn/Diphenhydramine 500/25 [Tylenol PM (*)] 1 each PO HS 09/24/17 [Last Taken 10/08/17] Acyclovir [Zovirax 400 mg (*)] 400 mg PO BID 09/24/17 [Last Taken 10/08/17 22:00 ] Allopurinol [Allopurinol 300 MG (RX)] 300 mg PO AD 09/24/17 [Last Taken Unknown] Timolol 0.5% [TIMOPTIC 0.5% (*)] 1 drops LEFTEYE DAILY 09/24/17 [Last Taken ] Benzonatate [Tessalon Pearles (RX)] 100 mg PO TID PRN 10/08/17 [Last Taken 10/08] Niacin ER [Niaspan 500 mg (*)] 500 mg PO DAILY 10/08/17 [Last Taken Unknown] Venetoclax [Venclexta] 100 mg PO AD 10/08/17 [Last Taken Unknown] Voriconazole [Vfend 200MG (*)] 200 mg PO BID 10/08/17 [Last Taken Unknown] Azacitidine [Vidaza] 100 mg SC AD 10/09/17 [Last Taken Unknown] Codeine Phosphate/Guaifenesin [Guaifenesin-Codeine Syrup] 5 ml PO Q6HRS PRN [Last Taken 10/08/17] Fluconazole [Diflucan (*)] 100 mg PO DAILY10 10/09/17 [Last Taken 10/08/17] Pantoprazole Sodium [Protonix 40mg (*)] 40 mg PO DAILY10 10/09/17 [Last Taken ] Pentoxifylline [TRENTAL 400mg (*)] 400 mg PO TID@10,14,22 10/09/17 [Last Taken 10/08/17 22:00] Tamsulosin HCl [Flomax 0.4 MG (*)] 0.4 mg PO DAILY10 10/09/17 [Last Taken ] Vancomycin [Vancomycin (*)] 2.5 gm IV DAILY@13 10/09/17 [Last Taken 10/08/17] Prison Antibiotics: ertapenem 1gm IV daily 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 PICC Care - Routine: Yes - Orders Services needed: Home Care, Registered Nurse Home Care Face to Face: I certify that this patient was under my care and that I had the required [id number] encounter meeting the encounter requirements on the discharge day. My findings support the fact that the patient is homebound as defined in Home Care Face to Face Continued: CMS Chapter 7 Medicare Benefits Manual 30.1.1 , The condition of the patient is such that there exists a normal inability to leave home and consequently, leaving home would require a considerable and taxing effort. Isolation Type: Chemotherapy Isolation, Neutropenic Isolation - Labs/Radiology CBC w/diff Date: 10/15/17 (weekly sunday) CMP Date: 10/15/17 (weekly sunday) Call or Fax Lab and Imaging Results to: Leonidas Holcomb MD [phone] - Follow Up Care Current Providers and Referrals: MARINA BARNETT [Primary Care Provider] - As per Instructions Leonidas Holcomb MD [Medical Doctor] - 3-5 days
[2017-10-13] MEDS ORDERED: FLUMAZENIL 0.5 MG/5 ML MDV IVP ONE (09:29)
[2017-10-13] MEDS ORDERED: NS 1,000 ML IV SCH (09:30)
--- NOTE | 2017-10-13 11:06 | PDPROPOC ---
Sedation Plan of Care Sedation Plan of Care: vital signs stable, mental status noted, patient educated of risks, benefits, alternatives, patient can tolerate sedation ASA Classification: ASA 2 Planned drugs: fentanyl, midazolam Mallampati Score: Class 1 Mallampati Reference Image: Patient passed 3-3-2 rule?: Yes
--- NOTE | 2017-10-13 11:07 | PDRADPN ---
Radiology Procedure Note Date of Procedure: 10/13/17 Radiologist: Mitzy Dial Anesthesia: IV Sedation Pre-op Diagnosis: lung masses Post-op Diagnosis: same Indication: evaluate histology and cultures Procedure: CT guided RLL mass biopsy Finding(s): multiple cores obtained, sent in formalin and sterile container. Inf/Abcess present in the surg proc area at time of surgery?: No
[2017-10-13] MEDS ORDERED: POTASSIUM CL 10 MEQ TAB PO ONE ×2 (11:27→14:46)
[2017-10-13] MEDS ORDERED: HYDROmorphONE/DILAUDID 1 MG/ML INJ IVP PRN (11:38)
[2017-10-13] MEDS: TAMSULOSIN HCL 0.4 MG CAP PO SCH (11:54)
[2017-10-13] MEDS: PENTOXIFYLLINE 400 MG EXT REL TAB PO SCH ×3 (11:54→20:11)
[2017-10-13] MEDS: PANTOPRAZOLE SODIUM 40 MG TAB PO SCH (11:54)
--- NOTE | 2017-10-13 12:13 | PDINTPN ---
Nurses Educator Progress Note Assessment/Plan: Assessment: Pulmonary infiltrates: Presumably infectious. No specific diagnosis obtained thus far with bronchoscopy and special stains. PCP now ruled out clinically patient is improved, afebrile. CT scan shows persistent infiltrates, only slightly improved. Infectious Disease recommending biopsy, stains and cultures : This is being done today. Neutropenic fever. Granulocytes improving although white blood cell count still under 1000. Afebrile for now. On meropenem and Voriconazole. AML Pancytopenia: Secondary to AML/Chemo Prophylaxis: On enoxaparin and pantoprazole Metabolic: On replacement protocols. Plan: Continue present antibiotics per ID. Percutaneous biopsy for pathology and cultures today. Continue care on step-down for now. If he is doing well post biopsy and chest x-ray shows no problems, perhaps can be transferred back to Oncology later today. Follow laboratory, chest x-ray. 25 min of clinic time spent directly with the patient. Discussed with the patient and his , Infectious Disease, nursing, and the ICU multi disciplinary team. Subjective: Feels better. Interesting going home at some point. Objective: Vital Signs Temp Pulse Resp BP Pulse Ox 36.7 C 77 20 122/73 H 96 10/13/17 09:06 10/13/17 09:06 10/13/17 11:50 10/13/17 11:45 10/13/17 11:50 Microbiology 10/09/17 14:15 Respiratory Panel (PCR) - Final Unspecified Laboratory Results 10/13/17 05:50 10/13/17 05:50 10/12/17 10/13/17 10/14/17 05:59 05:59 05:59 Intake Total 3370 1162 400 Output Total 1965 2625 Balance 1405 -1463 400 PT 14.5 SEC (12.0-15.0) 10/09/17 04:50 INR 1.11 (0.83-1.16) 10/09/17 04:50 CXR: No significant change. Percutaneous lung biopsy: Pending Physical Exam - Physical Exam General Appearance: alert, no apparent distress EENT: other (On room air) Neck: normal inspection Respiratory: decreased breath sounds (At bases), rales (Few end inspiratory rales), No rhonchi, No wheezing Cardiac/Chest: regular rate, rhythm Abdomen: normal bowel sounds, non-tender, soft Skin: warm/dry, pallor Extremities: pedal edema (Trace) Neuro/Psych: no motor/sensory deficits, No cognition abnormalities ICD10 Worksheet Patient Problems: Problems Problem Status Onset Arthritis, hip Acute Neutropenic fever Acute
[2017-10-13] MEDS: ACYCLOVIR 400 MG TAB PO SCH ×2 (12:32→20:10)
[2017-10-13] MEDS: CLOBETASOL 0.05% 15 GM CRTUBE TP SCH ×2 (12:32→20:12)
[2017-10-13] MEDS: TIMOLOL 0.5% 15 ML OPHT.BTL LEFTEYE SCH (12:33)
--- NOTE | 2017-10-13 12:54 | ASMTCMCOM ---
CM Note CM Note Notes: Orestes Anderson states patient will be ready for d/c tomorrow October 14, 2017. Contacted [facility] via telephone to let them know. Sent updated referral including the transfer of care summary.CM will follow. Date Signed: 10/13/2017 12:53 PM Electronically Signed By:Maya Alonzo LCSW
[2017-10-13] MEDS: ACETAMINOPHEN 325 MG TAB PO PRN (14:59)
[2017-10-13] MEDS: guaiFENesin/CODEINE PHOS 10 ML UDCUP PO PRN ×2 (15:00→20:11)
[2017-10-13] MEDS: VORICONAZOLE 200 MG TAB PO SCH ×2 (15:00→20:10)
--- NOTE | 2017-10-13 15:17 | HOSPPROG ---
Hospitalist Progress Note Assessment/Plan: Subjective Follow-up on neutropenic fever. Patient underwent CT-guided biopsy of the lungs today. No immediate complications evident. Otherwise no acute events overnight. No new physical complaints. Objective Vital signs as detailed below Exam General-patient appeared comfortable he is awake alert conversant no acute distress Heart-regular rate and rhythm no murmurs noted Lungs-normal respiratory effort clear we with auscultation without significant wheezing Abdomen-soft nontender nondistended -no Miguel catheter in place Extremities-no significant pitting edema Labs as detailed below Assessment plan Neutropenic fever-this appears to be improving. No fevers noted over the past 24 hr. Source suspected to be pulmonary. Bilateral pulmonary infiltrates-patient underwent CT guided biopsy today for further evaluation. Continue antimicrobials per Infectious disease's recommendations. Bacteremia-patient is currently on antibiotics for methicillin sensitive Staph aureus bacteremia. His in date is listed as October 24, 2017. Rash-presumed drug rash. This is stable on exam today. AML-diagnosed earlier this year. Patient has had ongoing treatment with Oncology. BPH-continue Flomax. DVT prophylaxis-Lovenox. Disposition- he appears that he may be able to return home once medically stable. Objective: Vital Signs Temp Pulse Resp BP Pulse Ox 36.4 C 84 14 99/73 L 91 L 10/13/17 13:52 10/13/17 14:52 10/13/17 14:52 10/13/17 14:52 10/13/17 14:52 Microbiology 10/13/17 11:23 Gram Stain - Final Lung - Tissue 10/09/17 14:15 Respiratory Panel (PCR) - Final Unspecified Laboratory Results 10/13/17 05:50 10/13/17 05:50 10/12/17 10/13/17 10/14/17 05:59 05:59 05:59 Intake Total 3370 1162 400 Output Total 1965 2625 Balance 1405 -1463 400 PT 14.5 SEC (12.0-15.0) 10/09/17 04:50 INR 1.11 (0.83-1.16) 10/09/17 04:50 ICD10 Worksheet Patient Problems: Problems Problem Status Onset Neutropenic fever Acute Arthritis, hip Acute
[2017-10-13] MEDS: ACETAMN/DIPHENHYDRAMINE 500/25MG TAB PO SCH (20:10)
[2017-10-14] MEDS: ACETAMINOPHEN 325 MG TAB PO PRN (06:20)
[2017-10-14] MEDS: MEROPENEM 1 GM in NS 100 ML IV SCH ×3 (06:21→21:15)
[2017-10-14] MEDS ORDERED: POTASSIUM CL 10 MEQ TAB PO ONE ×2 (06:44→19:42)
[2017-10-14] MEDS: ENOXAPARIN 40 MG/0.4 ML SYR SC SCH (08:47)
[2017-10-14] MEDS: PANTOPRAZOLE SODIUM 40 MG TAB PO SCH (08:47)
[2017-10-14] MEDS: VORICONAZOLE 200 MG TAB PO SCH ×2 (08:47→20:42)
[2017-10-14] MEDS: PENTOXIFYLLINE 400 MG EXT REL TAB PO SCH ×3 (08:47→20:42)
[2017-10-14] MEDS: ACYCLOVIR 400 MG TAB PO SCH ×2 (08:47→20:42)
[2017-10-14] MEDS: TAMSULOSIN HCL 0.4 MG CAP PO SCH (08:47)
[2017-10-14] MEDS: TIMOLOL 0.5% 15 ML OPHT.BTL LEFTEYE SCH (09:27)
[2017-10-14] MEDS: CLOBETASOL 0.05% 15 GM CRTUBE TP SCH ×2 (09:27→20:38)
--- NOTE | 2017-10-14 11:36 | PDINTPN ---
Property Management Coordinator Progress Note Assessment/Plan: Assessment: Pulmonary infiltrates: Presumably infectious. No specific diagnosis obtained thus far with bronchoscopy and special stains. PCP ruled out. Clinically patient is improved, afebrile. Status post biopsy yesterday percutaneously. Gm stain negative. Pathology and cultures pending. Neutropenic fever. Granulocytes improving although white blood cell count still under 1000. Afebrile for now. On meropenem and Voriconazole. AML Pancytopenia: Secondary to AML/Chemo Prophylaxis: On enoxaparin and pantoprazole Metabolic: On replacement protocols. Plan: Continue present antibiotics per ID. Percutaneous biopsy for pathology and cultures today. Can transfer back to Oncology floor today. Timing of discharge, antibiotics, etc per Infectious Disease and Oncology. Follow CBC, laboratory, chest x-ray. I will sign off at this point. Dr. Ugarte available for pulmonary this upcoming week if needed. 25 min of clinic time spent directly with the patient. Discussed with the patient. Subjective: Doing well. Would like to go home if possible. Cough is less. No sequela or pain from biopsy yesterday afternoon. Objective: Vital Signs Temp Pulse Resp BP Pulse Ox 36.8 C 90 18 127/63 H 92 10/14/17 08:00 10/14/17 08:00 10/14/17 08:00 10/14/17 08:00 10/14/17 08:00 Microbiology 10/13/17 11:23 Gram Stain - Final Lung - Tissue Laboratory Results 10/13/17 05:50 10/14/17 06:20 10/13/17 10/14/17 10/15/17 05:59 05:59 05:59 Intake Total 1162 1683 Output Total 2625 1600 Balance -1463 83 PT 14.5 SEC (12.0-15.0) 10/09/17 04:50 INR 1.11 (0.83-1.16) 10/09/17 04:50 Percutaneous tissue Gram stain from biopsy yesterday shows no organisms, no cells. All other studies pending. CXR: Bilateral infiltrates persist, about the same from a few days ago. Better compared to the post biopsy film. Physical Exam - Physical Exam General Appearance: alert, no apparent distress EENT: other (On room air) Neck: normal inspection (No JVD) Respiratory: decreased breath sounds (At bases), rales (Few rales bilaterally at the bases), No rhonchi, No wheezing Cardiac/Chest: regular rate, rhythm, systolic murmur (Soft systolic murmur) Abdomen: normal bowel sounds, non-tender, soft Skin: warm/dry, pallor, other (Rash evolving) Extremities: No pedal edema Neuro/Psych: no motor/sensory deficits, No cognition abnormalities ICD10 Worksheet Patient Problems: Problems Problem Status Onset Neutropenic fever Acute Arthritis, hip Acute
--- NOTE | 2017-10-14 14:23 | SOAPPROG ---
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 Neutropenic fever - afebrile pulmonary source most likely final results from bronch inconclusive, awaiting results of CT guided biopsy cultures negative thus far, PCP ruled out on meropenem and voriconazole acyclovir ppx CT chest continues to show consolidative opacities w surrounding ground glass opacities midostaurin can cause pneumonitis but opacities appear infectious neutropenia continues; ANC 400 today, no circulating blasts 2. MSSA/gemella bacteremia - covered with merrem, abx to stop on 10/24 blood cultures negative 3. Diarrhea - C diff neg, improved/resolved 4. Pancytopenia - due to treatment for AML transfuse as needed. No indication for transfusion today. 5. FLT3+ AML - would conto hold hod Idhifa FLT3 by PCR sent today on peripheral blood last one done was negative will need a repeat bone marrow biopsy soon seen in conjunction w MD Robb. Idhifa has been held for about 4-5 days. Will need to make a decision this week regarding whether or not to resume. may be contributing to cytopenia, but also treating leukemia 6. Rash - felt to be secondary to vanc. Overall improved. Plan: 10/13/17 08:51 10/13/17 08:53 10/13/17 08:58 10/14/17 14:20 Objective: Vital Signs Temp Pulse Resp BP Pulse Ox 36.8 C 90 18 127/63 H 92 10/14/17 08:00 10/14/17 08:00 10/14/17 08:00 10/14/17 08:00 10/14/17 08:00 Microbiology 10/13/17 11:23 Gram Stain - Final Lung - Tissue Laboratory Results 10/13/17 05:50 10/14/17 06:20 10/13/17 10/14/17 10/15/17 05:59 05:59 05:59 Intake Total 1162 1683 Output Total 2625 1600 Balance -1463 83 PT 14.5 SEC (12.0-15.0) 10/09/17 04:50 INR 1.11 (0.83-1.16) 10/09/17 04:50 ICD10 Worksheet Patient Problems: Problems Problem Status Onset Neutropenic fever Acute Arthritis, hip Acute
--- NOTE | 2017-10-14 14:36 | SOAPPROG ---
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 Neutropenic fever - afebrile pulmonary source most likely final results from bronch inconclusive, awaiting results of CT guided biopsy cultures negative thus far, PCP ruled out on meropenem and voriconazole acyclovir ppx CT chest continues to show consolidative opacities w surrounding ground glass opacities midostaurin can cause pneumonitis but opacities appear infectious neutropenia continues; ANC 400 today, no circulating blasts 2. MSSA/gemella bacteremia - covered with merrem, abx to stop on 10/24 blood cultures negative 3. Diarrhea - C diff neg, improved/resolved 4. Pancytopenia - due to treatment for AML transfuse as needed. No indication for transfusion today. 5. AML with IDH1 mutation- would conto hold hod Idhifa will need a repeat bone marrow biopsy soon seen in conjunction w MD Robb. Idhifa has been held for about 4-5 days. Will need to make a decision this week regarding whether or not to resume. may be contributing to cytopenia, but also treating leukemia 6. Rash - felt to be secondary to vanc. Overall improved. patient to be discharged today. follow up at [facility] on sunday. Plan: 10/13/17 08:51 10/13/17 08:53 10/13/17 08:58 10/14/17 14:20 10/14/17 14:34 Objective: Vital Signs Temp Pulse Resp BP Pulse Ox 36.8 C 90 18 127/63 H 92 10/14/17 08:00 10/14/17 08:00 10/14/17 08:00 10/14/17 08:00 10/14/17 08:00 Microbiology 10/13/17 11:23 Gram Stain - Final Lung - Tissue Laboratory Results 10/13/17 05:50 10/14/17 06:20 10/13/17 10/14/17 10/15/17 05:59 05:59 05:59 Intake Total 1162 1683 Output Total 2400 1600 Balance -1463 83 PT 14.5 SEC (12.0-15.0) 10/09/17 04:50 INR 1.11 (0.83-1.16) 10/09/17 04:50 ICD10 Worksheet Patient Problems: Problems Problem Status Onset Neutropenic fever Acute Arthritis, hip Acute
--- NOTE | 2017-10-14 17:32 | GDS ---
[f rep st] DISCHARGE SUMMARY PRIMARY CARE PROVIDER: Dr. Brain Vincent. HOSPITAL CONSULTANTS: 1. Dr. Echevarria, Oncology. 2. Dr. Darion Moncada, Pulmonary Critical Care Medicine. 3. Dr. Leonidas Holcomb, Infectious Disease. DISCHARGE DIAGNOSIS: 1. Neutropenic fever. 2. Bilateral pulmonary infiltrates status post CT-guided biopsy of the lung. 3. Methicillin sensitive Staph aureus bacteremia. HISTORY OF PRESENT ILLNESS: The patient is a pleasant 72-year-old gentleman, with a past medical history of recently diagnosed acute myelogenous leukemia, who presented to the [facility] Emergency Room on 10/08/2017, with complaints of fever. He had recently been in the hospital and been receiving outpatient IV antibiotics for methicillin sensitive Staph aureus bacteremia. His is initial chest x-ray showed stable patchy consolidation at the right lung base with increasing consolidation in the left mid to lower lung. The patient did undergo bronchoscopy for further assessment. To date, no definitive diagnosis made from bronchoscopy studies. Aspergillus and PCP were negative. For further assessment, the patient underwent a CT-guided right lower lobe biopsy with Interventional Radiology. He tolerated the procedure well, without any evidence of pneumothorax after the procedure. These studies have been sent off for evaluation and are currently pending at the time of discharge. Fortunately, from a hemodynamic standpoint, he remained very stable during the hospitalization and was actually not needing any supplemental oxygen either. His absolute neutrophil count has trended up, as well, gradually throughout the hospitalization, and at this time he is felt stable for discharge with short-term followup with Infectious Disease as well as Oncology regarding his AML. He will discharge to continue voriconazole, which he states he has a home prescription of this medication already, as well as ertapenem 1 g IV daily. HOSPITAL COURSE BY PROBLEM: 1. Neutropenic fever-uncertain etiology, but the fevers have abated with current therapy. We will continue with outpatient IV ertapenem as well as voriconazole orally. He will have short-term followup with Infectious Disease to follow up on lung biopsy results. 2. Bilateral pulmonary infiltrates-patient is status post biopsy for further evaluation. 3. Bacteremia-patient was previously admitted to the hospital for MSSA. The patient was on vancomycin infusion prior to coming into the hospital, but at this point in time, with the broadening of his antibiotic spectrum, will be discharged to continue with ertapenem. He has been receiving meropenem here in the hospital every 8 hours. The stop date for the treatment of MSSA is listed as 10/24/2017. 4. Rash-suspected rash from antibiotic therapy, possibly cefepime or vancomycin , much improved today. Continue with supportive measures. 5. Acute myelogenous leukemia-chemotherapy agents on hold at this time. Followup later this week with Dr. Echevarria to discuss resumption recommended. 6. BPH. 7. Deep venous thrombosis prophylaxis. The patient was on Lovenox during this hospitalization. DISPOSITION: Patient appears stable for discharge home to resume home health for assistance with IV antibiotics. EXAM ON DAY OF DISCHARGE: VITAL SIGNS: Temperature 36.8, blood pressure 127/63 , heart rate 90, respirations 18, saturating 92% on room air. GENERAL: Patient appears comfortable. He is awake, alert, conversant, in no acute distress. HEART: Regular rate and rhythm. No murmurs appreciated. LUNGS: Normal respiratory effort. Clear to auscultation without significant wheezing. ABDOMEN: Soft, nontender, nondistended. : No Miguel catheter in place. EXTREMITIES: No significant pitting edema. NOTABLE STUDIES: CBC on day of discharge showed a white blood cell count of 0.83, hemoglobin 7.7, platelets 165, 50% neutrophils, 1.9% bands. Potassium 3.7 , magnesium 2.1. Most recent chest x-ray from 10/14/2017 shows no pneumothorax , improving bilateral lower lobe pneumonia. DISCHARGE MEDICATIONS: 1. Ertapenem 1 g IV daily to be completed as detailed above for MSSA. 2. Vitamin D supplementation. 3. Zofran as needed. 4. Timolol eye drops. 5. Allopurinol 300 mg daily. 6. Acyclovir 400 mg twice a day. 7. Voriconazole 200 mg twice a day. 8. Niacin 500 mg daily. 9. Tessalon Perles 100 mg 3 times a day as needed. 10. Trental 400 mg 3 times a day. 11. Flomax 0.4 mg daily. 12. Protonix 40 mg daily. DISCHARGE INSTRUCTIONS: A followup with Dr. Leonidas Holcomb in 3-5 days is recommended; also with Dr. Echevarria later this week. NOTATION: 40 minutes of time dedicated to discharge efforts. ADDENDUM: 10/15/2017. The patient was kept overnight in order to continue with his IV antibiotic therapy. We were unable to arrange for home health for yesterday evening's dosing. Essentially overnight there were no changes, clinical status or plan and he was discharged after a morning dose of ertapenem this morning. There was no reaction to the infused ertapenem and he will continue this at home with home health nursing. /[id number]/MODL and [id number]/MODL MTDD
--- NOTE | 2017-10-14 18:50 | ASMTCMCOM ---
CM Note CM Note Notes: Reviewed chart. Per ICU rounds, pt to stay another day secondary to pulmonary infiltrates and need for IV antibiotics. Call received from KALA Yu late afternoon. Per MD, pt to discharge home with home health care today. Two calls placed to [facility]. Call back received from Shweta on-call RN. Per Shweta, no staff available to start care until Sunday10/15/17. Discharge orders and paperwork sent via [employer]; confirmed receipt. Call placed to [facility]. Spoke with Juve Cason. Per Kamla, unable to deliver antibiotics prior to 0900 med administration time scheduled for Sunday10/15/17 secondary to late notice. Kamla also explained [facility] will not start administering a medication that has not previously been given in the hospital. Pt being switched from Merrem to Ertapenem. Pt must receive first dose of Ertapenem in the hospital prior to home administration to assess for possible allergic reaction and potential complications. Discharge orders and paperwork sent to [facility] via [employer]. Update provided to Aimee Iyer RN and pt. Discharge postponed to Sunday10/15/17. Dr. Fofana to complete new Transfer of Care Summary on Sunday. Pt to discharge home with [facility] following morning dose of Ertapenem. CM will continue to follow. Discharge Plan: Home with [facility] (RN) and [facility] (IV antibiotics) Date Signed: 10/14/2017 06:50 PM Electronically Signed By:Kamini Grullon RN
[2017-10-14] MEDS: ACETAMN/DIPHENHYDRAMINE 500/25MG TAB PO SCH (20:42)
[2017-10-15 07:37] LABS: PLATELET COUNT 196 10^3/uL (150-400)
[2017-10-15 08:14] VITALS: BP 127/70
[2017-10-15] MEDS ORDERED: POTASSIUM CL 10 MEQ TAB PO ONE (08:51)
--- NOTE | 2017-10-15 08:59 | PDIAF ---
- Diagnosis Diagnosis: MSSA bacteremia Code Status: Full Code - Medication Management Discharge Medications: Medications to Continue on Transfer Cholecalciferol (Vitamin D3) [Vitamin D3] 5,000 unit PO HS 08/16/14 [Last Taken 10/08/17] Ondansetron Odt [Zofran Odt 4 mg (*)] 4 mg PO Q4HRS PRN #30 tab 06/20/17 [Last Taken 10/08/17 18:30] Acetaminophen [Tylenol ES 500 mg (*)] 500 mg PO BID PRN 09/24/17 [Last Taken ] Acetamn/Diphenhydramine 500/25 [Tylenol PM (*)] 1 each PO HS 09/24/17 [Last Taken 10/08/17] Acyclovir [Zovirax 400 mg (*)] 400 mg PO BID 09/24/17 [Last Taken 10/08/17 22:00 ] Allopurinol [Allopurinol 300 MG (RX)] 300 mg PO AD 09/24/17 [Last Taken Unknown] Timolol 0.5% [TIMOPTIC 0.5% (*)] 1 drops LEFTEYE DAILY 09/24/17 [Last Taken ] Benzonatate [Tessalon Pearles] 100 mg PO TID PRN 10/08/17 [Last Taken 10/08/17] Niacin ER [Niaspan 500 mg (*)] 500 mg PO DAILY 10/08/17 [Last Taken Unknown] Voriconazole [Vfend 200MG (*)] 200 mg PO BID 10/08/17 [Last Taken Unknown] Pantoprazole Sodium [Protonix 40mg (*)] 40 mg PO DAILY10 10/09/17 [Last Taken ] Pentoxifylline [TRENTAL 400mg (*)] 400 mg PO TID@,,10/09/17 [Last Taken 10/08/17 22:00] Tamsulosin HCl [Flomax 0.4 MG (*)] 0.4 mg PO DAILY10 10/09/17 [Last Taken ] Clobetasol 0.05% [Temovate Cream] 1 danis TP BID #30 gr 10/14/17 [Last Taken Unknown] Ertapenem [INVanz] 1 gm IV DAILY vial 10/14/17 [Last Taken Unknown] Enasidenib Mesylate [Idhifa] 100 mg PO DAILY #1 tablet 10/15/17 [Last Taken Unknown] Photographer Helper Antibiotics: ertapenem 1gm IV daily [facility] Antibiotic Stop Date: 10/24/17 Discharge Medications: Refer to the Discharge Home Medication list for PRN reason. PICC Care - Routine: Yes - Orders Services needed: Home Care, Registered Nurse Home Care Face to Face: I certify that this patient was under my care and that I had the required gint-ob-uifs encounter meeting the encounter requirements on the discharge day. My findings support the fact that the patient is homebound as defined in Home Care Face to Face Continued: CMS Chapter 7 Medicare Benefits Manual 30.1.1 , The condition of the patient is such that there exists a normal inability to leave home and consequently, leaving home would require a considerable and taxing effort. Isolation Type: Chemotherapy Isolation, Neutropenic Isolation Diet Recommendation: no restrictions on diet Diet Texture: Regular Texture Diet - Labs/Radiology CBC w/diff Date: 10/15/17 (weekly sunday) CMP Date: 10/15/17 (weekly sunday) Call or Fax Lab and Imaging Results to: Leonidas Holcomb MD [phone] - Follow Up Care Current Providers and Referrals: Leonidas Holcomb MD [Medical Doctor] - 3-5 days MARINA BARNETT [Primary Care Provider] - As per Instructions
[2017-10-15] MEDS: PENTOXIFYLLINE 400 MG EXT REL TAB PO SCH (09:00)
[2017-10-15] MEDS ORDERED: ERTAPENEM 1 GM in NS 100 ML IV SCH (09:00)
[2017-10-15] MEDS: ACYCLOVIR 400 MG TAB PO SCH (09:00)
[2017-10-15] MEDS: PANTOPRAZOLE SODIUM 40 MG TAB PO SCH (09:00)
[2017-10-15] MEDS: VORICONAZOLE 200 MG TAB PO SCH (09:00)
[2017-10-15] MEDS: ENOXAPARIN 40 MG/0.4 ML SYR SC SCH (09:00)
[2017-10-15] MEDS: TIMOLOL 0.5% 15 ML OPHT.BTL LEFTEYE SCH (09:01)
[2017-10-15] MEDS: TAMSULOSIN HCL 0.4 MG CAP PO SCH (09:01)
[2017-10-15] MEDS: CLOBETASOL 0.05% 15 GM CRTUBE TP SCH ×2 (09:01→09:05)
--- NOTE | 2017-10-15 14:35 | ASDISCHSUM ---
Discharge Information Plan Status:Home with Home Health Medically Cleared to Leave:10/15/2017 Discharge Date:10/15/2017 11:35 AM CM D/C Disposition:Home Health Service [facility] Discharge Date:10/14/2017 11:00 AM Transportation at D/C:Family Discharge Delay Reason: Follow-Up Date:10/14/2017 11:00 AM Discharge Slot: Final Diagnosis: Placement Information Referral Type:*Home Health Care Services Referral ID:[id number] Provider Name:[facility] [place] ([facility]ENDING S[facility] TO [facility]) Address 1:[address] Address 2: City:[place] Selection Factors: State:[place] Referral Type:Home Infusion Referral ID:[id number] Provider Name:[facility] [place] ([facility]) Address 1:[address] Address 2: City:[place] Selection Factors: State:[place] Patient Contact Information Contact Name:FANNY Relationship: Address:[address] [place] [address] [address] City:[facility] Phone: [facility]/Zip Code:[place] [address] Email: Financial Information Financial Class:Medicare Primary Plan Desc:MEDICARE INPATIENT Primary Plan Number:[id number] Secondary Plan Desc:One Season Secondary Plan Number:[id number] Assessment Information LACE LACE Length of stay for Answers: 4-6 days current admission Acuity / Level of Answers: Yes Care: Did the patient have an inpatient admission? Comorbidities - select Answers: Any tumor (including all that apply lymphoma or leukemia) Congestive heart failure Opioid dependence / Chronic pain Other Notes: GERD; BPH # of Emergency department Answers: 1-2 visits in the last 6 months Score: 17 Date Signed: 10/15/2017 02:32 PM Electronically Signed By:Payal Logan RN [facility] Initial CM Assessment Living Arrangements What is your living Answers: With Spouse arrangement? Who do you live with? Type Of Residence What kind of residence do Answers: House you live in? Discharge Plan Comments Coordination Status Comments Notes: Pt is a 72 y/o man admitted for a fever. Pt was recently here at [facility] from 09/24/17 to 09/30/17. Pt was d/c on vanco continuous infusion. Pt was d/c w/ [facility] Updates sent to [facility] ID is consulting on this case. Needs are TBD at this time. CM to follow. Plan: TBD Date Signed: 10/09/2017 03:45 PM Electronically Signed By:SEJAL Silva [facility] CM Progress Note CM Note CM Note Notes: Spoke with Suad Swan, [place] who was checking on the patient. He is open with them. D/C plan is still TBD but likely will return to home health care. No therapies ordered. CM will follow. Date Signed: 10/12/2017 05:00 PM Electronically Signed By:Maya Alonzo LCSW [facility] CM Progress Note CM Note CM Note Notes: Orestes Anderson states patient will be ready for d/c tomorrow October 14, 2017. Contacted [facility] via telephone to let them know. Sent updated referral including the transfer of care summary.CM will follow. Date Signed: 10/13/2017 12:53 PM Electronically Signed By:Maya Alonzo LCSW [facility] Progress Note CM Note CM Note Notes: Reviewed chart. Per ICU rounds, pt to stay another day secondary to pulmonary infiltrates and need for IV antibiotics. Call received from KALA Yu late afternoon. Per MD, pt to discharge home with home health care today. Two calls placed to [facility]. Call back received from Shweta on-call RN. Per Shweta, no staff available to start care until Sunday10/15/17. Discharge orders and paperwork sent via Room 77; confirmed receipt. Call placed to [facility]. Spoke with Kamla Pharmacist. Per Kamla, unable to deliver antibiotics prior to 0900 med administration time scheduled for Sunday10/15/17 secondary to late notice. Kamla also explained [facility] will not start administering a medication that has not previously been given in the hospital. Pt being switched from Merrem to Ertapenem. Pt must receive first dose of Ertapenem in the hospital prior to home administration to assess for possible allergic reaction and potential complications. Discharge orders and paperwork sent to [facility] via Room 77. Update provided to Aimee Iyer, RN and pt. Discharge postponed to Sunday10/15/17. Dr. Fofana to complete new Transfer of Care Summary on Sunday. Pt to discharge home with [facility] and [facility] following morning dose of Ertapenem. CM will continue to follow. Discharge Plan: Home with [facility] (RN) and [facility] (IV antibiotics) Date Signed: 10/14/2017 06:50 PM Electronically Signed By:Kamini Grullon RN Case Management Discharge Plan Note Case Management Discharge Discharge Order Complete? Answers: Yes Patient to Obtain Answers: Other Notes: [facility] Transportation Arranged Answers: Family/Friends Faxed Final Orders Answers: Yes Agency/Facility Transfer Answers: Yes Report Printed & Faxed to Receiving Agency Family Notified Answers: Yes Discharge Comments Notes: 10/15/2017 Case Management Note Pt discharged with [facility] infusion services. Faxed final orders to both agencies. Confirmed discharge plan with both agencies. Family transported pt home. No further case management d/c needs identified. Date Signed: 10/15/2017 02:34 PM Electronically Signed By:Payal Logan RN Intervention Information
--- NOTE | 2017-10-23 09:09 | PQFORM ---
PHYSICIAN QUERY FORM Needs Your Response This query form is being sent to you to assure this patient record is coded properly. Please respond to the question below: ROTARY DRUM TANNER QUESTION: Dr Fofana Chart documentation/Progress Notes mention diagnosis of Sepsis/Severe Sepsis but only Bacteremia is noted on the Discharge Summary. Which diagnosis best reflects patients condition? ___ Bacteremia ___ Sepsis/Severe Sepsis ___ Sepsis ___ Other (please Specify ) ___ Unable to determine Thank You Samira WEBER [employer] Patrol Officer INSTRUCTIONS FOR RESPONSE: Answer question by clicking on the "Edit Document" button. Move cursor to area below the stars. When complete, hit "Save." Click on the "Sign" button, then click "Sign" again. Type in your PIN and hit "Enter." Sepsis present. Patient presenting with neutropenic fever. George KITCHEN
== END 2017-10-15 11:35 | disposition home health service (06) | DRG 853 ==
LOC: EDUNIT# → F1N 23:50 → F2N 10-09 19:49
PROVIDERS: ADMIT Family Medicine; ATTEND Family Medicine
PROC: 0BBL8ZX Excision of Left Lung, Via Natural or Artificial Opening Endoscopic, Diagnostic (ICD-10-PCS; principal; 2017-10-09 13:00)
PROC: 0BBB8ZX Excision of Left Lower Lobe Bronchus, Via Natural or Artificial Opening Endoscopic, Diagnostic (ICD-10-PCS; principal; 2017-10-09 13:00)
PROC: 0BB68ZX Excision of Right Lower Lobe Bronchus, Via Natural or Artificial Opening Endoscopic, Diagnostic (ICD-10-PCS; principal; 2017-10-09 13:00)
PROC: 0BBF3ZX Excision of Right Lower Lung Lobe, Percutaneous Approach, Diagnostic (ICD-10-PCS; 2017-10-13)
DX: A41.01 Sepsis due to Methicillin susceptible Staphylococcus aureus (principal); R65.20 Severe sepsis without septic shock; D70.9 Neutropenia, unspecified; T45.1X5A Adverse effect of antineoplastic and immunosuppressive drugs, initial encounter; C92.Z0 Other myeloid leukemia not having achieved remission; J18.9 Pneumonia, unspecified organism; S00.512A Abrasion of oral cavity, initial encounter; W19.XXXA Unspecified fall, initial encounter; Y92.230 Patient room in hospital as the place of occurrence of the external cause; G93.40 Encephalopathy, unspecified; R19.7 Diarrhea, unspecified; L27.0 Generalized skin eruption due to drugs and medicaments taken internally; D61.811 Other drug-induced pancytopenia; K21.9 Gastro-esophageal reflux disease without esophagitis; N40.0 Benign prostatic hyperplasia without lower urinary tract symptoms; Z96.641 Presence of right artificial hip joint; Z87.891 Personal history of nicotine dependence
CPT/HCPCS: 86635-90; 87385-90; 87449-90; J0171; J0692; J1200; J1335; J1650; J2175; J2185; J2250; J2310; J2405; J3010; J3370; J3465; J3475; J3480; J7613; P9016; P9040

== ENCOUNTER 2017-11-14 10:29 | Observation (INO) | payer OTHER ==
--- NOTE | 2017-11-14 10:29 | EDPHY ---
H & P Time Seen by Provider: 11/14/17 10:30 Constitutional: Initial Vital Signs Temperature (C) 37.0 C 11/14/17 10:34 Heart Rate 99 11/14/17 10:34 Respiratory Rate 18 11/14/17 10:34 Blood Pressure 122/72 H 11/14/17 10:34 O2 Sat (%) 99 11/14/17 10:34 O2 Delivery Mode Room Air Allergies/Adverse Reactions: tacrolimus Allergy (Unknown, Verified 11/14/17 10:37) Rash adhesive tape Allergy (Verified 11/14/17 10:37) vancomycin Allergy (Verified 11/14/17 13:46) Rash ALL SEAFOOD Allergy (Uncoded 05/24/17 12:00) Home Medications: Medication Instructions Recorded Cholecalciferol (Vitamin D3) 5,000 unit PO HS 08/16/14 [Vitamin D3] Ondansetron Odt [Zofran Odt 4 mg 4 mg PO Q4HRS PRN #30 tab 06/20/17 (*)] Acetaminophen [Tylenol ES 500 mg 500 mg PO BID PRN 09/24/17 (*)] Acetamn/Diphenhydramine 500/25 1 each PO HS 09/24/17 [Tylenol PM (*)] Acyclovir [Zovirax 400 mg (*)] 400 mg PO BID 09/24/17 Allopurinol [Allopurinol 300 MG 300 mg PO AD 09/24/17 (RX)] Timolol 0.5% [TIMOPTIC 0.5% (*)] 1 drops LEFTEYE DAILY 09/24/17 Pantoprazole Sodium [Protonix 40mg 40 mg PO DAILY10 10/09/17 (*)] Tamsulosin HCl [Flomax 0.4 MG (*)] 0.4 mg PO DAILY10 10/09/17 Enasidenib Mesylate [Idhifa] 100 mg PO DAILY14 11/14/17 Medical Decision Making ED Course/Re-evaluation: CHIEF COMPLAINT: Syncope HISTORY OF PRESENT ILLNESS: This patient is a 72 year old male with history of leukemia arriving via EMS following a syncopal episode. He was sitting at the breakfast bar this morning and had a near-syncopal episode. He does not feel he completely lost consciousness, but per EMS report his endorses a brief LOC. The patient denies striking his head or any trauma. The patient has had two prior syncopal episodes, both associated with fever. The first was following a hip replacement operation with considerable intraoperative blood loss. The second was after sitting from lying down in bed. EMS reports positive orthostatic hypotension. The patient states he currently feels completely well. He notes he is planning to travel to [facility] [place] in [place] for his regular followup for Leukemia this Sunday. He is currently on various oral chemotherapy treatments. He denies fever, chest pain, shortness of breath, weakness, numbness or paresthesias, vomiting, diarrhea, urinary complaints, or other associated symptoms. REVIEW OF SYSTEMS: A comprehensive 10 system review of systems is otherwise negative aside from elements mentioned in the history of present illness and medical decision making. PHYSICAL EXAM: HR, BP, O2 Sat, RR. Temp noted General Appearance: Alert, well hydrated, appropriate, and non-toxic appearing. Head: Atraumatic without scalp tenderness or obvious injury Eyes: Pupils equal, round, reactive to light and accommodation, EOMI, no trauma , no injection. Ears: Clear bilaterally, no perforation, normal landmarks Nose: Atraumatic, no rhinorrhea, clear. Throat: There is no erythema or exudates, no lesions, normal tonsils, mucus membranes moist. Neck: Supple, 2+ carotid upstroke, nontender, no lymphadenopathy. Respiratory: No retractions, no distress, no wheezes, and no accessory muscle use. Lungs are clear to auscultation bilaterally. Cardiovascular: Regular rate and rhythm, no murmurs, rubs, or gallops. Bilateral carotid, radial, dorsalis pedis, and posterior tibial pulses intact. Good capillary refill all extremities. Gastrointestinal: Abdomen is soft, nontender, non-distended, no masses, no rebound, no guarding, no peritoneal signs. Musculoskeletal: Normal active ROM of all extremities, atraumatic. Neurological: Alert, appropriate, and interactive. The patient has normal DTRs and non-focal cranial nerves, motor, sensory, and cerebellar exam. Skin: No rashes, good turgor, no nodules on palpation. Past medical history: Leukemia. Past surgical history: Orthopedic surgeries Family history: Noncontributory Social history: . Lives in [place]. Retired. Does not abuse tobacco, drugs, or alcohol. DIAGNOSTICS/PROCEDURES/CRITICAL CARE TIME: 10:40 The 12 lead EKG was interpreted by myself. See hard copy and/or "tracemaster" electronic copy for interpretation. Sinus rhythm, prolonged QT. QTc is >500. DIFFERENTIAL DIAGNOSIS: The differential diagnosis for the patient's syncope included but was not limited to vasovagal syncope, arrhythmia, dehydration, cardiogenic causes, neurogenic causes, and blood loss. MEDICAL DECISION MAKIN72 y/o male with history of leukemia presents following a syncopal episode at breakfast. Plan for EKG, labs including CBC, chemistries, troponin, coag panel, lactic acid. Patient is neutropenic, WBC 0.5. Troponin negative at 0.01. Lactic acid negative at 1.7. As above, EKG shows prolonged QT with a corrected QT greater than 500. Plan to consult with cardiology. 11:[address] Evangelista, supervisor gluing. She recommends admission for further workup. 11:38 Reassessed. Discussed laboratory and EKG results as well as supervisor gluing recommendation for admission. The patient is amenable to this. 11:45 Spoke with hospitalist service. Dr. Cai accepts admission to PCU for syncope, prolonged QT, neutropenia. - Data Points Laboratory Results: Laboratory Results 11/14/17 10:30 11/14/17 10:30 11/14/17 11/14/17 11/14/17 10:42 10:38 10:37 WBC RBC Hgb POC Hgb 10.9 gm/dL L gm/dL (13.7-17.5) Hct POC Hct 32 % L % (40-51) MCV MCH MCHC RDW Plt Count MPV Neut % (Auto) Lymph % (Auto) [place] % (Auto) Eos % (Auto) Baso % (Auto) Nucleat RBC Rel Count Absolute Neuts (auto) Absolute Lymphs (auto) Absolute Monos (auto) Absolute Eos (auto) Absolute Basos (auto) Absolute Nucleated RBC Immature Gran % Immature Gran # Smear Review By PT INR APTT VBG Lactic Acid 1.7 mmol/L mmol/L (0.7-2.1) POC Sodium 141 mEq/L mEq/L (135-145) Sodium POC Potassium 3.2 mEq/L L mEq/L (3.3-5.0) Potassium POC Chloride 104 mEq/L mEq/L (97-110) Chloride Carbon Dioxide Anion Gap POC BUN 13 mg/dL mg/dL (7-23) BUN Creatinine POC Creatinine 0.7 mg/dL mg/dL (0.7-1.3) Estimated GFR Glucose POC Glucose 122 mg/dL H mg/dL (70-100) Calcium Total Bilirubin Conjugated Bilirubin Unconjugated Bilirubin POC Troponin I 0.01 ng/mL ng/mL (0.00-0.08) 11/14/17 11/14/17 11/14/17 10:30 10:30 10:30 WBC 0.53 10^3/uL L* 10^3/uL (3.80-9.50) RBC 3.11 10^6/uL L 10^6/uL (4.40-6.38) Hgb 10.2 g/dL L g/dL (13.7-17.5) POC Hgb Hct 30.8 % L % (40.0-51.0) POC Hct MCV 99.0 fL fL (81.5-99.8) MCH 32.8 pg pg (27.9-34.1) MCHC 33.1 g/dL g/dL (32.4-36.7) RDW 19.5 % H % (11.5-15.2) Plt Count 136 10^3/uL L 10^3/uL (150-400) MPV 9.9 fL fL (8.7-11.7) Neut % (Auto) Not Reported Lymph % (Auto) Not Reported [place] % (Auto) Not Reported Eos % (Auto) Not Reported Baso % (Auto) Not Reported Nucleat RBC Rel Count Not Reported Absolute Neuts (auto) Not Reported Absolute Lymphs (auto) Not Reported Absolute Monos (auto) Not Reported Absolute Eos (auto) Not Reported Absolute Basos (auto) Not Reported Absolute Nucleated RBC Not Reported Immature Gran % Not Reported Immature Gran # Not Reported Smear Review By Pending PT 13.6 SEC SEC (12.0-15.0) INR 1.02 (0.83-1.16) APTT 29.8 SEC SEC (23.0-38.0) VBG Lactic Acid POC Sodium Sodium 141 mEq/L mEq/L (135-145) POC Potassium Potassium 3.5 mEq/L mEq/L (3.3-5.0) POC Chloride Chloride 105 mEq/L mEq/L (97-110) Carbon Dioxide 23 mEq/l mEq/l (22-31) Anion Gap 13 mEq/L mEq/L (8-16) POC BUN BUN 14 mg/dL mg/dL (7-23) Creatinine 0.7 mg/dL mg/dL (0.7-1.3) POC Creatinine Estimated GFR > 60 Glucose 118 mg/dL H mg/dL (70-100) POC Glucose Calcium 8.8 mg/dL mg/dL (8.5-10.4) Total Bilirubin 3.5 mg/dL H mg/dL (0.1-1.4) Conjugated Bilirubin 0.3 mg/dL mg/dL (0.0-0.5) Unconjugated Bilirubin 3.2 mg/dL H mg/dL (0.0-1.1) POC Troponin I Medications Given: Sodium Chloride (Ns) 1,000 mls @ 150 mls/hr IV CONT CARLOS Stop: 11/14/17 23:59 Last Admin: 11/14/17 14:00 Dose: 1,000 mls Discontinued Medications Sodium Chloride (Ns) 1,000 mls @ 0 mls/hr IV EDNOW ONE; Wide Open PRN Reason: Protocol Stop: 11/14/17 10:37 Last Admin: 11/14/17 10:45 Dose: 1,000 mls Point of Care Test Results: Chemistry 11/14/17 11/14/17 10:38 10:37 POC Sodium 141 mEq/L mEq/L (135-145) POC Potassium 3.2 mEq/L L mEq/L (3.3-5.0) POC Chloride 104 mEq/L mEq/L (97-110) POC BUN 13 mg/dL mg/dL (7-23) POC Creatinine 0.7 mg/dL mg/dL (0.7-1.3) POC Glucose 122 mg/dL H mg/dL (70-100) POC Troponin I 0.01 ng/mL ng/mL (0.00-0.08) ISTAT H&H 11/14/17 10:38 POC Hgb 10.9 gm/dL L gm/dL (13.7-17.5) POC Hct 32 % L % (40-51) Departure - Departure Disposition: [facility] Inpatient Acute Clinical Impression: Prolonged QT interval Neutropenia Qualifiers: Neutropenia type: secondary to cancer chemotherapy Qualified Code(s): D70.1 - Agranulocytosis secondary to cancer chemotherapy Syncope Qualifiers: Syncope type: unspecified Qualified Code(s): R55 - Syncope and collapse Condition: Fair Report Scribed for: Juan C Mullen Report Scribed by: Pauline Murguia Date of Report: 11/14/17 Time of Report: 16:00
[2017-11-14] MEDS ORDERED: NS 1,000 ML IV ONE (10:36)
[2017-11-14 10:50] LABS: INR 1.02 (0.83-1.16); PROTIME(PATIENT) 13.6 SEC (12.0-15.0)
[2017-11-14 11:38] LABS: PLATELET COUNT 136 10^3/uL (150-400)
[2017-11-14] MEDS ORDERED: ACETAMINOPHEN 325 MG TAB PO PRN (11:57)
[2017-11-14] MEDS ORDERED: ONDANSETRON 4 MG/2 ML VIAL IVP PRN (11:57)
[2017-11-14] MEDS ORDERED: ONDANSETRON DISINTEGRATING 4 MG TAB PO PRN (11:57)
--- NOTE | 2017-11-14 12:46 | PDGENHP ---
History and Physical - Chief Complaint LOC - History of Present Illness Mr. Crisostomo is a 72 yo M with a PMHX of AML currently on chemotherapy, recent admission for pneumonia, who presents to [facility] today for syncope. His is at the bedside who has helped with history taking. They report that patient was sitting eating breaking this morning and had an episode of LOC. Patient reports he felt lightheaded prior to event. His reports he lost consciousness for seconds but did not fall or sustain any trauma. He has had prior syncopal events in the past, once during his last admission and the other time after hip surgery. He denies any associated chest pain, palpitations, SOB , weakness, slurred speech, seizure like activity, vision/hearing changes. He did not lose bowel or bladder continence. He does report some occasional lightheadedness while going to supine to sitting or standing recently. He reports no issues with urination. He reports a good appetite and has been eating/drinking as usual prior to admission. History Information - Allergies/Home Medication List Allergies/Adverse Reactions: tacrolimus Allergy (Unknown, Verified 11/14/17 10:37) Rash adhesive tape Allergy (Verified 11/14/17 10:37) vancomycin Allergy (Verified 11/14/17 10:37) ALL SEAFOOD Allergy (Uncoded 05/24/17 12:00) Home Medications: Cholecalciferol (Vitamin D3) [Vitamin D3] 5,000 unit PO HS 08/16/14 [Last Taken 10/08/17] Acetaminophen [Tylenol ES 500 mg (*)] 500 mg PO BID PRN 09/24/17 [Last Taken ] Acetamn/Diphenhydramine 500/25 [Tylenol PM (*)] 1 each PO HS 09/24/17 [Last Taken 10/08/17] Acyclovir [Zovirax 400 mg (*)] 400 mg PO BID 09/24/17 [Last Taken 10/08/17 22:00 ] Allopurinol [Allopurinol 300 MG (RX)] 300 mg PO AD 09/24/17 [Last Taken Unknown] Timolol 0.5% [TIMOPTIC 0.5% (*)] 1 drops LEFTEYE DAILY 09/24/17 [Last Taken ] Benzonatate [Tessalon Pearles] 100 mg PO TID PRN 10/08/17 [Last Taken 10/08/17] Niacin ER [Niaspan 500 mg (*)] 500 mg PO DAILY 10/08/17 [Last Taken Unknown] Voriconazole [Vfend 200MG (*)] 200 mg PO BID 10/08/17 [Last Taken Unknown] Pantoprazole Sodium [Protonix 40mg (*)] 40 mg PO DAILY10 10/09/17 [Last Taken ] Pentoxifylline [TRENTAL 400mg (*)] 400 mg PO TID@,,10/09/17 [Last Taken 10/08/17 22:00] Tamsulosin HCl [Flomax 0.4 MG (*)] 0.4 mg PO DAILY10 10/09/17 [Last Taken ] I have personally reviewed and updated: family history, medical history, social history, surgical history - Past Medical History Additional medical history: AML on chemotherapy - Surgical History Additional surgical history: Hip replacement surgery - Family History Negative for: sudden - Social History Smoking Status: Former smoker Review of Systems Review of Systems: ROS: 10pt was reviewed & negative except for what was stated in HPI & below Physical Exam Physical Exam: Temp Pulse Resp BP Pulse Ox 37.0 C 96 18 106/82 H 99 11/14/17 10:34 11/14/17 12:23 11/14/17 12:23 11/14/17 12:23 11/14/17 12:23 Constitutional: no apparent distress Eyes: PERRL Ears, Nose, Mouth, Throat: moist mucous membranes Cardiovascular: regular rate and rhythym, pulses symmetric bilaterally, No JVD, No edema Respiratory: no respiratory distress, clear to auscultation Gastrointestinal: normoactive bowel sounds, soft, non-tender abdomen Genitourinary: no bladder tenderness Skin: warm Musculoskeletal: full muscle strength, normal joint ROM, No generalized weakness Neurologic: AAOx3, CN II-XII Intact, No weakness Psychiatric: interacting appropriately Lymph, Heme, Immunologic: No ecchymoses, No petechiae Lab Data & Imaging Review 11/14/17 10:30 11/14/17 10:30 WBC 0.53 10^3/uL (3.80-9.50) L* 11/14/17 10:30 RBC 3.11 10^6/uL (4.40-6.38) L 11/14/17 10:30 Hgb 10.2 g/dL (13.7-17.5) L 11/14/17 10:30 POC Hgb 10.9 gm/dL (13.7-17.5) L 11/14/17 10:38 Hct 30.8 % (40.0-51.0) L 11/14/17 10:30 POC Hct 32 % (40-51) L 11/14/17 10:38 MCV 99.0 fL (81.5-99.8) 11/14/17 10:30 MCH 32.8 pg (27.9-34.1) 11/14/17 10:30 MCHC 33.1 g/dL (32.4-36.7) 11/14/17 10:30 RDW 19.5 % (11.5-15.2) H 11/14/17 10:30 Plt Count 136 10^3/uL (150-400) L 11/14/17 10:30 MPV 9.9 fL (8.7-11.7) 11/14/17 10:30 Neut % (Auto) Not Reported 11/14/17 10:30 Lymph % (Auto) Not Reported 11/14/17 10:30 [place] % (Auto) Not Reported 11/14/17 10:30 Eos % (Auto) Not Reported 11/14/17 10:30 Baso % (Auto) Not Reported 11/14/17 10:30 Nucleat RBC Rel Count Not Reported 11/14/17 10:30 Absolute Neuts (auto) Not Reported 11/14/17 10:30 Absolute Lymphs (auto) Not Reported 11/14/17 10:30 Absolute Monos (auto) Not Reported 11/14/17 10:30 Absolute Eos (auto) Not Reported 11/14/17 10:30 Absolute Basos (auto) Not Reported 11/14/17 10:30 Absolute Nucleated RBC Not Reported 11/14/17 10:30 Immature Gran % Not Reported 11/14/17 10:30 Immature Gran # Not Reported 11/14/17 10:30 PT 13.6 SEC (12.0-15.0) 11/14/17 10:30 INR 1.02 (0.83-1.16) 11/14/17 10:30 APTT 29.8 SEC (23.0-38.0) 11/14/17 10:30 VBG Lactic Acid 1.7 mmol/L (0.7-2.1) 11/14/17 10:42 POC Sodium 141 mEq/L (135-145) 11/14/17 10:38 Sodium 141 mEq/L (135-145) 11/14/17 10:30 POC Potassium 3.2 mEq/L (3.3-5.0) L 11/14/17 10:38 Potassium 3.5 mEq/L (3.3-5.0) 11/14/17 10:30 POC Chloride 104 mEq/L (97-110) 11/14/17 10:38 Chloride 105 mEq/L (97-110) 11/14/17 10:30 Carbon Dioxide 23 mEq/l (22-31) 11/14/17 10:30 Anion Gap 13 mEq/L (8-16) 11/14/17 10:30 POC BUN 13 mg/dL (7-23) 11/14/17 10:38 BUN 14 mg/dL (7-23) 11/14/17 10:30 Creatinine 0.7 mg/dL (0.7-1.3) 11/14/17 10:30 POC Creatinine 0.7 mg/dL (0.7-1.3) 11/14/17 10:38 Estimated GFR > 60 11/14/17 10:30 Glucose 118 mg/dL (70-100) H 11/14/17 10:30 POC Glucose 122 mg/dL (70-100) H 11/14/17 10:38 Calcium 8.8 mg/dL (8.5-10.4) 11/14/17 10:30 Total Bilirubin 3.5 mg/dL (0.1-1.4) H 11/14/17 10:30 Conjugated Bilirubin 0.3 mg/dL (0.0-0.5) 11/14/17 10:30 Unconjugated Bilirubin 3.2 mg/dL (0.0-1.1) H 11/14/17 10:30 POC Troponin I 0.01 ng/mL (0.00-0.08) 11/14/17 10:37 Visualized and Interpreted EKG results: Yes EKG Interpretation: Positive for: normal sinsus rhythm, other (Long QT ~530). Negative for: ST elevation, ST depression Assessment & Plan Assessment: Syncope- Acute - Patient had episode of LOC this morning while eating breakfast, reports feeling LH prior to event - Has happen twice in the past, once after hip surgery and once during hospitalization with position changes - Differential includes: Orthostatic Hypotension, Vasovagal syncope, arrythmia, AL, CVA, seizure, neurogenic - Seems orthostatic/vagal given symptoms prior to event, EMS reports positive orthostatics on scene - No focal deficits, no head trauma, will defer head imaging for now, if change in clinical status will perform - S/p 1L IVF in ED, will give NS @150 for next 12 hours to rehydrate - Cardiology consulted in ED for long QT seen on EKG, no prior EKGs to compare, will f/u on their recommendations - Negative Troponin in ED, denies any chest pain - TTE done in 09/2015 to r/o endocarditis, mod MR seen and mild TR, will ask cardiology if repeat needed - Monitor on telemetry overnight Long QT- Acute - Seen on EKG from today, recorded as QTc 530 - No prior EKG to compare - Will discuss with cardiology for further recommendations Unconjugated Hyperbilirubinemia- Acute - T Bili 3.5 on admission, Unconjugated Bili 3.2 - Likely elevated in setting of AML, chemotherapy - Continue to monitor for now Pancytopenia - WBC, Hgb, Platelets decreased - Appears baseline for patient 2/2 to AML and chemotherapy - Continue to monitor CBC, transfuse as needed AML - Currently follows with MD Robb in [place] - Taking oral Idhifa (Enasidenib) daily, will continue as IP - Also receiving Vidaza (Azacitidine) as outpatient every 14 days - If oncologic issues arise will consult Oncology FEN: S/p 1L NS, continue 150 ml/hr for 12 hours Ppx: Lovenox Code: Full Dispo: Admit to Observation, pending clinical course
--- NOTE | 2017-11-14 13:44 | CPEKG ---
Test Reason : OPEN Blood Pressure : / mmHG Vent. Rate : 090 BPM Atrial Rate : 090 BPM P-R Int : 148 ms QRS Dur : 099 ms QT Int : 433 ms P-R-T Axes : 068 079 067 degrees QTc Int : 530 ms Sinus rhythm Prolonged QT interval Confirmed by Juan C Mullen ([id number]) on 11/14/2017 1:44:11 PM Referred By: Confirmed By:Juan C Mullen
[2017-11-14] MEDS: NS 1,000 ML IV SCH ×2 (14:00→21:47)
--- NOTE | 2017-11-14 14:44 | PDCONSULT ---
Front Office Spec Note: Hematology/oncology consultation note Reason for physician: Chai Cai History of present illness: Mr. Jules is a very pleasant 72-year-old female with history of IDH mutated acute myeloid leukemia currently receiving venetoclax, azacitidine and ensidenib who was admitted for syncopal episode. He is on his third cycle of Aza /Venetoclax with the last day of Aza being 10/27 and last dose of Venetoclax being 11/07. He has tolerated therapy well and is achieved a complete remission. His therapy has been complicated by multiple infections including MSSA bacteremia alongside pneumonia. He presents today to the emergency department due to a syncopal episode. He states that early in the day he was standing in the kitchen with his and lost consciousness. He had no preceding palpitations, chest pain. He did feel slightly lightheaded prior to the event. His observed his syncope and stated that he did not fall or hit his head. He was out for 1-2 minutes. He had no convulsive symptoms. He then awoke back to his normal consciousness. He now reports feeling well. He has no complaints otherwise. He has no fevers or chills. Past medical history Acute myeloid leukemia MSSA bacteremia. Past surgical history Right hip arthroplasty Ankle repair newly right cataract surgery Family history Mother with lung cancer. Father with cerebrovascular accident Social history . Currently no tobacco use. Occasional alcohol use. Allergies Tacrolimus, vancomycin, adhesive tape, seafood. Medications reviewed in electronic medical record system Review of systems: 12 point review of systems obtained otherwise negative. Temp Pulse Resp BP Pulse Ox 36.9 C 83 17 130/75 H 100 11/14/17 13:17 11/14/17 13:17 11/14/17 13:17 11/14/17 13:17 11/14/17 13:17 General: Pleasant-appearing male appears in no acute distress company by his . Eating his lunch comfortably. HEENT: Opiates clear extremities are intact pupils equal round reactive to light Cardiovascular regular rate and rhythm no murmurs gallops rubs Pulmonary: Clear to auscultation bilaterally Abdomen soft nontender nondistended bowel sounds present no hepatosplenomegaly Skin no skin lesions Lymph: No lymph nodes enlarged. Psych: Appropriate affect Neuro: Moving all extremities sensation is intact LABORATORY 11/14/17 11/14/17 11/14/17 10:42 10:38 10:37 WBC RBC Hgb POC Hgb 10.9 gm/dL L gm/dL (13.7-17.5) Hct POC Hct 32 % L % (40-51) MCV MCH MCHC RDW Plt Count MPV Neut % (Auto) Lymph % (Auto) [place] % (Auto) Eos % (Auto) Baso % (Auto) Nucleat RBC Rel Count Absolute Neuts (auto) Absolute Lymphs (auto) Absolute Monos (auto) Absolute Eos (auto) Absolute Basos (auto) Absolute Nucleated RBC Immature Gran % Immature Gran # Smear Review By PT INR APTT VBG Lactic Acid 1.7 mmol/L mmol/L (0.7-2.1) POC Sodium 141 mEq/L mEq/L (135-145) Sodium POC Potassium 3.2 mEq/L L mEq/L (3.3-5.0) Potassium POC Chloride 104 mEq/L mEq/L (97-110) Chloride Carbon Dioxide Anion Gap POC BUN 13 mg/dL mg/dL (7-23) BUN Creatinine POC Creatinine 0.7 mg/dL mg/dL (0.7-1.3) Estimated GFR Glucose POC Glucose 122 mg/dL H mg/dL (70-100) Calcium Total Bilirubin Conjugated Bilirubin Unconjugated Bilirubin POC Troponin I 0.01 ng/mL ng/mL (0.00-0.08) 11/14/17 11/14/17 11/14/17 10:30 10:30 10:30 WBC 0.53 10^3/uL L* 10^3/uL (3.80-9.50) RBC 3.11 10^6/uL L 10^6/uL (4.40-6.38) Hgb 10.2 g/dL L g/dL (13.7-17.5) POC Hgb Hct 30.8 % L % (40.0-51.0) POC Hct MCV 99.0 fL fL (81.5-99.8) MCH 32.8 pg pg (27.9-34.1) MCHC 33.1 g/dL g/dL (32.4-36.7) RDW 19.5 % H % (11.5-15.2) Plt Count 136 10^3/uL L 10^3/uL (150-400) MPV 9.9 fL fL (8.7-11.7) Neut % (Auto) Not Reported Lymph % (Auto) Not Reported [place] % (Auto) Not Reported Eos % (Auto) Not Reported Baso % (Auto) Not Reported Nucleat RBC Rel Count Not Reported Absolute Neuts (auto) Not Reported Absolute Lymphs (auto) Not Reported Absolute Monos (auto) Not Reported Absolute Eos (auto) Not Reported Absolute Basos (auto) Not Reported Absolute Nucleated RBC Not Reported Immature Gran % Not Reported Immature Gran # Not Reported Smear Review By Pending PT 13.6 SEC SEC (12.0-15.0) INR 1.02 (0.83-1.16) APTT 29.8 SEC SEC (23.0-38.0) VBG Lactic Acid POC Sodium Sodium 141 mEq/L mEq/L (135-145) POC Potassium Potassium 3.5 mEq/L mEq/L (3.3-5.0) POC Chloride Chloride 105 mEq/L mEq/L (97-110) Carbon Dioxide 23 mEq/l mEq/l (22-31) Anion Gap 13 mEq/L mEq/L (8-16) POC BUN BUN 14 mg/dL mg/dL (7-23) Creatinine 0.7 mg/dL mg/dL (0.7-1.3) POC Creatinine Estimated GFR > 60 Glucose 118 mg/dL H mg/dL (70-100) POC Glucose Calcium 8.8 mg/dL mg/dL (8.5-10.4) Total Bilirubin 3.5 mg/dL H mg/dL (0.1-1.4) Conjugated Bilirubin 0.3 mg/dL mg/dL (0.0-0.5) Unconjugated Bilirubin 3.2 mg/dL H mg/dL (0.0-1.1) POC Troponin I Assessment and plan Nico is a very pleasant 72-year-old male with history of acute myeloid leukemia that is IDH mutation did who presented for a syncopal episode. 1. Syncope: Unclear of underlying etiology. He had no palpitations or any seen prior. Id no seizure-like activity. I agree with current workup as initiated by Dr. Cai. I think 24 hr cardiac monitoring is reasonable. I do not feel this is from his underlying leukemia. 2. Neutropenia: This is secondary from his treatment with azacitidine and venetoclax. No intervention is needed at this time. The patient is afebrile. 3. Acute myeloid leukemia: Currently is scheduled to travel to [place] for repeat bone marrow biopsy at [facility] next week All questions were answered. He voices understanding the plan.
[2017-11-14] MEDS ORDERED: PROTOCOL POTASSIUM 1 DOSE MISC PRN (15:25)
[2017-11-14] MEDS ORDERED: PROTOCOL MAGNESIUM 1 DOSE IV PRN (15:25)
--- NOTE | 2017-11-14 15:54 | GCON ---
HISTORY OF PRESENT ILLNESS: The patient is a 72-year-old male presenting today after an episode of s yncope this morning. Syncope happened while he was sitting for breakfast. At this point, he had not eaten anything. He described the syncope as dizziness proceeding and then he is unaware of for how long that he had fainted. His reports that at the time of the event, he was "lucid" and she cou ld tell that it was about to come. Then she stabilized him while he fainted and then brought him to the emergency department following that. He has had a couple other episodes of syncope, one in the p ast following a hip replacement surgery, and then also more recently after having a fever, he fainted . 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 Robb in [place]. The patient d enies chest pain, shortness of breath, and is oriented and alert right now. He did not fall or susta in any trauma. He reports no nausea, vomiting, diarrhea. No issues with urination. SURGICAL HISTORY: Significant for a hip replacement in 2017. FAMILY HISTORY: Negative for sudden . SOCIAL HISTORY: He is a former smoker. MEDICATION ALLERGIES: Include tacrolimus reported with a rash, adhesive tape, and vancomycin. FOOD ALLERGIES: He is allergic to all seafood. REVIEW OF SYSTEMS: Ten point was reviewed and negative except for what is stated in HPI and below. PHYSICAL EXAM: VITAL SIGNS: Temperature today was measured at 37 degrees centigrade, pulse is 96, r espirations 18. Blood pressure is 106/82, pulse ox is 99. CONSTITUTIONAL: He was in no distress and alert and oriented to place and time. EYES: PERRL. EARS, NOSE, MOUTH, AND THROAT: Moist mucous me mbranes. CARDIOVASCULAR: Rather regular rate and rhythm. Pulses symmetrically bilaterally. No JVD . No edema. No carotid bruits. RESPIRATORY: No distress and clear to auscultations bilaterally. GI: Normoactive bowel sounds. Soft, nontender abdomen. : No bladder tenderness. SKIN: Warm. MUSCULOSKELETAL: Full muscle strength. Normal joint range of motion and no generalized weakness. N EUROLOGIC: Cranial nerves 2-12 are intact. No weakness. PSYCHIATRIC: Interacting appropriately, n ormal affect when seen. IMMUNOLOGIC: No ecchymoses. No petechiae. LABS: Significant for a normocytic anemia, neutropenia. Potassium is 3.5, glucose 118 mg/dL. Total bilirubin 3.5 mg/dL, unconjugated bilirubin elevated at 3.2 mg/dL. TEST DATA: EKG showed normal sinus rhythm with prolonged QT about 530. EKG was negative for ST elev ation or depression. ASSESSMENT/PLAN: Acute syncope per patient history of loss of consciousness. Differential includes orthostatic hypotension, vasovagal syncope, arrhythmia, myocardial infarction, cerebrovascular accide nt, seizure, or medication side effects. Seems orthostatic or vagal given symptoms prior to onset an d reports positive orthostatics on scene. There are no focal deficits. No head trauma. Will defer the head imaging for now. If change in clinical status, will perform. Long QT seen on EKG today rec orded as QTc 530. No prior EKG to compare with. Will discuss with Cardiology for further recommenda tions. Unconjugated hyperbilirubinemia which is acute. Total bilirubin was 3.5 on admission, likely elevated in the setting of acute myelogenous leukemia and chemotherapy. Will continue to monitor fo r now. Also pancytopenia with white blood cells, hemoglobin, platelets decreased. Appears to be bas ayleen for patient due to acute myelogenous leukemia and chemotherapy. Will continue to monitor CBC a nd transfuse as needed. Acute myelogenous leukemia. Currently taking oral Idhifa and Vidaza. If on cologic issues arise, will consult Oncology. /[id number]/MODL
--- NOTE | 2017-11-14 16:25 | ECHO ---
[email or web address] [address] Main: [phone] Fax: Transthoracic Echocardiogram Name: CUCA REYES MR#: [id number] Study Date: 11/14/2017 Study Time: 03:53 PM Date of : 1945 Age: 72 year(s) Height: 162.6 cm (64 in.) Weight: 61.69 kg (136 lb.) BSA: 1.66 m2 Gender: Male Examination: Limited Echo Indication: re-eval ef and for pericardial effusion Image Quality: Contrast: Requested by: Polina Evangelista BP: 126 mmHg/72 mmHg Heart Rate: Rhythm: Indication: re-eval ef and for pericardial effusion Procedure Staff [employer] Systems Operator: Mimi Laguerre [facility] Reading Physician: Polina Evangelista MD Requesting Provider: Conclusions: Normal size left ventricle. Mild concentric LV hypertrophy. Normal global systolic LV function. EF is 59 %. No regional wall motion abnormality. Trivial anterior pericardial effusion. No significant change compared with September 2017 Measurements: Chambers Valvular Assessment AV/MV Valvular Assessment TV/PV Normal Normal Normal Name Value Range Name Value Range Name Value Range IVSd (2D): 1.2 cm (0.6 cm-1.1 cm) LVDd (2D): 4.4 cm (4.2 cm-5.9 cm) LVDs (2D): 3.1 cm (2.1 cm-4 cm) LVPWd (2D): 1.2 cm (0.6 cm-1 cm) LVEF (BP): 59 % (>=55 %) Continued Measurements: Findings: Left Ventricle: Normal size left ventricle. Mild concentric LV hypertrophy. Normal global systolic LV function. EF is 59 %. No regional wall motion abnormality. Pericardium: Patient: CUCA REYES Study Date: 11/14/2017 Page 1 of 2 03:53 PM Trivial anterior pericardial effusion. (No Signature Object) Patient: CUCA REYES Study Date: 11/14/2017 Page 2 of 2 03:53 PM [id number]
[2017-11-14] MEDS: ENASIDENIB MESYLATE PO SCH ×2 (17:20→21:10)
--- NOTE | 2017-11-14 17:44 | GCON ---
CARDIOLOGY CONSULT DATE OF CONSULTATION: 11/14/2017 REFERRING PHYSICIAN: Dr. Cai PRIMARY CALENDER RUNNER: In [place] is Dr. Leonidas Wheat CHIEF COMPLAINT: Syncope. HISTORY OF PRESENT ILLNESS: We were asked by Dr. Cai to visit with the patient. The patient is a pleasant 72-year-old male with a history of AML diagnosed in May of this year. He is followed by Dr. Wheat, as well as at the [facility]. He is treated with daily enasidenib a nd also 2 weeks every month of Venetoclax, and then 5 days of azacitidine injection. When he is on t he injectable drug, he does take Zofran, but has not taken Zofran for well over 2 weeks. This morning, the patient reports feeling generally well, but somewhat tired. He got up as usual and went to have breakfast. He was standing at the counter and started to feel lightheaded, and his wif rex said that he looked like he was "going in and out." He sat down and apparently fainted, but did no t have injury. He then woke up and tried to get up, but felt very lightheaded again, so laid down. He did have loss of bladder control. His brought him to the ER. Upon my present evaluation, he reports feeling well without lightheadedness. He never notices palpitations, nor did he have any pa lpitations prior to his episode this morning. No chest pain or dyspnea. He does have 2 prior episodes of syncope. These predated his diagnosis of AML. The first happened l July 2016, after a hip replacement. He tells me he had lost a significant amount of blood and his blood pressure was low. This was postop day 0 that he had a syncopal episode. The second sy ncopal episode happened in the setting of neutropenic fever. There is no mention in any of his past hospital records about whether he was on telemetry at this time. REVIEW OF SYSTEMS: The patient reports that his "potassium always runs low." He has not recently murrieta d fevers, chills, or rash. He has been eating normally without nausea, vomiting, or diarrhea. No ne urological symptoms. A complete 10-point review of systems is performed and is negative, except that which is outlined in history of present illness. ALLERGIES: Tacrolimus, vancomycin, seafood. PAST MEDICAL HISTORY: 1. AML as detailed above. 2. BPH. 3. Gout. 4. Status post total hip replacement. 5. Mitral regurgitation. OUTPATIENT MEDICATIONS: We have 2 separate lists, the patient reports that pharmacy did come and rec oncile his medications. According to his chart: He is on intermittent Zofran, but has not had any f or 2 weeks. Extra Strength Tylenol, as well as Tylenol P.M., acyclovir, allopurinol, vitamin D3, the daily chemo, which is enasidenib, pantoprazole, tamsulosin, and timolol eye drops. The patient also thinks he takes an antifungal drug, voriconazole; however, Pharmacy did not mention this in their re conciliation. Trental was also listed on one of his list. SOCIAL HISTORY: The patient does not smoke cigarettes or drink alcohol. FAMILY HISTORY: Negative for sudden cardiac . PHYSICAL EXAM: VITAL SIGNS: Blood pressure 126/72, he was not orthostatic by heart rate or blood pr essure in the emergency department. Heart rate 92, oxygen saturation 98% on room air. Respiratory r ate is 12. He is afebrile. GENERAL: Well-appearing older male in no acute distress. HEENT: Scler ae clear. No jaundice. Mucous membranes moist. CARDIOVASCULAR: Regular rate and rhythm without mu rmur or gallop. LUNGS: Clear without wheeze, rhonchi, or rales. ABDOMEN: Soft, nontender, nondist ended. EXTREMITIES without cyanosis, clubbing, or edema. NEURO: Alert and oriented x3, without chloe ss focal neurologic deficits. Appropriate mood and affect. LABORATORY DATA: White count of 0.53, hematocrit 30, and platelets are 136. INR is 1. Sodium 141, potassium 3.2, and was actually as low as 2.6 on October 10, that was his drbzk-sq-gcyn potassium, but his vena puncture was 2.5, chloride 105, bicarb , BUN 14, creatinine 0.7, glucose 118. Total bilirubin 3.5 with an indirect bilirubin of 3.2. AST and ALT are pending, but are normal in A ugust. Troponin is negative. Albumin was 2.9 in September. EKG reviewed by me: Sinus rhythm with prolonged QT corrected interval of 530 msec. Reviewing previo us EKGs, he has had a QT interval corrected greater than 500 in the past. He does have EKGs that pre dated the initiation of chemotherapy. Echocardiogram dated September 2017and reviewed by me shows normal LV size and systolic function without wall motion abnormality. Trivial pericardial effusion. Moderate mitral regurgitation. Mild tricus pid regurgitation with normal estimated pulmonary artery pressure. ASSESSMENT AND PLAN: 72-year-old male with acute myelogenous leukemia, admitted to the hospital with syncope. This is his third episode of syncope in the past 18 months. 1. Syncope: It is concerning that he has a prolonged QT interval on EKG and has had this finding on EKGs dating back to 2017. 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 Other possibilit ies for syncope, include orthostasis, but he was not orthostatic in the ER, and he has not had nausea , vomiting, or diarrhea and reports normal oral intake. His chemotherapeutic drugs per se do not pro long the QT, but I would be concerned about his use of Zofran 5 days a month. We will need to find a n alternative for that. His ejection fraction is normal based on echo a month ago. We are repeating a limited echo now to make sure that he has not had a change in EF or interval development of more s ignificant pericardial effusion. I will also discuss the case with Dr. Hester. Recommend aggressive re pletion of his electrolytes and will probably require ongoing oral potassium at home. Fortunately murrieta s normal renal function. 2. Acute myelogenous leukemia: He is currently neutropenic. He has been seen by Oncology. Elevate d bilirubin is likely related to his daily oral chemotherapeutic and his hypokalemia is also a report ed side effect of his chemotherapeutic agent. 3. Moderate mitral regurgitation: Unlikely to have contributed to his syncopal episode. Thank you for allowing us to participate in the patient's care. We will follow with you. /[id number]/MODL
[2017-11-14] MEDS: METOPROLOL SUCCINATE XR 25 MG TAB PO SCH (20:18)
[2017-11-14] MEDS: ACYCLOVIR 400 MG TAB PO SCH (20:18)
[2017-11-14] MEDS ORDERED: CHOLECALCIFEROL VIT D3 1,000 UNITS TAB PO SCH (21:00)
[2017-11-14] MEDS ORDERED: POTASSIUM CL 20 MEQ TAB PO ONE (21:03)
[2017-11-14] MEDS ORDERED: diphenhydrAMINE 25 MG CAP PO PRN (21:24)
[2017-11-15] MEDS ORDERED: POTASSIUM CL 10 MEQ TAB PO ONE (07:44)
[2017-11-15 07:49] VITALS: BP 119/68
[2017-11-15] MEDS: ACYCLOVIR 400 MG TAB PO SCH (08:52)
[2017-11-15] MEDS: METOPROLOL SUCCINATE XR 25 MG TAB PO SCH (08:52)
[2017-11-15] MEDS ORDERED: TIMOLOL 0.5% 15 ML OPHT.BTL LEFTEYE SCH (09:00)
[2017-11-15] MEDS ORDERED: ENOXAPARIN 40 MG/0.4 ML SYR SC SCH (09:00)
[2017-11-15] MEDS ORDERED: PANTOPRAZOLE SODIUM 40 MG TAB PO SCH (10:00)
[2017-11-15] MEDS ORDERED: TAMSULOSIN HCL 0.4 MG CAP PO SCH (10:00)
--- NOTE | 2017-11-15 10:09 | PDCARPN ---
Cardiology Progress Note Assessment/Plan: Assessment/plan: 72 yo M with AML admitted with syncope. Found to be borderline hypokalemia. Long QT interval on ECG as well as on serial past ECGs. Two episodes of syncope in the past year were in the setting of post op THR/anemia and then neutropenic fever. Yesterday's episode was more concerning for arrhythmia in that it occurred at home. No palpitations, however. No injury. No events on telemetry overnight 1. Syncope: could be orthostatic, electrolyte triggered, long QT. Started low dose beta jan. His daily oral chemo can cause hypokalemia, so will be on daily KCL supplementation. The patient needs to avoid any drugs that prolong the QT interval, including Zofran. Discussed the option for LINQ insertion, but oncology prefers external monitoring as he is quite neutropenic, increasing risk of infectious complications. Will arrange for this through our office. No clear indication for ICD at this time 2. HypoK: supplement as above. Creatinine normal 3. AML: reviewed his current regimen and potential side effects. None specifically affects QT, but can cause electrolyte disturbances. Careful ongoing monitoring Discussed with Dr. Cai and Dr. Mehta 11/15/17 10:19 Subjective: Slept well. No presyncope, syncope, palpitations. No CP Reviewed/Discussed With: hospitalist, other (oncology) Objective: Vital Signs (8 Hrs) Temp Pulse Resp BP Pulse Ox 11/15/17 07:44 36.7 C 77 18 119/68 100 11/15/17 03:45 36.5 C 73 18 118/76 97 Intake/Output (24 Hrs) 11/14/17 11/15/17 11/16/17 05:59 05:59 05:59 Intake Total 3755 Output Total 1850 525 Balance 1905 -525 Intake: Oral (ml) 1200 IV Infused (ml) 2555 Ns 1,000 ml @ 150 mls/hr 1555 IV CONT CARLOS Rx#: [id number] Output: Urine (ml) 1850 525 Urinal 1850 525 Other: Weight 60.4 kg Intake Quantity Yes Sufficient Number of Voids Toilet 3 Urinal 1 Number of Stools Urinal 1 NAD RRR no m/r/g Lungs CTAB No edema Result Diagrams: 11/15/17 03:23 11/15/17 03:23 Telemetry: NSR ICD10 Worksheet Patient Problems: Problems Problem Status Onset Arthritis, hip Acute Neutropenic fever Acute Neutropenia Acute Prolonged QT interval Acute Syncope Acute
--- NOTE | 2017-11-15 11:03 | PDDCSUM ---
Discharge Summary Discharge Summary: Date of Admission: 11/14/2017 Date of Discharge: 11/15/2017 Consults: Cardiology Procedures: TTE Followup: Cardiology, Oncology, PCP Hospital Course Problem List: Syncope- Acute - Patient had episode of LOC while eating breakfast, reports feeling LH prior to event - Has happen twice in the past, once after hip surgery and once during hospitalization with position changes - Differential includes: Orthostatic Hypotension, Vasovagal syncope, arrythmia, NM, CVA, seizure, neurogenic - Seems orthostatic/vagal given symptoms prior to event, EMS reports positive orthostatics on scene, was given 1L IVF in ED and maintenance fluids on floor, however given sudden LOC there is concern for cardiogenic etiology - No focal deficits, no head trauma, deferred head imaging - Cardiology consulted in ED for long QT seen on EKG, prior EKGs also show long QT, likely congenital - Cardiology discussed with EP who recommended heart monitor, patient to f/u as OP for 30 day monitor - TTE done in 09/2015 to r/o endocarditis, mod MR seen and mild TR, repeat performed during this admission without any significant changes - Monitored on telemetry overnight without any acute events - Patient started on Metoprolol 12.5 mg BID as well as KCl 20 meq daily (was hypokalemic on admission) Long QT- Acute - Seen on EKG, recorded as QTc 530 - Started on low dose Metoprolol per cardiology - Plan for OP 30 day monitor as above Unconjugated Hyperbilirubinemia- Acute - T Bili 3.5 on admission, Unconjugated Bili 3.2 - Likely elevated in setting of AML, chemotherapy - Continue to monitor Pancytopenia - WBC, Hgb, Platelets decreased - Appears baseline for patient 2/2 to AML and chemotherapy - Continue to monitor CBC, transfuse as needed AML - Currently follows with MD Robb in [place] - Taking oral Idhifa (Enasidenib) daily, will continue as IP - Also receiving Vidaza (Azacitidine) as outpatient every 14 days - Seen by oncology Time spent on discharge was >35 minutes with >50% of time spent on patient education and counseling
[2017-11-16] MEDS ORDERED: POTASSIUM CL 20 MEQ TAB PO SCH (09:00)
[2017-11-16] MEDS ORDERED: POTASSIUM CL 20 MEQ/15 ML UDCUP PO SCH (09:00)
== END 2017-11-15 11:55 | disposition home or self-care (01) ==
LOC: EDUNIT# → INTOOBSV 11:43 → F2W 12:33
PROVIDERS: ADMIT Internal Medicine; ATTEND Internal Medicine
DX: R55 Syncope and collapse (principal); I45.81 Long QT syndrome; E80.6 Other disorders of bilirubin metabolism; D61.810 Antineoplastic chemotherapy induced pancytopenia; C92.00 Acute myeloblastic leukemia, not having achieved remission; Z96.649 Presence of unspecified artificial hip joint; I34.0 Nonrheumatic mitral (valve) insufficiency; E86.9 Volume depletion, unspecified; E87.6 Hypokalemia
CPT/HCPCS: 93005; 93308; 96360; 96361; 97165; 99285; G0378; G8987; G8988; 82435-PO; 82565-PO; 82947-PO; 84132-PO; 84295-PO; 84484-PO; 84520-PO; 85014-PO; J1650

== ENCOUNTER 2017-11-16 17:03 | Inpatient (IN) | payer OTHER ==
[2017-11-16] MEDS ORDERED: LR 2,000 ML IV ONE (17:28)
--- NOTE | 2017-11-16 17:34 | EDPHY ---
H & P Stated Complaint: fever--on oral chemo--dcd yesterday [facility] syncopal episodes Time Seen by Provider: 11/16/17 17:20 HPI/ROS: CHIEF COMPLAINT: Neutropenic fever HISTORY OF PRESENT ILLNESS: The patient is a 72-year-old man with a history of AML and neutropenia currently on Idhifa and Vidaza . He was in the hospital for a syncopal event and discharged yesterday. While here he had a normal CASA and syncope workup. His oncologist is Dr. Wheat. After returning home yesterday evening he developed a fever. He had a single episode of diarrhea. He had frequent urination through the evening and his also noticed about breath. Patient does not have any complaints. He was hospitalized this summer for strep bacteremia with unknown source. Severity: Moderate Modifying factors: None REVIEW OF SYSTEMS: Constitutional: denies: chills, fever, recent illness, recent injury EENTM: denies: blurred vision, double vision, nose congestion Respiratory: denies: cough, shortness of breath Cardiac: denies: chest pain, irregular heart rate, lightheadedness, palpitations Gastrointestinal/Abdominal: denies: abdominal pain, diarrhea, nausea, vomiting, blood streaked stools Genitourinary: denies: dysuria, frequency, hematuria, pain Musculoskeletal: denies: joint pain, muscle pain Skin: denies: lesions, rash, jaundice, bruising Neurological: denies: headache, numbness, paresthesia, tingling, dizziness, weakness Hematologic/Lymphatic: denies: blood clots, easy bleeding, easy bruising Immunologic/allergic: denies: HIV/AIDS, transplant 10 systems reviewed and negative except as noted EXAM: GENERAL: Well-appearing, well-nourished and in no acute distress. HEAD: Atraumatic, normocephalic. EYES: Pupils equal round and reactive to light, extraocular movements intact, sclera anicteric, conjunctiva are normal. ENT: TMs normal, nares patent, oropharynx clear without exudates. Moist mucous membranes. NECK: Normal range of motion, supple without lymphadenopathy or JVD. LUNGS: Breath sounds clear to auscultation bilaterally and equal. No wheezes rales or rhonchi. HEART: Regular rate and rhythm without murmurs, rubs or gallops. ABDOMEN: Soft, nontender, normoactive bowel sounds. No guarding, no rebound. No masses appreciated. BACK: No CVA tenderness, no spinal tenderness, step-offs or deformities EXTREMITIES: Normal range of motion, no pitting or edema. No clubbing or cyanosis. NEUROLOGICAL: Cranial nerves II through XII grossly intact. Normal speech, normal gait. 5/5 strength, normal movement in all extremities, normal sensation , normal reflexes PSYCH: Normal mood, normal affect. SKIN: Warm, dry, normal turgor, no visible rashes or lesions. Source: Patient Exam Limitations: No limitations - Personal History Tetanus Vaccine Date: <10 years - Medical/Surgical History Hx Asthma: No Hx Chronic Respiratory Disease: No Hx Diabetes: No Hx Cardiac Disease: No Hx Renal Disease: No Hx Cirrhosis: No Hx Alcoholism: No Hx HIV/AIDS: No Hx Splenectomy or Spleen Trauma: No Other PMH: AML, granuloma annulare, R hip replacement, tib/fib repair 2002 - Social History Smoking Status: Former smoker Alcohol Use: Sober Drug Use: None Constitutional: Initial Vital Signs Temperature (C) 39.5 C H 11/16/17 17:05 Heart Rate 117 H 11/16/17 17:05 Respiratory Rate 18 11/16/17 17:05 Blood Pressure 147/75 H 11/16/17 17:05 O2 Sat (%) 99 11/16/17 17:05 O2 Delivery Mode Room Air Allergies/Adverse Reactions: tacrolimus Allergy (Unknown, Verified 11/14/17 10:37) Rash adhesive tape Allergy (Verified 11/14/17 10:37) ondansetron [From Zofran] Allergy (Verified 11/16/17 17:09) vancomycin Allergy (Verified 11/14/17 13:46) Rash ALL SEAFOOD Allergy (Uncoded 05/24/17 12:00) Home Medications: Medication Instructions Recorded Cholecalciferol (Vitamin D3) 5,000 unit PO HS 08/16/14 [Vitamin D3] Acetaminophen [Tylenol ES 500 mg 500 mg PO Q4H PRN 09/24/17 (*)] Acetamn/Diphenhydramine 500/25 1 each PO HS 09/24/17 [Tylenol PM (*)] Acyclovir [Zovirax 400 mg (*)] 400 mg PO BID 09/24/17 Allopurinol [Allopurinol 300 MG 300 mg PO AD PRN 09/24/17 (RX)] Timolol 0.5% [TIMOPTIC 0.5% (*)] 1 drops LEFTEYE DAILY 09/24/17 Pantoprazole Sodium [Protonix 40mg 40 mg PO DAILY10 10/09/17 (*)] Tamsulosin HCl [Flomax 0.4 MG (*)] 0.4 mg PO DAILY10 10/09/17 Enasidenib Mesylate [Idhifa] 100 mg PO DAILY14 11/14/17 Metoprolol Succinate Xr [Toprol Xl 12.5 mg PO DAILY #30 tab 11/15/17 25 mg (*)] Medical Decision Making - Diagnostics Imaging Results: Imaging Impressions Chest X-Ray 11/16/17 17:28 Impression: Minimal airways disease and bibasilar atelectasis. No pneumonia or effusion. Imaging: Discussed imaging studies w/ scallop shucker Radiologist ED Course/Re-evaluation: 6:50 p.m. we discussed the test results thus far. The patient is receiving fluids. He is still slightly tachycardic likely from the fever. We will give him Tylenol. He is also requesting tramadol for pain which she takes at home. The patient had trouble in the past with vancomycin so I will order a head him which he took previously successfully. 7:10 p.m. I discussed the case with Dr. Jenni Paula who will admit to the medical service. She requests meropenem other then ertapenem. Differential Diagnosis: Partial list of the Differential diagnosis considered include but were not limited to; the neutropenic fever, sepsis, urinary tract infection and although unlikely based on the history and physical exam, I also considered pneumonia, meningitis. Critical Care Time: Critical care time spent by me, Dr. Brandon exclusive with this patient was 45 minutes, exclusive of the PA time exclusive of procedures. The organ system that was at risk was the cardiovascular and I gave diagnostics, she admission, consultation to prevent worsening of the patient's condition - Data Points Laboratory Results: Laboratory Results 11/16/17 17:34 11/16/17 17:34 11/16/17 11/16/17 11/16/17 18:27 17:34 17:34 WBC RBC Hgb Hct MCV MCH MCHC RDW Plt Count MPV Neut % (Auto) Lymph % (Auto) Josephine % (Auto) Eos % (Auto) Baso % (Auto) Nucleat RBC Rel Count Absolute Neuts (auto) Absolute Lymphs (auto) Absolute Monos (auto) Absolute Eos (auto) Absolute Basos (auto) Absolute Nucleated RBC Immature Gran % Seg Neutrophils % Band Neutrophils % Lymphocytes % Monocytes % Eosinophils % Basophils % Metamyelocytes % Myelocytes % Promyelocytes % Blast Cells % Immature Gran # Absolute Seg Neuts Absolute Band Neuts Absolute Lymphocytes Absolute Monocytes Absolute Eosinophils Absolute Basophils Absolute Metamyelocyte Absolute Myelocytes Absolute Promyelocytes Absolute Plasma Cells Nucleated RBCs Absolute Blast Cells Plasma Cells % Platelet Estimate Microcytic Cells Smear Review By PT 14.1 SEC SEC (12.0-15.0) INR 1.07 (0.83-1.16) APTT 42.2 SEC H SEC (23.0-38.0) VBG Lactic Acid Sodium 137 mEq/L mEq/L (135-145) Potassium 3.8 mEq/L mEq/L (3.3-5.0) Chloride 101 mEq/L mEq/L (97-110) Carbon Dioxide 21 mEq/l L mEq/l (22-31) Anion Gap 15 mEq/L mEq/L (8-16) BUN 18 mg/dL mg/dL (7-23) Creatinine 0.8 mg/dL mg/dL (0.7-1.3) Estimated GFR > 60 Glucose 131 mg/dL H mg/dL (70-100) Calcium 8.8 mg/dL mg/dL (8.5-10.4) Total Bilirubin 4.3 mg/dL H mg/dL (0.1-1.4) Conjugated Bilirubin 0.6 mg/dL H mg/dL (0.0-0.5) Unconjugated Bilirubin 3.7 mg/dL H mg/dL (0.0-1.1) Urine Color YELLOW Urine Appearance CLEAR Urine pH 6.0 (5.0-7.5) Ur Specific [place] 1.017 (1.002-1.030) Urine Protein 2+ H (NEGATIVE) Urine Ketones NEGATIVE (NEGATIVE) Urine Blood 1+ H (NEGATIVE) Urine Nitrate NEGATIVE (NEGATIVE) Urine Bilirubin NEGATIVE (NEGATIVE) Urine Urobilinogen 4.0 EU H EU (0.2-1.0) Ur Leukocyte Esterase NEGATIVE (NEGATIVE) Urine RBC 1-3 /hpf /hpf (0-3) Urine WBC 1-3 /hpf /hpf (0-3) Ur Epithelial Cells NONE SEEN /lpf /lpf (NONE-1+) Urine Mucus TRACE /lpf /lpf (NONE-1+) Urine Glucose NEGATIVE (NEGATIVE) 11/16/17 11/16/17 17:34 17:34 WBC 0.17 10^3/uL L* 10^3/uL (3.80-9.50) RBC 2.67 10^6/uL L 10^6/uL (4.40-6.38) Hgb 8.7 g/dL L g/dL (13.7-17.5) Hct 26.3 % L % (40.0-51.0) MCV 98.5 fL fL (81.5-99.8) MCH 32.6 pg pg (27.9-34.1) MCHC 33.1 g/dL g/dL (32.4-36.7) RDW 18.8 % H % (11.5-15.2) Plt Count 49 10^3/uL L 10^3/uL (150-400) MPV 8.7 fL fL (8.7-11.7) Neut % (Auto) Not Reported Lymph % (Auto) Not Reported Josephine % (Auto) Not Reported Eos % (Auto) Not Reported Baso % (Auto) Not Reported Nucleat RBC Rel Count Not Reported Absolute Neuts (auto) Not Reported Absolute Lymphs (auto) Not Reported Absolute Monos (auto) Not Reported Absolute Eos (auto) Not Reported Absolute Basos (auto) Not Reported Absolute Nucleated RBC Not Reported Immature Gran % Not Reported Seg Neutrophils % 0.0 % % Band Neutrophils % 2.2 % % Lymphocytes % 97.8 % % Monocytes % 0.0 % % Eosinophils % 0.0 % % Basophils % 0.0 % % Metamyelocytes % 0.0 % % Myelocytes % 0.0 % % Promyelocytes % 0.0 % % Blast Cells % 0.0 % % Immature Gran # Not Reported Absolute Seg Neuts 0.00 10^/uL L 10^/uL (1.70-6.50) Absolute Band Neuts 0.00 10^3/uL 10^3/uL (0.00-0.70) Absolute Lymphocytes 0.17 10^3/uL L 10^3/uL (1.00-3.00) Absolute Monocytes 0.00 10^3/uL L 10^3/uL (0.30-0.80) Absolute Eosinophils 0.00 10^3/uL L 10^3/uL (0.03-0.40) Absolute Basophils 0.00 10^3/uL L 10^3/uL (0.02-0.10) Absolute Metamyelocyte 0.00 10^3/mL 10^3/mL (0.00-0.00) Absolute Myelocytes 0.00 10^3/mL 10^3/mL (0.00-0.00) Absolute Promyelocytes 0.00 10^3/uL 10^3/uL (0.00-0.00) Absolute Plasma Cells 0.00 10^3/uL 10^3/uL (0.00-0.00) Nucleated RBCs 0 /100 WBC /100 WBC (0-0) Absolute Blast Cells 0.00 10^3/uL 10^3/uL (0.00-0.00) Plasma Cells % 0.0 % % Platelet Estimate DECREASED L (ADEQ) Microcytic Cells 1+ H Smear Review By Pending PT INR APTT VBG Lactic Acid 1.7 mmol/L mmol/L (0.7-2.1) Sodium Potassium Chloride Carbon Dioxide Anion Gap BUN Creatinine Estimated GFR Glucose Calcium Total Bilirubin Conjugated Bilirubin Unconjugated Bilirubin Urine Color Urine Appearance Urine pH Ur Specific [place] Urine Protein Urine Ketones Urine Blood Urine Nitrate Urine Bilirubin Urine Urobilinogen Ur Leukocyte Esterase Urine RBC Urine WBC Ur Epithelial Cells Urine Mucus Urine Glucose Medications Given: Acetaminophen (Tylenol) 650 mg PO Q4 PRN PRN Reason: Pain, Mild/Fever, Can Take PO Stop: 05/15/18 21:20 Last Admin: 11/16/17 22:52 Dose: 650 mg Sodium Chloride (Ns) 1,000 mls @ 100 mls/hr IV CONT CARLOS Stop: 05/15/18 21:29 Last Admin: 11/16/17 22:52 Dose: 1,000 mls Discontinued Medications Acetaminophen (Tylenol) 1,000 mg PO EDNOW ONE Stop: 11/16/17 18:49 Last Admin: 11/16/17 18:57 Dose: 1,000 mg Lactated Ringer's (Lr) 2,000 mls @ 4,000 mls/hr 30 ml/kg infuse over 30 min ( 2000 ml) IV EDNOW ONE PRN Reason: Protocol Stop: 11/16/17 17:57 Last Admin: 11/16/17 17:43 Dose: 2,000 mls Ertapenem 1 gm/ Sodium (Chloride) 100 mls @ 200 mls/hr IV EDNOW ONE PRN Reason: Protocol Stop: 11/16/17 19:20 Last Admin: 11/16/17 19:27 Dose: Not Given Meropenem 1 gm/ Sodium (Chloride) 120 mls @ 120 mls/hr IV EDNOW ONE PRN Reason: Protocol Stop: 11/16/17 20:29 Last Admin: 11/16/17 19:50 Dose: 120 mls Tramadol HCl (Ultram) 50 mg PO EDNOW ONE Stop: 11/16/17 18:49 Last Admin: 11/16/17 18:57 Dose: 50 mg Departure - Departure Disposition: Home, Routine, Self-Care Clinical Impression: Neutropenic fever Neutropenia Qualifiers: Neutropenia type: unspecified Qualified Code(s): D70.9 - Neutropenia, unspecified Condition: Fair
[2017-11-16 18:06] LABS: INR 1.07 (0.83-1.16); PROTIME(PATIENT) 14.1 SEC (12.0-15.0)
[2017-11-16 18:10] LABS: PLATELET COUNT 49 10^3/uL (150-400)
[2017-11-16] MEDS ORDERED: ACETAMINOPHEN 500 MG TAB PO ONE (18:48)
[2017-11-16] MEDS ORDERED: traMADol 50 MG TAB PO ONE (18:48)
[2017-11-16] MEDS ORDERED: ERTAPENEM 1 GM in NS 100 ML IV ONE (18:51)
[2017-11-16] MEDS ORDERED: MEROPENEM 1 GM in NS 100 ML IV ONE (19:30)
[2017-11-16] MEDS ORDERED: CEFEPIME HCL 2 GM in NS 100 ML IV SCH (22:00)
--- NOTE | 2017-11-16 22:11 | GHP ---
DATE OF ADMISSION: 11/16/2017 CHIEF COMPLAINT: Fever. HISTORY: Gera is a 72-year-old male, with AML, presenting with fever that started this morning. Symptoms associated with the fever include weakness and rigors, but no other focal symptoms of infect ion. He was just discharged from the hospital yesterday after getting a syncope workup, which in the end was decided to be orthostatic and/or vagal. At that point, he was neutropenic but without fever . He is on oral chemotherapy he follows with Dr. Wheat locally but also at [facility]. He has a flight scheduled for a doctor's appointment at [facility] on Sunday. He had 1 episode of diarrhea t ganesh, otherwise nothing focal. PAST MEDICAL HISTORY: 1. AML. 2. BPH. 3. Gout. PAST SURGICAL HISTORY: Total hip arthroplasty. MEDICATIONS: Please see computer record for full detailed list. ALLERGIES: To IV vancomycin and Zofran. SOCIAL HISTORY: Has not smoked for over 50 years. He drinks 2 ounces of gin per day in a martini. Originally from [place]; has been in the [place] for 10 [place]. He is . REVIEW OF SYSTEMS: Complete review of systems obtained. Review of systems negative regarding consti tutional, HEENT, GI, pulmonary, cardiovascular, , hematology, skin, musculoskeletal, endocrine, psy ch, except for positives and negatives as noted in HPI. FAMILY HISTORY: Reviewed, noncontributory to presenting complaint. PHYSICAL EXAMINATION: GENERAL: Well-developed, well-nourished male, in no distress. VITAL SIGNS: Temperature 39.4, pulse 120, blood pressure 94/46, saturating 96% on room air. EYES: Normal conjunc tivae. Pupils react to light. ENT: Normal ears, nose. Hearing intact. Normal teeth. Oropharynx moist. NECK: Trachea midline. No thyromegaly. CHEST: Normal respiratory effort. Lungs clear to auscultation bilaterally. CARDIOVASCULAR: Regular rate, regular rhythm. No murmur. No lower extremi ty edema. ABDOMEN: Soft, nontender. No hepatosplenomegaly. SKIN: Warm, dry, intact. No rash. M USCULOSKELETAL: No cyanosis or clubbing. Strength 5/5, upper and lower extremities. NEUROLOGIC: C ranial nerves intact. Normal sensation to light touch. PSYCH: Alert and oriented x3. Normal affec t. Normal judgment. Normal memory. LABORATORY DATA: White count 0.17, hematocrit 26.3, platelets 49. Sodium 137, potassium 3.8 chlorid e 101, bicarb 21, BUN 18, creatinine 0.8, glucose 131, total bilirubin 4.3, unconjugated bilirubin is 3.7. Chest x-ray is negative. Medical records reviewed. I reviewed medical records from hospital discharge just yesterday, which was determined to be orthostatic and/or vagal. ASSESSMENT/PLAN: 1. Neutropenic fever. Continue IV meropenem started in the emergency room. Blood cultures have bee n sent. Will consult Infectious Disease as the patient is well known to Dr. Holcomb. 2. Acute myeloid leukemia, on oral chemotherapy. I am not sure he ever really gets recovery of his counts. Will need to clarify with Oncology his chemo regimen. He has been neutropenic solidly since early August. 3. Sepsis as evidenced by tachycardia, fever, and leukocytosis. Will continue IV fluids. His lacta te is okay. 4. Recent syncopal event. This was vagal versus hypotensive. CODE STATUS: Full. ADMISSION STATUS: Will admit to inpatient. I anticipate greater than 2 midnights required for stabi lization. DVT PROPHYLAXIS: He is low risk due to his chronic thrombocytopenia. /[id number]/MODL
[2017-11-16] MEDS: ACETAMINOPHEN 325 MG TAB PO PRN (22:52)
[2017-11-16] MEDS: NS 1,000 ML IV SCH (22:52)
[2017-11-16] MEDS ORDERED: ACETAMINOPHEN 650 MG SUPP PR PRN (23:03)
[2017-11-17] MEDS ORDERED: NS 500 ML IV ONE (01:07)
[2017-11-17] MEDS: MEROPENEM 1 GM in NS 100 ML IV SCH ×3 (03:51→21:30)
[2017-11-17] MEDS: NS 1,000 ML IV SCH ×2 (03:52→10:41)
[2017-11-17 04:57] LABS: PLATELET COUNT 32 10^3/uL (150-400)
[2017-11-17] MEDS ORDERED: NS BOLUS 500 ML IV ONE (05:00)
[2017-11-17] MEDS: ACETAMINOPHEN 325 MG TAB PO PRN ×2 (08:37→20:31)
[2017-11-17] MEDS ORDERED: MEPERIDINE 25 MG/ML SYR IVP ONE (09:15)
--- NOTE | 2017-11-17 09:15 | HOSPPROG ---
Hospitalist Progress Note Assessment/Plan: 1. neutropenic fever/sepsis with + klebs bd cx -on day #1 -discussed care plan with Dr Echevarria and Dr Holcomb -await bd cultures to change abx, also repeat sets ordered to ensure clearance -euvolemic on exam s/p fluid resuscitation at admission 2. AML -discussed unlikely will be able to get to [facility] and not sure when will be able to travel at this time -thrombocytopenia, chronic -PRBC ordered by heme/onc for anemia 3. Hx JEANETTE -discussed with Dr Holcomb, do not suspect this is source at this time 4. Pancytopenia- see above 5. Hypokalemia -check mag -replace per protocol PCP:Dr Vincent DVT prophy:contraindicated bc of thrombocytopenia FULL CODE DISPO- > 48 hours because of severe neutropenia and bacteremia/sepsis Subjective: in room. He is feeling weak, had some rigors this morning but none now. Decreased appetite, but no SOB/cough/abd pain/N/V or further D. Says pain OK. Anxious to go to [place] for FU with [facility] on Sunday. Objective: Vital Signs Temp Pulse Resp BP Pulse Ox 98.0 F 105 H 14 104/62 100 11/17/17 07:46 11/17/17 07:46 11/17/17 07:46 11/17/17 07:46 11/17/17 07:46 Laboratory Results 11/17/17 04:32 11/15/17 11/16/17 11/17/17 11:59 11:59 11:59 Intake Total 3661 Output Total 1075 Balance 2586 PT 14.1 SEC (12.0-15.0) 11/16/17 17:34 INR 1.07 (0.83-1.16) 11/16/17 17:34 - Time Spent With Patient Time Spent with Patient: greater than 35 minutes Time Spent with Patient: Greater than 35 minutes spent on this patients care, greater than 50% of time spent counseling, educating, and coordinating care regarding the above mentioned plan. - Physical Exam Constitutional: no apparent distress, chronically ill appearing Ears, Nose, Mouth, Throat: moist mucous membranes, hearing normal Cardiovascular: regular rate and rhythym, no murmur, rub, or gallop, No edema Respiratory: no respiratory distress, no rales or rhonchi Gastrointestinal: normoactive bowel sounds, soft, non-tender abdomen, No guarding, No rebound Skin: warm Psychiatric: interacting appropriately, not anxious, not encephalopathic, thought process linear ICD10 Worksheet Patient Problems: Problems Problem Status Onset Neutropenia Acute Neutropenic fever Acute Arthritis, hip Acute Prolonged QT interval Acute Syncope Acute
[2017-11-17] MEDS ORDERED: MEPERIDINE 25 MG/0.5 ML AMP IVP ONE (09:30)
--- NOTE | 2017-11-17 09:30 | ASMTCMCOM ---
CM Note CM Note Notes: Chart reviewed for discharge planning purposes. Patient recently dc'd after cardiology workup for syncope. Readmitted via ED with c/o fever, malaise, urgency and SOB. Resides with wiife has prior diagnosis of AML. Needs TBD at this time. CM to follow. Plan: TBD Date Signed: 11/17/2017 09:29 AM Electronically Signed By:Mery Iverson RN
[2017-11-17] MEDS: traMADol 50 MG TAB PO PRN ×2 (09:37→19:27)
--- NOTE | 2017-11-17 09:46 | PCMIDPN ---
Assessment/Plan: Assessment/Plan: * Neutropenic fever with Klebsiella pneumoniae bacteremia: Blood culture showing Klebsiella pneumoniae by [facility] PCR testing. Will continue empiric meropenem pending susceptibility profile. Most likely etiology is GI translocation in the setting of neutropenia. Will repeat blood cultures to document clearing of bacteremia given presence of concomitant neutropenia. * History of MSSA/Gemella bacteremia: Receive 4 weeks of IV antibiotic therapy which was completed ultimately with ertapenem. * History of pulmonary infiltrates: Biopsy most compatible with diffuse alveolar damage. No respiratory symptoms currently. * Diarrhea: Resolved. Will discontinue GI pathogen panel by PCR testing given no further diarrhea. Time spent, greater than 35 min, of which greater than half was spent in education/counseling/coordination of care related to neutropenic fever with Klebsiella pneumoniae bacteremia and plan of care. 11/17/17 09:39 Subjective: Patient well known to me with AML and recent care for MSSA/Gemella bacteremia ultimately treated with 4 weeks of ertapenem with resolution. 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 Pathologic specimen from lung biopsy showed changes most compatible with diffuse alveolar damage. Now readmitted with neutropenic fever and 1 of 2 blood cultures are showing growth of Klebsiella pneumoniae. Patient describes having fever and rigors without other localizing symptoms other than 1 episode of diarrhea yesterday which has now resolved and right hip pain which he is experience with prior infectious episodes. Notes small sore on tongue. No abdominal pain and some residual nausea present. No cough or shortness of breath. No rectal pain. No indwelling PICC line or port. Patient notes he is scheduled to travel to [place] on Sunday for appointment at [facility]. Allergies: Vancomycin associated with diffuse skin rash. Objective: Vital Signs Temp Pulse Resp BP Pulse Ox 36.7 C 105 H 14 104/62 100 11/17/17 07:46 11/17/17 07:46 11/17/17 07:46 11/17/17 07:46 11/17/17 07:46 Laboratory Results 11/17/17 04:32 11/16/17 11/17/17 11/18/17 05:59 05:59 05:59 Intake Total 1999 1661 Output Total 986 450 Balance 1375 1211 Meropenem # 1 Acyclovir prophylaxis Blood cultures 1/2 sets Klebsiella pneumoniae - Physical Exam General Appearance: alert, apparent distress (Mild due to pain with movement), non-toxic EENT: scleral icterus (Faint), other (Small ulceration on lower portion of tongue on right side) Respiratory: lungs clear, No respiratory distress Cardiac/Chest: tachycardia, No systolic murmur Extremities: other (Hip without irritability on [id number] and incision intact without erythema), No inflammation Abdomen: non-tender, No distended Skin: No rash, No embolic lesions Neuro/Psych: No confused ICD10 Worksheet Patient Problems: Problems Problem Status Onset Arthritis, hip Acute Neutropenic fever Acute Neutropenia Acute Prolonged QT interval Acute Syncope Acute
[2017-11-17] MEDS: PROMETHAZINE HCL 25 MG TAB PO PRN ×2 (10:40→19:27)
[2017-11-17] MEDS: PANTOPRAZOLE SODIUM 40 MG TAB PO SCH (10:42)
[2017-11-17] MEDS: ACYCLOVIR 400 MG TAB PO SCH ×2 (10:42→20:31)
[2017-11-17] MEDS: TIMOLOL 0.5% 15 ML OPHT.BTL LEFTEYE SCH (10:42)
[2017-11-17] MEDS: TAMSULOSIN HCL 0.4 MG CAP PO SCH (10:42)
[2017-11-17] MEDS: METOPROLOL SUCCINATE XR 25 MG TAB PO SCH (10:42)
--- NOTE | 2017-11-17 11:58 | GCON ---
DATE OF CONSULTATION: 11/17/2017 OUTPATIENT ONCOLOGIST: Dr. Leonidas Wheat. SUPERVISING PHYSICIAN: Dr. Mary Jane Pollack. REASON FOR CONSULTATION: Klebsiella bacteremia in the setting of acute myeloid leukemia. HISTORY OF PRESENT ILLNESS: Mr. Crisostomo is a 72-year-old man with IDH2 mutated acute myeloid leuke rory. He is well known to me from our clinic. He has been receiving therapy with a combination of Id ihifa, a targeted therapy for IDH2 mutated AML, as well as Venetoclax and azacitidine. His 2nd cycle was complicated by multiple admissions for febrile neutropenia as well as pneumonitis. He recovered from these complications and his oncologist at [facility], Dr. Stuart Crowder, recommended proceedin g with a 3rd cycle of azacitidine and Venetoclax, this time reducing the length of the Venetoclax william atment to 2 weeks rather than 4 weeks previously. He began this cycle of therapy on October 23. Two days ago, he was admitted to the hospital with a syncopal episode and had a fairly negative evalu ation. Now, however, he presents with fevers and chills. He has grade 4 neutropenia and also Klebsi rafa pneumoniae growing out of the blood. Aside from nausea and feeling generally unwell, he does no t have any other focal symptoms. PAST MEDICAL HISTORY: 1. Relapsed acute myeloid leukemia as described above. 2. Benign prostatic hypertrophy. CURRENT MEDICATIONS: Include acyclovir 400 mg p.o. twice b.i.d., meropenem, metoprolol, tamsulosin. ALLERGIES: To vancomycin. SOCIAL HISTORY: He is a nonsmoker, nondrinker. Lives with his . REVIEW OF SYSTEMS: Aside from pertinent positives in the HPI, a 14-point review of system is negativ e. EXAMINATION: VITAL SIGNS: Temperature was 36.7, heart rate 105, blood pressure 104/62, ox saturatio n 100% on room air. GENERAL: He was tired-appearing, but in no acute distress. HEENT: Sclerae ani cteric. Oropharynx is clear. NECK: Supple without lymphadenopathy. LUNGS: Clear to auscultation bilaterally. CARDIAC EXAMINATION: Regular rhythm. No murmurs, gallops, rubs. ABDOMEN: Normoactiv e bowel sounds. Nontender. EXTREMITIES: No edema, 2+ pulses. NEUROLOGIC: He is alert and oriente d x3. Strength and sensation are normal. SKIN: No petechiae, purpura. LABORATORY DATA: White count 0.18, hemoglobin 6.9, platelets of 32. Sodium 137, potassium 3.8, chlo ride 101, bicarb 21, BUN 18, creatinine 0.8, total bilirubin 2.9, albumin 2.9, AST 22, ALT 24. IMPRESSION: This is a 72-year-old man with relapsed acute myeloid leukemia, who presents with febril e neutropenia and Klebsiella bacteremia at the silvestre of his 3rd cycle of treatment. He is hemodynami royce stable, but appears somewhat ill. RECOMMENDATIONS: 1. Continue with antibiotics as you are. 2. White blood cell growth factors are relatively contraindicated in acute myeloid leukemia due to t he stimulatory factor that can happen with leukemia cells. Therefore, we will wait expectantly for r ecovery of his bone marrow function. 3. I will transfuse him 1 unit of red cells today for his hemoglobin of 6.9. He does not require a platelet transfusion right now. 4. He was scheduled to travel to [facility] on November [address] Crowder and to have a bone ma rrow biopsy. I think it is unlikely he will be able to make the trip as this current illness will li nima not have resolved by then. I recommended to him that we plan to do the bone marrow biopsy here after discharge and can communicate those results with Dr. Crowder. Will be important to have that i nformation to guide further therapy. I think given all these infectious complications, he should lik gaurav have a dose reduction and possibly elimination of one of the medications in his regimen to reduce the chance of this type of thing happening in the future. Thank for this consultation. We will continue to follow the patient with you closely while he is in the hospital. /[id number]/MODL
--- NOTE | 2017-11-17 13:34 | PDMN ---
Medical Necessity Medical necessity: Pt meets IP criteria per MD & MCG M-160; est los >2 mn for eval/tx of sepsis w/neutropenic fever, tachycardia & leukocytosis; requiring further monitoring, IV abx, ID/Oncology consults & IVFs; hx recent hospitalization for syncope (vagal vs hypotensive), AML on chemo; per H&P & order 11/16/17
[2017-11-17] MEDS: ENASIDENIB MESYLATE PO SCH (15:03)
[2017-11-17] MEDS ORDERED: PROTOCOL MAGNESIUM 1 DOSE IV PRN (16:06)
[2017-11-17] MEDS ORDERED: PROTOCOL POTASSIUM 1 DOSE MISC PRN (16:06)
[2017-11-17] MEDS ORDERED: ACETAMN/DIPHENHYDRAMINE 500/25MG TAB PO SCH (21:00)
[2017-11-17] MEDS ORDERED: POTASSIUM CL 10 MEQ TAB PO ONE (21:41)
[2017-11-18 04:36] LABS: PLATELET COUNT 20 10^3/uL (150-400)
[2017-11-18] MEDS: MEROPENEM 1 GM in NS 100 ML IV SCH ×3 (05:26→20:25)
[2017-11-18] MEDS ORDERED: POTASSIUM CL 10 MEQ TAB PO ONE ×2 (08:16→19:35)
[2017-11-18] MEDS: ACETAMINOPHEN 325 MG TAB PO PRN ×2 (08:18→16:05)
[2017-11-18] MEDS: METOPROLOL SUCCINATE XR 25 MG TAB PO SCH (10:17)
[2017-11-18] MEDS: TAMSULOSIN HCL 0.4 MG CAP PO SCH (10:17)
[2017-11-18] MEDS: ACYCLOVIR 400 MG TAB PO SCH ×2 (10:17→20:25)
[2017-11-18] MEDS: PANTOPRAZOLE SODIUM 40 MG TAB PO SCH (10:17)
[2017-11-18] MEDS: TIMOLOL 0.5% 15 ML OPHT.BTL LEFTEYE SCH (10:19)
--- NOTE | 2017-11-18 11:17 | SOAPPROG ---
SOAP Progress Note Assessment/Plan: Assessment: 1. AML, IDH2 mutated. s/p C3 of venetoclax/vidaza + idhifa 2. Febrile neutropenia 3. Klebsiella bacteremia Pt looks clinically better but ANC still 0. Plan: - continue abx - will hold next cycle of chemo until counts recover and BMBx can be done to clarify remission status (as outpatient) 11/18/17 11:16 Subjective: feels better today. Objective: exam unchanged Vital Signs Temp Pulse Resp BP Pulse Ox 37.1 C 102 H 18 120/60 100 11/18/17 08:00 11/18/17 10:17 11/18/17 08:00 11/18/17 10:17 11/18/17 08:00 Laboratory Results 11/18/17 03:58 11/18/17 03:58 11/17/17 11/18/17 11/19/17 05:59 05:59 05:59 Intake Total 1999 3661 Output Total 625 1775 Balance 1375 1886 PT 14.1 SEC (12.0-15.0) 11/16/17 17:34 INR 1.07 (0.83-1.16) 11/16/17 17:34 ICD10 Worksheet Patient Problems: Problems Problem Status Onset Neutropenia Acute Neutropenic fever Acute Arthritis, hip Acute Prolonged QT interval Acute Syncope Acute
--- NOTE | 2017-11-18 12:26 | HOSPPROG ---
Hospitalist Progress Note Assessment/Plan: 1. neutropenic fever/sepsis with + klebs bd cx -on merem day #2 -discussed care plan with Dr Echevarria and Dr Holcomb -await bd cultures, also repeat sets ordered to ensure clearance -euvolemic on exam s/p fluid resuscitation at admission 2. AML -discussed will not be able to get to [facility] tomorrow -thrombocytopenia, chronic, plts ordered -PRBC ordered by heme/onc for anemia yesterday but infusion stopped when had fever, reordered for today -planning BMT at [facility] 3. Hx JEANETTE -discussed with Dr Holcomb, do not suspect this is source at this time 4. Pancytopenia- see above 5. Hypokalemia -replace per protocol -normal today, mag OK PCP:Dr Vincent DVT prophy:contraindicated bc of thrombocytopenia FULL CODE DISPO- > 48 hours because of severe neutropenia and bacteremia/sepsis Subjective: No further nausea. Had a temp last nt but eating this AM and feels better. No CP/SOB/abd pain. Objective: Vital Signs Temp Pulse Resp BP Pulse Ox 97.6 F 89 18 100/52 L 99 11/18/17 11:28 11/18/17 11:28 11/18/17 11:28 11/18/17 11:28 11/18/17 11:28 Laboratory Results 11/18/17 03:58 11/18/17 03:58 11/17/17 11/18/17 11/19/17 11:59 11:59 11:59 Intake Total 3661 2000 Output Total 1275 1125 Balance 2386 875 PT 14.1 SEC (12.0-15.0) 11/16/17 17:34 INR 1.07 (0.83-1.16) 11/16/17 17:34 - Physical Exam Constitutional: no apparent distress, not in pain Eyes: anicteric sclera Ears, Nose, Mouth, Throat: moist mucous membranes, hearing normal Cardiovascular: regular rate and rhythym, no murmur, rub, or gallop, No edema Respiratory: no respiratory distress, no rales or rhonchi, clear to auscultation Gastrointestinal: normoactive bowel sounds, soft, non-tender abdomen Skin: warm, normal color Psychiatric: interacting appropriately, not anxious, not encephalopathic, thought process linear ICD10 Worksheet Patient Problems: Problems Problem Status Onset Neutropenia Acute Neutropenic fever Acute Arthritis, hip Acute Prolonged QT interval Acute Syncope Acute
[2017-11-18] MEDS: ENASIDENIB MESYLATE PO SCH (14:40)
[2017-11-18] MEDS ORDERED: MEPERIDINE 25 MG/ML SYR IVP PRN (15:57)
[2017-11-18] MEDS ORDERED: MEPERIDINE 25 MG/0.5 ML AMP IVP PRN (15:59)
[2017-11-18] MEDS: traMADol 50 MG TAB PO PRN (16:05)
--- NOTE | 2017-11-18 16:24 | PCMIDPN ---
Assessment/Plan: Assessment/Plan: * Neutropenic fever with Klebsiella pneumoniae bacteremia: Blood culture showing Klebsiella pneumoniae by BCID PCR testing. Susceptibility profile pending. Continue meropenem pending susceptibility with hopes can narrow. Repeat blood cultures are pending to document clearing of bacteremia. * History of MSSA/Gemella bacteremia: Receive 4 weeks of IV antibiotic therapy which was completed ultimately with ertapenem. * History of pulmonary infiltrates: Biopsy most compatible with diffuse alveolar damage. No respiratory symptoms currently. * Diarrhea: Continue to observe is mainly small amounts of incontinence with gas; may be related to decreased mucosal integrity associated with neutropenia. 11/18/17 16:20 Subjective: Patient complains of recurrent rigors. Notes some fecal incontinence with passing gas but no recurrent diarrhea. No abdominal pain. Objective: Vital Signs Temp Pulse Resp BP Pulse Ox 36.4 C 89 18 100/52 L 99 11/18/17 11:28 11/18/17 11:28 11/18/17 11:28 11/18/17 11:28 11/18/17 11:28 Laboratory Results 11/18/17 03:58 11/18/17 03:58 11/17/17 11/18/17 11/19/17 05:59 05:59 05:59 Intake Total 1999 3661 Output Total 625 1775 200 Balance 1375 1886 -200 Meropenem # 2 Blood cultures 11/16/2017/2 sets Klebsiella pneumoniae with susceptibility pending Blood cultures 11/18/2017 pending T-max 38.6 degrees - Physical Exam General Appearance: alert, other (Rigors present) EENT: other (Small ulceration along lateral aspect of tongue on right side which is less prominent), No scleral icterus, No thrush, No conjunctival petechiae Respiratory: lungs clear, No respiratory distress Cardiac/Chest: regular rate, rhythm Extremities: No inflammation Abdomen: non-tender, No distended Skin: No rash, No embolic lesions Neuro/Psych: No confused ICD10 Worksheet Patient Problems: Problems Problem Status Onset Neutropenia Acute Neutropenic fever Acute Arthritis, hip Acute Prolonged QT interval Acute Syncope Acute
[2017-11-18] MEDS: PROMETHAZINE HCL 25 MG TAB PO PRN (19:00)
[2017-11-19 04:52] LABS: PLATELET COUNT 27 10^3/uL (150-400)
[2017-11-19] MEDS: MEROPENEM 1 GM in NS 100 ML IV SCH (05:12)
[2017-11-19] MEDS: NS 1,000 ML IV SCH (05:12)
--- NOTE | 2017-11-19 08:52 | HOSPPROG ---
Hospitalist Progress Note Assessment/Plan: 1. Neutropenic fever: One fever in last 24 hours, clinically stable. ANC 15. - On meropenem day #3, ID following 2. Klebsiella pneumoniae bacteremia: - Awaiting sensitivities to narrow, repeat bcx drawn 11/18 3. AML: - Holding chemo until counts recover - Unable to get to [facility] today 4. Loose stools: 3 episodes overnight - Monitor, hold on C diff testing 5. Pancytopenia: Counts stable - s/p 1u plts and PRBCs 11/18 6. Hypokalemia: Low end of normal today -replace per protocol PCP: Dr Vincent DVT prophy: contraindicated bc of thrombocytopenia FULL CODE DISPO- Remain inpatient for severe neutropenia/IV antibiotics. Subjective: Fvered yesterday around 630pm. Had 3 looser BMs overnight with some assoicated nausea which isn't uncommon for him. No abdominal pain. Objective: Vital Signs Temp Pulse Resp BP Pulse Ox 36.9 C 83 16 110/66 95 11/19/17 08:32 11/19/17 08:32 11/19/17 08:32 11/19/17 08:32 11/19/17 08:32 Laboratory Results 11/19/17 04:00 11/19/17 04:00 11/18/17 11/19/17 11/20/17 05:59 05:59 05:59 Intake Total 3661 2690 Output Total 1775 2300 Balance 1886 390 PT 14.1 SEC (12.0-15.0) 11/16/17 17:34 INR 1.07 (0.83-1.16) 11/16/17 17:34 - Physical Exam Constitutional: no apparent distress, appears nourished, not in pain Eyes: PERRL, anicteric sclera, EOMI Ears, Nose, Mouth, Throat: moist mucous membranes, hearing normal, ears appear normal, no oral mucosal ulcers Cardiovascular: regular rate and rhythym, no murmur, rub, or gallop Respiratory: no respiratory distress, no rales or rhonchi, clear to auscultation Gastrointestinal: normoactive bowel sounds, soft, non-tender abdomen, no palpable masses Genitourinary: no bladder fullness, no bladder tenderness, no renal bruits Skin: no rashes or abrasions, no fluctuance, no induration Neurologic: AAOx3, sensation intact bilaterally Psychiatric: interacting appropriately, not anxious, not encephalopathic, thought process linear ICD10 Worksheet Patient Problems: Problems Problem Status Onset Neutropenia Acute Neutropenic fever Acute Arthritis, hip Acute Prolonged QT interval Acute Syncope Acute
[2017-11-19] MEDS: METOPROLOL SUCCINATE XR 25 MG TAB PO SCH (09:48)
[2017-11-19] MEDS: TAMSULOSIN HCL 0.4 MG CAP PO SCH (09:49)
[2017-11-19] MEDS: ACYCLOVIR 400 MG TAB PO SCH ×2 (09:49→20:46)
[2017-11-19] MEDS: PANTOPRAZOLE SODIUM 40 MG TAB PO SCH (09:50)
[2017-11-19] MEDS: TIMOLOL 0.5% 15 ML OPHT.BTL LEFTEYE SCH (09:55)
[2017-11-19] MEDS ORDERED: POTASSIUM CL 10 MEQ TAB PO ONE ×2 (10:45→20:21)
--- NOTE | 2017-11-19 11:52 | PCMIDPN ---
Assessment/Plan: Assessment/Plan: * Neutropenic fever with Klebsiella pneumoniae bacteremia: Repeat blood culture show clearing of bacteremia. Likely related to GI translocation in the setting of neutropenia. Will narrow meropenem to ceftriaxone based on susceptibility profile. Given QT prolongation, will not be feasible to use fluoroquinolone. Will review with Interventional Radiology regarding PICC placement in the setting of thrombocytopenia. * History of MSSA/Gemella bacteremia: Receive 4 weeks of IV antibiotic therapy which was completed ultimately with ertapenem. * History of pulmonary infiltrates: Biopsy most compatible with diffuse alveolar damage. No respiratory symptoms currently. * Diarrhea: Resolved. Suspect related to poor GI mucosal integrity 8 in the setting of neutropenia. Time spent, greater than 35 min, of which greater than half was spent in education/counseling/coordination of care related to neutropenic fever with Klebsiella pneumoniae bacteremia and plan of care. 11/19/17 11:49 Subjective: Patient was soft stool but no further diarrhea. No abdominal pain. Multiple questions regarding ongoing plan for treatment of AML. Objective: Vital Signs Temp Pulse Resp BP Pulse Ox 36.6 C 83 16 110/66 95 11/19/17 11:43 11/19/17 08:32 11/19/17 08:32 11/19/17 08:32 11/19/17 08:32 Laboratory Results 11/19/17 04:00 11/19/17 04:00 11/18/17 11/19/17 11/20/17 05:59 05:59 05:59 Intake Total 3661 2690 Output Total 1775 2300 375 Balance 1886 390 -375 Meropenem # 3 Blood cultures 11/18/2017 no growth Blood cultures 11/16/2017 1/2 Klebsiella pneumoniae T-max 39.1 - Physical Exam General Appearance: alert, no apparent distress EENT: scleral icterus (Faint), other (Small ulceration lateral portion of tongue on right which is decreasing in size), No thrush Respiratory: crackles (Bilateral bases), No respiratory distress Cardiac/Chest: regular rate, rhythm Extremities: No inflammation Abdomen: non-tender, No distended Skin: No rash ICD10 Worksheet Patient Problems: Problems Problem Status Onset Neutropenia Acute Neutropenic fever Acute Arthritis, hip Acute Prolonged QT interval Acute Syncope Acute
[2017-11-19] MEDS ORDERED: ALTEPLASE 2 MG VIAL IVP PRN (13:23)
--- NOTE | 2017-11-19 14:59 | ASMTCMCOM ---
CM Note CM Note Notes: Patient plan of care reviewed in rounds. Patient will need home infusion and HHC for treatment of bacteremia. Referrals to [facility] and [facility]. Kat from [facility] in to see the patient and his . Questions answered. Plan home with home infusion services and HHC. Date Signed: 11/19/2017 02:58 PM Electronically Signed By:Mery Iverson RN
[2017-11-19] MEDS: ENASIDENIB MESYLATE PO SCH (15:03)
--- NOTE | 2017-11-19 15:13 | SOAPPROG ---
SOAP Progress Note Assessment/Plan: Assessment/Plan: Patient is a 72-year-old male with refractory IDH mutated AML currently on azacitidine venetoclax and anti-H2 inhibitor admitted for Klebsiella pneumoniae bacteremia with febrile neutropenia. Problem #1 - febrile neutropenia with Klebsiella pneumoniae bacteremia Likely gut/GI translocation in the setting of neutropenia. Patient is currently on meropenem with infectious disease following. Given there is little likelihood of improved neutrophil count at this point would favor treating patient for defined course - 14 days, ensuring clinical stability and afebrile> 48 hours. Problem #2 - refractory IDH mutated acute myelogenous leukemia Patient is currently on cycle 3 of venetoclax, azacitadine and IDH2 inhibitor. Unknown if neutropenia is therapy related or underlying disease proceess. Once stable, will perform outpatient BMBx. We are currently holding his therapy at this time. -hold therapy at this time, patient can continue idhifa 11/19/17 15:22 Subjective: Patient reports some ongoing fatigue. No fevers, chills or sweats. No nausea or vomiting. No diarrhea or constipation. Objective: Vital Signs Temp Pulse Resp BP Pulse Ox 36.6 C 83 16 110/66 95 11/19/17 11:43 11/19/17 08:32 11/19/17 08:32 11/19/17 08:32 11/19/17 08:32 Laboratory Results 11/19/17 04:00 11/19/17 04:00 11/18/17 11/19/17 11/20/17 05:59 05:59 05:59 Intake Total 3661 2690 Output Total 1775 2300 775 Balance 1886 390 -775 PT 14.1 SEC (12.0-15.0) 11/16/17 17:34 INR 1.07 (0.83-1.16) 11/16/17 17:34 Physical examination: General: No acute distress, nontoxic appearing male HEENT: Pupils equal round reactive to light no scleral icterus or conjunctival pallor is appreciated some clouding of the left lens Neck: Supple without adenopathy Cardiovascular: Regular rate and rhythm without rubs thrills gallops or murmurs Chest: Clear to auscultation percussion bilateral posterior lungs Abdomen: Soft nontender nondistended no hepatosplenomegaly is appreciated Extremities: Warm and well-perfused 2+ dorsalis pedis and radial pulses bilaterally Neuro: Alert and oriented x3 ICD10 Worksheet Patient Problems: Problems Problem Status Onset Neutropenia Acute Neutropenic fever Acute Arthritis, hip Acute Prolonged QT interval Acute Syncope Acute
[2017-11-20 04:35] LABS: PLATELET COUNT 23 10^3/uL (150-400)
[2017-11-20] MEDS ORDERED: POTASSIUM CL 10 MEQ TAB PO ONE ×2 (07:54→19:47)
[2017-11-20] MEDS: ACYCLOVIR 400 MG TAB PO SCH ×2 (09:37→20:00)
[2017-11-20] MEDS: PANTOPRAZOLE SODIUM 40 MG TAB PO SCH (09:38)
[2017-11-20] MEDS: TAMSULOSIN HCL 0.4 MG CAP PO SCH (09:38)
[2017-11-20] MEDS: METOPROLOL SUCCINATE XR 25 MG TAB PO SCH (09:44)
[2017-11-20] MEDS ORDERED: MBX SOLN 30 ML BOTTLE PO PRN (10:21)
[2017-11-20] MEDS: TIMOLOL 0.5% 15 ML OPHT.BTL LEFTEYE SCH (10:23)
--- NOTE | 2017-11-20 10:24 | HOSPPROG ---
Hospitalist Progress Note Assessment/Plan: 1. Neutropenic fever: Afebrile, clinically stable. ANC 50. - Switched to CTX based on cultures 2. Klebsiella pneumoniae bacteremia: - Repeat BCx 11/18 negative - Plan for PICC placement today - Will complete 14 day course of CTX as above, not candidate for levofloxacin at home due to prolonged QTc 3. AML: - Followed by Dr Wheat - Continue Idhifa 4. Mouth sore: - Magic mouthwash 5. Pancytopenia: Counts stable - s/p 1u plts and PRBCs 11/18 6. 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 Hypokalemia: Low end of normal today -replace per protocol PCP: Dr Vincent DVT prophy: contraindicated bc of thrombocytopenia FULL CODE DISPO- Remain inpatient for severe neutropenia/IV antibiotics, PICC placement. Possibly discharge later tomorrow (11/21) after 72 hours fever-free. Subjective: Did well overnight. No fevers/chills. Minimal appetite but no n/v/ d. Had a couple more looser stools that's been rather chronic for him. Objective: Vital Signs Temp Pulse Resp BP Pulse Ox 36.6 C 75 12 110/66 96 11/20/17 08:51 11/20/17 09:44 11/20/17 08:51 11/20/17 09:44 11/20/17 08:51 Laboratory Results 11/20/17 03:48 11/20/17 03:48 11/19/17 11/20/17 11/21/17 05:59 05:59 05:59 Intake Total 2690 400 Output Total 2300 2250 Balance 390 -1850 PT 14.1 SEC (12.0-15.0) 11/16/17 17:34 INR 1.07 (0.83-1.16) 11/16/17 17:34 - Physical Exam Constitutional: no apparent distress, appears nourished, not in pain Eyes: PERRL, anicteric sclera, EOMI Ears, Nose, Mouth, Throat: moist mucous membranes, hearing normal, ears appear normal, other (erythematous lesions without ulceration on right lateral tongue) Cardiovascular: regular rate and rhythym, no murmur, rub, or gallop Respiratory: no respiratory distress, no rales or rhonchi, clear to auscultation Gastrointestinal: normoactive bowel sounds, soft, non-tender abdomen, no palpable masses Genitourinary: no bladder fullness, no bladder tenderness, no renal bruits Skin: no rashes or abrasions, no fluctuance, no induration Musculoskeletal: full muscle strength, no muscle tenderness, normal joint ROM Neurologic: AAOx3, sensation intact bilaterally Psychiatric: interacting appropriately, not anxious, not encephalopathic, thought process linear ICD10 Worksheet Patient Problems: Problems Problem Status Onset Neutropenia Acute Neutropenic fever Acute Arthritis, hip Acute Prolonged QT interval Acute Syncope Acute
--- NOTE | 2017-11-20 10:56 | SOAPPROG ---
SOAP Progress Note Assessment/Plan: Assessment/Plan: Patient is a 72-year-old male with refractory IDH mutated AML currently on azacitidine venetoclax and IDH2 inhibitor admitted for Klebsiella pneumoniae bacteremia with febrile neutropenia. Problem #1 - febrile neutropenia with Klebsiella pneumoniae bacteremia Likely gut/GI translocation in the setting of neutropenia. Patient was on meropenem, now on ceftriaxone given susceptibilities. Infectious disease following. Given there is little likelihood of improved neutrophil count at this point would favor treating patient for defined course - 14 days, ensuring clinical stability and afebrile> 48 hours as goal for discharge. While classic neutropenic fever doesn't usually include de-escalation of antibiotics, seems torrez in this sense given anticipated prolonged neutropenia secondary to disease state. Problem #2 - refractory IDH2 mutated acute myelogenous leukemia Patient is currently on cycle 3 of venetoclax, azacitadine and IDH2 inhibitor. Unknown if neutropenia is therapy related or underlying disease process although likely underlying disease process. Once stable, will perform outpatient BMBx. We are currently holding his therapy at this time. -hold therapy at this time, patient can continue idhifa Anticipate discharge tomorrow after PICC line placement. Brennen Sánchez Subjective: Patient reports feeling well without complaints. No fevers, no chills. No diarrhea, improved energy level. Switched to ceftriaxone. Objective: Vital Signs Temp Pulse Resp BP Pulse Ox 36.6 C 75 12 110/66 96 11/20/17 08:51 11/20/17 09:44 11/20/17 08:51 11/20/17 09:44 11/20/17 08:51 Laboratory Results 11/20/17 03:48 11/20/17 03:48 11/19/17 11/20/17 11/21/17 05:59 05:59 05:59 Intake Total 2690 400 Output Total 2300 2250 420 Balance 390 -1850 -420 PT 14.1 SEC (12.0-15.0) 11/16/17 17:34 INR 1.07 (0.83-1.16) 11/16/17 17:34 Physical examination: General: No acute distress, nontoxic appearing male HEENT: Pupils equal round reactive to light no scleral icterus or conjunctival pallor is appreciated some clouding of the left lens Neck: Supple without adenopathy Cardiovascular: Regular rate and rhythm without rubs thrills gallops or murmurs Chest: Clear to auscultation percussion bilateral posterior lungs Abdomen: Soft nontender nondistended no hepatosplenomegaly is appreciated Extremities: Warm and well-perfused 2+ dorsalis pedis and radial pulses bilaterally Neuro: Alert and oriented x3 ICD10 Worksheet Patient Problems: Problems Problem Status Onset Neutropenia Acute Neutropenic fever Acute Arthritis, hip Acute Prolonged QT interval Acute Syncope Acute
--- NOTE | 2017-11-20 12:43 | ASMTCMCOM ---
CM Note CM Note Notes: Patient plan of care reviewed in interdisciplinary rounds. He is to have PICC line placed today. Being followed by ID. He will go home with HHC ([facility]) and Home infusion ([facility]) when he is medical cleared for dc. Followed by ID. [facility] funding approved. CM to follow. Plan: Home with services as outlined above. Date Signed: 11/20/2017 12:11 PM Electronically Signed By:Mery Iverson RN
[2017-11-20] MEDS: ENASIDENIB MESYLATE PO SCH (14:23)
--- NOTE | 2017-11-20 16:38 | PCMIDPN ---
Assessment/Plan: Assessment/Plan: * Neutropenic fever with Klebsiella pneumoniae bacteremia: Repeat blood culture show clearing of bacteremia. Likely related to GI translocation in the setting of neutropenia. Continue ceftriaxone with anticipated 2 week course of therapy. Fluoroquinolone use precluded by prolonged QT interval. If neutropenia persist after completion of ceftriaxone, will consider use of suppressive Augmentin with goal of reducing recurrent infectious episodes. If remains afebrile, anticipate probable discharge home tomorrow. * Diarrhea: Currently only experiencing soft stool. Suspect related to poor GI mucosal integrity 8 in the setting of neutropenia. 11/20/17 16:35 Subjective: Patient feels significantly improved. Sitting up in bed using computer. No recurrent diarrhea only soft stool present. Objective: Vital Signs Temp Pulse Resp BP Pulse Ox 36.8 C 79 16 118/62 99 11/20/17 15:58 11/20/17 15:58 11/20/17 15:58 11/20/17 15:58 11/20/17 15:58 Laboratory Results 11/20/17 03:48 11/20/17 03:48 11/19/17 11/20/17 11/21/17 05:59 05:59 05:59 Intake Total 2690 400 Output Total 2300 2250 420 Balance 390 -1850 -420 Ceftriaxone # 2 Antibiotics # 4 Blood cultures 11/18/2017 no growth - Physical Exam General Appearance: alert, no apparent distress EENT: other (Oral ulceration on tongue less prominent), No scleral icterus Respiratory: lungs clear, No respiratory distress Cardiac/Chest: regular rate, rhythm Abdomen: non-tender, No distended - Time Spent With Patient Time Spent with Patient: greater than 25 minutes Time Spent with Patient: Greater than 25 minutes spent on this patients care, greater than 50% of time spent counseling, educating, and coordinating care regarding the above mentioned plan. ICD10 Worksheet Patient Problems: Problems Problem Status Onset Neutropenia Acute Neutropenic fever Acute Arthritis, hip Acute Prolonged QT interval Acute Syncope Acute
--- NOTE | 2017-11-20 16:39 | PDIAF ---
- Diagnosis Diagnosis: Klebsiella pneumoniae bacteremia, chronic neutropenia Code Status: Full Code - Medication Management Discharge Medications: Medications to Continue on Transfer Cholecalciferol (Vitamin D3) [Vitamin D3] 5,000 unit PO HS 08/16/14 [Last Taken 11/13/17] Acetaminophen [Tylenol ES 500 mg (*)] 500 mg PO Q4H PRN 09/24/17 [Last Taken 21:00] Acetamn/Diphenhydramine 500/25 [Tylenol PM (*)] 1 each PO HS 09/24/17 [Last Taken 11/13/17] Acyclovir [Zovirax 400 mg (*)] 400 mg PO BID 09/24/17 [Last Taken 11/13/17 21:00 ] Allopurinol [Allopurinol 300 MG (RX)] 300 mg PO AD PRN 09/24/17 [Last Taken Unknown] Timolol 0.5% [TIMOPTIC 0.5% (*)] 1 drops LEFTEYE DAILY 09/24/17 [Last Taken ] Pantoprazole Sodium [Protonix 40mg (*)] 40 mg PO DAILY10 10/09/17 [Last Taken ] Tamsulosin HCl [Flomax 0.4 MG (*)] 0.4 mg PO DAILY10 10/09/17 [Last Taken ] Enasidenib Mesylate [Idhifa] 100 mg PO DAILY14 11/14/17 [Last Taken 11/13/17] Metoprolol Succinate Xr [Toprol Xl 25 mg (*)] 12.5 mg PO DAILY #30 tab 11/15/17 [Last Taken Unknown] 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 PICC Care - Routine: Yes - Orders Services needed: Home Assisted Care Face to Face: I certify that this patient was under my care and that I had the required [id number] encounter meeting the encounter requirements on the discharge day. My findings support the fact that the patient is homebound as defined in Home Care Face to Face Continued: CMS Chapter 7 Medicare Benefits Manual 30.1.1 , The condition of the patient is such that there exists a normal inability to leave home and consequently, leaving home would require a considerable and taxing effort. Isolation Type: Chemotherapy Isolation, Neutropenic Isolation - Labs/Radiology CBC w/diff Date: 11/26/17 CMP Date: 11/26/17 Call or Fax Lab and Imaging Results to: Dr. Holcomb, - Follow Up Care Current Providers and Referrals: MARINA BARNETT [Primary Care Provider] - As per Instructions
[2017-11-21 05:43] LABS: PLATELET COUNT 22 10^3/uL (150-400)
[2017-11-21] MEDS ORDERED: POTASSIUM CL 10 MEQ TAB PO ONE (07:57)
[2017-11-21 08:23] VITALS: BP 120/62
[2017-11-21] MEDS: TAMSULOSIN HCL 0.4 MG CAP PO SCH (09:22)
[2017-11-21] MEDS: METOPROLOL SUCCINATE XR 25 MG TAB PO SCH (09:23)
[2017-11-21] MEDS: PANTOPRAZOLE SODIUM 40 MG TAB PO SCH (09:24)
[2017-11-21] MEDS: ACYCLOVIR 400 MG TAB PO SCH (09:24)
[2017-11-21] MEDS: TIMOLOL 0.5% 15 ML OPHT.BTL LEFTEYE SCH (09:35)
--- NOTE | 2017-11-21 10:50 | ASMTCMCOM ---
CM Note CM Note Notes: Patient has been medically cleared for discharge to home with Home infusion for antibiotics via [facility] and [facility]. Interagency forms sent to both companies, Patient to receive his dose of antibiotic here and begin infusion services tomorrow. No other needs identfiied at present. CM available should needs arise. Plan: Home with [facility] and infusion as above. Date Signed: 11/21/2017 10:49 AM Electronically Signed By:Mery Iverson RN
--- NOTE | 2017-11-21 10:52 | ASMTLACE ---
LACE Length of stay for Answers: 4-6 days current admission Acuity / Level of Answers: Yes Care: Did the patient have an inpatient admission? Comorbidities - select Answers: Any tumor (including all that apply lymphoma or leukemia) Other Notes: BPH, Gout # of Emergency department Answers: 1-2 visits in the last 6 months Score: 11 Date Signed: 11/21/2017 10:51 AM Electronically Signed By:Mery Iverson RN
--- NOTE | 2017-11-21 16:33 | PDDCSUM ---
Discharge Summary Discharge Summary: Date of Admission: 11/16/2017 Date of Discharge: 11/21/2017 Consultants: oncology, ID, IR Procedures: PICC line placement Discharge Diagnoses: 1. Neutropenic fever 2. Klebsiella pneumoniae bacteremia 3. Sepsis, POA now resolved 4. AML 5. Pancytopenia either due to chemotherapy or underlying leukemia 6. Prolonged QTc 7. Hypokalemia Brief Hospital Course: 72yo M with AML presented with neutropenic fever and sepsis physiology. He was found to have Klebsiella pneumoniae bacteremia which we attributed to gut translocation as he was having some loose stools related to his chemotherapy. No other source of infection was identified. ID was consulted and he will complete a 14 day course of IV ceftriaxone via PICC (fluoroquinolone contra- indicated with his prolonged QTc). His ANC was roughly 50 on day of discharge and ID will consider suppressive augmentin if neutropenia persists after completion of IV antibiotics. He is currently on cycle 3 of venetoclax, azacitadine, and IDH2 inhibitor. It is unclear if neutropenia is therapy related or underlying disease process although likely the latter. Once stable from infection stand point, onc planning on bone marrow biopsy. Currently holding therapy with exception of idhifa. Medications: Please refer to EMR for complete list. Changes this admission include addition of ceftriaxone. Follow Up Plan: 1. To complete 14 day course of IV ceftriaxone, follow up with ID 2. Clinic visit with Dr Wheat to address need for bone marrow biopsy Physical Exam: Vitals reviewed, afebrile. Alert and oriented without neurologic deficits. RRR without murmur, lungs clear, abdomen soft and nontender, no rashes. Improving sore on right lateral tongue, no thrush. PICC line without signs of infection.
--- NOTE | 2017-11-21 16:59 | ASDISCHSUM ---
Discharge Information Plan Status:IV ABX/Infusion Medically Cleared to Leave: Discharge Date:11/21/2017 12:04 PM D/C Disposition:Home Health Service [facility] D/C Disposition:Home, Routine, Self-Care Projected Discharge Date:11/21/2017 11:00 AM Transportation at D/C: Discharge Delay Reason: Follow-Up Date:11/21/2017 11:00 AM Discharge Slot: Final Diagnosis: Placement Information Referral Type:Home Infusion Referral ID:[id number] Provider Name:[facility] ([facility] Address 1:[address] Address 2: City:[place] Selection Factors: State:[place] Referral Type:*Home Health Care Services Referral ID:[id number] Provider Name:[facility] (DN) Address 1:[address] Address 2: City:[place] Selection Factors: State:[place] Patient Contact Information Contact Name:FANNY Relationship: Address:[address] [place] [address] [address] City:[place] Alternate Phone: [facility]/Zip Code:[place] [address] Email: Financial Information Financial Class:Medicare Primary Plan Desc:MEDICARE INPATIENT Primary Plan Number:[id number] Secondary Plan Desc:Med.ly Secondary Plan Number:[id number] Assessment Information LACE LACE Length of stay for Answers: 4-6 days current admission Acuity / Level of Answers: Yes Care: Did the patient have an inpatient admission? Comorbidities - select Answers: Any tumor (including all that apply lymphoma or leukemia) Other Notes: BPH, Gout # of Emergency department Answers: 1-2 visits in the last 6 months Score: 11 Date Signed: 11/21/2017 10:51 AM Electronically Signed By:Mery Iverson RN [facility] CM Progress Note CM Note CM Note Notes: Chart reviewed for discharge planning purposes. Patient recently dc'd after cardiology workup for syncope. Readmitted via ED with c/o fever, malaise, urgency and SOB. Resides with wiife has prior diagnosis of AML. Needs TBD at this time. CM to follow. Plan: TBD Date Signed: 11/17/2017 09:29 AM Electronically Signed By:Mery Iverson RN [facility] CM Progress Note CM Note CM Note Notes: Patient plan of care reviewed in rounds. Patient will need home infusion and HHC for treatment of bacteremia. Referrals to [facility] and [facility]. Kat from [facility] in to see the patient and his . Questions answered. Plan home with home infusion services and HHC. Date Signed: 11/19/2017 02:58 PM Electronically Signed By:Mery Iverson RN [facility] CM Progress Note CM Note CM Note Notes: Patient plan of care reviewed in interdisciplinary rounds. He is to have PICC line placed today. Being followed by ID. He will go home with HHC ([facility]) and Home infusion ([facility]) when he is medical cleared for dc. Followed by ID. [place] funding approved. CM to follow. Plan: Home with services as outlined above. Date Signed: 11/20/2017 12:11 PM Electronically Signed By:Mery Iverson RN [facility] CM Progress Note CM Note CM Note Notes: Patient has been medically cleared for discharge to home with Home infusion for antibiotics via [facility]. Interagency forms sent to both companies, Patient to receive his dose of antibiotic here and begin infusion services tomorrow. No other needs identfiied at present. CM available should needs arise. Plan: Home with HHC and infusion as above. Date Signed: 11/21/2017 10:49 AM Electronically Signed By:Mery Iverson RN Intervention Information Intervention Type:*Incorrect Registration Date of Service:11/16/2017 04:09 AM Patient Type:Observation Staff Member:KALA Abdi Courtney Hours: Discipline: Severity: Comment: Intervention Type:*IM-Signed Date of Service:11/21/2017 11:05 AM Patient Type:Inpatient Staff Member:Steph Sabillon Hours: Discipline: Severity: Comment:
--- NOTE | 2017-11-21 20:11 | SOAPPROG ---
SOAP Progress Note Assessment/Plan: Assessment/Plan: Patient is a 72-year-old male with refractory IDH mutated AML currently on azacitidine venetoclax and IDH2 inhibitor admitted for Klebsiella pneumoniae bacteremia with febrile neutropenia. Problem #1 - febrile neutropenia with Klebsiella pneumoniae bacteremia Likely gut/GI translocation in the setting of neutropenia. Patient was on meropenem, now on ceftriaxone given susceptibilities. Infectious disease following. Has been afebrile 72 hours, okay for discharge on ceftriaxone to complete 2 weeks of therapy. Has outpatient ID follow-up Problem #2 - refractory IDH2 mutated acute myelogenous leukemia Patient is currently on cycle 3 of venetoclax, azacitadine and IDH2 inhibitor. Unknown if neutropenia is therapy related or underlying disease process although likely underlying disease process. -hold therapy at this time, patient can continue idhifa -follow-up with Dr. Wheat for bone marrow biopsy this week Brennen Sánchez 11/21/17 20:07 Subjective: Patient reports feeling well without fevers chills or drenching night sweats. No new symptoms, no diarrhea or constipation. Stools are softer than usual but nothing else significant. Objective: Vital Signs Temp Pulse Resp BP Pulse Ox 36.6 C 74 16 120/62 95 11/21/17 08:22 11/21/17 09:23 11/21/17 08:22 11/21/17 09:23 11/21/17 08:22 Laboratory Results 11/21/17 04:42 11/21/17 04:42 11/20/17 11/21/17 11/22/17 05:59 05:59 05:59 Intake Total 400 50 Output Total 2250 1720 Balance -1850 -1720 50 PT 14.1 SEC (12.0-15.0) 11/16/17 17:34 INR 1.07 (0.83-1.16) 11/16/17 17:34 Physical examination: General: No acute distress, nontoxic appearing male HEENT: Pupils equal round reactive to light no scleral icterus or conjunctival pallor is appreciated some clouding of the left lens Neck: Supple without adenopathy Cardiovascular: Regular rate and rhythm without rubs thrills gallops or murmurs Chest: Clear to auscultation percussion bilateral posterior lungs Abdomen: Soft nontender nondistended no hepatosplenomegaly is appreciated Extremities: Warm and well-perfused 2+ dorsalis pedis and radial pulses bilaterally. picc line site without redness or warmth Neuro: Alert and oriented x3 ICD10 Worksheet Patient Problems: Problems Problem Status Onset Arthritis, hip Acute Neutropenia Acute Neutropenic fever Acute Prolonged QT interval Acute Syncope Acute
== END 2017-11-21 12:04 | disposition home health service (06) | DRG 871 ==
LOC: OBSVTOIN 19:25 → F1N 20:15
PROVIDERS: ADMIT Internal Medicine; ATTEND Internal Medicine
PROC: 30233N1 Transfusion of Nonautologous Red Blood Cells into Peripheral Vein, Percutaneous Approach (ICD-10-PCS; 2017-11-17)
PROC: 30233R1 Transfusion of Nonautologous Platelets into Peripheral Vein, Percutaneous Approach (ICD-10-PCS; 2017-11-18)
PROC: 02H633Z Insertion of Infusion Device into Right Atrium, Percutaneous Approach (ICD-10-PCS; principal; 2017-11-20)
DX: A41.89 Other specified sepsis (principal); D61.810 Antineoplastic chemotherapy induced pancytopenia; C92.00 Acute myeloblastic leukemia, not having achieved remission; D70.9 Neutropenia, unspecified; R50.81 Fever presenting with conditions classified elsewhere; B96.1 Klebsiella pneumoniae [K. pneumoniae] as the cause of diseases classified elsewhere; E87.6 Hypokalemia; I45.81 Long QT syndrome; N40.0 Benign prostatic hyperplasia without lower urinary tract symptoms; Z96.649 Presence of unspecified artificial hip joint; Z96.641 Presence of right artificial hip joint
CPT/HCPCS: 82435-PO; 82565-PO; 82947-PO; 84132-PO; 84295-PO; 84484-PO; 84520-PO; 85014-PO; 86905-90; 96365; 97165-GO; 99001-90; C1751; G0378; G8987-GO-CI; G8988-GO-CI; J0692; J0696; J1335; J1650; J2175; J2185; J2270; P9016; P9040; P9073

== ENCOUNTER → 2017-12-31 | Outpatient (CLI) | payer OTHER | LOC: FIMAGING 14:39 | PROVIDERS: ATTEND Internal Medicine Infectious Disease | DX: R50.9 Fever, unspecified (principal); C92.00 Acute myeloblastic leukemia, not having achieved remission ==

== ENCOUNTER → 2018-01-09 | Outpatient (CLI) | payer OTHER ==
[~2018-01-09] MED LIST changes: +ACETAMINOPHEN 325 MG TAB PO ONE; -IOPAMIDOL (ISOVUE-300) 100 ML BTL ONE
--- NOTE | 2018-01-09 18:32 | PCMIDPN ---
Assessment/Plan: Assessment/Plan: * Neutropenic fever: Overall significantly improved and had experience resolution of fever prior to earlier today which point in time he had temperature to 38.3 which was short lived in resolve within 1 hr after administration of Tylenol. No focal localizing symptoms other than episodic cough and ongoing fatigue/dizziness. Remains profoundly neutropenic based on lab findings. Will continue Augmentin as not able to use fluoroquinolone in the setting of QT prolongation. Discussed with patient that if he develops recurrent rigors or higher grade temperature that he should proceed immediately to emergency department. Plan to repeat blood cultures if fever recurs as well. Patient and are well informed regarding ongoing plan of care. 01/09/18 18:29 Subjective: Patient seen while receiving packed red blood cells today on OB unit. Describes having temperature to approximately 38.3 earlier today which lasted less than 1 hr and resolved promptly after intake of Tylenol. Notes that prior fevers had ceased. Does describe episodic cough but no significant shortness of breath. Receiving transfusion due to low hematocrit and syncopal episode last weekend. No nausea, vomiting or diarrhea. No abdominal pain. No oral ulcerations. Continues to take Augmentin twice daily. - Physical Exam General Appearance: alert, no apparent distress, non-toxic EENT: other (No oral ulcerations), No scleral icterus, No thrush, No conjunctival petechiae Respiratory: chest non-tender, No respiratory distress Cardiac/Chest: regular rate, rhythm Extremities: No inflammation Abdomen: non-tender, No distended ICD10 Worksheet Patient Problems: Problems Problem Status Onset Arthritis, hip Acute Neutropenia Acute Neutropenic fever Acute Prolonged QT interval Acute Syncope Acute
== END ==
LOC: FOBOP 11:58
PROVIDERS: ATTEND Internal Medicine Hematology & Oncology
PROC: 30233N1 Transfusion of Nonautologous Red Blood Cells into Peripheral Vein, Percutaneous Approach (ICD-10-PCS; principal; 2018-01-09)
DX: D70.9 Neutropenia, unspecified (principal); C92.00 Acute myeloblastic leukemia, not having achieved remission; D64.9 Anemia, unspecified
CPT/HCPCS: 36430; J1200; P9016; P9040; 99001-90

== ENCOUNTER → 2018-01-22 | Outpatient (CLI) | payer OTHER | LOC: BHFA 13:30 | PROVIDERS: ATTEND Internal Medicine Cardiovascular Disease | DX: R94.31 Abnormal electrocardiogram [ECG] [EKG] (principal); R55 Syncope and collapse ==